=== PATIENT | male | born 1955 | race Caucasian/White ===

== ENCOUNTER → 2022-11-16 | Outpatient (CLI) | payer MEDICARE, OTHER, SELFPAY ==
[2022-11-16 17:20] LABS: PSA,Total - Annual Screen 0.37 ng/mL (0.00-4.00)
== END | disposition home or self-care (01) ==
PROVIDERS: PCP Family Medicine; Visit Provider Registered Nurse
DX: Z12.5 Encounter for screening for malignant neoplasm of prostate (principal)
CPT/HCPCS: 36415; 84153; G0103

== ENCOUNTER → 2022-11-23 | Outpatient (CLI) | payer MEDICARE, OTHER, SELFPAY ==
--- NOTE | 2022-11-23 13:28 | CT_ITS ---
EXAM: CT ABDOMEN AND PELVIS WITHOUT AND WITH INTRAVENOUS CONTRAST CLINICAL INDICATION: GROSS HEMATURIA TECHNIQUE: Helically acquired images were obtained of the abdomen and pelvis without and with intravenous contrast. This CT exam was performed using one or more of the following dose reduction techniques: automated exposure control, adjustment of the mA and/or kV according to patient size, and/or use of iterative reconstruction technique. This report was created using KDS report generation technology. CONTRAST: IV 100mL Isovue-300 COMPARISON: None. FINDINGS: LOWER THORAX: There are pleural calcifications at the left lung base which may represent asbestos related pleural disease. There is minimal scarring at the left base. No cardiomegaly. No significant pericardial effusion. ABDOMEN: LIVER: The liver is decreased in attenuation compatible with fatty infiltration. GALLBLADDER AND BILE DUCTS: Unremarkable. No calcified gallstones. No gallbladder distention or wall edema. No intra- or extrahepatic biliary ductal dilation. PANCREAS: Unremarkable. No focal cystic or solid mass. SPLEEN: Unremarkable. Normal size without focal cystic or solid mass. ADRENALS: Unremarkable. No nodules. KIDNEYS AND URETERS: Unremarkable. Normal renal size and position. No hydronephrosis. STOMACH AND BOWEL: There is moderate stool in the colon which may represent constipation. No stomach or bowel distention. No focal inflammatory change. PELVIS: APPENDIX: No evidence of acute appendicitis. BLADDER: There is a soft tissue mass in the left lateral aspect of the urinary bladder that measures 1.5 x 1.1 x 1.0 cm. REPRODUCTIVE: Unremarkable as visualized. No mass. ABDOMEN and PELVIS: INTRAPERITONEAL SPACE: Unremarkable. No ascites or other fluid collection. No free air. BONES/JOINTS: Unremarkable. No suspicious lytic or blastic abnormality. SOFT TISSUES: Unremarkable. No discrete abdominal or pelvic wall hernia. VASCULATURE: Unremarkable. Abdominal aorta is non-dilated. LYMPH NODES: Unremarkable. No enlarged lymph nodes. OTHER FINDINGS: Delayed images show normal excretion of contrast bilaterally. CT/CT Abd/Pelvis W/WO Contrast IMPRESSION: 1. Soft tissue mass in the left aspect of the bladder possibly representing malignancy. Further evaluation with cystoscopy is recommended. 2. Moderate stool in the colon which may represent constipation. Electronically Signed: Fred Chandler MD at 23:32 EST ,
[2022-11-23 14:11] LABS: CREATININE FINGERSTICK < 0.9 mg/dL (0.70-1.30); EGFR FINGERSTICK > 60.0000 mL/min (>60)
== END | disposition home or self-care (01) ==
LOC: CT 13:23
PROVIDERS: PCP Family Medicine; Referring Provider Urology; Visit Provider Urology
DX: R31.0 Gross hematuria (principal)
CPT/HCPCS: 74178; Q9967

== ENCOUNTER → 2024-06-30 | Outpatient (CLI) | payer MEDICARE, OTHER, SELFPAY ==
--- NOTE | 2024-06-27 15:00 | BLA_PTH ---
PATIENT: KAELYN ROSALES LOC: [facility] U#:[id number] AGE/SX: 69/M ROOM: RE06/30/[address]: Dr. Humberto Palm MD : 1955 BED: DIS: 06/30/2024 SPEC #: [id number] RECD: 06/30/24 14:52 STATUS: TIFFANY REChemo #: [id number] MAYCOL: 06/27/24 15:[address]: Humberto Palm DEPT: SURGICAL PATHOLOGY RECD BY: Alyssa Sanchez ENTERED: 07/01/24 09:26 SP TYPE: BLADDER BX OTHR DR: Dr. Rodney Ley MD [facility] Tissues: Urinary bladder, NOS Procedures: Surgery Specimen Level IV HEADER OPERATION: Bladder biopsy with fulguration PRE-OP DIAGNOSIS: Malignant neoplasm of lateral wall of bladder, neoplasm of uncertain behavior of bladder TISSUE SUBMITTED: Bladder tumor MICROSCOPIC DIAGNOSIS Bladder tumor, biopsy: A minute fragment of hyperplastic urothelium, insufficient for further evaluation. See comment. 07/02/2024 COMMENT Clinical correlation and appropriate follow up are necessary. Case has been reviewed in consultation with Dr. Navarrete who concurs with the above diagnosis. IDC:AM MICROSCOPIC DESCRIPTION Slides are reviewed. GROSS DESCRIPTION Received in fixative is one container labeled with the patient's name and designated Bladder tumor. No obvious specimen is noted in the container. A minute black fragment is noted. The specimen is submitted for cell block preparation. 07/01/2024 TC: Cannot code CPT:63155
== END | disposition home or self-care (01) ==
LOC: LABSPEC 15:12
PROVIDERS: PCP Family Medicine; Referring Provider Urology; Visit Provider Urology
DX: D41.4 Neoplasm of uncertain behavior of bladder (principal)
CPT/HCPCS: 88305

== ENCOUNTER → 2025-02-26 | Outpatient (CLI) | payer MEDICARE, OTHER, SELFPAY ==
--- NOTE | 2025-02-26 09:12 | FLU_PTH ---
PATIENT: KAELYN ROSALES LOC: [facility] [address] U#:[id number] AGE/SX: 69/M ROOM: RE02/26/[address]: Dr. Humberto Palm MD : 1955 BED: DIS: 02/26/2025 SPEC #: [id number] RECD: 02/26/25 13:00 STATUS: TIFFANY REQ #: [id number] MAYCOL: 02/26/25 09:[address]: Humberto Palm DEPT: CYTOLOGY RECD BY: Avelino Cooney ENTERED: 02/27/25 08:59 SP TYPE: Fluid OTHR DR: Dr. Rodney Ley MD Tissues: Urine Procedures: Special Stain Group II Surgery Specimen Level IV Cytospin Fluid HEADER OPERATION: Not noted PRE-OP DIAGNOSIS: Malignant neoplasm of lateral wall of bladder TISSUE SUBMITTED: A- Urine for cytology *voided* DIAGNOSIS CYTOLOGY A. Urine (cytospin): * Atypical cells present. CYTOLOGY STUDY Slides are reviewed. CYTOLOGY GROSS A. Received is 20 ml of yellow-cloudy fluid labeled with the patient's name and and designated per the requisition as urine. Submitted for cytology preparation. 02/26/2025 CPT: 83045
[2025-02-26 16:22] LABS: Cytology, Body Fluid / CSF SEE PATHOLOGY REPORT
== END | disposition home or self-care (01) ==
LOC: LABSPEC 16:00
PROVIDERS: PCP Family Medicine; Referring Provider Urology; Visit Provider Urology
DX: C67.2 Malignant neoplasm of lateral wall of bladder (principal)
CPT/HCPCS: 88108; 88305; 88313

== ENCOUNTER → 2025-08-27 | Outpatient (CLI) | payer MEDICARE, OTHER, SELFPAY | END | disposition home or self-care (01) | LOC: PSN 08:40 | PROVIDERS: PCP Family Medicine; Referring Provider Urology; Visit Provider Urology | DX: Z01.810 Encounter for preprocedural cardiovascular examination (principal) | CPT/HCPCS: 93005 ==

== ENCOUNTER 2025-09-04 09:14 | Day surgery (SDC) | payer MEDICARE, OTHER, SELFPAY ==
--- NOTE | 2025-09-01 07:20 | PAT.ANE_ITS ---
Pre-Assessment Diagnosis/Proposed Procedure Planned Operative Procedure(s): TRANSURETHRAL RESECTION OF BLADDER TUMOR Anesthesia History Anesthesia History - lactation specialist: Anesthesia History - lactation specialist Hx Hospitalization No 08/31/25 13:07 Any Problems With Anesthesia No 08/31/25 13:07 Cholinesterase deficiency No 08/31/25 13:07 You/Your Family Experience No 08/31/25 13:07 fever (hyperthermia) with Relationship Recent Exposure to Contagious Disease Does patient have nerve No 08/31/25 13:07 stimulator Patient instructed to have device shut off --Does patient have Pacemaker or ICD? When Was Last Pacemaker Check QUESTION #4 FULL TEXT: You/Your Family Experience fever (hyperthermia) with Anesthesia Last Oral Intake Last Oral intake: Last Oral Intake NPO since Meds taken in AM with sips of water? Meds patient instructed to take am of surgery PONV PONV - lactation specialist: PONV - lactation specialist Female No 08/31/25 13:07 HX of Motion Sickness No 08/31/25 13:07 HX of N/V After Surgery No 08/31/25 13:07 Non-Smoker Yes 08/31/25 13:07 Duration of Surgery greater Yes 08/31/25 13:07 than 60 minutes Number of Risk Factors 2 08/31/25 13:07 PONV Score Moderate Risk 08/31/25 13:07 Respiratory Assessment Respiratory Assessment - lactation specialist: Respiratory Tract Infection Hx - lactation specialist Hx Respiratory Tract Infection No 08/31/25 13:07 STOP Sleep Apnea STOP Sleep Apnea - lactation specialist: STOP Sleep Apnea - lactation specialist Hx Hypertension No 08/31/25 13:07 Hx Sleep Apnea No 08/31/25 13:07 CPAP BIPAP Do you snore loudly (louder No 08/31/25 13:07 than talking or can be heard Do you often feel tired/ No 08/31/25 13:07 fatigued/ sleepy during daytime? Has anyone observed you stop No 08/31/25 13:07 breathing during sleep? STOP Results Negative 08/31/25 13:07 QUESTION #5 FULL TEXT : Do you snore loudly (louder than talking or can be heard through closed doors)? 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 Specify any problems Hx of Preganancy in last 3 N/A 08/31/25 13:07 Months Nurse Filling Out Transfusion JZOLLINGE 08/31/25 13:07 & Questions: Date: 08/31/25 08/31/25 13:07 Time: 13:08 08/31/25 13:07 Patient unable to answer at this time (ie. confused, unrespo /Reproduction History /Reproductive History - lactation specialist: /Reproductive Hx- lactation specialist Hx Now Gestational Age (in weeks): EDC: Hx Hx Para Hx Section SAB Does the father of the baby or his family experience fever w Father of the baby Malignant Hypertension history comment PFSH Medical History Loss of hearing Wears glasses Anxiety Insulin dependent diabetes mellitus Arthritis Bladder disease High cholesterol Dietary restriction Heartburn Former smoker Home Medications ?Medication ?Instructions ?Recorded ?Last Taken ?Type ascorbic acid (vitamin C) 500 mg 500 mg PO DAILY 08/31 Unknown History tablet (C-500) aspirin 81 mg capsule 81 mg PO DAILY 08/31/25 Unkn own History atorvastatin 80 mg tablet 80 mg PO DAILY 08/31/25 Unkn own History betahistine 16 mg PO .qd 08/31/25 Unknow n History citalopram 20 mg tablet (Celexa) 20 mg PO DAILY Unknown History dapagliflozin propanediol 10 mg 10 mg PO DAILY 5 Unknown History tablet (Farxiga) fenofibrate micronized 200 mg 200 mg PO DAILY 08/31/25 Unknown History capsule ibuprofen 800 mg tablet 800 mg PO TID PRN PRN fever or pain 08/31/25 Unknown History insulin glargine 100 25 unit subcut DAILY 5 Unknown History unit-lixisenatide 33 mcg/mL subcutaneous pen (Soliqua /33) melatonin 5 mg capsule 5 mg PO .QD 08/31/25 Unknown History multivitamin 1 tab PO DAILY 08/31/25 Unkn own History pioglitazone 15 mg tablet 15 mg PO DAILY 08/31/25 Unkn own History zinc 50 mg tablet 50 mg PO DAILY 08/31/25 Unkn own History Allergy/AdvReac Type Severity Reaction Status Date / Time No Known Allergies Allergy Verified 08/31/25 12:29 Surgical History (Updated 08/31/25 @ 13:06 by Faby Boston) Hx of shoulder surgery Hx of colonoscopy with polypectomy Social History Smoking Status: Former smoker Audit: Pertinent Findings Pertinent Findings EKG Perinent findings: 08/27/25: NSR, LVH, nonspecific T wav abn Recommendation Anesthesia Recommendation Anesthesia recommendation: OPTIMIZED for anesthesia
[2025-09-04] VITALS (10 sets, daily range): BP systolic 112–149; BP diastolic 47–112; PULSE 64–75; RESP 14–20; TEMP 36.4–36.9; O2SAT 98–99; BMI 26.3
--- OUTSIDE RECORDS SUMMARY | 2025-09-04 09:30 | XMS RPT_ITS | CCD ---
Author Organization [facility] Team Providers Care Smog Technician Name Role Phone Shazia Jovani Unavailable Unavailable Shazia Jovani Unavailable Unavailable Rodney Chi Unavailable Yocasta CHI MD, DR RODNEY Balderas Primary Care Physician ERASMO ALTMAN, DR HUMBERTO HAMILTON Attending Karon CHI MD, DR RODNEY Balderas Primary Care Karon ZIMMERMAN MD, DR HUMBERTO HAMILTON Attending Karon CHI MD, DR RODNEY Balderas Primary Care Rodney Mireles MD Primary Care Provider FAISAL CASTORENA Referring Unavailable RODNEY CHI Primary Care Unavailable HUMBERTO ZIMMERMAN Referring Unavailable RODNEY CHI Primary Care Unavailable RODNEY CHI Primary Care Unavailable HUMBERTO ZIMMERMAN Referring Unavailable Av ALTMAN, Dr. Stevens Primary Care Provider Erasmo ALTMAN, Dr. Humberto Hamilton Attending Provider Erasmo ALTMAN, Dr. Humberto Hamilton Referring Provider Rodney Chi Primary Care Unavailable Humberto Zimmerman Referring Unavailable Humberto Zimmerman Attending Unavailable RODNEY CHI Primary Care Unavailable FAISAL CASTORENA Attending Unavailable RODNEY CHI Referring Unavailable FAISAL CASTORENA Attending Unavailable RODNEY CHI Primary Care Unavailable RODNEY CHI Referring Unavailable [facility] Attending Unavailable RODNEY CHI Primary Care Unavailable RODNEY CHI Primary Care Unavailable FAISAL CASTORENA Attending Unavailable RODNEY CHI Referring Unavailable RODNEY CHI Primary Care Unavailable FAISAL CASTORENA Referring Unavailable JENNI HAIRSTON Attending Unavailable Medications Current Medications Medication Drug Class(es) Dates Sig (Normalized) Sig (Original) Aspirin (9 sources) Platelet Aggregation Inhibitor, Nonsteroidal Anti-inflammatory Drug ASPIRIN LOW DOSE ORAL Take by mouth once daily. Active ASPIRIN LOW DOSE ORAL Take by mouth once daily. 0 Active atorvastatin 80 mg oral tablet (10 sources) HMG-CoA Reductase Inhibitor Start: 08-21-2016 atorvastatin (LIPITOR) 80 mg tablet 08/21/2016 Active betahistine 16 mg oral tablet (12 sources) Start: 02-12-2025 End: 02-07-2026 take 1 capsule by mouth three times daily in the morning betahistine capsule 16 mg (CPD) Take 1 capsule by mouth three times a day. 270 capsule 3 03/03/2025 9:06 AM EDT 02/12/2025 02/07/2026 Active Start: 10-14-2024 End: 02-12-2025 take 2 capsules by mouth three times daily betahistine capsule 8 mg (CPD) Indications: Meniere's disease of left ear Take 2 capsules by mouth three times a day. 360 capsule 5 01/05/2025 11:18 AM EDT 10/14/2024 02/12/2025 Discontinued (Course of therapy completed) Start: 01-31-2024 End: 02-12-2025 take 1 capsule by mouth three times daily in the evening betahistine capsule 8 mg (CPD) Indications: Meniere's disease of left ear Take 1 capsule by mouth three times a day. 180 capsule 5 10/07/2024 3:31 PM EST 01/31/2024 02/12/2025 Discontinued (Course of therapy completed) ciprofloxacin 250 mg oral tablet (1 source) Quinolone Antimicrobial Start: 12-15-2022 End: 12-22-2022 Cipro 250 mg oral tablet Dose : 250 mg = 1 tab(s), Oral, q12h, X 7 day(s), # 14 tab(s), 0 Refill(s), 12/22/22 13:47:00 EDT, Pharmacy: [id number], 167.6, cm, 12/15/22 12:06:00 EST, Height, 72.7 Start Date: 12/15/22 Stop Date: 12/22/22 Status: Ordered citalopram 20 mg oral tablet (7 sources) Serotonin Reuptake Inhibitor Start: 12-12-2022 take 1 tablet by mouth once daily citalopram (CELEXA) 20 mg tablet Take 20 mg by mouth once daily. 12/12/2022 Active dapagliflozin 10 mg oral tablet (10 sources) Sodium-Glucose Cotransporter 2 Inhibitor Start: 08-15-2018 take 1 tablet by mouth once daily FARXIGA 10 mg tab Take 10 mg by mouth once daily. 6 08/15/2018 Active 0.85 ml exenatide 2.35 mg/ml auto-injector (9 sources) GLP-1 Receptor Agonist Start: 08-15-2018 BYDUREON BCISE 2 mg/0.85 mL AutoInjector Inject 1 Pen subcutaneously once each week. 6 08/15/2018 Active fenofibrate 200 mg oral capsule (10 sources) Peroxisome Proliferator Receptor alpha Agonist Start: 08-21-2016 take 1 capsule by mouth once daily fenofibrate (LOFIBRA) 200 mg capsule Take 200 mg by mouth once daily. 08/21/2016 Active ibuprofen 600 mg oral tablet (1 source) Nonsteroidal Anti-inflammatory Drug Start: 12-15-2022 End: 12-20-2022 ibuprofen 600 mg oral tablet Dose : 600 mg = 1 tab(s), Oral, q6h, PRN for pain, Take with food or milk., # 20 tab(s), 0 Refill(s), 12/20/22 13:47:00 EDT, Pharmacy: [id number], 167.6, cm, 12/15/22 12:06:00 EST, Height Start Date: 12/15/22 Stop Date: 12/20/22 Status: Ordered iv contrast (will be provided with radiology test) (1 source) Start: 02-12-2025 End: 02-13-2025 inject 1 dose intravenously once iv contrast (will be provided with radiology test) Indications: Asymmetrical sensorineural hearing loss , Sensorineural hearing loss (SNHL) of both ears MRI Brain Inject, intravenously, once for 1 dose.No IV access, insert saline lock prior to beginning of sedation, infusion, injection of imaging exam.Discontinue saline lock post exam. If Pt. has a central line or IVAD, may access for administration according to line specific nursing protocol.Once exam is complete flush line and de-access according to line specific nursing protocol in the MR contrast administration guidelines link 1 each 02/12/2025 02/13/2025 Active methocarbamol 500 mg oral tablet (9 sources) Muscle Relaxant Start: 08-22-2016 methocarbamol (ROBAXIN) 500 mg tablet 08/22/2016 Active Multivitamin preparation (1 source) Start: 12-12-2022 take 1 tablet by mouth once daily Multivitamin Dose = 1 tab(s), Oral, Daily, 0 Refill(s) Start Date: 12/12/22 Status: Ordered omeprazole 20 mg delayed release oral capsule (9 sources) Proton Pump Inhibitor Start: 08-15-2018 take 1 capsule by mouth once daily omeprazole (PRILOSEC) 20 mg capsule Take 20 mg by mouth once daily. 3 08/15/2018 Active ondansetron 8 mg disintegrating oral tablet (15 sources) Serotonin-3 Receptor Antagonist Start: 10-14-2024 take 1 tablet by mouth every eight hours as needed for nausea ondansetron orally disintegrating (ZOFRAN ODT) 8 mg disintegrating tablet Indications: Meniere's disease of left ear Take 1 tablet by mouth every 8 hours as needed for nausea/vomiting. 20 tablet 2 10/14/2024 Active Start: 11-18-2018 take 1 tablet by jared th every week ondansetron (ZOFRAN) 4 mg tablet Take 1 tablet by mouth once each week. 11/18/2018 Active Vitamin C 500 mg oral tablet (1 source) Start: 12-12-2022 Vitamin C 500 mg oral tablet Dose : 500 mg = 1 tab(s), Oral, qDay, # 30 tab(s), 0 Refill(s) Start Date: 12/12/22 Status: Ordered Completed/Discontinued Medications Medication Drug Class(es) Dates Sig (Normalized) Sig (Original) 0.5 ml dulaglutide 3 mg/ml auto-injector (7 sources) GLP-1 Receptor Agonist Start: 12-12-2022 Trulicity Pen 1.5 mg/0.5 mL subcutaneous solution Dose : 1.5 mg = 0.5 mL, Subcutaneous, qWeek, 0 Refill(s), 0.5 mL/Pen Start Date: 12/12/22 Status: Ordered Problems Active Problems Problem Classification Problem Date Documented Date Episodic/Chronic Cancer of bladder (1 source) Malignant neoplasm of lateral wall of bladder; Translations: [Malignant neoplasm of lateral wall of bladder] Onset: 03-04-2025 Chronic Cataract (9 sources) Bilateral senile combined form cataracts of eyes; Translations: [Combined forms of age-related cataract, bilateral] Onset: 08-17-2017 08-17-2017 Chronic Conditions associated with dizziness or vertigo (6 sources) Meniere's disease of left inner ear; Translations: [Meniere's disease, left ear] Onset: 08-14-2025 01-31-2024 Chronic Diabetes mellitus without complication (9 sources) Diabetes mellitus type 2 without retinopathy; Translations: [Type 2 diabetes mellitus without complications] Onset: 08-30-2016 08-17-2017 Chronic Other ear and sense organ disorders (1 source) Hearing loss; Translations: [Other specified hearing loss, unspecified ear] 01-31-2024 Chronic Other ear and sense organ disorders (5 sources) Sensorineural hearing loss, bilateral; Translations: [Sensorineural hearing loss, bilateral] 01-31-2024 Chronic Other ear and sense organ disorders (5 sources) Asymmetrical sensorineural hearing loss; Translations: [Sensorineural hearing loss, bilateral] 02-12-2025 Chronic Other ear and sense organ disorders (4 sources) Sensorineural hearing loss, bilateral; Translations: [Asymmetrical sensorineural hearing loss] Onset: 02-12-2025 Chronic Other ear and sense organ disorders (4 sources) Impacted cerumen of bilateral ears; Translations: [Impacted cerumen, bilateral] 01-31-2024 Episodic Other ear and sense organ disorders (1 source) Bilateral tinnitus; Translations: [Tinnitus, bilateral] 01-31-2024 Episodic Other ear and sense organ disorders (1 source) Ear pressure sensation; Translations: [Other specified disorders of ear, bilateral] 01-31-2024 Episodic Other eye disorders (9 sources) Retinal scar ; Translations: [Unspecified chorioretinal scars, unspecified eye] Onset: 08-30-2016 08-30-2016 Chronic Other eye disorders (9 sources) Bilateral vitreous floaters; Translations: [Other vitreous opacities, bilateral] Onset: 08-17-2017 08-17-2017 Chronic Past or Other Problems Problem Classification Problem Date Documented Da te Episodic/Chronic Blindness and vision defects (9 sources) Presbyopia; Translations: [Presbyopia] Onset: 08-30-2016 08-17-2017 Episodic Conditions associated with dizziness or vertigo (6 sources) Dizziness and giddiness; Translations: [Dizziness and giddiness] Onset: 02-12-2025 01-31-2024 Episodic Other ear and sense organ disorders (1 source) Impacted cerumen, bilateral; Translations: [Bilateral impacted cerumen] Onset: 02-12-2025 Episodic Other eye disorders (9 sources) Scar of cornea of left eye; Translations: [Unspecified corneal scar and opacity] Onset: 08-17-2017 08-17-2017 Episodic Viral infection (18 sources) Disease caused by 2019-nCoV; Translations: [COVID-19] Onset: 09-24-2020 09-24-2020 Episodic Results Test Name Value Interpretation Reference Range Facility CNOVon 08-14-2025 CNOV Office Visit (OTOLCR ) KAELYN GR ([id number]) 1955 M Date Time Provider Department 08/14/25 8:25 AM FAISAL CASTORENA OTROSS During your visit today, we recorded the following information about you: Faisal Castorena PA-C 08/14/2025 9:01 AM Signed SECTION OF OTOLOGY Department of Otolaryngology - Head and Neck Surgery [facility] [place], [facility] History of Present Illness KAELYN Benito CONNIE is a 70 year old male Chief Complaint: Follow-up for meniere's disease, cerumen removal Betahistine increased to 16 mg TID 10/14/24, patient has not had an attack of vertigo since that time. Last seen 02/12/25 Since last seen, No attacks of vertigo Interested in OTC hearing aid Denies otalgia, otorrhea, dizziness. Denies noting any side effects from the betahistine. ALLERGIES No Known Allergies Current Outpatient Medications on File Prior to Visit Medication Sig betahistine capsule 16 mg (CPD) Take 1 capsule by mouth three times a day. citalopram (CELEXA) 20 mg tablet Take 20 mg by mouth once daily. TRULICITY 1.5 mg/0.5 mL pen injector Inject 1.5 mg subcutaneously one time a week. ondansetron orally disintegrating (ZOFRAN ODT) 8 mg disintegrating tablet Take 1 tablet by mouth every 8 hours as needed for nausea/vomiting. ASPIRIN LOW DOSE ORAL Take by mouth once daily. ondansetron (ZOFRAN) 4 mg tablet Take 1 tablet by mouth once each week. FARXIGA 10 mg tab Take 10 mg by mouth once daily. BYDUREON BCISE 2 mg/0.85 mL AutoInjector Inject 1 Pen subcutaneously once each week. omeprazole (PRILOSEC) 20 mg capsule Take 20 mg by mouth once daily. atorvastatin (LIPITOR) 80 mg tablet fenofibrate (LOFIBRA) 200 mg capsule Take 200 mg by mouth once daily. methocarbamol (ROBAXIN) 500 mg tablet No current facility-administered medications on file prior to visit. Objective: There were no vitals taken for this visit. Appearance: Non-syndromic, cooperative and calm Communication: Voice has adequate volume; there is no stridor Head/Face: head and facial contours are symmetric Facial nerve 1/6 bilateral Skin: no skin lesions or scarring on face Ears: AD Partially occluding cerumen impaction, once removed: EAC clear. TM intact without perforation or retraction. Middle ear aerated. Partially occluding cerumen impaction, once removed: EAC clear. TM intact without perforation or retraction. Middle ear aerated. Nose: external exam with straight profile Oral Cavity: Normal dentition Oropharynx: Uvula hangs midline; mucosa is pink and moist; tonsils present Neck: no LAD; thyroid without masses or enlargement Lymphatic: No lymphadenopathy or masses Neuro/Psych.: Alert and Oriented x 3 Cranial nerves intact Assessment: H81.02 Meniere's disease of left ear (primary encounter diagnosis) H90.3 Asymmetrical sensorineural hearing loss H61.23 Bilateral impacted cerumen Plan: 1. Continue betahistine 16 mg TID 2. Follow-up in 1 year with an audiogram, will consider stopping betahistine at that time if symptoms continue to be stable Faisal Castorena PA-C Otology Procedures: Preop diagnosis: Cerumen impaction. It cannot be removed without magnification and multiple instrumentations requiring physician skills. Postoperative diagnosis: same CERUMEN REMOVAL: Cerumen was removed under otomicroscopy from the Bilateral ear with loop curette instrumentation. Medical Decision Making: Problems: Low: Stable chronic illness Risk: Minimal: Minimal risk from testing/treatment Medical Decision Making Level: 2 - Straightforward Referring Provider: RODNEY CHI [[id number]] Allergies As of Date: 08/14/2025 (No Known Allergies) Date Reviewed: 08/14/2025 Reviewed by: Idalia Clemons MA - Fully Assessed Reason for Visit: Earwax [1178] Cmt: EST... wax impaction bilateral ears. Denies otalgia, otorrhea. Primary Visit Diagnosis:Meniere's disease of left ear [H81.02] Other Visit Diagnoses:Asymmetrical sensorineural hearing loss [H90.3] Bilateral impacted cerumen [H61.23] Order(s):HEARING TEST/AUDIOGRAM [[id number]] Order #: [id number]: 1 FUTURE Prescriptions as of 08/14/2025 - betahistine capsule 16 mg (CPD) Take 1 capsule by mouth three times a day. - citalopram (CELEXA) 20 mg tablet Take 20 mg by mouth once daily. - TRULICITY 1.5 mg/0.5 mL pen injector Inject 1.5 mg subcutaneously one time a week. - ondansetron orally disintegrating (ZOFRAN ODT) 8 mg disintegrating tablet Take 1 tablet by mouth every 8 hours as needed for nausea/vomiting. - ASPIRIN LOW DOSE ORAL Take by mouth once daily. - ondansetron (ZOFRAN) 4 mg tablet Take 1 tablet by mouth once each week. - FARXIGA 10 mg tab Take 10 mg by mouth once daily. - BYDUREON BCISE 2 mg/0.85 mL AutoInjector Inject 1 Pen subcutaneously once each week. - omeprazole (PRILOSEC) 20 mg capsule Take (more content not included)... Normal [facility] ALBUMIN, RANDOM URINE W/CREOmari Tabares 08-12-2025 ALBUMIN, URINE 0.4 mg/dL Normal See Note: [facility] Comment on above: Result Comment: Refe renmayco Range: Reference Range Not established Performed By: #### 6 399, 6517, 7600, 45410, 5363, 496, 1005 #### [facility] [address] [place] [address] Intramural Director: Chris Sánchez MD ALBUMIN/CREATININE RATIO, RANDOM URINE 6 mg/g creat Normal <30 [facility] Comment on above: Result Comment: The ADA defines abnormalities in albumin excretion as follows: Albuminuria Category Result (mg/g creatinine) Normal to Mildly increased <30 Moderately increased 30-299 Severely increased > OR = 300 The ADA recommends that at least two of three specimens collected within a 3-6 month period be abnormal before considering a patient to be within a diagnostic category. Performed By: #### 6 399, 6517, 7600, 04939, 5363, 496, 1005 #### [facility] [place] [address] Intramural Director: Chris Sánchez MD Creatinine (U) [Mass/Vol] 65 mg/dL Normal 20-320 [facility] Comment on above: Performed By: #### 6 399, 6517, 7600, 17420, 5363, 496, 1005 #### [facility] [place] [address] Intramural Director: Chris Sánchez MD CBC (INCLUDES DIFF/PLT)on Basophils (Bld) [#/Vol] 0.068 10*3/uL Normal 0-200 [facility] Comment on above: Performed By: #### 6 399, 6517, 7600, 82471, 5363, 496, 1005 #### [facility] [place] [address] Intramural Director: Chris Sánchez MD Basophils/100 WBC (Bld) 1.1 % Normal [facility] Comment on above: Performed By: #### 6 399, 6517, 7600, 21461, 5363, 496, 1005 #### [facility] [place] [address] Intramural Director: Chris Sánchez MD Eosinophils (Bld) [#/Vol] 0.242 10*3/uL Normal 15-500 [facility] Comment on above: Performed By: #### 6 399, 6517, 7600, 22336, 5363, 496, 1005 #### [facility] of [place] [address] Intramural Director: Chris Sánchez MD Eosinophils/100 WBC (Bld) 3.9 % Normal [facility] Comment on above: Performed By: #### 6 399, 6517, 7600, 21405, 5363, 496, 1005 #### [facility] [place] [address] Intramural Director: Chris Sánchez MD Erythrocyte distribution width (RBC) [Ratio] 13.0 % Normal 11.0-15.0 [facility] Comment on above: Performed By: #### 6 399, 6517, 7600, 43169, 5363, 496, 1005 #### [facility] of [place] [address] Intramural Director: Chris Sánchez MD Hematocrit (Bld) [Volume fraction] 48.8 % Normal 38.5-50.0 [facility] Comment on above: Performed By: #### 6 399, 6517, 7600, 38198, 5363, 496, 1005 #### [facility] [place] [address] Intramural Director: Chris Sánchez MD Hemoglobin (Bld) [Mass/Vol] 17.1 g/dL Normal 13.2-17.1 [facility] Comment on above: Performed By: #### 6 399, 6517, 7600, 95851, 5363, 496, 1005 #### [facility] of [place] [address] Intramural Director: Chris Sánchez MD Lymphocytes (Bld) [#/Vol] 1.562 10*3/uL Normal 850-3900 [facility] Comment on above: Performed By: #### 6 399, 6517, 7600, 77291, 5363, 496, 1005 #### [facility] of [place] [address] Intramural Director: Chris Sánchez MD Lymphocytes/100 WBC (Bld) 25.2 % Normal [facility] Comment on above: Performed By: #### 6 399, 6517, 7600, 47235, 5363, 496, 1005 #### [facility] [place] [address] Intramural Director: Chris Sánchez MD MCH (RBC) [Entitic mass] 32.4 pg Normal 27.0-33.0 [facility] Comment on above: Performed By: #### 6 399, 6517, 7600, 86858, 5363, 496, 1005 #### [facility] [place] [address] Intramural Director: Chris Sánchez MD MCHC (RBC) [Mass/Vol] 35.0 g/dL Normal 32.0-36.[address] [facility] Comment on above: Result Comment: For adults, a slight decrease in the calculated MCHC value (in the range of 30 to 32 g/dL) is most likely not clinically significant; however, it should be interpreted with caution in correlation with other red cell parameters and the patient's clinical condition. Performed By: #### 6 399, 6517, 7600, 90897, 5363, 496, 1005 #### [facility] [place] [address] Intramural Director: Chris Sánchez MD MCV (RBC) [Entitic vol] 92.6 fL Normal 80.0-100.0 [facility] Comment on above: Performed By: #### 6 399, 6517, 7600, 55952, 5363, 496, 1005 #### [facility] [place] [address] Intramural Director: Chris Sánchez MD Monocytes (Bld) [#/Vol] 0.57 10*3/uL Normal 200-950 [facility] Comment on above: Performed By: #### 6 399, 6517, 7600, 58458, 5363, 496, 1005 #### [facility] [place] [address] Intramural Director: Chris Sánchez MD Monocytes/100 WBC (Bld) 9.2 % Normal [facility] Comment on above: Performed By: #### 6 399, 6517, 7600, 30933, 5363, 496, 1005 #### [facility] [place] [address] Intramural Director: Chris Sánchez MD Neutrophils (Bld) [#/Vol] 3.757 10*3/uL Normal 9006-9290 [facility] Comment on above: Performed By: #### 6 399, 6517, 7600, 87143, 5363, 496, 1005 #### [facility] [place] [address] Intramural Director: Chris Sánchez MD Neutrophils/100 WBC (Bld) 60.6 % Normal [facility] Comment on above: Performed By: #### 6 399, 6517, 7600, 47819, 5363, 496, 1005 #### [facility] [place] [address] Intramural Director: Chris Sánchez MD Platelet mean volume (Bld) [Entitic vol] 11.2 fL Normal 7.5-12.5 [facility] Comment on above: Performed By: #### 6 399, 6517, 7600, 08549, 5363, 496, 1005 #### [facility] [place] [address] Intramural Director: Chris Sánchez MD Platelets (Bld) [#/Vol] 232 10*3/uL Normal 140-400 [facility] Comment on above: Performed By: #### 6 399, 6517, 7600, 26877, 5363, 496, 1005 #### [facility] of [place] [address] Intramural Director: Chris Sánchez MD RBC (Bld) [#/Vol] 5.27 10*6/uL Normal 4.20-5.80 [facility] Comment on above: Performed By: #### 6 399, 6517, 7600, 70512, 5363, 496, 1005 #### [facility] of [place] [address] Intramural Director: Chris Sánchez MD WBC (Bld) [#/Vol] 6.2 10*3/uL Normal 3.8-10.8 [facility] Comment on above: Performed By: #### 6 399, 6517, 7600, 80799, 5363, 496, 1005 #### [facility] [place] [address] Intramural Director: Chris Sánchez MD [facility] METABOLIC [facility] 08-12-2025 Albumin [Mass/Vol] 4.6 g/dL Normal 3.6-5.1 [facility] Comment on above: Performed By: #### 6 399, 6517, 7600, 09819, 5363, 496, 1005 #### [facility] of [place] [address] Intramural Director: Chris Sánchez MD Albumin/Globulin [Mass ratio] 2.0 {ratio} Normal 1.0-2.5 [facility] Comment on above: Performed By: #### 6 399, 6517, 7600, 63234, 5363, 496, 1005 #### [facility] [place] [address] Intramural Director: Chris Sánchez MD ALP [Catalytic activity/Vol] 78 U/L Normal 35-144 [facility] Comment on above: Performed By: #### 6 399, 6517, 7600, 98967, 5363, 496, 1005 #### [facility] [place] [address] Intramural Director: Chris Sánchez MD ALT [Catalytic activity/Vol] 22 U/L Normal 9-46 [facility] Comment on above: Performed By: #### 6 399, 6517, 7600, 96598, 5363, 496, 1005 #### [facility] [address], [address] [place] [address] Intramural Director: Chris Sánchez MD AST [Catalytic activity/Vol] 21 U/L Normal 10-35 [facility] Comment on above: Performed By: #### 6 399, 6517, 7600, 41235, 5363, 496, 1005 #### [facility] [address], [address] [place] [address] Intramural Director: Chris Sánchez MD Bilirubin [Mass/Vol] 0.7 mg/dL Normal 0.2-1.2 [facility] Comment on above: Performed By: #### 6 399, 6517, 7600, 91590, 5363, 496, 1005 #### [facility] [address], [address] [place] [address] Intramural Director: Chris Sánchez MD BUN/CREATININE RATIO SEE NOTE: Normal 6-22 [facility] Comment on above: Result Comment: Not Reported: BUN and Creatinine are within reference range. Performed By: #### 6 399, 6517, 7600, 81668, 5363, 496, 1005 #### [facility] [place] [address] Intramural Director: Chris Sánchez MD Calcium [Mass/Vol] 9.3 mg/dL Normal 8.6-10.3 [facility] Comment on above: Performed By: #### 6 399, 6517, 7600, 81791, 5363, 496, 1005 #### [facility] of [address], [address] [place] [address] Intramural Director: Chris Sánchez MD Chloride [Moles/Vol] 100 mmol/L Normal 98-110 [facility] Comment on above: Performed By: #### 6 399, 6517, 7600, 47023, 5363, 496, 1005 #### [facility] [address], [address] [place] [address] Intramural Director: Chris Sánchez MD CO2 [Moles/Vol] 31 mmol/L Normal 20-32 [facility] Comment on above: Performed By: #### 6 399, 6517, 7600, 56122, 5363, 496, 1005 #### [facility] [place] [address] Intramural Director: Chris Sánchez MD Creatinine [Mass/Vol] 1.02 mg/dL Normal 0.70-1.28 [facility] Comment on above: Performed By: #### 6 399, 6517, 7600, 57741, 5363, 496, 1005 #### [facility] [place] [address] Intramural Director: Chris Sánchez MD GFR/1.73 sq M.predicted among non-blacks MDRD (S/P/Bld) [Vol rate/Area] 78 mL/min/{1.73_m2} Normal > OR = 60 [facility] Comment on above: Performed By: #### 6 399, 6517, 7600, 28114, 5363, 496, 1005 #### [facility] [place] [address] Intramural Director: Chris Sánchez MD Globulin (S) [Mass/Vol] 2.3 g/dL Normal 1.9-3.7 [facility] Comment on above: Performed By: #### 6 399, 6517, 7600, 37358, 5363, 496, 1005 #### [facility] [place] [address] Intramural Director: Chris Sánchez MD Glucose [Mass/Vol] 117 mg/dL High 65-99 [facility] Comment on above: Result Comment: Fasting reference interval For someone without known diabetes, a glucose value between 100 and 125 mg/dL is consistent with prediabetes and should be confirmed with a follow-up test. Performed By: #### 6 399, 6517, 7600, 50045, 5363, 496, 1005 #### [facility] [place] [address] Intramural Director: Chris Sánchez MD Potassium [Moles/Vol] 4.2 mmol/L Normal 3.5-5.3 [facility] Comment on above: Performed By: #### 6 399, 6517, 7600, 26392, 5363, 496, 1005 #### [facility] [address], [address] [place] [address] Intramural Director: Chris Sánchez MD Protein [Mass/Vol] 6.9 g/dL Normal 6.1-8.1 [facility] Comment on above: Performed By: #### 6 399, 6517, 7600, 93802, 5363, 496, 1005 #### [facility] [place] [address] Intramural Director: Chris Sánchez MD Sodium [Moles/Vol] 139 mmol/L Normal 135-146 [facility] Comment on above: Performed By: #### 6 399, 6517, 7600, 44487, 5363, 496, 1005 #### [facility] [place] [address] Intramural Director: Chris Sánchez MD Urea nitrogen [Mass/Vol] 23 mg/dL Normal 7-25 [facility] Comment on above: Performed By: #### 6 399, 6517, 7600, 38715, 5363, 496, 1005 #### [facility] [place] [address] Intramural Director: Chris Sánchez MD HEMOGLOBIN A1con 08-12-2025 HbA1c (Bld) [Mass fraction] 9.3 % High <5.7 [facility] Comment on above: Result Comment: For someone without known diabetes, a hemoglobin A1c value of 6.5% or greater indicates that they may have diabetes and this should be confirmed with a follow-up test. For someone with known diabetes, a value <7% indicates that their diabetes is well controlled and a value greater than or equal to 7% indicates suboptimal control. A1c targets should be individualized based on duration of diabetes, age, comorbid conditions, and other considerations. Currently, no consensus exists regarding use of hemoglobin A1c for diagnosis of diabetes for children. Performed By: #### 6 399, 6517, 7600, 14267, 5363, 496, 1005 #### [facility] [address], [address] [place] [address] Intramural Director: Chris Sánchez MD LIPID PANEL, [facility] 11-0 Cholesterol [Mass/Vol] 179 mg/dL Normal <200 [facility] Comment on above: Order Comment: FASTI NG:YESFASTING: YES Performed By: #### 6 399, 6517, 7600, 62306, 5363, 496, 1005 #### [facility] [address], [address] [place] [address] Intramural Director: Chris Sánchez MD Cholesterol in HDL [Mass/Vol] 56 mg/dL Normal > OR = 40 [facility] Comment on above: Order Comment: FASTI NG:YESFASTING: YES Performed By: #### 6 399, 6517, 7600, 17689, 5363, 496, 1005 #### [facility] [address], [address] [place] [address] Intramural Director: Chris Sánchez MD Cholesterol in LDL [Mass/Vol] 95 mg/dL Normal [facility] Comment on above: Order Comment: FASTI NG:YESFASTING: YES Result Comment: Refe rence range: <100 Desirable range <100 mg/dL for primary prevention; <70 mg/dL for patients with CHD or diabetic patients with > or = 2 CHD risk factors. LDL-C is now calculated using the Damion calculation, which is a validated novel method providing better accuracy than the Friedewald equation in the estimation of LDL-C. Jose Martin FARFAN et al. JAYDEN. 2013;310(19): 2076-4820 (http://education.DriveFactor.Ezetap/faq/URL991) Performed By: #### 6 399, 6517, 7600, 00992, 5363, 496, 1005 #### [facility] [address], [address] [place] [address] Intramural Director: Chris Sánchez MD Cholesterol.total/Cho lesterol in HDL [Mass ratio] 3.2 {ratio} Normal <5.0 [facility] Comment on above: Order Comment: FASTI NG:YESFASTING: YES Performed By: #### 6 399, 6517, 7600, 63669, 5363, 496, 1005 #### [facility] [place] [address] Intramural Director: Chris Sánchez MD NON HDL CHOLESTEROL 123 mg/dL (calc) Normal <130 [facility] Comment on above: Order Comment: FASTI NG:YESFASTING: YES Result Comment: For patients with diabetes plus 1 major ASCVD risk factor, treating to a non-HDL-C goal of <100 mg/dL (LDL-C of <70 mg/dL) is considered a therapeutic option. Performed By: #### 6 399, 6517, 7600, 39189, 5363, 496, 1005 #### [facility] [place] [address] Intramural Director: Chris Sánchez MD Triglyceride [Mass/Vol] 183 mg/dL High <150 [facility] Comment on above: Order Comment: FASTI NG:YESFASTING: YES Performed By: #### 6 399, 6517, 7600, 80540, 5363, 496, 1005 #### [facility] [place] [address] Intramural Director: Chris Sánchez MD CBC (INCLUDES DIFF/PLT)on ABSOLUTE BAND NEUTROPHILS Normal [facility] Comment on above: Performed By: #### 6 399, 6517, 7600, 32633, 5363, 496, 1005 #### [facility] [place] [address] Intramural Director: Chris Sánchez MD ABSOLUTE BASOPHILS Normal [facility] Comment on above: Performed By: #### 6 399, 6517, 7600, 18220, 5363, 496, 1005 #### [facility] [place] [address] Intramural Director: Chris Sánchez MD ABSOLUTE BLASTS Normal [facility] Comment on above: Performed By: #### 6 399, 6517, 7600, 31114, 5363, 496, 1005 #### [facility] of [address], [address] [place] [address] Intramural Director: Chris Sánchez MD ABSOLUTE EOSINOPHILS Normal [facility] Comment on above: Performed By: #### 6 399, 6517, 7600, 92598, 5363, 496, 1005 #### [facility] [address], [address] [place] [address] Intramural Director: Chris Sánchez MD ABSOLUTE LYMPHOCYTES Normal [facility] Comment on above: Performed By: #### 6 399, 6517, 7600, 02440, 5363, 496, 1005 #### [facility] [address], [address] [place] [address] Intramural Director: Chris Sánchez MD ABSOLUTE METAMYELOCYTES Normal [facility] Comment on above: Performed By: #### 6 399, 6517, 7600, 57499, 5363, 496, 1005 #### [facility] [address], [address] [place] [address] Intramural Director: Chris Sánchez MD ABSOLUTE MONOCYTES Normal [facility] Comment on above: Performed By: #### 6 399, 6517, 7600, 65453, 5363, 496, 1005 #### [facility] [address], [address] [place] [address] Intramural Director: Chris Sánchez MD ABSOLUTE MYELOCYTES Normal [facility] Comment on above: Performed By: #### 6 399, 6517, 7600, 85817, 5363, 496, 1005 #### [facility] of [place] [address] Intramural Director: Chris Sánchez MD ABSOLUTE NEUTROPHILS Normal [facility] Comment on above: Performed By: #### 6 399, 6517, 7600, 99696, 5363, 496, 1005 #### [facility] [address], [address] [place] [address] Intramural Director: Chris Sánchez MD ABSOLUTE NUCLEATED RBC Normal [facility] Comment on above: Performed By: #### 6 399, 6517, 7600, 49920, 5363, 496, 1005 #### [facility] of [place] [address], [address] [place] [address] Intramural Director: Chris Sánchez MD ABSOLUTE PROMYELOCYTES Normal [facility] Comment on above: Performed By: #### 6 399, 6517, 7600, 10645, 5363, 496, 1005 #### [facility] [place] [address], [address] [place] [address] Intramural Director: Chris Sánchez MD BAND NEUTROPHILS Normal [facility] Comment on above: Performed By: #### 6 399, 6517, 7600, 23406, 5363, 496, 1005 #### [facility] [place] [address] [address] [place] [address] Intramural Director: Chris Sánchez MD BASOPHILS Normal [facility] Comment on above: Performed By: #### 6 399, 6517, 7600, 63404, 5363, 496, 1005 #### [facility] [place] [address] [address] [address] Intramural Director: Chris Sánchez MD BLASTS Normal [facility] Comment on above: Performed By: #### 6 399, 6517, 7600, 14734, 5363, 496, 1005 #### [facility] [place] [address], [address] [place] [address] Intramural Director: Chris Sánchez MD COMMENT(S) Normal [facility] Comment on above: Performed By: #### 6 399, 6517, 7600, 22557, 5363, 496, 1005 #### [facility] [place] [address], [address] [place] [address] Intramural Director: Chris Sánchez MD EOSINOPHILS Normal [facility] Comment on above: Performed By: #### 6 399, 6517, 7600, 66145, 5363, 496, 1005 #### [facility] [place] [address], [address] [place] [address] Intramural Director: Chris Sánchez MD HEMATOCRIT Normal [facility] Comment on above: Performed By: #### 6 399, 6517, 7600, 24182, 5363, 496, 1005 #### [facility] [place] [address], [address] [place] [address] Intramural Director: Chris Sánchez MD HEMOGLOBIN Normal [facility] Comment on above: Performed By: #### 6 399, 6517, 7600, 36389, 5363, 496, 1005 #### [facility] [place] [address], [address] [place] [address] Intramural Director: Chris Sánchez MD LYMPHOCYTES Normal [facility] Comment on above: Performed By: #### 6 399, 6517, 7600, 34561, 5363, 496, 1005 #### [facility] [place] [address], [address] [place] [address] Intramural Director: Chris Sánchez MD [facility] Normal [facility] Comment on above: Performed By: #### 6 399, 6517, 7600, 30274, 5363, 496, 1005 #### [facility] [place] [address], [address] [place] [address] Intramural Director: Chris Sánchez MD [facility] Normal [facility] Comment on above: Performed By: #### 6 399, 6517, 7600, 33418, 5363, 496, 1005 #### [facility] [place] [address], [address] [place] [address] Intramural Director: Chris Sánchez MD MCV Normal [facility] Comment on above: Performed By: #### 6 399, 6517, 7600, 20954, 5363, 496, 1005 #### [facility] [place] [address], [address] [place] [address] Intramural Director: Chris Sánchez MD METAMYELOCYTES Normal [facility] Comment on above: Performed By: #### 6 399, 6517, 7600, 93818, 5363, 496, 1005 #### [facility] [place] [address], [address] [place] [address] Intramural Director: Chris Sánchez MD MONOCYTES Normal [facility] Comment on above: Performed By: #### 6 399, 6517, 7600, 31149, 5363, 496, 1005 #### [facility] [place] [address] [address] , [address] [place] [address] Intramural Director: Chris Sánchez MD MPV Normal [facility] Comment on above: Performed By: #### 6 399, 6517, 7600, 17804, 5363, 496, 1005 #### [facility] [place] [address] [address] , [address] [place] [address] Intramural Director: Chris Sánchez MD MYELOCYTES Normal [facility] Comment on above: Performed By: #### 6 399, 6517, 7600, 71902, 5363, 496, 1005 #### [facility] [place] [address] [address] , [address] [place] [address] Intramural Director: Chris Sánchez MD NEUTROPHILS Normal [facility] Comment on above: Performed By: #### 6 399, 6517, 7600, 75911, 5363, 496, 1005 #### [facility] [place] [address] [address] , [address] [place] [address] Intramural Director: Chris Sánchez MD NUCLEATED RBC Normal [facility] Comment on above: Performed By: #### 6 399, 6517, 7600, 88958, 5363, 496, 1005 #### [facility] [place] [address], [address] [place] [address] Intramural Director: Chris Sánchez MD PLATELET COUNT Normal [facility] Comment on above: Performed By: #### 6 399, 6517, 7600, 68316, 5363, 496, 1005 #### [facility] [place] [address], [address] [place] [address] Intramural Director: Chris Sánchez MD PROMYELOCYTES Normal [facility] Comment on above: Performed By: #### 6 399, 6517, 7600, 48117, 5363, 496, 1005 #### [facility] of [place] [address] Intramural Director: Chris Sánchez MD RDW Normal [facility] Comment on above: Performed By: #### 6 399, 6517, 7600, 20293, 5363, 496, 1005 #### [facility] [address], [address] [place] [address] Intramural Director: Chris Sánchez MD REACTIVE LYMPHOCYTES Normal [facility] Comment on above: Performed By: #### 6 399, 6517, 7600, 67513, 5363, 496, 1005 #### [facility] [address], [address] [place] [address] Intramural Director: Chris Sánchez MD RED BLOOD CELL COUNT Normal [facility] Comment on above: Performed By: #### 6 399, 6517, 7600, 01956, 5363, 496, 1005 #### [facility] [address], [address] [place] [address] Intramural Director: Chris Sánchez MD WHITE BLOOD CELL COUNT Normal [facility] Comment on above: Performed By: #### 6 399, 6517, 7600, 65784, 5363, 496, 1005 #### [facility] of [place] [address] Intramural Director: Chris Sánchez MD COMPREHENSIVE METABOLIC PANE [facility] 06-04-2025 Albumin [Mass/Vol] 4.5 g/dL Normal 3.6-5.1 [facility] Comment on above: Performed By: #### 6 399, 6517, 7600, 44878, 5363, 496, 1005 #### [facility] [place] [address] [address] [place] [address] Intramural Director: Chris Sánchez MD Albumin/Globulin [Mass ratio] 2.1 {ratio} Normal 1.0-2.5 [facility] Comment on above: Performed By: #### 6 399, 6517, 7600, 14815, 5363, 496, 1005 #### [facility] [place] [address] Intramural Director: Chris Sánchez MD ALP [Catalytic activity/Vol] 82 U/L Normal 35-144 [facility] Comment on above: Performed By: #### 6 399, 6517, 7600, 99952, 5363, 496, 1005 #### [facility] [place] [address] Intramural Director: Chris Sánchez MD ALT [Catalytic activity/Vol] 26 U/L Normal 9-46 [facility] Comment on above: Performed By: #### 6 399, 6517, 7600, 95776, 5363, 496, 1005 #### [facility] [place] [address] Intramural Director: Chris Sánchez MD AST [Catalytic activity/Vol] 22 U/L Normal 10-35 [facility] Comment on above: Performed By: #### 6 399, 6517, 7600, 56129, 5363, 496, 1005 #### [facility] [place] [address] Intramural Director: Chris Sánchez MD Bilirubin [Mass/Vol] 0.7 mg/dL Normal 0.2-1.2 [facility] Comment on above: Performed By: #### 6 399, 6517, 7600, 61394, 5363, 496, 1005 #### [facility] [place] [address] Intramural Director: Chris Sánchez MD BUN/CREATININE RATIO SEE NOTE: Normal 6-22 [facility] Comment on above: Result Comment: Not Reported: BUN and Creatinine are within reference range. Performed By: #### 6 399, 6517, 7600, 77399, 5363, 496, 1005 #### [facility] [place] [address] Intramural Director: Chris Sánchez MD Calcium [Mass/Vol] 9.6 mg/dL Normal 8.6-10.3 [facility] Comment on above: Performed By: #### 6 399, 6517, 7600, 24510, 5363, 496, 1005 #### [facility] [place] [address] Intramural Director: Chris Sánchez MD Chloride [Moles/Vol] 99 mmol/L Normal 98-110 [facility] Comment on above: Performed By: #### 6 399, 6517, 7600, 90469, 5363, 496, 1005 #### [facility] [place] [address] Intramural Director: Chris Sánchez MD CO2 [Moles/Vol] 30 mmol/L Normal 20-32 [facility] Comment on above: Performed By: #### 6 399, 6517, 7600, 87013, 5363, 496, 1005 #### [facility] [place] [address] Intramural Director: Chris Sánchez MD Creatinine [Mass/Vol] 1.05 mg/dL Normal 0.70-1.[address] [facility] Comment on above: Performed By: #### 6 399, 6517, 7600, 67617, 5363, 496, 1005 #### [facility] [place] [address] Intramural Director: Chris Sánchez MD GFR/1.73 sq M.predicted among non-blacks MDRD (S/P/Bld) [Vol rate/Area] 75 mL/min/{1.73_m2} Normal > OR = 60 [facility] Comment on above: Performed By: #### 6 399, 6517, 7600, 32260, 5363, 496, 1005 #### [facility] [place] [address] Intramural Director: Chris Sánchez MD Globulin (S) [Mass/Vol] 2.1 g/dL Normal 1.9-3.7 [facility] Comment on above: Performed By: #### 6 399, 6517, 7600, 27289, 5363, 496, 1005 #### [facility] [place] [address] Intramural Director: Chris Sánchez MD Glucose [Mass/Vol] 165 mg/dL High 65-99 [facility] Comment on above: Result Comment: Fasting reference interval For someone without known diabetes, a glucose value >125 mg/dL indicates that they may have diabetes and this should be confirmed with a follow-up test. Performed By: #### 6 399, 6517, 7600, 69738, 5363, 496, 1005 #### [facility] [place] [address] Intramural Director: Chris Sánchez MD Potassium [Moles/Vol] 4.4 mmol/L Normal 3.5-5.3 [facility] Comment on above: Performed By: #### 6 399, 6517, 7600, 40759, 5363, 496, 1005 #### [facility] [place] [address] Intramural Director: Chris Sánchez MD Protein [Mass/Vol] 6.6 g/dL Normal 6.1-8.1 [facility] Comment on above: Performed By: #### 6 399, 6517, 7600, 27003, 5363, 496, 1005 #### [facility] [place] [address] Intramural Director: Chris Sánchez MD Sodium [Moles/Vol] 139 mmol/L Normal 135-146 [facility] Comment on above: Performed By: #### 6 399, 6517, 7600, 94516, 5363, 496, 1005 #### [facility] [place] [address] Intramural Director: Chris Sánchez MD Urea nitrogen [Mass/Vol] 25 mg/dL Normal 7-25 [facility] Comment on above: Performed By: #### 6 399, 6517, 7600, 24928, 5363, 496, 1005 #### [facility] [place] [address] Intramural Director: Chris Sánchez MD HEMOGLOBIN A1con 06-04-2025 HbA1c (Bld) [Mass fraction] 9.7 % High <5.7 [facility] Comment on above: Result Comment: For someone without known diabetes, a hemoglobin A1c value of 6.5% or greater indicates that they may have diabetes and this should be confirmed with a follow-up test. For someone with known diabetes, a value <7% indicates that their diabetes is well controlled and a value greater than or equal to 7% indicates suboptimal control. A1c targets should be individualized based on duration of diabetes, age, comorbid conditions, and other considerations. Currently, no consensus exists regarding use of hemoglobin A1c for diagnosis of diabetes for children. Performed By: #### 6 399, 6517, 7600, 37540, 5363, 496, 1005 #### [facility] [place] [address] Intramural Director: Chris Sánchez MD LIPID PANEL, STANDARD 05-09 Cholesterol [Mass/Vol] 177 mg/dL Normal <200 [facility] Comment on above: Order Comment: FASTI NG:YESFASTING: YES Performed By: #### 6 399, 6517, 7600, 39739, 5363, 496, 1005 #### [facility] [place] [address] Intramural Director: Chris Sánchez MD Cholesterol in HDL [Mass/Vol] 55 mg/dL Normal > OR = 40 [facility] Comment on above: Order Comment: FASTI NG:YESFASTING: YES Performed By: #### 6 399, 6517, 7600, 67135, 5363, 496, 1005 #### [facility] [address], [address] [place] [address] Intramural Director: Chris Sánchez MD Cholesterol in LDL [Mass/Vol] 94 mg/dL Normal [facility] Comment on above: Order Comment: FASTI NG:YESFASTING: YES Result Comment: Refe rence range: <100 Desirable range <100 mg/dL for primary prevention; <70 mg/dL for patients with CHD or diabetic patients with > or = 2 CHD risk factors. LDL-C is now calculated using the Damion calculation, which is a validated novel method providing better accuracy than the Friedewald equation in the estimation of LDL-C. Jose Martin FARFAN et al. JAYDEN. 2013;310(19): 8304-9164 (http://education.DriveFactor.Ezetap/faq/CPJ924) Performed By: #### 6 399, 6517, 7600, 36604, 5363, 496, 1005 #### [facility] [address], [address] [place] [address] Intramural Director: Chris Sánchez MD Cholesterol.total/Cho lesterol in HDL [Mass ratio] 3.2 {ratio} Normal <5.0 [facility] Comment on above: Order Comment: FASTI NG:YESFASTING: YES Performed By: #### 6 399, 6517, 7600, 41959, 5363, 496, 1005 #### [facility] [address], [address] [place] [address] Intramural Director: Chris Sánchez MD NON HDL CHOLESTEROL 122 mg/dL (calc) Normal <130 [facility] Comment on above: Order Comment: FASTI NG:YESFASTING: YES Result Comment: For patients with diabetes plus 1 major ASCVD risk factor, treating to a non-HDL-C goal of <100 mg/dL (LDL-C of <70 mg/dL) is considered a therapeutic option. Performed By: #### 6 399, 6517, 7600, 06841, 5363, 496, 1005 #### [facility] [address], [address] [place] [address] Intramural Director: Chris Sánchez MD Triglyceride [Mass/Vol] 180 mg/dL High <150 [facility] Comment on above: Order Comment: FASTI NG:YESFASTING: YES Performed By: #### 6 399, 6517, 7600, 07237, 5363, 496, 1005 #### [facility] [place] [address] [facility], [address] [place] [address] Intramural Director: Chris Huggins 05-25-2025 CNOV Office Visit (OTOLCR ) KAELYN GR ([id number]) 1955 M Date Time Provider Department 05/25/25 10:55 AM FAISAL CASTORENA OTOLCR During your visit today, we recorded the following information about you: Faisal Castorena PA-C 05/26/2025 9:57 AM Signed Encounter opened in error. Faisal Castorena PA-C Otology Referring Provider: RODNEY CHI [[id number]] Allergies As of Date: 05/25/2025 (No Known Allergies) Date Reviewed: 05/25/2025 Reviewed by: José Miguel Eubanks MA - Fully Assessed Reason for Visit: Follow Up [171] Cmt: Est-Meniere's disease of left ear TISH 02/12/25, C/O still having vertigo, ringing in left ear, Audio completed 04/16/25, Denies Pain/Drainage Primary Visit Diagnosis:Meniere's disease of left ear [H81.02] Prescriptions as of 05/26/2025 - betahistine capsule 16 mg (CPD) Take 1 capsule by mouth three times a day. - citalopram (CELEXA) 20 mg tablet Take 20 mg by mouth once daily. - TRULICITY 1.5 mg/0.5 mL pen injector Inject 1.5 mg subcutaneously one time a week. - ondansetron orally disintegrating (ZOFRAN ODT) 8 mg disintegrating tablet Take 1 tablet by mouth every 8 hours as needed for nausea/vomiting. - ASPIRIN LOW DOSE ORAL Take by mouth once daily. - ondansetron (ZOFRAN) 4 mg tablet Take 1 tablet by mouth once each week. - FARXIGA 10 mg tab Take 10 mg by mouth once daily. - BYDUREON BCISE 2 mg/0.85 mL AutoInjector Inject 1 Pen subcutaneously once each week. - omeprazole (PRILOSEC) 20 mg capsule Take 20 mg by mouth once daily. - atorvastatin (LIPITOR) 80 mg tablet - fenofibrate (LOFIBRA) 200 mg capsule Take 200 mg by mouth once daily. 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] 08/17/2017 COVID-19 [U07.1] 09/24/2020 Pneumonia due to COVID-19 virus [U07.1, J12.82] 09/30/2020 Encounter Status:Closed by FAISAL CASTORENA on 05/26/25 [facility] CNOVon 04-16-2025 CNOV Office Visit (FERMIN ) KAELYN GR ([id number]) 1955 M Date Time Provider Department 04/16/25 11:00 AM JENNI HAIRSTON During your visit today, we recorded the following information about you: Jenni Hairston AUD 04/16/2025 1:51 PM Signed [facility] Section of Audiology AUDIOLOGIC EVALUATION REPORT Name: Kaelyn Gr [facility]#: [id number] Date of Service: 04/16/2025 Date of : 1955 Age: [age] year old Referred by: Faisal Castorena [address] [facility] [address] [facility] [address] Referred for: Evaluation of suspected change in hearing, tinnitus, or balance. Referral documented: In an order in [facility] Patient's major complaints: Reduced hearing left ear greater than right ear, Tinnitus left ear greater than right ear Kaelyn Gr was seen for a recheck audiologic evaluation. Hearing loss: Known left worse than right sensorineural hearing loss related to left ear Meniere's. Feels left ear hearing is worsening Tinnitus: Constant tinnitus, louder in the left ear than the right Ear pain: denied Aural fullness: Denied Otorrhea: denied. 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 Currently managed with betahistine. Feels upping medication has helped and has not had a vertigo episode in some time. 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 History of chemotherapy or radiation: denied History of head trauma: denied Family history of hearing loss: denied Hearing aids: Scheduled for hearing aid evaluation today Risk of Falls Documentation for over 65 years old: No history of falls reported so minimal to no risk IMPRESSIONS RIGHT EAR: Sensorineural hearing loss LEFT EAR: Sensorineural hearing loss Comparison of today's results with previous test results (01/31/2024): Today's results suggest improvement in the left ear of 25 dB at 8000 Hz and 10-15 dB decline 750-1000 Hz. Right ear stable with the exception of 10 dB HL decline at 6000 Hz. NOTE: A decrease of 20 dB HL at any one test frequency, a decrease of 10 dB HL at any two adjacent test frequencies, or a loss of response at three consecutive frequencies where responses were previously obtained is considered a significant change per JESUS 1994 guidelines. AUDIOLOGIC EVALUATION Following is a brief interpretation of the obtained findings from the audiologic evaluation. Refer to the Auditory Test Record for complete audiometric results. The patient was counseled about the test findings and appropriate audiologic recommendations were made. SUMMARY: Audiogram can be viewed under the Proc tab. OTOSCOPY RIGHT EAR: Otoscopic inspection revealed ear canal was clear with an identifiable cone of light. LEFT EAR: Otoscopic inspection revealed ear canal was clear with an identifiable cone of light. TYMPANOMETRY Description of procedure: This test is an objective evaluation of middle ear function. CPT code: 94912 RIGHT EAR: Did not test. LEFT EAR: Did not test. ACOUSTIC REFLEXES Description of procedure: This test is an objective measure of auditory and facial nerve pathways. CPT code: 41268, 04615 RIGHT EAR PROBE EAR: (ipsi right stimulus ear; contralateral left stimulus ear): Acoustic Reflex Pattern Did not test Acoustic Reflex Decay (left stimulus ear): Did not test. LEFT EAR PROBE EAR: (ipsi left stimulus ear; contralateral right stimulus ear): Acoustic Reflex Pattern Did not test Acoustic Reflex Decay (right stimulus ear):Did not test. PURE TONE AUDIOMETRY AND SPEECH TESTING Description of procedure: This test is an objective evaluation hearing sensitivity via air and bone conduction and speech recognition testing. CPT code: 08442 RIGHT EAR: Hearing Sensitivity: Within normal limits through 1000 Hz sloping to moderately severe sensorineural hearing loss Word Recognition Score: Excellent (100%). WRS is consistent with hearing sensitivity. Words were presented at 55 dB HL which approximates (45-55 dB HL) intensity level for average conversational speech. The NU-6 Word List (25 words) was used. LEFT EAR: Hearing Sensitivity: Moderate 250-500 Hz rising to mild 750-3000 Hz sloping to moderately severe sensorineural hearing loss Word Recognition Score: Excellent (96%). WRS is consistent with hearing sensitivity. Words were presented at 70 dB HL which is above (greater than or equal to 60 dB HL) intensity level for average conversational speech. The NU-6 Word List (25 words) was used. and Contralateral masking was used. RECOMMENDATIONS * Continue medical follow up with Faisal Castorena PA-C * Regular audiologic assessments to monitor hearing sensitivity * Patient was counseled on the benefits/limitations of hearing aids. Patient and his are hesit (more content not included)... Normal [facility] HEARING TEST/AUDIOGRAMon [facility] Cytology, Body Fluid / CSFon 02-26-2025 CYTOLOGY,BF/CSF SEE PATHOLOGY REPORT Normal [facility] Comment on above: Order Comment: URINE Result Comment: Spec imen submitted to Anatomical Pathology Department for testing. Performed By: #### L 350.1000 #### [facility] [address] [place], [address] Special Stain Group IIon Special Stain Group II ---- Patient Age/Sex Location Account Attending Physician ---- KAELYN GR 69/M LABSPEC [id number] Dr. Humberto Zimmerman MD ---- Specimen: [id number] Received: 02/26/25 Status: TIFFANY [place] Num: [id number] Spec Type: Fluid Subm Dr: Dr. Humberto Zimmerman MD HEADER OPERATION: Not noted PRE-OP DIAGNOSIS: Malignant neoplasm of lateral wall of bladder TISSUE SUBMITTED: A- Urine for cytology *voided* ---- DIAGNOSIS CYTOLOGY A. Urine (cytospin): * Atypical cells present. CYTOLOGY STUDY Slides are reviewed. CYTOLOGY GROSS A. Received is 20 ml of yellow-cloudy fluid labeled with the patient's name and and designated per the requisition as urine. Submitted for cytology preparation. Mr 02/26/2025 CPT: 49888 Signed (signature on file) Dr. Amelie Crawford MD 03/11/25 1632 ---- Normal [facility] Comment on above: Performed By: #### P SSII #### [facility] [address] [place], [address] ALBUMIN, RANDOM URINE W/CREA BRIANon 02-17-2025 ALBUMIN, URINE <0.2 Normal See Note: [email or web address] Comment on above: Result Comment: Refe rence Range: Reference Range Not established Performed By: #### 6 399, 6517, 7600, 22493, 5363, 496, 1005 #### [facility] [address], [address] [place], [place] [id number] Intramural Director: Chris Sánchez MD ALBUMIN/CREATININE RATIO, RANDOM URINE NOTE Normal <30 [facility] Comment on above: Result Comment: NOTE : The urine albumin value is less than 0.2 mg/dL therefore we are unable to calculate excretion and/or creatinine ratio. The ADA defines abnormalities in albumin excretion as follows: Albuminuria Category Result (mg/g creatinine) Normal to Mildly increased <30 Moderately increased 30-299 Severely increased > OR = 300 The ADA recommends that at least two of three specimens collected within a 3-6 month period be abnormal before considering a patient to be within a diagnostic category. Performed By: #### 6 399, 6517, 7600, 06232, 5363, 496, 1005 #### [email or web address] [address], [address] [place] [id number] Intramural Director: Chris Sánchez MD Creatinine (U) [Mass/Vol] 65 mg/dL Normal 20-320 [facility] Comment on above: Performed By: #### 6 399, 6517, 7600, 96838, 5363, 496, 1005 #### [facility] of [place] [address] Intramural Director: Chris Sánchez MD CBC (INCLUDES DIFF/PLT)on Basophils (Bld) [#/Vol] 0.087 10*3/uL Normal 0-200 [facility] Comment on above: Performed By: #### 6 399, 6517, 7600, 64300, 5363, 496, 1005 #### [facility] [place] [address] Intramural Director: Chris Sánchez MD Basophils/100 WBC (Bld) 1.3 % Normal [facility] Comment on above: Performed By: #### 6 399, 6517, 7600, 31077, 5363, 496, 1005 #### [facility] [place] [address] Intramural Director: Chris Sánchez MD Eosinophils (Bld) [#/Vol] 0.201 10*3/uL Normal 15-500 [facility] Comment on above: Performed By: #### 6 399, 6517, 7600, 38962, 5363, 496, 1005 #### [facility] [place] [address] Intramural Director: Chris Sánchez MD Eosinophils/100 WBC (Bld) 3.0 % Normal [facility] Comment on above: Performed By: #### 6 399, 6517, 7600, 47587, 5363, 496, 1005 #### [facility] [place] [address] Intramural Director: Chris Sánchez MD Erythrocyte distribution width (RBC) [Ratio] 12.7 % Normal 11.0-15.0 [facility] Comment on above: Performed By: #### 6 399, 6517, 7600, 31877, 5363, 496, 1005 #### [facility] [place] [address] Intramural Director: Chris Sánchez MD Hematocrit (Bld) [Volume fraction] 51.6 % High 38.5-50.0 [facility] Comment on above: Performed By: #### 6 399, 6517, 7600, 89667, 5363, 496, 1005 #### [facility] [place] [address] Intramural Director: Chris Sánchez MD Hemoglobin (Bld) [Mass/Vol] 16.3 g/dL Normal 13.2-17.1 [facility] Comment on above: Performed By: #### 6 399, 6517, 7600, 28429, 5363, 496, 1005 #### [facility] [place] [address] Intramural Director: Chris Sánchez MD Lymphocytes (Bld) [#/Vol] 1.956 10*3/uL Normal 850-3900 [facility] Comment on above: Performed By: #### 6 399, 6517, 7600, 64267, 5363, 496, 1005 #### [facility] [place] [address] Intramural Director: Chris Sánchez MD Lymphocytes/100 WBC (Bld) 29.2 % Normal [facility] Comment on above: Performed By: #### 6 399, 6517, 7600, 77485, 5363, 496, 1005 #### [facility] [place] [address] Intramural Director: Chris Sánchez MD MCH (RBC) [Entitic mass] 30.4 pg Normal 27.0-33.0 [facility] Comment on above: Performed By: #### 6 399, 6517, 7600, 73101, 5363, 496, 1005 #### [facility] [place] [address] Intramural Director: Chris Sánchez MD MCHC (RBC) [Mass/Vol] 31.6 g/dL Low 32.0-36.[address] [facility] Comment on above: Result Comment: For adults, a slight decrease in the calculated MCHC value (in the range of 30 to 32 g/dL) is most likely not clinically significant; however, it should be interpreted with caution in correlation with other red cell parameters and the patient's clinical condition. Performed By: #### 6 399, 6517, 7600, 21016, 5363, 496, 1005 #### [facility] [place] [address] Intramural Director: Chris Sánchez MD MCV (RBC) [Entitic vol] 96.3 fL Normal 80.0-100.0 [facility] Comment on above: Performed By: #### 6 399, 6517, 7600, 41023, 5363, 496, 1005 #### [facility] [place] [address] Intramural Director: Chris Sánchez MD Monocytes (Bld) [#/Vol] 0.69 10*3/uL Normal 200-950 [facility] Comment on above: Performed By: #### 6 399, 6517, 7600, 47212, 5363, 496, 1005 #### [facility] [place] [address] Intramural Director: Chris Sánchez MD Monocytes/100 WBC (Bld) 10.3 % Normal [facility] Comment on above: Performed By: #### 6 399, 6517, 7600, 33808, 5363, 496, 1005 #### [facility] [place] [address] Intramural Director: Chris Sánchez MD Neutrophils (Bld) [#/Vol] 3.765 10*3/uL Normal 2473-0267 [facility] Comment on above: Performed By: #### 6 399, 6517, 7600, 80228, 5363, 496, 1005 #### [facility] [place] [address] Intramural Director: Chris Sánchez MD Neutrophils/100 WBC (Bld) 56.2 % Normal [facility] Comment on above: Performed By: #### 6 399, 6517, 7600, 55234, 5363, 496, 1005 #### [facility] of [address], [address] [place] [address] Intramural Director: Chris Sánchez MD Platelet mean volume (Bld) [Entitic vol] 10.7 fL Normal 7.5-12.5 [facility] Comment on above: Performed By: #### 6 399, 6517, 7600, 51073, 5363, 496, 1005 #### [facility] [place] [address] Intramural Director: Chris Sánchez MD Platelets (Bld) [#/Vol] 321 10*3/uL Normal 140-400 [facility] Comment on above: Performed By: #### 6 399, 6517, 7600, 39717, 5363, 496, 1005 #### [facility] [place] [address] Intramural Director: Chris Sánchez MD RBC (Bld) [#/Vol] 5.36 10*6/uL Normal 4.20-5.80 [facility] Comment on above: Performed By: #### 6 399, 6517, 7600, 90309, 5363, 496, 1005 #### [facility] [place] [address] Intramural Director: Chris Sánchez MD WBC (Bld) [#/Vol] 6.7 10*3/uL Normal 3.8-10.8 [facility] Comment on above: Performed By: #### 6 399, 6517, 7600, 24987, 5363, 496, 1005 #### [facility] [place] [address] Intramural Director: Chris Sánchez MD COMPREHENSIVE METABOLIC PANE [facility] 02-17-2025 Albumin [Mass/Vol] 4.5 g/dL Normal 3.6-5.1 [facility] Comment on above: Performed By: #### 6 399, 6517, 7600, 65670, 5363, 496, 1005 #### [facility] [place] [address] Intramural Director: Chris Sánchez MD Albumin/Globulin [Mass ratio] 1.9 {ratio} Normal 1.0-2.5 [facility] Comment on above: Performed By: #### 6 399, 6517, 7600, 82192, 5363, 496, 1005 #### [facility] [place] [address] Intramural Director: Chris Sánchez MD ALP [Catalytic activity/Vol] 95 U/L Normal 35-144 [facility] Comment on above: Performed By: #### 6 399, 6517, 7600, 91811, 5363, 496, 1005 #### [facility] [place] [address] Intramural Director: Chris Sánchez MD ALT [Catalytic activity/Vol] 24 U/L Normal 9-46 [facility] Comment on above: Performed By: #### 6 399, 6517, 7600, 09453, 5363, 496, 1005 #### [facility] [place] [address] Intramural Director: Chris Sánchez MD AST [Catalytic activity/Vol] 21 U/L Normal 10-35 [facility] Comment on above: Performed By: #### 6 399, 6517, 7600, 04344, 5363, 496, 1005 #### [facility] [place] [address] Intramural Director: Chris Sánchez MD Bilirubin [Mass/Vol] 0.6 mg/dL Normal 0.2-1.2 [facility] Comment on above: Performed By: #### 6 399, 6517, 7600, 00405, 5363, 496, 1005 #### [facility] [place] [address] Intramural Director: Chris Sánchez MD BUN/CREATININE RATIO SEE NOTE: Normal 6-22 [facility] Comment on above: Result Comment: Not Reported: BUN and Creatinine are within reference range. Performed By: #### 6 399, 6517, 7600, 85702, 5363, 496, 1005 #### [facility] [place] [address] Intramural Director: Chris Sánchez MD Calcium [Mass/Vol] 9.7 mg/dL Normal 8.6-10.3 [facility] Comment on above: Performed By: #### 6 399, 6517, 7600, 07591, 5363, 496, 1005 #### [facility] [place] [address] Intramural Director: Chris Sánchez MD Chloride [Moles/Vol] 99 mmol/L Normal 98-110 [facility] Comment on above: Performed By: #### 6 399, 6517, 7600, 76955, 5363, 496, 1005 #### [facility] [place] [address] Intramural Director: Chris Sánchez MD CO2 [Moles/Vol] 32 mmol/L Normal 20-32 [facility] Comment on above: Performed By: #### 6 399, 6517, 7600, 12111, 5363, 496, 1005 #### [facility] [place] [address] Intramural Director: Chris Sánchez MD Creatinine [Mass/Vol] 1.04 mg/dL Normal 0.70-1.28 [facility] Comment on above: Performed By: #### 6 399, 6517, 7600, 11838, 5363, 496, 1005 #### [facility] [place] [address] Intramural Director: Chris Sánchez MD GFR/1.73 sq M.predicted among non-blacks MDRD (S/P/Bld) [Vol rate/Area] 77 mL/min/{1.73_m2} Normal > OR = 60 [facility] Comment on above: Performed By: #### 6 399, 6517, 7600, 93825, 5363, 496, 1005 #### [facility] [address], [address] [place] [address] Intramural Director: Chris Sánchez MD Globulin (S) [Mass/Vol] 2.4 g/dL Normal 1.9-3.7 [facility] Comment on above: Performed By: #### 6 399, 6517, 7600, 98431, 5363, 496, 1005 #### [facility] [place] [address] Intramural Director: Chris Sánchez MD Glucose [Mass/Vol] 129 mg/dL High 65-99 [facility] Comment on above: Result Comment: Fasting reference interval For someone without known diabetes, a glucose value >125 mg/dL indicates that they may have diabetes and this should be confirmed with a follow-up test. Performed By: #### 6 399, 6517, 7600, 93101, 5363, 496, 1005 #### [facility] [place] [address] Intramural Director: Chris Sánchez MD Potassium [Moles/Vol] 4.2 mmol/L Normal 3.5-5.3 [facility] Comment on above: Performed By: #### 6 399, 6517, 7600, 01292, 5363, 496, 1005 #### [facility] [place] [address] Intramural Director: Chris Sánchez MD Protein [Mass/Vol] 6.9 g/dL Normal 6.1-8.1 [facility] Comment on above: Performed By: #### 6 399, 6517, 7600, 02414, 5363, 496, 1005 #### [facility] [place] [address] Intramural Director: Chris Sánchez MD Sodium [Moles/Vol] 139 mmol/L Normal 135-146 [facility] Comment on above: Performed By: #### 6 399, 6517, 7600, 93296, 5363, 496, 1005 #### [facility] [address], [address] [place] [address] Intramural Director: Chris Sánchez MD Urea nitrogen [Mass/Vol] 20 mg/dL Normal 7-25 [facility] Comment on above: Performed By: #### 6 399, 6517, 7600, 39291, 5363, 496, 1005 #### [facility] [place] [address] Intramural Director: Chris Sánchez MD HEMOGLOBIN A1con 02-17-2025 HbA1c (Bld) [Mass fraction] 9.3 % High <5.7 [facility] Comment on above: Result Comment: For someone without known diabetes, a hemoglobin A1c value of 6.5% or greater indicates that they may have diabetes and this should be confirmed with a follow-up test. For someone with known diabetes, a value <7% indicates that their diabetes is well controlled and a value greater than or equal to 7% indicates suboptimal control. A1c targets should be individualized based on duration of diabetes, age, comorbid conditions, and other considerations. Currently, no consensus exists regarding use of hemoglobin A1c for diagnosis of diabetes for children. Performed By: #### 6 399, 6517, 7600, 54350, 5363, 496, 1005 #### [facility] [place] [address] Intramural Director: Chris Sánchez MD LIPID PANEL, STANDARDon 02-05 Cholesterol [Mass/Vol] 171 mg/dL Normal <200 [facility] Comment on above: Order Comment: FASTI NG:YESFASTING: YES Performed By: #### 6 399, 6517, 7600, 37634, 5363, 496, 1005 #### [facility] [address], [address] [place] [address] Intramural Director: Chris Sánchez MD Cholesterol in HDL [Mass/Vol] 53 mg/dL Normal > OR = 40 [facility] Comment on above: Order Comment: FASTI NG:YESFASTING: YES Performed By: #### 6 399, 6517, 7600, 01778, 5363, 496, 1005 #### [facility] [address], [address] [place] [address] Intramural Director: Chris Sánchez MD Cholesterol in LDL [Mass/Vol] 89 mg/dL Normal [facility] Comment on above: Order Comment: FASTI NG:YESFASTING: YES Result Comment: Refe rence range: <100 Desirable range <100 mg/dL for primary prevention; <70 mg/dL for patients with CHD or diabetic patients with > or = 2 CHD risk factors. LDL-C is now calculated using the Damion calculation, which is a validated novel method providing better accuracy than the Friedewald equation in the estimation of LDL-C. Jose Martin FARFAN et al. JAYDEN. 2013;310(19): 0164-2841 (http://education.DriveFactor.Ezetap/faq/PAL588) Performed By: #### 6 399, 6517, 7600, 10613, 5363, 496, 1005 #### [facility] [place] [address] Intramural Director: Chris Sánchez MD Cholesterol.total/Cho lesterol in HDL [Mass ratio] 3.2 {ratio} Normal <5.0 [facility] Comment on above: Order Comment: FASTI NG:YESFASTING: YES Performed By: #### 6 399, 6517, 7600, 02004, 5363, 496, 1005 #### [facility] [address], [address] [place] [address] Intramural Director: Chris Sánchez MD NON HDL CHOLESTEROL 118 mg/dL (calc) Normal <130 [facility] Comment on above: Order Comment: FASTI NG:YESFASTING: YES Result Comment: For patients with diabetes plus 1 major ASCVD risk factor, treating to a non-HDL-C goal of <100 mg/dL (LDL-C of <70 mg/dL) is considered a therapeutic option. Performed By: #### 6 399, 6517, 7600, 64721, 5363, 496, 1005 #### [facility] [address], [address] [place] [address] Intramural Director: Chris Sánchez MD Triglyceride [Mass/Vol] 202 mg/dL High <150 [facility] Comment on above: Order Comment: FASTI NG:YESFASTING: YES Result Comment: If a non-fasting specimen was collected, consider repeat triglyceride testing on a fasting specimen if clinically indicated. Kate et al. J. of Clin. Lipidol. 2015;9:129-169. Performed By: #### 6 399, 6517, 7600, 12408, 5363, 496, 1005 #### [facility] [address], [address] [place] [address] Intramural Director: Chris Sánchez MD MRI BRAIN WO/W IVCONon 02-15 MRI BRAIN WO/W IVCON * * *Final Report* * * DATE OF EXAM: Feb 15 2025 11:29AM LD 0295 - MRI BRAIN WO/W IVCON / PROCEDURE REASON: multiple diagnoses * * * * Physician Interpretation * * * * EXAMINATION: MRI BRAIN WO/W IVCON HISTORY: Asymmetrical sensorineural hearing loss Sensorineural hearing loss (SNHL) of both ears Dizziness TECHNIQUE: Axial Fast FLAIR and diffusion study of the entire head. High resolution axial T1, axial CISS, and gadolinium enhanced high resolution coronal and axial, fat-suppressed T1-weighted images of the IAC region. Contrast: 20 mL Dotarem IV COMPARISON: CT brain on 05/05/2020. RESULT: Acute Change: There is no evidence of restricted diffusion to suggest an acute infarct. Mass Lesion/ Mass Effect: No evidence of a soft tissue mass in either IAC region. No abnormal enhancement is noted along the CN VII/VIII cranial nerve complexes or in the inner ear structures. No abnormal parenchymal or leptomeningeal enhancement is noted otherwise in the visualized parenchyma following contrast administration. No significant mass effect on the brainstem or cerebellum. Chronic Change: A few scattered punctate foci of increased T2 and FLAIR signal are noted in the supratentorial white matter which is a nonspecific finding, but likely represents minimal chronic microvascular ischemia. Skull Base: No evidence of a marrow replacement process in the skull base. The inner ear structures appear to be within normal limits on the high resolution axial CISS acquisition. Vasculature: No posterior fossa vascular malformation is seen. Major intracranial dural venous sinuses show typical flow void, suggesting patency by spin echo criteria. Right-sided AICA minimally extends into the right internal auditory canal. Other: Nonspecific mild bilateral mastoid fluid. No significant paranasal sinus disease. The optic globes are symmetric and unremarkable. IMPRESSION: No specific etiology for patient's reported symptoms identified. No evidence of enhancing lesion within internal artery canals or cerebellopontine angles. No evidence of acute infarct or significant mass effect. No evidence of abnormal intracranial enhancement. Nonspecific mild bilateral mastoid fluid. Clinical correlation is recommended. 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: PSCB Transcribe Date/Time: Feb 16 2025 3:50P Dictated by : ANIKET HUTCHINSON MD This examination was interpreted and the report reviewed and electronically signed by: ANIKET HUTCHINSON MD on Feb 16 2025 4:14PM EST [id number] Normal [facility] CNOVon 02-12-2025 CNOV Office Visit (OTOLCR ) KAELYN GR ([id number]) 1955 M Date Time Provider Department 02/12/25 8:25 AM FAISAL CASTORENA OTOLCR During your visit today, we recorded the following information about you: Faisal Castorena PA-C 02/12/2025 8:51 AM Signed History of Present Illness Mr. KAELYN Oliver CONNIE is a 69 year old male Chief Complaint: Follow-up for left sided meniere's disease Last seen 10/14/[address] Beavers who increased betahistine to 16 mg BID. Diagnosed with meniere's disease in January [address] Beavers after an audiogram demonstrated asymmetric left sided SNHL. Describes the vertigo attacks as a room spinning sensation that lasts several hours. Since last seen, He has not had an attack of vertigo since upping the betahistine dosage in 10/14/24. He is interested in pursuing hearing aids. ALLERGIES No Known Allergies Current Outpatient Medications on File Prior to Visit Medication Sig citalopram (CELEXA) 20 mg tablet Take 20 mg by mouth once daily. TRULICITY 1.5 mg/0.5 mL pen injector Inject 1.5 mg subcutaneously one time a week. betahistine capsule 8 mg (CPD) Take 2 capsules by mouth three times a day. ondansetron orally disintegrating (ZOFRAN ODT) 8 mg disintegrating tablet Take 1 tablet by mouth every 8 hours as needed for nausea/vomiting. betahistine capsule 8 mg (CPD) Take 1 capsule by mouth three times a day. ASPIRIN LOW DOSE ORAL Take by mouth once daily. ondansetron (ZOFRAN) 4 mg tablet Take 1 tablet by mouth once each week. FARXIGA 10 mg tab Take 10 mg by mouth once daily. BYDUREON BCISE 2 mg/0.85 mL AutoInjector Inject 1 Pen subcutaneously once each week. omeprazole (PRILOSEC) 20 mg capsule Take 20 mg by mouth once daily. atorvastatin (LIPITOR) 80 mg tablet fenofibrate (LOFIBRA) 200 mg capsule Take 200 mg by mouth once daily. methocarbamol (ROBAXIN) 500 mg tablet No current facility-administered medications on file prior to visit. Objective: There were no vitals taken for this visit. Appearance: Non-syndromic, cooperative and calm Communication: Voice has adequate volume; there is no stridor Head/Face: head and facial contours are symmetric Facial nerve 1/6 bilateral Skin: no skin lesions or scarring on face Ears: AD Partially occluding cerumen impaction, once removed: EAC clear. TM intact without perforation or retraction. Middle ear aerated. Partially occluding cerumen impaction, once removed: EAC clear. TM intact without perforation or retraction. Middle ear aerated. Nose: external exam with straight profile Oral Cavity: Normal dentition Oropharynx: Uvula hangs midline; mucosa is pink and moist; tonsils present Neck: no LAD; thyroid without masses or enlargement Lymphatic: No lymphadenopathy or masses Neuro/Psych.: Alert and Oriented x 3 Cranial nerves intact Data Review: Audiogram 01/31/24 demonstrates left sided asymmetric low-frequency sensorineural hearing loss. Assessment: H81.02 Meniere's disease of left ear (primary encounter diagnosis) H90.3 Asymmetrical sensorineural hearing loss H90.3 Sensorineural hearing loss (SNHL) of both ears R42 Dizziness H61.23 Bilateral impacted cerumen Plan: 1. Schedule MRI brain w/wo contrast IAC to rule out retrocochlear pathology such as a vestibular schwannoma 2. Schedule an audiogram and a hearing aid evaluation with audiology 3. Refilled betahistine 16 mg TID for 1 year 4. Follow-up with me in 6 months Faisal Castorena PA-C Otology Procedures: Preop diagnosis: Cerumen impaction. It cannot be removed without magnification and multiple instrumentations requiring physician skills. Postoperative diagnosis: same CERUMEN REMOVAL: Cerumen was removed under otomicroscopy from the Bilateral ear with loop curette instrumentation. Medical Decision Making: Problems: Low: Stable chronic illness Data: Unique test result(s) reviewed: 1 Unique test(s) ordered: 1 Risk: Low: Low risk from testing/treatment Medical Decision Making Level: 3 - Low Faisal Castorena PA-C 02/12/2025 8:45 AM Addendum Schedule a hearing test and hearing aid evaluation with audiology Schedule the MRI at your convenience Schedule a follow-up with me in 6 months, reach out to me on mychart in the meantime if the vertigo attacks get out of control I refilled the betahistine at your current dose for 1 year Referring Provider: RODNEY CHI [[id number]] Allergies As of Date: 02/12/2025 (No Known Allergies) Date Reviewed: 02/12/2025 Reviewed by: Raven Fischer MA - Fully Assessed Reason for Visit: New Patient [172] Cmt: New. Previous patient of Dr. Beavers. C/o routine ear cleaning. Denies pain/drainage. Primary Visit Diagnosis:Meniere's disease of left ear [H81.02] Other Visit Diagnoses:Asymmetrical sensorineural hearing loss [H90.3] Sensorineural hearing loss (SNHL) of both ears [H90.3] Dizziness [R42] (more content not included)... Normal [facility] ALBUMIN, RANDOM URINE W/CREA R[place]hawn 12-31-2024 ALBUMIN, URINE 0.5 mg/dL Normal See Note: [facility] Comment on above: Result Comment: Refe rence Range: Reference Range Not established Performed By: #### 6 399, 6517, 09777, 7600 #### [facility] [place] [address] Intramural Director: Chris Sánchez MD ALBUMIN/CREATININE RATIO, RANDOM URINE 10 mg/g creat Normal <30 [facility] Comment on above: Result Comment: The ADA defines abnormalities in albumin excretion as follows: Albuminuria Category Result (mg/g creatinine) Normal to Mildly increased <30 Moderately increased 30-299 Severely increased > OR = 300 The ADA recommends that at least two of three specimens collected within a 3-6 month period be abnormal before considering a patient to be within a diagnostic category. Performed By: #### 6 399, 6517, 84623, 7600 #### [facility] [place] [address] Intramural Director: Chris Sánchez MD Creatinine (U) [Mass/Vol] 52 mg/dL Normal 20-320 [facility] Comment on above: Performed By: #### 6 399, 6517, 17681, 7600 #### [facility] [place] [address] Intramural Director: Chris Sánchez MD CBC (INCLUDES DIFF/PLT)on Basophils (Bld) [#/Vol] 0.087 10*3/uL Normal 0-200 [facility] Comment on above: Performed By: #### 6 399, 6517, 7600, 45975, 5363, 496, 1005 #### [facility] [place] [address] Intramural Director: Chris Sánchez MD Basophils/100 WBC (Bld) 1.5 % Normal [facility] Comment on above: Performed By: #### 6 399, 6517, 7600, 54923, 5363, 496, 1005 #### [facility] [place] [address] Intramural Director: Chris Sánchez MD Eosinophils (Bld) [#/Vol] 0.191 10*3/uL Normal 15-500 [facility] Comment on above: Performed By: #### 6 399, 6517, 7600, 14312, 5363, 496, 1005 #### [facility] of [place] [address] Intramural Director: Chris Sánchez MD Eosinophils/100 WBC (Bld) 3.3 % Normal [facility] Comment on above: Performed By: #### 6 399, 6517, 7600, 95211, 5363, 496, 1005 #### [facility] [place] [address] Intramural Director: Chris Sánchez MD Erythrocyte distribution width (RBC) [Ratio] 12.3 % Normal 11.0-15.0 [facility] Comment on above: Performed By: #### 6 399, 6517, 7600, 10614, 5363, 496, 1005 #### [facility] of [place] [address] Intramural Director: Chris Sánchez MD Hematocrit (Bld) [Volume fraction] 48.6 % Normal 38.5-50.0 [facility] Comment on above: Performed By: #### 6 399, 6517, 7600, 34654, 5363, 496, 1005 #### [facility] [place] [address] Intramural Director: Chris Sánchez MD Hemoglobin (Bld) [Mass/Vol] 16.5 g/dL Normal 13.2-17.1 [facility] Comment on above: Performed By: #### 6 399, 6517, 7600, 12393, 5363, 496, 1005 #### [facility] of [place] [address] Intramural Director: Chris Sánchez MD Lymphocytes (Bld) [#/Vol] 1.566 10*3/uL Normal 850-3900 [facility] Comment on above: Performed By: #### 6 399, 6517, 7600, 45105, 5363, 496, 1005 #### [facility] [place] [address] Intramural Director: Chris Sánchez MD Lymphocytes/100 WBC (Bld) 27.0 % Normal [facility] Comment on above: Performed By: #### 6 399, 6517, 7600, 49569, 5363, 496, 1005 #### [facility] [place] [address] Intramural Director: Chris Sánchez MD MCH (RBC) [Entitic mass] 31.5 pg Normal 27.0-33.0 [facility] Comment on above: Performed By: #### 6 399, 6517, 7600, 12521, 5363, 496, 1005 #### [facility] [place] [address] Intramural Director: Chris Sánchez MD MCHC (RBC) [Mass/Vol] 34.0 g/dL Normal 32.0-36.[address] [facility] Comment on above: Result Comment: For adults, a slight decrease in the calculated MCHC value (in the range of 30 to 32 g/dL) is most likely not clinically significant; however, it should be interpreted with caution in correlation with other red cell parameters and the patient's clinical condition. Performed By: #### 6 399, 6517, 7600, 21400, 5363, 496, 1005 #### [facility] [place] [address] Intramural Director: Chris Sánchez MD MCV (RBC) [Entitic vol] 92.7 fL Normal 80.0-100.0 [facility] Comment on above: Performed By: #### 6 399, 6517, 7600, 74160, 5363, 496, 1005 #### [facility] [place] [address] Intramural Director: Chris Sánchez MD Monocytes (Bld) [#/Vol] 0.609 10*3/uL Normal 200-950 [facility] Comment on above: Performed By: #### 6 399, 6517, 7600, 13026, 5363, 496, 1005 #### [facility] of [place] [address] Intramural Director: Chris Sánchez MD Monocytes/100 WBC (Bld) 10.5 % Normal [facility] Comment on above: Performed By: #### 6 399, 6517, 7600, 64646, 5363, 496, 1005 #### [facility] of [place] [address] Intramural Director: Chris Sánchez MD Neutrophils (Bld) [#/Vol] 3.347 10*3/uL Normal 7495-6397 [facility] Comment on above: Performed By: #### 6 399, 6517, 7600, 21498, 5363, 496, 1005 #### [facility] of [place] [address] Intramural Director: Chris Sánchez MD Neutrophils/100 WBC (Bld) 57.7 % Normal [facility] Comment on above: Performed By: #### 6 399, 6517, 7600, 65879, 5363, 496, 1005 #### [facility] [place] [address] Intramural Director: Chris Sánchez MD Platelet mean volume (Bld) [Entitic vol] 11.5 fL Normal 7.5-12.5 [facility] Comment on above: Performed By: #### 6 399, 6517, 7600, 97463, 5363, 496, 1005 #### [facility] of [place] [address] Intramural Director: Chris Sánchez MD Platelets (Bld) [#/Vol] 246 10*3/uL Normal 140-400 [facility] Comment on above: Performed By: #### 6 399, 6517, 7600, 59074, 5363, 496, 1005 #### [facility] of [place] [id number] Intramural Director: Chris Sánchez MD RBC (Bld) [#/Vol] 5.24 10*6/uL Normal 4.20-5.80 [facility] Comment on above: Performed By: #### 6 399, 6517, 7600, 92245, 5363, 496, 1005 #### [facility] of [place] [address] Intramural Director: Chris Sánchez MD WBC (Bld) [#/Vol] 5.8 10*3/uL Normal 3.8-10.8 [facility] Comment on above: Performed By: #### 6 399, 6517, 7600, 93291, 5363, 496, 1005 #### [facility] of [place] [address] Intramural Director: Chris Sánchez MD COMPREHENSIVE METABOLIC PANE [facility] 12-31-2024 Albumin [Mass/Vol] 4.5 g/dL Normal 3.6-5.1 [facility] Comment on above: Performed By: #### 6 399, 6517, 73313, 7600 #### [facility] of [place] [address] Intramural Director: Chris Sánchez MD Albumin/Globulin [Mass ratio] 2.0 {ratio} Normal 1.0-2.5 [facility] Comment on above: Performed By: #### 6 399, 6517, 27002, 7600 #### [facility] of [place] [address] Intramural Director: Chris Sánchez MD ALP [Catalytic activity/Vol] 93 U/L Normal 35-144 [facility] Comment on above: Performed By: #### 6 399, 6517, 35843, 7600 #### [facility] of [place] [address] Intramural Director: Chris Sánchez MD ALT [Catalytic activity/Vol] 27 U/L Normal 9-46 [facility] Comment on above: Performed By: #### 6 399, 6517, 61778, 7600 #### [facility] of [address], [address] [place] [address] Intramural Director: Chris Sánchez MD AST [Catalytic activity/Vol] 20 U/L Normal 10-35 [facility] Comment on above: Performed By: #### 6 399, 6517, 95359, 7600 #### [facility] of [address], [address] [place] [address] Intramural Director: Chris Sánchez MD Bilirubin [Mass/Vol] 0.7 mg/dL Normal 0.2-1.2 [facility] Comment on above: Performed By: #### 6 399, 6517, 19831, 7600 #### [facility] of [place] [address] Intramural Director: Chris Sánchez MD BUN/CREATININE RATIO SEE NOTE: Normal 6-22 [facility] Comment on above: Result Comment: Not Reported: BUN and Creatinine are within reference range. Performed By: #### 6 399, 6517, 36712, 7600 #### [facility] of [address], [address] [place] [address] Intramural Director: Chris Sánchez MD Calcium [Mass/Vol] 9.2 mg/dL Normal 8.6-10.3 [facility] Comment on above: Performed By: #### 6 399, 6517, 13075, 7600 #### [facility] of [place] [address] Intramural Director: Chris Sánchez MD Chloride [Moles/Vol] 98 mmol/L Normal 98-110 [facility] Comment on above: Performed By: #### 6 399, 6517, 07654, 7600 #### [facility] of [place] [address] Intramural Director: Chris Sánchez MD CO2 [Moles/Vol] 31 mmol/L Normal 20-32 [facility] Comment on above: Performed By: #### 6 399, 6517, 96721, 7600 #### [facility] of [address] [place] [address] Intramural Director: Chris Sánchez MD Creatinine [Mass/Vol] 0.86 mg/dL Normal 0.70-1.[address] [facility] Comment on above: Performed By: #### 6 399, 6517, 19274, 7600 #### [facility] [address], [address] [place] [address] Intramural Director: Chris Sánchez MD GFR/1.73 sq M.predicted among non-blacks MDRD (S/P/Bld) [Vol rate/Area] 93 mL/min/{1.73_m2} Normal > OR = 60 [facility] Comment on above: Performed By: #### 6 399, 6517, 73509, 7600 #### [facility] [address], [address] [place] [address] Intramural Director: Chris Sánchez MD Globulin (S) [Mass/Vol] 2.2 g/dL Normal 1.9-3.7 [facility] Comment on above: Performed By: #### 6 399, 6517, 87085, 7600 #### [facility] [place] [address] Intramural Director: Chris Sánchez MD Glucose [Mass/Vol] 166 mg/dL High 65-99 [facility] Comment on above: Result Comment: Fasting reference interval For someone without known diabetes, a glucose value >125 mg/dL indicates that they may have diabetes and this should be confirmed with a follow-up test. Performed By: #### 6 399, 6517, 67476, 7600 #### [facility] [address], [address] [place] [address] Intramural Director: Chris Sánchez MD Potassium [Moles/Vol] 4.3 mmol/L Normal 3.5-5.[address] [facility] Comment on above: Performed By: #### 6 399, 6517, 66155, 7600 #### [facility] [place] [address] Intramural Director: Chris Sánchez MD Protein [Mass/Vol] 6.7 g/dL Normal 6.1-8.1 [facility] Comment on above: Performed By: #### 6 399, 6517, 53346, 7600 #### [facility] [address], [address] [place] [address] Intramural Director: Chris Sánchez MD Sodium [Moles/Vol] 137 mmol/L Normal 135-146 [facility] Comment on above: Performed By: #### 6 399, 6517, 73569, 7600 #### [facility] [address], [address] [place] [address] Intramural Director: Chris Sánchez MD Urea nitrogen [Mass/Vol] 19 mg/dL Normal 7-25 [facility] Comment on above: Performed By: #### 6 399, 6517, 15810, 7600 #### [facility] [address], [address] [place] [address] Intramural Director: Chris Sánchez MD HEMOGLOBIN A1con 12-31-2024 HEMOGLOBIN A1c 9.8 % of total Hgb High <5.7 [facility] Comment on above: Result Comment: For someone without known diabetes, a hemoglobin A1c value of 6.5% or greater indicates that they may have diabetes and this should be confirmed with a follow-up test. For someone with known diabetes, a value <7% indicates that their diabetes is well controlled and a value greater than or equal to 7% indicates suboptimal control. A1c targets should be individualized based on duration of diabetes, age, comorbid conditions, and other considerations. Currently, no consensus exists regarding use of hemoglobin A1c for diagnosis of diabetes for children. Performed By: #### 6 399, 6517, 7600, 51701, 5363, 496, 1005 #### [facility] [address], [address] [place] [address] Intramural Director: Chris Sánchez MD LIPID PANEL, STANDARDon 12-07 Cholesterol [Mass/Vol] 212 mg/dL High <200 [facility] Comment on above: Order Comment: FASTI NG:YES FASTING: YES Performed By: #### 6 399, 6517, 24697, 7600 #### [facility] [address], [address] [place] [address] Intramural Director: Chris Sánchez MD Cholesterol in HDL [Mass/Vol] 50 mg/dL Normal > OR = 40 [facility] Comment on above: Order Comment: FASTI NG:YES FASTING: YES Performed By: #### 6 399, 6517, 93420, 7600 #### [facility] [address], [address] [place] [address] Intramural Director: Chris Sánchez MD Cholesterol in LDL [Mass/Vol] 128 mg/dL High [facility] Comment on above: Order Comment: FASTI NG:YES FASTING: YES Result Comment: Refe rence range: <100 Desirable range <100 mg/dL for primary prevention; <70 mg/dL for patients with CHD or diabetic patients with > or = 2 CHD risk factors. LDL-C is now calculated using the Damion calculation, which is a validated novel method providing better accuracy than the Friedewald equation in the estimation of LDL-C. Jose Martin FARFAN et al. JAYDEN. 2013;310(19): 7017-7033 (http://education.Ernie's/faq/QZW566) Performed By: #### 6 399, 6517, 97684, 7600 #### [facility] [address], [address] [place] [address] Intramural Director: Chris Sánchez MD Cholesterol.total/Cho lesterol in HDL [Mass ratio] 4.2 {ratio} Normal <5.0 [facility] Comment on above: Order Comment: FASTI NG:YES FASTING: YES Performed By: #### 6 399, 6517, 66116, 7600 #### [facility] [address], [address] [place] [address] Intramural Director: Crhis Sánchez MD NON HDL CHOLESTEROL 162 mg/dL (calc) High <130 [facility] Comment on above: Order Comment: FASTI NG:YES FASTING: YES Result Comment: For patients with diabetes plus 1 major ASCVD risk factor, treating to a non-HDL-C goal of <100 mg/dL (LDL-C of <70 mg/dL) is considered a therapeutic option. Performed By: #### 6 399, 6517, 10561, 7600 #### [facility] [address] [place] [address], [address] [place], [place] [id number] Intramural Director: Chris Sánchez MD Triglyceride [Mass/Vol] 205 mg/dL High <150 [facility] Comment on above: Order Comment: FASTI NG:YES FASTING: YES Result Comment: If a non-fasting specimen was collected, consider repeat triglyceride testing on a fasting specimen if clinically indicated. Kate et al. J. of Clin. Lipidol. 2015;9:129-169. Performed By: #### 6 399, 6517, 62199, 7600 #### [facility] [address], [address] [place], [place] [address] Intramural Director: Chris Gonzalez 10-28-2024 CNPN Telephone (MARIAHUCR) KAELYN GR ([id number]) 1955 M Date Time Provider Department 10/28/24 CHAI BEAVERS During your visit today, we recorded the following information about you: Tessa Liao 10/28/2024 12:05 PM Signed Pt calling in stating that Dr. Beavers wrote the pt a prescription for Betahistine and informed him to take 2 tablets (16 mg) x2 daily but the prescription states to take the medication x3 daily and the pt is looking for clarification. Please advise Andrey Birch RN 10/28/2024 1:06 PM Signed Called patient . Clarified betahistine should be taken 3x daily. She verbalized an understanding. Andrey Birch RN Allergies As of Date: 10/28/2024 (No Known Allergies) Date Reviewed: 10/14/2024 Reviewed by: Raven Fischer MA - Fully Assessed Reason for Visit: Patient Question [6727] Cmt: Medication question Prescriptions as of 10/28/2024 - citalopram (CELEXA) 20 mg tablet Take 20 mg by mouth once daily. - TRULICITY 1.5 mg/0.5 mL pen injector Inject 1.5 mg subcutaneously one time a week. - betahistine capsule 8 mg (CPD) Take 2 capsules by mouth three times a day. - ondansetron orally disintegrating (ZOFRAN ODT) 8 mg disintegrating tablet Take 1 tablet by mouth every 8 hours as needed for nausea/vomiting. - betahistine capsule 8 mg (CPD) Take 1 capsule by mouth three times a day. - ASPIRIN LOW DOSE ORAL Take by mouth once daily. - ondansetron (ZOFRAN) 4 mg tablet Take 1 tablet by mouth once each week. - FARXIGA 10 mg tab Take 10 mg by mouth once daily. - BYDUREON BCISE 2 mg/0.85 mL AutoInjector Inject 1 Pen subcutaneously once each week. - omeprazole (PRILOSEC) 20 mg capsule Take 20 mg by mouth once daily. - atorvastatin (LIPITOR) 80 mg tablet - fenofibrate (LOFIBRA) 200 mg capsule Take 200 mg by mouth once daily. 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 Meniere's disease of left ear TISH 06/03/24. C/o routine ear cleaning, some ringing in both ears, wants to increase dosage of betahistine capsule 8 mg (CPD) Denies pain/drainage. He has sibley several episodes of dizziness and nausea. PAST MEDICAL HISTORY PAST MEDICAL HISTORY Diagnosis Date Anxiety Diabetes (HCC) Hyperlipidemia PAST SURGICAL HISTORY No past surgical history on file. SYMPTOM REVIEW: Symptom review is unremarkable except as indicated in the above history of present illness. OBJECTIVE: PHYSICAL EXAM: GENERAL: The patient is seated in the examination chair appearing well with normal skin turgor and color, and body habitus. There are no obvious deformities and grooming is adequate. Kaelyn Gr has an adequate ability to communicate. EARS: Right ear cleaned of cerumen impaction. TM is intact,mobile and free of infection or effusion Left ear cleaned of cerumen impaction. TM is intact,mobile and free of infection or effusion NOSE: Unremarkable MOUTH:Examination of the oral mucosa, hard and soft palates, and tongue demonstrates no mucosal abnormality, masses or other lesions. ORAL PHARYNX: Without mucosal abnormality, swelling, erythema or masses. Tonsils: WNL TEETH: Dentition intact, bite is adequate LIPS, GUMS: Without abnormality NECK: Overall appearance is symmetrical. Supple, without lymphadenopathy THYROID:Without enlargement, tenderness or masses. EYES: PERRLA, EOM, Without nystagmus Encounter Diagnosis ICD-10-CM 1. Meniere's disease of left ear H81.02 betahistine (SERC) 8 mg tablet ondansetron orally disintegrating (ZOFRAN ODT) 8 mg disintegrating tablet 2. Bilateral impacted cerumen H61.23 Will increase to 16 mg B.I.D for now. Follow up: 4- 6 months Chai Beavers MD, PhD Allergies As of Date: 10/14/2024 (No Known Allergies) Date Reviewed: 10/14/2024 Reviewed by: Raven Fischer MA - Fully Assessed Reason for Visit: Follow Up [171] Cmt: Est. Meniere's disease of left ear TISH 06/03/24. C/o routine ear cleaning, some ringing in both ears, wants to increase dosage of betahistine capsule 8 mg (CPD) Denies pain/drainage. Primary Visit Diagnosis:Meniere's disease of left ear [H81.02] Other Visit Diagnosis:Bilateral impacted cerumen [H61.23] Order(s):betahistine (SERC) 8 mg tabletTake 2 tablets by mouth three times a day.Disp: 360 tabletRfl: 5 ondansetron orally disintegrating (ZOFRAN ODT) 8 mg disintegrating tabletTake 1 tablet by mouth every 8 hours as needed for nausea/vomiting.Disp: 20 tabletRfl: 2 Prescriptions as of 10/14/2024 - citalopram (CELEXA) 20 mg tablet Take 20 mg by mouth once daily. - TRULICITY 1.5 mg/0.5 mL pen injector Inject 1.5 mg subcutaneously one time a week. - betahistine (SERC) 8 mg tablet Take 2 tablets by mouth three times a day. - ondansetron orally disintegrating (ZOFRAN ODT) 8 mg disintegrating tablet Take 1 tablet by mouth every 8 hours as needed for nausea/vomiting. - betahistine capsule 8 mg (CPD) Take 1 capsule by mouth three times a day. - ASPIRIN LOW DOSE ORAL Take by mouth once daily. - ondansetron (ZOFRAN) 4 mg tablet Take 1 tablet by mouth once each week. - FARXIGA 10 mg tab Take 10 mg by mouth once daily. - BYDUREON BCISE 2 mg/0.85 mL AutoInjector Inject 1 Pen subcutaneously once each week. - omeprazole (PRILOSEC) 20 mg capsule Take 20 mg by mouth once daily. - atorvastatin (LIPITOR) 80 mg tablet - fenofibrate (LOFIBRA) 200 mg capsule Take 200 mg by mouth once daily. 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 ONDANSETRON 8 MG DISINTEGRATING TABL* 20 t* 2 10/14/2024 Route: ORAL Sig: Take 1 tablet by mouth every 8 hours as needed for nausea/vomiting. Encounter Status:Closed by CHAI BEAVERS on 10/14/24 Normal [facility] ALBUMIN, RANDOM URINE W/CREA Rayshawn 09-02-2024 ALBUMIN, URINE 0.5 mg/dL Normal See Note: [facility] Comment on above: Result Comment: Refe renmayco Range: Reference Range Not established Performed By: #### 6 399, 6517, 7600, 76028, 5363, 496, 1005 #### [facility] [address], [address] [place], [place] [id number] Intramural Director: Chris Sánchez MD ALBUMIN/CREATININE RATIO, RANDOM URINE 12 mg/g creat Normal <30 [facility] Comment on above: Result Comment: The ADA defines abnormalities in albumin excretion as follows: Albuminuria Category Result (mg/g creatinine) Normal to Mildly increased <30 Moderately increased 30-299 Severely increased > OR = 300 The ADA recommends that at least two of three specimens collected within a 3-6 month period be abnormal before considering a patient to be within a diagnostic category. Performed By: #### 6 399, 6517, 7600, 46862, 5363, 496, 1005 #### [facility] [address], [address] [place] [address] Intramural Director: Chris Sánchez MD Creatinine (U) [Mass/Vol] 43 mg/dL Normal 20-320 [facility] Comment on above: Performed By: #### 6 399, 6517, 7600, 12253, 5363, 496, 1005 #### [facility] [place] [address] Intramural Director: Chris Sánchez MD CBC (INCLUDES DIFF/PLT)on Basophils (Bld) [#/Vol] 0.082 10*3/uL Normal 0-200 [facility] Comment on above: Performed By: #### 6 399, 6517, 7600, 16912, 5363, 496, 1005 #### [facility] [place] [address] Intramural Director: Chris Sánchez MD Basophils/100 WBC (Bld) 1.3 % Normal [facility] Comment on above: Performed By: #### 6 399, 6517, 7600, 56201, 5363, 496, 1005 #### [facility] [place] [address] Intramural Director: Chris Sánchez MD Eosinophils (Bld) [#/Vol] 0.139 10*3/uL Normal 15-500 [facility] Comment on above: Performed By: #### 6 399, 6517, 7600, 47999, 5363, 496, 1005 #### [facility] [place] [address] Intramural Director: Chris Sánchez MD Eosinophils/100 WBC (Bld) 2.2 % Normal [facility] Comment on above: Performed By: #### 6 399, 6517, 7600, 86855, 5363, 496, 1005 #### [facility] [place] [address] Intramural Director: Chris Sánchez MD Erythrocyte distribution width (RBC) [Ratio] 12.7 % Normal 11.0-15.0 [facility] Comment on above: Performed By: #### 6 399, 6517, 7600, 47204, 5363, 496, 1005 #### [facility] of [place] [address] Intramural Director: Chris Sánchez MD Hematocrit (Bld) [Volume fraction] 51.1 % High 38.5-50.0 [facility] Comment on above: Performed By: #### 6 399, 6517, 7600, 69275, 5363, 496, 1005 #### [facility] [place] [address] Intramural Director: Chris Sánchez MD Hemoglobin (Bld) [Mass/Vol] 17.0 g/dL Normal 13.2-17.1 [facility] Comment on above: Performed By: #### 6 399, 6517, 7600, 18558, 5363, 496, 1005 #### [facility] [place] [address] Intramural Director: Chris Sánchez MD Lymphocytes (Bld) [#/Vol] 1.462 10*3/uL Normal 850-3900 [facility] Comment on above: Performed By: #### 6 399, 6517, 7600, 58695, 5363, 496, 1005 #### [facility] [place] [address] Intramural Director: Chris Sánchez MD Lymphocytes/100 WBC (Bld) 23.2 % Normal [facility] Comment on above: Performed By: #### 6 399, 6517, 7600, 25456, 5363, 496, 1005 #### [facility] [place] [address] Intramural Director: Chris Sánchez MD MCH (RBC) [Entitic mass] 31.1 pg Normal 27.0-33.0 [facility] Comment on above: Performed By: #### 6 399, 6517, 7600, 54170, 5363, 496, 1005 #### [facility] [place] [address] Intramural Director: Chris Sánchez MD MCHC (RBC) [Mass/Vol] 33.3 g/dL Normal 32.0-36.[address] [facility] Comment on above: Result Comment: For adults, a slight decrease in the calculated MCHC value (in the range of 30 to 32 g/dL) is most likely not clinically significant; however, it should be interpreted with caution in correlation with other red cell parameters and the patient's clinical condition. Performed By: #### 6 399, 6517, 7600, 74596, 5363, 496, 1005 #### [facility] [place] [address] Intramural Director: Chris Sánchez MD MCV (RBC) [Entitic vol] 93.4 fL Normal 80.0-100.0 [facility] Comment on above: Performed By: #### 6 399, 6517, 7600, 27201, 5363, 496, 1005 #### [facility] [place] [address] Intramural Director: Chris Sánchez MD Monocytes (Bld) [#/Vol] 0.523 10*3/uL Normal 200-950 [facility] Comment on above: Performed By: #### 6 399, 6517, 7600, 46940, 5363, 496, 1005 #### [facility] [place] [address] Intramural Director: Chris Sánchez MD Monocytes/100 WBC (Bld) 8.3 % Normal [facility] Comment on above: Performed By: #### 6 399, 6517, 7600, 11245, 5363, 496, 1005 #### [facility] [place] [address] Intramural Director: Chris Sánchez MD Neutrophils (Bld) [#/Vol] 4.095 10*3/uL Normal 6597-6416 [facility] Comment on above: Performed By: #### 6 399, 6517, 7600, 69585, 5363, 496, 1005 #### [facility] [place] [address] Intramural Director: Chris Sánchez MD Neutrophils/100 WBC (Bld) 65 % Normal [facility] Comment on above: Performed By: #### 6 399, 6517, 7600, 25146, 5363, 496, 1005 #### [facility] of [address], [address] [place] [address] Intramural Director: Chris Sánchez MD Platelet mean volume (Bld) [Entitic vol] 11.4 fL Normal 7.5-12.5 [facility] Comment on above: Performed By: #### 6 399, 6517, 7600, 95031, 5363, 496, 1005 #### [facility] [place] [address] Intramural Director: Chris Sánchez MD Platelets (Bld) [#/Vol] 229 10*3/uL Normal 140-400 [facility] Comment on above: Performed By: #### 6 399, 6517, 7600, 32041, 5363, 496, 1005 #### [facility] [place] [address] Intramural Director: Chris Sánchez MD RBC (Bld) [#/Vol] 5.47 10*6/uL Normal 4.20-5.80 [facility] Comment on above: Performed By: #### 6 399, 6517, 7600, 25178, 5363, 496, 1005 #### [facility] [place] [address] Intramural Director: Chris Sánchez MD WBC (Bld) [#/Vol] 6.3 10*3/uL Normal 3.8-10.8 [facility] Comment on above: Performed By: #### 6 399, 6517, 7600, 07596, 5363, 496, 1005 #### [facility] of [address], [address] [place] [address] Intramural Director: Chris Sánchez MD COMPREHENSIVE METABOLIC PANE [facility] 09-02-2024 Albumin [Mass/Vol] 4.6 g/dL Normal 3.6-5.1 [facility] Comment on above: Performed By: #### 6 399, 6517, 7600, 50098, 5363, 496, 1005 #### [facility] [place] [address] Intramural Director: Chris Sánchez MD Albumin/Globulin [Mass ratio] 2.0 {ratio} Normal 1.0-2.5 [facility] Comment on above: Performed By: #### 6 399, 6517, 7600, 52016, 5363, 496, 1005 #### [facility] [place] [address] Intramural Director: Chris Sánchez MD ALP [Catalytic activity/Vol] 90 U/L Normal 35-144 [facility] Comment on above: Performed By: #### 6 399, 6517, 7600, 34949, 5363, 496, 1005 #### [facility] [place] [address] Intramural Director: Chris Sánchez MD ALT [Catalytic activity/Vol] 27 U/L Normal 9-46 [facility] Comment on above: Performed By: #### 6 399, 6517, 7600, 05664, 5363, 496, 1005 #### [facility] [place] [address] Intramural Director: Chris Sánchez MD AST [Catalytic activity/Vol] 20 U/L Normal 10-35 [facility] Comment on above: Performed By: #### 6 399, 6517, 7600, 27690, 5363, 496, 1005 #### [facility] [place] [address] Intramural Director: Chris Sánchez MD Bilirubin [Mass/Vol] 0.7 mg/dL Normal 0.2-1.2 [facility] Comment on above: Performed By: #### 6 399, 6517, 7600, 52107, 5363, 496, 1005 #### [facility] [place] [address] Intramural Director: Chris Sánchez MD BUN/CREATININE RATIO SEE NOTE: Normal 6-22 [facility] Comment on above: Result Comment: Not Reported: BUN and Creatinine are within reference range. Performed By: #### 6 399, 6517, 7600, 30057, 5363, 496, 1005 #### [facility] [place] [address] Intramural Director: Chris Sánchez MD Calcium [Mass/Vol] 9.5 mg/dL Normal 8.6-10.3 [facility] Comment on above: Performed By: #### 6 399, 6517, 7600, 53810, 5363, 496, 1005 #### [facility] [place] [address] Intramural Director: Chris Sánchez MD Chloride [Moles/Vol] 99 mmol/L Normal 98-110 [facility] Comment on above: Performed By: #### 6 399, 6517, 7600, 17745, 5363, 496, 1005 #### [facility] [place] [address] Intramural Director: Chris Sánchez MD CO2 [Moles/Vol] 27 mmol/L Normal 20-32 [facility] Comment on above: Performed By: #### 6 399, 6517, 7600, 86307, 5363, 496, 1005 #### [facility] [place] [address] Intramural Director: Chris Sánchez MD Creatinine [Mass/Vol] 1.02 mg/dL Normal 0.70-1.28 [facility] Comment on above: Performed By: #### 6 399, 6517, 7600, 30869, 5363, 496, 1005 #### [facility] [place] [address] Intramural Director: Chris Sánchez MD GFR/1.73 sq M.predicted among non-blacks MDRD (S/P/Bld) [Vol rate/Area] 79 mL/min/{1.73_m2} Normal > OR = 60 [facility] Comment on above: Performed By: #### 6 399, 6517, 7600, 63292, 5363, 496, 1005 #### [facility] [address], [address] [place] [address] Intramural Director: Chris Sánchez MD Globulin (S) [Mass/Vol] 2.3 g/dL Normal 1.9-3.7 [facility] Comment on above: Performed By: #### 6 399, 6517, 7600, 99466, 5363, 496, 1005 #### [facility] [place] [address] Intramural Director: Chris Sánchez MD Glucose [Mass/Vol] 194 mg/dL High 65-99 [facility] Comment on above: Result Comment: Fasting reference interval For someone without known diabetes, a glucose value >125 mg/dL indicates that they may have diabetes and this should be confirmed with a follow-up test. Performed By: #### 6 399, 6517, 7600, 65397, 5363, 496, 1005 #### [facility] [place] [address] Intramural Director: Chris Sánchez MD Potassium [Moles/Vol] 4.3 mmol/L Normal 3.5-5.3 [facility] Comment on above: Performed By: #### 6 399, 6517, 7600, 56682, 5363, 496, 1005 #### [facility] [place] [address] Intramural Director: Chris Sánchez MD Protein [Mass/Vol] 6.9 g/dL Normal 6.1-8.1 [facility] Comment on above: Performed By: #### 6 399, 6517, 7600, 68792, 5363, 496, 1005 #### [facility] [place] [address] Intramural Director: Chris Sánchez MD Sodium [Moles/Vol] 137 mmol/L Normal 135-146 [facility] Comment on above: Performed By: #### 6 399, 6517, 7600, 52754, 5363, 496, 1005 #### [facility] [address], [address] [place] [address] Intramural Director: Chris Sánchez MD Urea nitrogen [Mass/Vol] 19 mg/dL Normal 7-25 [facility] Comment on above: Performed By: #### 6 399, 6517, 7600, 66089, 5363, 496, 1005 #### [facility] [address], [address] [place] [address] Intramural Director: Chris Sánchez MD HEMOGLOBIN A1con 09-02-2024 HEMOGLOBIN A1c 9.7 % of total Hgb High <5.7 [facility] Comment on above: Result Comment: For someone without known diabetes, a hemoglobin A1c value of 6.5% or greater indicates that they may have diabetes and this should be confirmed with a follow-up test. For someone with known diabetes, a value <7% indicates that their diabetes is well controlled and a value greater than or equal to 7% indicates suboptimal control. A1c targets should be individualized based on duration of diabetes, age, comorbid conditions, and other considerations. Currently, no consensus exists regarding use of hemoglobin A1c for diagnosis of diabetes for children. Performed By: #### 6 399, 6517, 7600, 28119, 5363, 496, 1005 #### [facility] [address], [address] [place] [address] Intramural Director: Chris Sánchez MD LIPID PANEL, STANDARDon - Cholesterol [Mass/Vol] 202 mg/dL High <200 [facility] Comment on above: Order Comment: FASTI NG:YES FASTING: YES Performed By: #### 6 399, 6517, 7600, 39647, 5363, 496, 1005 #### [facility] [address], [address] [place] [address] Intramural Director: Chris Sánchez MD Cholesterol in HDL [Mass/Vol] 53 mg/dL Normal > OR = 40 [facility] Comment on above: Order Comment: FASTI NG:YES FASTING: YES Performed By: #### 6 399, 6517, 7600, 56040, 5363, 496, 1005 #### [facility] [address], [address] [place] [address] Intramural Director: Chris Sánchez MD Cholesterol in LDL [Mass/Vol] 117 mg/dL High [facility] Comment on above: Order Comment: FASTI NG:YES FASTING: YES Result Comment: Refe rence range: <100 Desirable range <100 mg/dL for primary prevention; <70 mg/dL for patients with CHD or diabetic patients with > or = 2 CHD risk factors. LDL-C is now calculated using the Damion calculation, which is a validated novel method providing better accuracy than the Friedewald equation in the estimation of LDL-C. Jose Martin FARFAN et al. JAYDEN. 2013;310(19): 1172-9117 (http://education.Ernie's/faq/BFZ367) Performed By: #### 6 399, 6517, 7600, 36724, 5363, 496, 1005 #### [facility] [address], [address] [place] [address] Intramural Director: Chris Sánchez MD Cholesterol.total/Cho lesterol in HDL [Mass ratio] 3.8 {ratio} Normal <5.0 [facility] Comment on above: Order Comment: FASTI NG:YES FASTING: YES Performed By: #### 6 399, 6517, 7600, 04858, 5363, 496, 1005 #### [facility] [address], [address] [place] [address] Intramural Director: Chris Sánchez MD NON HDL CHOLESTEROL 149 mg/dL (calc) High <130 [facility] Comment on above: Order Comment: FASTI NG:YES FASTING: YES Result Comment: For patients with diabetes plus 1 major ASCVD risk factor, treating to a non-HDL-C goal of <100 mg/dL (LDL-C of <70 mg/dL) is considered a therapeutic option. Performed By: #### 6 399, 6517, 7600, 65735, 5363, 496, 1005 #### [facility] [address], [address] [place] [address] Intramural Director: Chris Sánchez MD Triglyceride [Mass/Vol] 206 mg/dL High <150 [facility] Comment on above: Order Comment: FASTI NG:YES FASTING: YES Result Comment: If a non-fasting specimen was collected, consider repeat triglyceride testing on a fasting specimen if clinically indicated. Kate et al. J. of Clin. Lipidol. 2015;9:129-169. Performed By: #### 6 399, 6517, 7600, 41175, 5363, 496, 1005 #### [facility] [address], [address] [place] [address] Intramural Director: Chris Sánchez MD PSA, TOTALon 09-02-2024 PSA, TOTAL 0.55 ng/mL Normal < OR = 4.00 [facility] Comment on above: Result Comment: The total PSA value from this assay system is standardized against the WHO standard. The test result will be approximately 20% lower when compared to the equimolar-standardized total PSA (Kingsley Raphael). Comparison of serial PSA results should be interpreted with this fact in mind. This test was performed using the Siemens chemiluminescent method. Values obtained from different assay methods cannot be used interchangeably. PSA levels, regardless of value, should not be interpreted as absolute evidence of the presence or absence of disease. Performed By: #### 6 399, 6517, 7600, 92907, 5363, 496, 1005 #### [facility] [address], [address] [place] [address] Intramural Director: Chris Sánchez MD TEST AUTHORIZATIONon 024 CLIENT CONTACT: Normal [facility] Comment on above: Performed By: #### 6 399, 6517, 7600, 03920, 5363, 496, 1005 #### [facility] [address], [address] [place] [address] Intramural Director: Chris Sánchez MD COMMENT Normal [facility] Comment on above: Result Comment: Plea se have the ordering physician or his or her authorized wireless sales representative sign a copy of this report and promptly return it by faxing it to: [phone] or by returning the form to your label printing machinist. Performed By: #### 6 399, 6517, 7600, 56975, 5363, 496, 1005 #### [facility] [place] [address] Intramural Director: Chris Sánchez MD REPORT ALWAYS MESSAGE SIGNATURE Normal [facility] Comment on above: Result Comment: The laboratory testing on this patient was verbally requested or confirmed by the ordering physician or his or her authorized wireless sales representative after contact with an employee of [email or web address]. Federal regulations require that we maintain on file written authorization for all laboratory testing. Accordingly we are asking that the ordering physician or his or her authorized wireless sales representative sign a copy of this report and promptly return it to the client strategist. Signature: Performed By: #### 6 399, 6517, 7600, 45766, 5363, 496, 1005 #### [facility] [place] [address] Intramural Director: Chris Sánchez MD TEST CODE: 5363 Normal [facility] Comment on above: Performed By: #### 6 399, 6517, 7600, 80703, 5363, 496, 1005 #### [facility] [place] [address] Intramural Director: Chris Sánchez MD TEST NAME: PSA Normal [facility] Comment on above: Performed By: #### 6 399, 6517, 7600, 65592, 5363, 496, 1005 #### [facility] [place] [address] Intramural Director: Chris Sánchez MD Basic metabolic 2000 panelon 06-18-2024 Anion gap [Moles/Vol] 11 mmol/L Normal 8-15 [facility] Comment on above: Order Comment: Speci men Type: BLOOD SPECIMEN Ordering Facility: [facility] Address: [address] [place] [address] Performed By: #### 2 4321-2 #### [facility] CLIA [id number] [address] [place] [address] [place] Calcium [Mass/Vol] 8.8 mg/dL Normal 8.5-10.2 [facility] Comment on above: Order Comment: Speci men Type: BLOOD SPECIMEN Ordering Facility: [facility] Address: [address] [place] [address] Performed By: #### 2 4321-2 #### [facility] CLIA [id number] [address] [place] [address] [place] Chloride [Moles/Vol] 98 mmol/L Normal 98-107 [facility] Comment on above: Order Comment: Speci men Type: BLOOD SPECIMEN Ordering Facility: [facility] Address: [address] [place] [address] Performed By: #### 2 4321-2 #### [facility] CLIA [id number] [address] [place] [address] [place] CO2 [Moles/Vol] 30 mmol/L Normal 22-30 [facility] Comment on above: Order Comment: Speci men Type: BLOOD SPECIMEN Ordering Facility: [facility] Address: [address] [place] [address] Performed By: #### 2 4321-2 #### [facility] CLIA [id number] [address] [place] [address] [place] Creatinine [Mass/Vol] 0.94 mg/dL Normal 0.73-1.22 [facility] Comment on above: Order Comment: Speci men Type: BLOOD SPECIMEN Ordering Facility: [facility] Address: [address] [place] [address] Performed By: #### 2 4321-2 #### [facility] CLIA [id number] [address] [place] [address] [place] Creatinine and Glomerular filtration rate.predicted panel (S/P/Bld) 87 mL/min/1.73m??? Normal >=60 [facility] Comment on above: Order Comment: Lenora tse Type: BLOOD SPECIMEN Ordering Facility: [facility] Address: [address] [place] [address] Result Comment: Yanni mated Glomerular Filtration Rate (eGFR) is calculated using the 2020 CKD-EPI creatinine equation. This equation utilizes serum creatinine, sex, and age as parameters. The creatinine assay has traceable calibration to isotope dilution-mass spectrometry. Refer to KDIGO guidelines for clinical interpretation. In patients with unstable renal function, e.g. those with acute kidney injury, the eGFR may not accurately reflect actual GFR. Performed By: #### 2 4321-2 #### [facility] CLIA [id number] [address] [place] [address] [place] Glucose [Mass/Vol] 344 mg/dL High 74-99 [facility] Comment on above: Order Comment: Lenora tse Type: BLOOD SPECIMEN Ordering Facility: [facility] Address: [address] [place] [address] Result Comment: The [place] Diabetes [employer] (ADA) provides guidance for cutoff values for fasting glucose and random glucose. The ADA defines fasting as no caloric intake for at least 8 hours. Fasting plasma glucose results between 100 to 125 mg/dL indicate increased risk for diabetes (prediabetes). Fasting plasma glucose results greater than or equal to 126 mg/dL meet the criteria for diagnosis of diabetes. In the absence of unequivocal hyperglycemia, results should be confirmed by repeat testing. In a patient with classic symptoms of hyperglycemia or hyperglycemic crisis, random plasma glucose results greater than or equal to 200 mg/dL meet the criteria for diagnosis of diabetes. Reference: Standards of Medical Care in Diabetes 2016, [place] [employer]. Diabetes Care. 2016.39(Suppl 1). Performed By: #### 2 4321-2 #### [facility] CLIA [id number] [address] [place], [place] [id number] [place] Potassium [Moles/Vol] 4.4 mmol/L Normal 3.7-5.1 [facility] Comment on above: Order Comment: Lenora tse Type: BLOOD SPECIMEN Ordering Facility: [facility] Address: [address] [place] [address] Performed By: #### 2 4321-2 #### [facility] CLIA [id number] [address] [place] [address] [place] Sodium [Moles/Vol] 139 mmol/L Normal 136-144 [facility] Comment on above: Order Comment: Speci men Type: BLOOD SPECIMEN Ordering Facility: [facility] Address: [address] [place] [address] Performed By: #### 2 4321-2 #### [facility] CLIA [id number] [address] [place] Urea nitrogen [Mass/Vol] 21 mg/dL Normal 9-24 [facility] Comment on above: Order Comment: Speci men Type: BLOOD SPECIMEN Ordering Facility: [facility] Address: [address] [place] [address] Performed By: #### 2 4321-2 #### [facility] CLIA [id number] [address] [place] CBC panel Auto (Bld)on 06-18 Erythrocyte distribution width (RBC) [Ratio] 12.7 % Normal 11.5-15.0 [facility] Comment on above: Order Comment: Speci men Type: BLOOD SPECIMEN Ordering Facility: [facility] Address: [address] [place] [address] Performed By: #### 5 8410-2 #### [facility] CLIA [id number] [address] [place] Hematocrit (Bld) [Volume fraction] 45.5 % Normal 39.0-51.0 [facility] Comment on above: Order Comment: Speci men Type: BLOOD SPECIMEN Ordering Facility: [facility] Address: [address] [place] [address] Performed By: #### 5 8410-2 #### [facility] CLIA [id number] [address] [place] Hemoglobin (Bld) [Mass/Vol] 15.3 g/dL Normal 13.0-17.0 [facility] Comment on above: Order Comment: Speci men Type: BLOOD SPECIMEN Ordering Facility: [facility] Address: [address] [place] [address] Performed By: #### 5 8410-2 #### [facility] CLIA [id number] [address] [place] [address] MCH (RBC) [Entitic mass] 30.8 pg Normal 26.0-34.0 [facility] Comment on above: Order Comment: Speci men Type: BLOOD SPECIMEN Ordering Facility: [facility] Address: [address] [place] [address] Performed By: #### 5 8410-2 #### [facility] CLIA [id number] [address] OF [place] MCHC (RBC) [Mass/Vol] 33.6 g/dL Normal 30.5-36.0 [facility] Comment on above: Order Comment: Speci men Type: BLOOD SPECIMEN Ordering Facility: [facility] Address: [address] [place] [address] Performed By: #### 5 8410-2 #### [facility] CLIA [id number] [address] [place] [address] [place] MCV (RBC) [Entitic vol] 91.7 fL Normal 80.0-100.0 [facility] Comment on above: Order Comment: Speci men Type: BLOOD SPECIMEN Ordering Facility: [facility] Address: [address] [place] [address] Performed By: #### 5 8410-2 #### [facility] [place] [facility] CLIA [id number] [address] [place] [id number] [place] [address] STATES [address] [facility] Platelet mean volume (Bld) [Entitic vol] 11.2 fL Normal 9.0-12.7 [facility] Comment on above: Order Comment: Speci men Type: BLOOD SPECIMEN Ordering Facility: [facility] Address: [address] [place] [address] Performed By: #### 5 8410-2 #### [facility] [place] [facility] CLIA [id number] [address] [place] [address] [place] Platelets (Bld) [#/Vol] 224 10*3/uL Normal 150-400 [facility] Comment on above: Order Comment: Speci men Type: BLOOD SPECIMEN Ordering Facility: [facility] Address: [address] [place] [address] Performed By: #### 5 8410-2 #### [facility] [place] [facility] CLIA [id number] [address] [place] [address] [facility] OF [place] RBC (Bld) [#/Vol] 4.96 10*6/uL Normal 4.20-6.00 [facility] Comment on above: Order Comment: Speci men Type: BLOOD SPECIMEN Ordering Facility: [facility] Address: [address] [place] [address] Performed By: #### 5 8410-2 #### [facility] [place] [facility] CLIA [id number] [address] [place] [address] [facility] WBC (Bld) [#/Vol] 4.92 10*3/uL Normal 3.70-11.00 [facility] Comment on above: Order Comment: Speci men Type: BLOOD SPECIMEN Ordering Facility: [facility] Address: [address] [place] [address] Performed By: #### 5 8410-2 #### [facility] [place] [facility] CLIA [id number] [address] [place] [id number] [facility] EKGon 06-18-2024 Electrocardiogram Ventricular Rate : 7 3 BPM Atrial Rate : 73 BPM P-R Interval : 152 ms QRS Duration : 110 ms Q-T Interval : 400 ms QTC Calculation(Bazett) : 440 ms Calculated P [place] : 67 degrees Calculated R [place] : 53 degrees Calculated T [place] : 51 degrees NORMAL SINUS RHYTHM INCOMPLETE LEFT BUNDLE BRANCH BLOCK NONSPECIFIC T WAVE ABNORMALITY ABNORMAL ECG NO PREVIOUS ECGS AVAILABLE Confirmed by MD TYREE, CHANO ([id number]) on 06/23/2024 11:00:38 PM NAME : KAELYN GR PID : [id number] : 1955 Gender : Male Race : ORD : Procedure Date : Jun 18 2024 09:18:28 Edit Date : Jun 23 2024 23:00:42 Diagnosis: NORMAL SINUS RHYTHM INCOMPLETE LEFT BUNDLE BRANCH BLOCK NONSPECIFIC T WAVE ABNORMALITY ABNORMAL ECG NO PREVIOUS ECGS AVAILABLE Confirmed by MD CLEMENTS VINAYAK ([id number]) on 06/23/2024 11:00:38 PM Test Reason : Location : 191 : LDCARD Overread By : MD CLEMENTS VINAYAK Edited By : MD CLEMENTS VINAYAK Referred By : , Acquired by : MATT ROSA Normal [facility] HEARING TEST/AUDIOGRAMon [facility] Final Surgical Pathology Rep [facility] 12-19-2022 Final Surgical Pathology Report . 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 MUSCULARIS PROPRIA IS PRESENT IN THE RESECTION SPECIMEN. Comment: Stage Ta COMMENT: [facility] - [id number] CLINICAL INFORMATION: Procedure: TRANSURETHERAL RESECTION BLADDER TUMOR, LARGE WITH BIPOLAR OLYMPUS Preoperative diagnosis: NEOPLASM OF UNCERTAIN BEHAVIOR, BLADDER Postoperative diagnosis: NEOPLASM OF UNCERTAIN BEHAVIOR, BLADDER SPECIMEN: A BLADDER TUMOR GROSS DESCRIPTION: All parts labelled with patient name and [id number] Received in formalin, labeled bladder tumor are multiple friable fragments of noriega-white tissue, in aggregate 4.0 x 4.0 x 0.8 cm.. TS-3 Rivera Landaverde MD Dictated by RIVERA LANDAVERDE MICROSCOPIC DESCRIPTION: The microscopic examination is performed, except in the case of Gross Only. Electronically Signed by Pathology Report verified by [facility] ISRAEL SHIELDS Sign out Date: 12/19/2022 11:19 Performing Lab: [facility], [address] [place] [id number] [place] [address] Pathology Dept Normal [facility]) Gel ABOon 12-15-2022 ABO/Rh Interp Negative Invalid Interpretation Code [facility]) Comment on above: Performed By: #### A SAÚL MALIN #### [address] [address] Gel ABSon 12-15-2022 Antibody Screen Gel Negative Normal [facility] (ID) Comment on above: Performed By: #### A BOG, ANSG #### [address] [address] LABORATORYOrdered By: Debra Mccrary on 12-15-2022 ABO/Rh Interp Negative Invalid Interpretation Code AO BB SS Antibody Screen Gel Negative ABSC (12/15/22 12:19 PM) Invalid Interpretation Code AO BB SS .Auto Diffon 12-12-2022 Basophil, Absolute 0.1 10 3/mcL Normal 0.0-0.2 [facility] ([place]) Comment on above: Performed By: #### A PA, ABOG, ANSG, GFR, BMP, CBC, ADIFF #### [address] [address] Basophils/100 WBC (Bld) 1.5 % Normal 0.0-2.5 [facility] ([place]) Comment on above: Performed By: #### A PA, ABOG, ANSG, GFR, BMP, CBC, ADIFF #### [address] [address] Eosinophil, Absolute 0.1 10 3/mcL Normal 0.0-0.4 [facility] ([place]) Comment on above: Performed By: #### A PA, ABOG, ANSG, GFR, BMP, CBC, ADIFF #### [address] [address] Eosinophils/100 WBC (Bld) 2.3 % Normal 0.0-7.0 [facility] ([place]) Comment on above: Performed By: #### A PA, ABOG, ANSG, GFR, BMP, CBC, ADIFF #### [address] [address] Lymphocyte, Absolute 1.4 10 3/mcL Normal 0.8-3.9 [facility] ([place]) Comment on above: Performed By: #### A PA, ABOG, ANSG, GFR, BMP, CBC, ADIFF #### [address] [address] Lymphocytes/100 WBC (Bld) 29.3 % Normal 10.0-50.0 [facility] ([place]) Comment on above: Performed By: #### A PA, ABOG, ANSG, GFR, BMP, CBC, ADIFF #### [address] [address] Monocyte, Absolute 0.5 10 3/mcL Normal 0.2-1.0 [facility] ([place]) Comment on above: Performed By: #### A PA, ABOG, ANSG, GFR, BMP, CBC, ADIFF #### [address] [address] Monocytes/100 WBC (Bld) 10.9 % Normal 1.7-13.0 [facility] ([place]) Comment on above: Performed By: #### A PA, ABOG, ANSG, GFR, BMP, CBC, ADIFF #### [address] [address] Neutrophils/100 WBC (Bld) 56.0 % Normal 37.0-80.0 [facility] ([place]) Comment on above: Performed By: #### A PA, ABOG, ANSG, GFR, BMP, CBC, ADIFF #### [address] [address] .GFRon 12-12-2022 GFR 92 ml/min/1.73sqm Normal [facility] ([place]) Comment on above: Result Comment: GFR Population mean for , Non- Americans Ages 20-29 = 116 mL/min/1.73 sq.m. Ages 30-39 = 107 mL/min/1.73 sq.m. Ages 40-49 = 99 mL/min/1.73 sq.m. Ages 50-59 = 93 mL/min/1.73 sq.m. Ages 60-69 = 85 mL/min/1.73 sq.m. Ages 70+ = 75 mL/min/1.73 sq.m. Chronic Kidney Disease: Less than 60 mL/min/1.73 square meters End Stage Renal Disease: Less than 15 mL/min/1.73 square meters Performed By: #### A PA, ABOG, ANSG, GFR, BMP, CBC, ADIFF #### [address] [address] GFR Non- 76 ml/min/1.73sqm Normal [facility] ([place]) Comment on above: Result Comment: GFR Population mean for , Non- Americans Ages 20-29 = 116 mL/min/1.73 sq.m. Ages 30-39 = 107 mL/min/1.73 sq.m. Ages 40-49 = 99 mL/min/1.73 sq.m. Ages 50-59 = 93 mL/min/1.73 sq.m. Ages 60-69 = 85 mL/min/1.73 sq.m. Ages 70+ = 75 mL/min/1.73 sq.m. Chronic Kidney Disease: Less than 60 mL/min/1.73 square meters End Stage Renal Disease: Less than 15 mL/min/1.73 square meters Performed By: #### A PA, ABOG, ANSG, GFR, BMP, CBC, ADIFF #### [address] [address] .NEUABSon 12-12-2022 Neutrophil, Absolute 2.6 10 3/mcL Low 2.9-6.2 [facility] ([place]) Comment on above: Performed By: #### A PA, ABOG, ANSG, GFR, BMP, CBC, ADIFF #### [address] [address] BMPon 12-12-2022 BUN/Creatinine Ratio 22 ratio Normal 7-27 [facility] ([place]) Comment on above: Performed By: #### A PA, ABOG, ANSG, GFR, BMP, CBC, ADIFF #### [address] [address] Calcium [Mass/Vol] 9.0 mg/dL Normal 8.4-10.2 On license of [facility] ([place]) Comment on above: Performed By: #### A PA, ABOG, ANSG, GFR, BMP, CBC, ADIFF #### [address] [address] Chloride [Moles/Vol] 104 mmol/L Normal 98-107 [facility] ([place]) Comment on above: Performed By: #### A PA, ABOG, ANSG, GFR, BMP, CBC, ADIFF #### [address] [address] CO2 [Moles/Vol] 30 mmol/L Normal 23-31 [facility] ([place]) Comment on above: Performed By: #### A PA, ABOG, ANSG, GFR, BMP, CBC, ADIFF #### [address] [address] Creatinine [Mass/Vol] 0.98 mg/dL Normal 0.55-1.02 [facility] ([place]) Comment on above: Performed By: #### A PA, ABOG, ANSG, GFR, BMP, CBC, ADIFF #### [address] [address] Electrolyte Balance 7.0 mEq/L Normal 4.0-15.0 [facility] ([place]) Comment on above: Performed By: #### A PA, ABOG, ANSG, GFR, BMP, CBC, ADIFF #### [address] [address] Glucose [Mass/Vol] 274 mg/dL High 80-115 On license of [facility] ([place]) Comment on above: Performed By: #### A PA, ABOG, ANSG, GFR, BMP, CBC, ADIFF #### [address] [address] Potassium [Moles/Vol] 4.2 mmol/L Normal 3.5-5.1 [facility] ([place]) Comment on above: Performed By: #### A PA, ABOG, ANSG, GFR, BMP, CBC, ADIFF #### [address] [address] Sodium [Moles/Vol] 141 mmol/L Normal 136-145 On license of [facility] ([place]) Comment on above: Performed By: #### A PA, ABOG, ANSG, GFR, BMP, CBC, ADIFF #### [address] [address] Urea nitrogen [Mass/Vol] 22 mg/dL High 7-18 [facility] ([place]) Comment on above: Performed By: #### A PA, ABOG, ANSG, GFR, BMP, CBC, ADIFF #### [address] [address] CBCon 12-12-2022 Erythrocyte distribution width (RBC) [Ratio] 13.6 % Normal 11.5-14.5 [facility] ([place]) Comment on above: Order Comment: Pre-A dmission Testing Performed By: #### A PA, ABOG, ANSG, GFR, BMP, CBC, ADIFF #### [address] [address] Hematocrit (Bld) [Volume fraction] 44.9 % Normal 37.0-47.0 [facility] ([place]) Comment on above: Order Comment: Pre-A dmission Testing Performed By: #### A PA, ABOG, ANSG, GFR, BMP, CBC, ADIFF #### [address] [address] Hgb 15.6 G/dL Normal 12.0-16.0 [facility] ([place]) Comment on above: Order Comment: Pre-A dmission Testing Performed By: #### A PA, ABOG, ANSG, GFR, BMP, CBC, ADIFF #### [address] [address] MCH (RBC) [Entitic mass] 30.8 pg Normal 27.0-31.2 [facility] ([place]) Comment on above: Order Comment: Pre-A dmission Testing Performed By: #### A PA, ABOG, ANSG, GFR, BMP, CBC, ADIFF #### [address] [address] MCHC 34.7 G/dL Normal 33.0-37.0 [facility] ([place]) Comment on above: Order Comment: Pre-A dmission Testing Performed By: #### A PA, ABOG, ANSG, GFR, BMP, CBC, ADIFF #### [address] [address] MCV (RBC) [Entitic vol] 89.0 fL Normal 80.0-94.0 [facility] ([place]) Comment on above: Order Comment: Pre-A dmission Testing Performed By: #### A PA, ABOG, ANSG, GFR, BMP, CBC, ADIFF #### [address] [address] Platelet 198 10 3/mcL Normal 130-400 [facility] ([place]) Comment on above: Order Comment: Pre-A dmission Testing Performed By: #### A PA, ABOG, ANSG, GFR, BMP, CBC, ADIFF #### [place] [address] Platelet mean volume (Bld) [Entitic vol] 9.2 fL Normal 7.4-10.4 [facility] ([place]) Comment on above: Order Comment: Pre-A dmission Testing Performed By: #### A PA, ABOG, ANSG, GFR, BMP, CBC, ADIFF #### [place] [address] RBC 5.05 10 6/mcL Normal 4.20-5.40 [facility] ([place]) Comment on above: Order Comment: Pre-A dmission Testing Performed By: #### A PA, ABOG, ANSG, GFR, BMP, CBC, ADIFF #### [place] [address] WBC 4.7 10 3/mcL Normal 4.6-10.8 [facility] ([place]) Comment on above: Order Comment: Pre-A dmission Testing Performed By: #### A PA, ABOG, ANSG, GFR, BMP, CBC, ADIFF #### [place] [address] Gel ABOon 12-12-2022 ABO/Rh Interp Negative Invalid Interpretation Code [facility] ([place]) Comment on above: Performed By: #### A PA, ABOG, ANSG, GFR, BMP, CBC, ADIFF #### [place] [address] Gel ABSon 12-12-2022 Antibody Screen Gel Negative Normal [facility] ([place]) Comment on above: Performed By: #### A PA, ABOG, ANSG, GFR, BMP, CBC, ADIFF #### [facility] [place] [address] [place], [place] [address] Basophil percentageOrdered B y: Dr. Zimmerman on 11-23-2022 Basophil percentage < 0.9 mg/dL 0.70-1.30 [facility] [place] No Panel InformationOrdered By: Dr. Zimmerman on 11-23-2022 Bedside Estimated GFR (eGFR) > 60.0000 mL/min >60 [facility] No Panel InformationOrdered By: VAHE Zamorano on 11-16-2022 Prostate Specific Antigen Screen 0.37 ng/mL 0.00-4.00 [facility] Comment on above: This test was perfor med using the TPSA assay method for the[employer]OTORS chemistry system. Values obtained with differentassay methods cannot be used interchangably.When changing PSA assays in the course of monitoring apatient, additional sequential testing should be carriedout to confirm baseline values. [facility] 09[facility]2020 CASE MANAGE HNO ID: [id number] Author: Corine (Rn) NICO Jacob Service: Case Management Author Type: Registered Nurse Type: Care Mgt Progress Note Filed: 09/30/2020 9:10 AM Note Text: CARE MANAGEMENT DISCHARGE NOTE SERVICE DATE: 09/30/2020 SERVICE TIME: 9:08 AM LOS: 6 days Admission Date: 09/24/2020 DISCHARGE ARRANGEMENT (list agency and phone number) Discharge Arrangement: Home Provider Name: n/a Phone: n/a CAREGIVER ASSESSMENT: Caregiver is ready, willing and able to meet the patient's needs as recommended by the inter-professional team:: No Caregiver needed Does the patient have an acute stroke diagnosis, or has the patient had a stroke during this admission?: No Patient's transition needs and plan for meeting these needs: Home with self care HANDOFF COMMUNICATION: Handoff to: Primary Care Physician Primary Care Physician Name/Phone: Rodney Chi MD Summary of care sent TRANSPORTATION ARRANGEMENTS: Transportation Arrangements: Car ADDITIONAL CONTACT RESOURCES: Montserrat Gr ([facility] [address] [facility] [address] (H) [phone] (M) IMM Follow Up Copy Given: Yes Copy given to:: Patient Method: By Phone Patient aware and eager for dc today. Patient will return home with basic needs. Did not qualify for home oxygen. Spouse will transport. Patient in agreement with DC plan. SIGNATURE: Corine Jacob RN PATIENT NAME: Kaelyn Gr DATE: September 30, 2020 TIME: 9:08 AM PAGER/CONTACT #: [phone] [facility] CONSULT PROGon 09-30-2020 CONSULT PROG HNO ID: [id number] Author: Paul Lucas MD Service: Infectious Disease Author Type: Physician Type: Consult Progress Note Filed: 10/01/2020 12:16 AM Note Text: INFECTIOUS DISEASE PROGRESS NOTE Patient Name: Kaelyn Gr INTERVAL HISTORY: No new complaints. Feels weaker today. No fevers. Weaning O2 to RA. Some cough +. ROS checked in details. All qs answered. ASSESSMENT: COVID-19 Viral pneumonia Acute hypoxic respiratory failure Diabetes mellitus Hyperlipidemia Anxiety disorder ? PLAN: Continue dexamethasone x 10 days total Completed Remdesivir S/p convalescent plasma. Empiric Antibiotics to cover for community-acquired pneumonia Trend acute phase reactants including CRP Follow D-dimer, will repeat in am Wean oxygen as able Monitor temperatures and counts Monitor liver and kidney function tests daily Diuresis per IM. Discussed w Dr Chi Plan for discharge noted MEDICATIONS: reviewed. No current facility-administered medications for this encounter. PHYSICAL EXAM: Vital signs: BP 101/66 Pulse 76 Temp 36.9 ?C (98.4 ?F) (Oral) Resp 18 Ht 167.6 cm (5' 6) Wt 69.1 kg (152 lb 5.4 oz) SpO2 93% BMI 24.59 kg/m? Temp (72hrs), Av.8 ?C (98.2 ?F), Min:36.3 ?C (97.4 ?F), Max:37.3 ?C (99.1 ?F) General: alert, oriented, NAD Lungs: bilaterally scattered rhonchi to auscultation Heart: regular rate and rhythm Abdomen: soft, non tender, non distended, BS+ Extremities: no edema No rashes No joint inflammation Neck supple Lines ok No CVAT Labs: Recent Labs 09/29/20 0735 09/28/20 0432 WBC 7.67 7.03 HB 14.6 13.9 HCT 41.8 40.1 PLT 472* 396 NA 132* 130* K 4.5 4.2 CHLOR 97 97 CO2 23 27 BUN 23 23 CREAT 0.80 0.76 Microbiology data: reviewed Imaging data: reviewed Paul Lucas MD Pager: This note is not final until Authenticated by responsible provider. Normal [facility] CBCon 09-29-2020 Absolute nRBC <0.01 Normal <0.01 [facility] Comment on above: Performed By: #### D DMER, CRP, CMP, CBIL, CBC, PT #### [facility] [address] [place] [phone] Erythrocyte distribution width (RBC) [Ratio] 12.2 % Normal 11.5-15.0 [facility] Comment on above: Performed By: #### D DMER, CRP, CMP, CBIL, CBC, PT #### [facility] [address] [place], [place] [phone] Hematocrit (Bld) [Volume fraction] 41.8 % Normal 39.0-51.0 [facility] Comment on above: Performed By: #### D DMER, CRP, CMP, CBIL, CBC, PT #### [facility] [address] [place] [phone] Hemoglobin (Bld) [Mass/Vol] 14.6 g/dL Normal 13.0-17.0 [facility] Comment on above: Performed By: #### D DMER, CRP, CMP, CBIL, CBC, PT #### [facility] [address] [place], [place] [phone] MCH (RBC) [Entitic mass] 30.4 pG Normal 26.0-34.0 [facility] Comment on above: Performed By: #### D DMER, CRP, CMP, CBIL, CBC, PT #### [facility] [address] [place] [address] MCHC (RBC) [Mass/Vol] 34.9 g/dL Normal 30.5-36.0 [facility] Comment on above: Performed By: #### D DMER, CRP, CMP, CBIL, CBC, PT #### [facility] [address] MCV (RBC) [Entitic vol] 86.9 fL Normal 80.0-100.0 [facility] Comment on above: Performed By: #### D DMER, CRP, CMP, CBIL, CBC, PT #### [facility] [address] [place] [address] Platelet mean volume (Bld) [Entitic vol] 10.0 fL Normal 9.0-12.7 [facility] Comment on above: Performed By: #### D DMER, CRP, CMP, CBIL, CBC, PT #### [facility] [address] [place] [address] Platelets (Bld) [#/Vol] 472 10*3/uL High 150-400 [facility] Comment on above: Performed By: #### D DMER, CRP, CMP, CBIL, CBC, PT #### [facility] [address] [place] [address] RBC (Bld) [#/Vol] 4.81 10*6/uL Normal 4.20-6.00 [facility] Comment on above: Performed By: #### D DMER, CRP, CMP, CBIL, CBC, PT #### [facility] [address] [place] [address] WBC (Bld) [#/Vol] 7.67 10*3/uL Normal 3.70-11.00 [facility] Comment on above: Performed By: #### D DMER, CRP, CMP, CBIL, CBC, PT #### [facility] [address] [place], [place] [phone] CONSULT PROGon 09-29-2020 CONSULT PROG HNO ID: [id number] Author: Paul Lucas MD Service: Infectious Disease Author Type: Physician Type: Consult Progress Note Filed: 09/29/2020 11:37 PM Note Text: INFECTIOUS DISEASE PROGRESS NOTE Patient Name: Kaelyn Gr INTERVAL HISTORY: Hasnt had a BM since the black stools 2 days ago. No new complaints. Feels weaker today. No fevers. Weaning O2 to 3L. Some cough +. ROS checked in details. All qs answered. ASSESSMENT: COVID-19 Viral pneumonia Acute hypoxic respiratory failure Diabetes mellitus Hyperlipidemia Anxiety disorder ? PLAN: Continue dexamethasone x 10 days total Completed Remdesivir S/p convalescent plasma. Empiric Antibiotics to cover for community-acquired pneumonia Trend acute phase reactants including CRP Follow D-dimer, will repeat in am Wean oxygen as able Monitor temperatures and counts Monitor liver and kidney function tests daily Diuresis per IM. Discussed w Dr Chi MEDICATIONS: reviewed. Current Facility-Administered Medications Medication Dose Route Frequency - iv contrast (radiology procedure) INTRAVENOUS DIRECTED PRN - dapagliflozin 10 mg tab(s) (FARXIGA) 10 mg ORAL DAILY - fenofibrate 200 mg cap(s) (LOFIBRA) 200 mg ORAL DAILY - pantoprazole DR 20 mg tab(s) (PROTONIX) 20 mg ORAL DAILY - dextrose 40 % 15 g 15 g ORAL PRN Or - glucagon 1 mg injection 1 mg INTRAMUSCULAR PRN Or - dextrose 50% in water 25 mL syringe 12.5 g INTRAVENOUS PRN - heparin 5,000 Units injection 5,000 Units SUBCUTANEOUS q 12 H - ondansetron orally disintegrating 4 mg tab(s) (ZOFRAN ODT) 4 mg ORAL q 6 H PRN Or - ondansetron (PF) 4 mg injection (ZOFRAN) 4 mg INTRAVENOUS q 6 H PRN - acetaminophen 650 mg tab(s) (TYLENOL) 650 mg ORAL q 6 H PRN - cefTRIAXone 1 g in D5W 100 mL MB+ (ROCEPHIN) 1 g INTRAVENOUS q 24 H - insulin lispro injection (rapid acting) (HumaLOG) SUBCUTANEOUS w MEALS - dexAMETHasone 6 mg tab(s) (DECADRON) 6 mg ORAL DAILY WITH BREAKFAST - albuterol HFA 90 mcg/actuation 2 Puff (PROVENTIL HFA, VENTOLIN HFA) 2 Puff INHALATION q 4 H PRN - ibuprofen 400 mg tab(s) (MOTRIN) 400 mg ORAL QID PRN - benzonatate 100 mg cap(s) (TESSALON PERLE) 100 mg ORAL TID PRN - melatonin 6 mg tab(s) 6 mg ORAL HS PRN - traZODone 50 mg tab(s) (DESYREL) 50 mg ORAL AT BEDTIME PHYSICAL EXAM: Vital signs: BP 101/66 Pulse 76 Temp 36.9 ?C (98.4 ?F) (Oral) Resp 18 Ht 167.6 cm (5' 6) Wt 69.1 kg (152 lb 5.4 oz) SpO2 93% BMI 24.59 kg/m? Temp (72hrs), Av.8 ?C (98.2 ?F), Min:36.3 ?C (97.4 ?F), Max:37.3 ?C (99.1 ?F) General: alert, oriented, NAD Lungs: bilaterally scattered rhonchi to auscultation Heart: regular rate and rhythm Abdomen: soft, non tender, non distended, BS+ Extremities: no edema No rashes No joint inflammation Neck supple Lines ok No CVAT Labs: Recent Labs 09/29/20 0735 09/28/20 0432 09/27/20 0512 WBC 7.67 7.03 5.94 HB 14.6 13.9 14.3 HCT 41.8 40.1 41.1 PLT 472* 396 361 NA 132* 130* 134* K 4.5 4.2 4.2 CHLOR 97 97 98 CO2 23 27 28 BUN 23 23 25* CREAT 0.80 0.76 0.79 Microbiology data: reviewed Imaging data: reviewed Paul Lucas MD Pager: This note is not final until Authenticated by responsible provider. Normal [facility] Comp Metabolic Panelon 09-29 Albumin [Mass/Vol] 3.2 g/dL Low 3.9-4.9 [facility] Comment on above: Performed By: #### D DMER, CRP, CMP, CBIL, CBC, PT #### [facility] [address] [place] [address] ALP [Catalytic activity/Vol] 67 U/L Normal 38-113 [facility] Comment on above: Performed By: #### D DMER, CRP, CMP, CBIL, CBC, PT #### [facility] [address] [place] [address] ALT [Catalytic activity/Vol] 21 U/L Normal 10-54 [facility] Comment on above: Performed By: #### D DMER, CRP, CMP, CBIL, CBC, PT #### [facility] [address] [place] [address] Anion gap [Moles/Vol] 12 mmol/L Normal 9-18 [facility] Comment on above: Performed By: #### D DMER, CRP, CMP, CBIL, CBC, PT #### [facility] [address] [place], [place] [phone] AST [Catalytic activity/Vol] 27 U/L Normal 14-40 [facility] Comment on above: Performed By: #### D DMER, CRP, CMP, CBIL, CBC, PT #### [facility] [address] [place], [place] [phone] Bilirubin [Mass/Vol] 0.7 mg/dL Normal 0.2-1.3 [facility] Comment on above: Performed By: #### D DMER, CRP, CMP, CBIL, CBC, PT #### [facility] [address] [place] [address] Calcium [Mass/Vol] 8.7 mg/dL Normal 8.5-10.2 [facility] Comment on above: Performed By: #### D DMER, CRP, CMP, CBIL, CBC, PT #### [facility] [address] [place], [place] [phone] Chloride [Moles/Vol] 97 mmol/L Normal 97-105 [facility] Comment on above: Performed By: #### D DMER, CRP, CMP, CBIL, CBC, PT #### [facility] [address] [place], [place] [id number] CO2 [Moles/Vol] 23 mmol/L Normal 22-30 [facility] Comment on above: Performed By: #### D DMER, CRP, CMP, CBIL, CBC, PT #### [facility] [address] [place], [place] [address] Creatinine [Mass/Vol] 0.80 mg/dL Normal 0.73-1.22 [facility] Comment on above: Performed By: #### D DMER, CRP, CMP, CBIL, CBC, PT #### [facility] [address] [place], [place] [phone] eGFR- Amer. >60 Normal [facility] Comment on above: Performed By: #### D DMER, CRP, CMP, CBIL, CBC, PT #### [facility] [address] [place], [place] [phone] GFR/1.73 sq M predicted among non-blacks MDRD (S/P/Bld) [Vol rate/Area] mL/min/{1.73_m2} Normal [facility] Comment on above: Result Comment: eGFR (Estimated GFR) Units of measure: mL/min/1.73 meters squared eGFR is derived from the reexpressed MDRD Study equation using the following parameters: serum creatinine, age, gender and race. The creatinine assay has been calibrated to be traceable to IDMS. An eGFR <60 mL/min/1.73m2 for >3 months is consistent with chronic kidney disease. Refer to KDOQI guidelines for clinical interpretation. In patients with unstable renal function, e.g. those with acute kidney injury, the eGFR may not accurately reflect actual GFR. Performed By: #### D DMER, CRP, CMP, CBIL, CBC, PT #### [facility] [address] [facility] [phone] Glucose [Mass/Vol] 117 mg/dL High 74-99 [facility] Comment on above: Result Comment: The [place] [employer] (ADA) provides guidance for cutoff values for fasting glucose and random glucose. The ADA defines fasting as no caloric intake for at least 8 hours. Fasting plasma glucose results between 100 to 125 mg/dL indicate increased risk for diabetes (prediabetes). Fasting plasma glucose results greater than or equal to 126 mg/dL meet the criteria for diagnosis of diabetes. In the absence of unequivocal hyperglycemia, results should be confirmed by repeat testing. In a patient with classic symptoms of hyperglycemia or hyperglycemic crisis, random plasma glucose results greater than or equal to 200 mg/dL meet the criteria for diagnosis of diabetes. Reference: Standards of Medical Care in Diabetes 2016, [place] [employer]. Diabetes Care. 2016.39(Suppl 1). Performed By: #### D DMER, CRP, CMP, CBIL, CBC, PT #### [facility] [address] [facility] [phone] Potassium [Moles/Vol] 4.5 mmol/L Normal 3.7-5.1 [facility] Comment on above: Performed By: #### D DMER, CRP, CMP, CBIL, CBC, PT #### [facility] [address] [facility] [phone] Protein [Mass/Vol] 6.3 g/dL Normal 6.3-8.0 [facility] Comment on above: Performed By: #### D DMER, CRP, CMP, CBIL, CBC, PT #### [facility] [address] [facility] [phone] Sodium [Moles/Vol] 132 mmol/L Low 136-144 [facility] Comment on above: Performed By: #### D DMER, CRP, CMP, CBIL, CBC, PT #### [facility] [address] [facility] [phone] Urea nitrogen [Mass/Vol] 23 mg/dL Normal 9-24 [facility] Comment on above: Performed By: #### D DMER, CRP, CMP, CBIL, CBC, PT #### [facility] [address] [facility] [phone] NUTRITIONon 09-29-2020 NUTRITION HNO ID: [id number] Author: Temitope Fraser Service: Nutrition Therapy Author Type: Registered Dietitian Type: Nutrition Filed: 09/29/2020 3:52 PM Note Text: NUTRITION THERAPY NOTE SERVICE DATE: 09/29/2020 SERVICE TIME: 3:15 pm Visit Type: Length of Stay Plan of Care: Continue current diet Monitor oral intake Nursing Admission Assessment Malnutrition Score: 1 No recent significant weight loss. Fair oral intake. Nutrition Intake: Diet Orders (From admission, onward) Start Ordered 09/24/20 1030 Diet Regular START NOW 09/24/20 1020 Anthropometrics: Body mass index is 24.59 kg/m?. Weight Change: Stable Billing Type: Routine Care/15 min Number of Increments: 2 SIGNATURE: Temitope Fraser RD, LD PATIENT NAME: Kaelyn Gr DATE: September 29, 2020 TIME: 3:51 PM PAGER: Normal [facility] PROGRESSon 09-29-2020 PROGRESS HNO ID: [id number] Author: Rodney Chi Service: Family Practice Author Type: Physician Type: Progress Notes Filed: 09/29/2020 7:02 AM Note Text: INPATIENT PROGRESS NOTES Patient Name: Kaelyn Gr DATE of SERVICE: 09/29/2020 TIME of SERVICE: 6:59 AM PRIMARY SERVICE: Family Practice INTERVAL HPI: down to 3L nc Is doing better today No new issues ASSESSMENT AND PLAN: Almost done with rendesivir Dexamethasone x 10 d May consider home with o2 09/30 Wean again o2 Will give lasix if bun/cr are ok MEDICATIONS: Current Facility-Administered Medications Medication Dose Route Frequency - iv contrast (radiology procedure) INTRAVENOUS DIRECTED PRN - dapagliflozin 10 mg tab(s) (FARXIGA) 10 mg ORAL DAILY - fenofibrate 200 mg cap(s) (LOFIBRA) 200 mg ORAL DAILY - pantoprazole DR 20 mg tab(s) (PROTONIX) 20 mg ORAL DAILY - dextrose 40 % 15 g 15 g ORAL PRN Or - glucagon 1 mg injection 1 mg INTRAMUSCULAR PRN Or - dextrose 50% in water 25 mL syringe 12.5 g INTRAVENOUS PRN - heparin 5,000 Units injection 5,000 Units SUBCUTANEOUS q 12 H - ondansetron orally disintegrating 4 mg tab(s) (ZOFRAN ODT) 4 mg ORAL q 6 H PRN Or - ondansetron (PF) 4 mg injection (ZOFRAN) 4 mg INTRAVENOUS q 6 H PRN - acetaminophen 650 mg tab(s) (TYLENOL) 650 mg ORAL q 6 H PRN - cefTRIAXone 1 g in D5W 100 mL MB+ (ROCEPHIN) 1 g INTRAVENOUS q 24 H - azithromycin 500 mg tab(s) (ZITHROMAX) 500 mg ORAL q 24 H - insulin lispro injection (rapid acting) (HumaLOG) SUBCUTANEOUS w MEALS - dexAMETHasone 6 mg tab(s) (DECADRON) 6 mg ORAL DAILY WITH BREAKFAST - albuterol HFA 90 mcg/actuation 2 Puff (PROVENTIL HFA, VENTOLIN HFA) 2 Puff INHALATION q 4 H PRN - ibuprofen 400 mg tab(s) (MOTRIN) 400 mg ORAL QID PRN - benzonatate 100 mg cap(s) (TESSALON PERLE) 100 mg ORAL TID PRN - melatonin 6 mg tab(s) 6 mg ORAL HS PRN - traZODone 50 mg tab(s) (DESYREL) 50 mg ORAL AT BEDTIME Patient Vitals for the past 48 hrs: BP Temp Temp src Pulse Resp SpO2 09/28/20 2100 114/64 36.5 ?C (97.7 ?F) Oral 70 18 93 % 09/28/20 1725 110/67 37.1 ?C (98.8 ?F) Oral 76 18 94 % 09/28/20 1000 ? 94 % 09/28/20 0843 133/67 36.9 ?C (98.4 ?F) Oral 69 16 93 % 09/28/20 0050 135/66 36.7 ?C (98.1 ?F) Oral 62 16 90 % 09/27/20 2109 139/67 36.9 ?C (98.4 ?F) Oral 66 20 94 % 09/27/20 1314 ? 95 % 09/27/20 1304 ? 95 % 09/27/20 1100 ? 96 % 09/27/20 0954 ? 97 % 09/27/20 0903 115/61 36.8 ?C (98.2 ?F) Oral 72 20 91 % 09/27/20 0810 115/60 36.6 ?C (97.9 ?F) Oral 62 20 (!) 83 % PHYSICAL EXAM: GENERAL: alert, no distress, cooperative SKIN: No rashes or lesions. OROPHARYNX: Oropharynx normal. NECK: no jugulovenous distention, supple LUNGS: Lungs clear to auscultation. CARDIAC: normal S1 and S2; no rubs, murmurs, or gallops ABDOMEN: Abdomen soft, non-tender. BS normal. No masses or organomegaly. EXTREMETIES: No deformities, cyanosis, edema, clubbing or skin discoloration. NEURO: Alert, oriented X 3, Gait normal. Motor and Sensation grossly intact., DATA: CBC: No results for input(s): WBC, RBC, HB, HCT, PLT, MCV, MCH, MPV, RDW in the last 24 hours. Coags: No results for input(s): PT, INR, APTT in the last 24 hours. CMP: No results for input(s): NA, K, CHLOR, CO2, BUN, CREAT, GLUC, TPROT, CA, MG, ALBUMIN, TBILI, ALKPHOS, ALT, AST, ANION in the last 24 hours. Cardiac Enzymes: No results for input(s): CK, MB, CKMB, TROPT in the last 24 hours. Liver Function, Amylase, Lipase: No results for input(s): TPROT, ALB, ALT, AST, ALKPHOS, TBILI, AMYLASE, LIPASE, LACTATE in the last 24 hours. ABG's: No results for input(s): PH, PCO2, PO2, BE, HCO3, CO2CT, O2HB, COHB, MHGB, TEMP, PHTC, PCO2T, PO2T, O2AD in the last 24 hours. MG/PHOS: No results for input(s): MG, P in the last 24 hours. Plan of care discussed with: Provider, RN, Patient. SIGNATURE: Rodney Chi MD DATE: September 29, 2020 TIME: 6:59 AM Normal [facility] C-Reactive Proteinon 020 CRP [Mass/Vol] 6.9 mg/dL High <0.9 [facility] Comment on above: Performed By: #### D DMER, CRP, CMP, CBIL, CBC, PT #### [facility] [address] [place] [address] CBCon 09-28-2020 Absolute nRBC <0.01 Normal <0.01 [facility] Comment on above: Performed By: #### D DMER, CRP, CMP, CBIL, CBC, PT #### [facility] [address] [place] [address] Erythrocyte distribution width (RBC) [Ratio] 12.1 % Normal 11.5-15.0 [facility] Comment on above: Performed By: #### D DMER, CRP, CMP, CBIL, CBC, PT #### [facility] [address] [place] [address] Hematocrit (Bld) [Volume fraction] 40.1 % Normal 39.0-51.0 [facility] Comment on above: Performed By: #### D DMER, CRP, CMP, CBIL, CBC, PT #### [facility] [address] [place] [address] Hemoglobin (Bld) [Mass/Vol] 13.9 g/dL Normal 13.0-17.0 [facility] Comment on above: Performed By: #### D DMER, CRP, CMP, CBIL, CBC, PT #### [facility] [address] [place] [address] MCH (RBC) [Entitic mass] 30.0 pG Normal 26.0-34.0 [facility] Comment on above: Performed By: #### D DMER, CRP, CMP, CBIL, CBC, PT #### [facility] [address] [address] MCHC (RBC) [Mass/Vol] 34.7 g/dL Normal 30.5-36.0 [facility] Comment on above: Performed By: #### D DMER, CRP, CMP, CBIL, CBC, PT #### [facility] [address] [place] [address] MCV (RBC) [Entitic vol] 86.6 fL Normal 80.0-100.0 [facility] Comment on above: Performed By: #### D DMER, CRP, CMP, CBIL, CBC, PT #### [facility] [address] [place] [address] Platelet mean volume (Bld) [Entitic vol] 10.2 fL Normal 9.0-12.7 [facility] Comment on above: Performed By: #### D DMER, CRP, CMP, CBIL, CBC, PT #### [facility] [address] [place] [address] Platelets (Bld) [#/Vol] 396 10*3/uL Normal 150-400 [facility] Comment on above: Performed By: #### D DMER, CRP, CMP, CBIL, CBC, PT #### [facility] [address] [place] [address] RBC (Bld) [#/Vol] 4.63 10*6/uL Normal 4.20-6.00 [facility] Comment on above: Performed By: #### D DMER, CRP, CMP, CBIL, CBC, PT #### [facility] [address] [place] [address] WBC (Bld) [#/Vol] 7.03 10*3/uL Normal 3.70-11.00 [facility] Comment on above: Performed By: #### D DMER, CRP, CMP, CBIL, CBC, PT #### [facility] [address] [place] [address] CONSULT PROGon 09-28-2020 CONSULT PROG HNO ID: [id number] Author: Paul Lucas MD Service: Infectious Disease Author Type: Physician Type: Consult Progress Note Filed: 09/28/2020 10:53 PM Note Text: INFECTIOUS DISEASE PROGRESS NOTE Patient Name: Kaelyn Gr INTERVAL HISTORY: No new complaints. Feels better today. No fevers. Weaning O2. Still on 8L. Some cough +. ROS checked in details. All qs answered. ASSESSMENT: COVID-19 Viral pneumonia Acute hypoxic respiratory failure Diabetes mellitus Hyperlipidemia Anxiety disorder ? PLAN: Continue dexamethasone Completed Remdesivir S/p convalescent plasma. Empiric Antibiotics to cover for community-acquired pneumonia Trend acute phase reactants including CRP Follow D-dimer Wean oxygen as able Monitor temperatures and counts Monitor liver and kidney function tests daily Discussed w Dr Chi MEDICATIONS: reviewed. Current Facility-Administered Medications Medication Dose Route Frequency - iv contrast (radiology procedure) INTRAVENOUS DIRECTED PRN - dapagliflozin 10 mg tab(s) (FARXIGA) 10 mg ORAL DAILY - fenofibrate 200 mg cap(s) (LOFIBRA) 200 mg ORAL DAILY - pantoprazole DR 20 mg tab(s) (PROTONIX) 20 mg ORAL DAILY - dextrose 40 % 15 g 15 g ORAL PRN Or - glucagon 1 mg injection 1 mg INTRAMUSCULAR PRN Or - dextrose 50% in water 25 mL syringe 12.5 g INTRAVENOUS PRN - heparin 5,000 Units injection 5,000 Units SUBCUTANEOUS q 12 H - ondansetron orally disintegrating 4 mg tab(s) (ZOFRAN ODT) 4 mg ORAL q 6 H PRN Or - ondansetron (PF) 4 mg injection (ZOFRAN) 4 mg INTRAVENOUS q 6 H PRN - acetaminophen 650 mg tab(s) (TYLENOL) 650 mg ORAL q 6 H PRN - cefTRIAXone 1 g in D5W 100 mL MB+ (ROCEPHIN) 1 g INTRAVENOUS q 24 H - azithromycin 500 mg tab(s) (ZITHROMAX) 500 mg ORAL q 24 H - insulin lispro injection (rapid acting) (HumaLOG) SUBCUTANEOUS w MEALS - dexAMETHasone 6 mg tab(s) (DECADRON) 6 mg ORAL DAILY WITH BREAKFAST - albuterol HFA 90 mcg/actuation 2 Puff (PROVENTIL HFA, VENTOLIN HFA) 2 Puff INHALATION q 4 H PRN - ibuprofen 400 mg tab(s) (MOTRIN) 400 mg ORAL QID PRN - benzonatate 100 mg cap(s) (TESSALON PERLE) 100 mg ORAL TID PRN - melatonin 6 mg tab(s) 6 mg ORAL HS PRN - traZODone 50 mg tab(s) (DESYREL) 50 mg ORAL AT BEDTIME PHYSICAL EXAM: Vital signs: BP 114/64 Pulse 70 Temp 36.5 ?C (97.7 ?F) (Oral) Resp 18 Ht 167.6 cm (5' 6) Wt 69.1 kg (152 lb 5.4 oz) SpO2 93% BMI 24.59 kg/m? Temp (72hrs), Av.8 ?C (98.2 ?F), Min:36.3 ?C (97.4 ?F), Max:37.3 ?C (99.1 ?F) General: alert, oriented, NAD Lungs: bilaterally scattered rhonchi to auscultation Heart: regular rate and rhythm Abdomen: soft, non tender, non distended, BS+ Extremities: no edema No rashes No joint inflammation Neck supple Lines ok No CVAT Labs: Recent Labs 09/28/20 0432 09/27/20 0512 09/26/20 0617 WBC 7.03 5.94 5.52 HB 13.9 14.3 13.9 HCT 40.1 41.1 39.9 PLT 396 361 342 INR -- -- 1.2 NA 130* 134* 135* K 4.2 4.2 4.0 CHLOR 97 98 95* CO2 27 28 24 BUN 23 25* 28* CREAT 0.76 0.79 0.72* Microbiology data: reviewed Imaging data: reviewed Paul Lucas MD Pager: This note is not final until Authenticated by responsible provider. Normal [facility] Comp Metabolic Panelon 09-28 Albumin [Mass/Vol] 3.0 g/dL Low 3.9-4.9 [facility] Comment on above: Performed By: #### D DMER, CRP, CMP, CBIL, CBC, PT #### [facility] [address] [place] [address] ALP [Catalytic activity/Vol] 66 U/L Normal 38-113 [facility] Comment on above: Performed By: #### D DMER, CRP, CMP, CBIL, CBC, PT #### [facility] [address] [phone] ALT [Catalytic activity/Vol] 23 U/L Normal 10-54 [facility] Comment on above: Performed By: #### D DMER, CRP, CMP, CBIL, CBC, PT #### [facility] [address] [phone] Anion gap [Moles/Vol] 6 mmol/L Low 9-18 [facility] Comment on above: Performed By: #### D DMER, CRP, CMP, CBIL, CBC, PT #### [facility] [address] [facility] [phone] AST [Catalytic activity/Vol] 33 U/L Normal 14-40 [facility] Comment on above: Performed By: #### D DMER, CRP, CMP, CBIL, CBC, PT #### [facility] [address] [place] [address] Bilirubin [Mass/Vol] 0.6 mg/dL Normal 0.2-1.3 [facility] Comment on above: Performed By: #### D DMER, CRP, CMP, CBIL, CBC, PT #### [facility] [address] [facility] [phone] Calcium [Mass/Vol] 8.6 mg/dL Normal 8.5-10.2 [facility] Comment on above: Performed By: #### D DMER, CRP, CMP, CBIL, CBC, PT #### [facility] [address] [facility] [phone] Chloride [Moles/Vol] 97 mmol/L Normal 97-105 [facility] Comment on above: Performed By: #### D DMER, CRP, CMP, CBIL, CBC, PT #### [facility] [address] [facility] [phone] CO2 [Moles/Vol] 27 mmol/L Normal 22-30 [facility] Comment on above: Performed By: #### D DMER, CRP, CMP, CBIL, CBC, PT #### [facility] [address] [facility] [phone] Creatinine [Mass/Vol] 0.76 mg/dL Normal 0.73-1.22 [facility] Comment on above: Performed By: #### D DMER, CRP, CMP, CBIL, CBC, PT #### [facility] [address] [facility] [phone] eGFR- Amer. >60 Normal [facility] Comment on above: Performed By: #### D DMER, CRP, CMP, CBIL, CBC, PT #### [facility] [address] [facility] [phone] GFR/1.73 sq M predicted among non-blacks MDRD (S/P/Bld) [Vol rate/Area] mL/min/{1.73_m2} Normal [facility] Comment on above: Result Comment: eGFR (Estimated GFR) Units of measure: mL/min/1.73 meters squared eGFR is derived from the reexpressed MDRD Study equation using the following parameters: serum creatinine, age, gender and race. The creatinine assay has been calibrated to be traceable to IDMS. An eGFR <60 mL/min/1.73m2 for >3 months is consistent with chronic kidney disease. Refer to KDOQI guidelines for clinical interpretation. In patients with unstable renal function, e.g. those with acute kidney injury, the eGFR may not accurately reflect actual GFR. Performed By: #### D DMER, CRP, CMP, CBIL, CBC, PT #### [facility] [address] [facility] [phone] Glucose [Mass/Vol] 121 mg/dL High 74-99 [facility] Comment on above: Result Comment: The [place] [employer] (ADA) provides guidance for cutoff values for fasting glucose and random glucose. The ADA defines fasting as no caloric intake for at least 8 hours. Fasting plasma glucose results between 100 to 125 mg/dL indicate increased risk for diabetes (prediabetes). Fasting plasma glucose results greater than or equal to 126 mg/dL meet the criteria for diagnosis of diabetes. In the absence of unequivocal hyperglycemia, results should be confirmed by repeat testing. In a patient with classic symptoms of hyperglycemia or hyperglycemic crisis, random plasma glucose results greater than or equal to 200 mg/dL meet the criteria for diagnosis of diabetes. Reference: Standards of Medical Care in Diabetes 2016, [place] [employer]. Diabetes Care. 2016.39(Suppl 1). Performed By: #### D DMER, CRP, CMP, CBIL, CBC, PT #### [facility] [address] [facility] [phone] Potassium [Moles/Vol] 4.2 mmol/L Normal 3.7-5.1 [facility] Comment on above: Performed By: #### D DMER, CRP, CMP, CBIL, CBC, PT #### [facility] [address] [facility] [phone] Protein [Mass/Vol] 6.1 g/dL Low 6.3-8.0 [facility] Comment on above: Performed By: #### D DMER, CRP, CMP, CBIL, CBC, PT #### [facility] [address] [facility] [phone] Sodium [Moles/Vol] 130 mmol/L Low 136-144 [facility] Comment on above: Performed By: #### D DMER, CRP, CMP, CBIL, CBC, PT #### [facility] [address] [place] [address] Urea nitrogen [Mass/Vol] 23 mg/dL Normal 9-24 [facility] Comment on above: Performed By: #### D DMER, CRP, CMP, CBIL, CBC, PT #### [facility] [address] [place] [address] D dimeron 09-28-2020 D dimer 630 ng/mL FEU High <500 [facility] Comment on above: Result Comment: 500 ng/mL FEU is the D Dimer cutoff to exclude DVT (deep vein thrombosis) and PE (pulmonary embolism) in patients with a low pre test probability. Supplemental Comment: In patients over 50 years with a low pre test probability for DVT and/or PE, an age adjusted D dimer cutoff can be calculated as [age x 10] ng/mL FEU. For example, a patient of 88 years would have an age adjusted D dimer cutoff of 880 ng/mL FEU. For patients with a suspected DVT, a D dimer level below 500 ng/mL FEU has a negative predictive value of >98.9%, a sensitivity of >96.9% and a specificity of >35.7%. For patients with a suspected PE, a D dimer level below 500 ng/mL FEU has a negative predictive value of >98.5%, and a sensitivity of >96.5% and a specificity of >38.8%. Reference: Gina M, et al. JAYDEN 2014 311:1117 and Van Es N, et al. Desiree Int Med 2016 165:253. Performed By: #### D DMER, CRP, CMP, CBIL, CBC, PT #### [facility] [address] [facility] [phone] PROGRESSon 09-28-2020 PROGRESS HNO ID: [id number] Author: Rodney Chi Service: Family Practice Author Type: Physician Type: Progress Notes Filed: 09/28/2020 6:19 AM Note Text: INPATIENT PROGRESS NOTES Patient Name: Kaelyn Gr DATE of SERVICE: 09/28/2020 TIME of SERVICE: 6:08 AM PRIMARY SERVICE: Family Practice INTERVAL HPI: down to 5L nc Not feeling well today, tired little sleep D-dimer, CRP, trending down ASSESSMENT AND PLAN: Wean o2 as tolerated iv dose lasix today Hyponatremia - trend MEDICATIONS: Current Facility-Administered Medications Medication Dose Route Frequency - iv contrast (radiology procedure) INTRAVENOUS DIRECTED PRN - dapagliflozin 10 mg tab(s) (FARXIGA) 10 mg ORAL DAILY - fenofibrate 200 mg cap(s) (LOFIBRA) 200 mg ORAL DAILY - pantoprazole DR 20 mg tab(s) (PROTONIX) 20 mg ORAL DAILY - dextrose 40 % 15 g 15 g ORAL PRN Or - glucagon 1 mg injection 1 mg INTRAMUSCULAR PRN Or - dextrose 50% in water 25 mL syringe 12.5 g INTRAVENOUS PRN - heparin 5,000 Units injection 5,000 Units SUBCUTANEOUS q 12 H - ondansetron orally disintegrating 4 mg tab(s) (ZOFRAN ODT) 4 mg ORAL q 6 H PRN Or - ondansetron (PF) 4 mg injection (ZOFRAN) 4 mg INTRAVENOUS q 6 H PRN - acetaminophen 650 mg tab(s) (TYLENOL) 650 mg ORAL q 6 H PRN - cefTRIAXone 1 g in D5W 100 mL MB+ (ROCEPHIN) 1 g INTRAVENOUS q 24 H - azithromycin 500 mg tab(s) (ZITHROMAX) 500 mg ORAL q 24 H - insulin lispro injection (rapid acting) (HumaLOG) SUBCUTANEOUS w MEALS - dexAMETHasone 6 mg tab(s) (DECADRON) 6 mg ORAL DAILY WITH BREAKFAST - remdesivir 100 mg in NaCl 0.9% 250 mL Vial-Mate/ADD-[place] 100 mg INTRAVENOUS q 24 HR And - sodium chloride 0.9 % (flush) 30 mL (BD POSIFLUSH) 30 mL INTRAVENOUS q 24 HR - albuterol HFA 90 mcg/actuation 2 Puff (PROVENTIL HFA, VENTOLIN HFA) 2 Puff INHALATION q 4 H PRN - ibuprofen 400 mg tab(s) (MOTRIN) 400 mg ORAL QID PRN - benzonatate 100 mg cap(s) (TESSALON PERLE) 100 mg ORAL TID PRN - melatonin 6 mg tab(s) 6 mg ORAL HS PRN - traZODone 50 mg tab(s) (DESYREL) 50 mg ORAL AT BEDTIME Patient Vitals for the past 48 hrs: BP Temp Temp src Pulse Resp SpO2 Weight 09/28/20 0050 135/66 36.7 ?C (98.1 ?F) Oral 62 16 90 % ? 09/27/20 2109 139/67 36.9 ?C (98.4 ?F) Oral 66 20 94 % ? 09/27/20 1314 ? 95 % ? 09/27/20 1304 ? 95 % ? 09/27/20 1100 ? 96 % ? 09/27/20 0954 ? 97 % ? 09/27/20 0903 115/61 36.8 ?C (98.2 ?F) Oral 72 20 91 % ? 09/27/20 0810 115/60 36.6 ?C (97.9 ?F) Oral 62 20 (!) 83 % ? 09/27/20 0530 123/59 36.3 ?C (97.4 ?F) Axillary 62 20 94 % ? 09/27/20 0400 ? 69.1 kg (152 lb 5.4 oz) 09/26/20 2135 133/64 37 ?C (98.6 ?F) Oral 65 20 95 % ? 09/26/20 0913 114/52 36.5 ?C (97.7 ?F) Oral 67 18 93 % ? PHYSICAL EXAM: GENERAL: alert, no distress, cooperative SKIN: No rashes or lesions. OROPHARYNX: Oropharynx normal. NECK: no jugulovenous distention, supple LUNGS: Lungs clear to auscultation. CARDIAC: normal S1 and S2; no rubs, murmurs, or gallops ABDOMEN: Abdomen soft, non-tender. BS normal. No masses or organomegaly. EXTREMETIES: No deformities, cyanosis, edema, clubbing or skin discoloration. NEURO: Alert, oriented X 3, Gait normal. Motor and Sensation grossly intact., DATA: CBC: Recent Labs 09/28/20431 WBC 7.03 RBC 4.63 HB 13.9 HCT 40.1 PLT 396 MCV 86.6 MCH 30.0 MPV 10.2 Coags: No results for input(s): PT, INR, APTT in the last 24 hours. CMP: Recent Labs 09/28/20431 NA 130* K 4.2 CHLOR 97 CO2 27 BUN 23 CREAT 0.76 GLUC 121* TPROT 6.1* CA 8.6 TBILI 0.6 ALKPHOS 66 ALT 23 AST 33 ANION 6* Cardiac Enzymes: No results for input(s): CK, MB, CKMB, TROPT in the last 24 hours. Liver Function, Amylase, Lipase: Recent Labs 09/28/20431 TPROT 6.1* ALB 3.0* ALT 23 AST 33 ALKPHOS 66 TBILI 0.6 ABG's: No results for input(s): PH, PCO2, PO2, BE, HCO3, CO2CT, O2HB, COHB, MHGB, TEMP, PHTC, PCO2T, PO2T, O2AD in the last 24 hours. MG/PHOS: No results for input(s): MG, P in the last 24 hours. Plan of care discussed with: Provider, RN, Patient. SIGNATURE: Rodney Chi MD DATE: September 28, 2020 TIME: 6:08 AM Normal [facility] Procalcitoninon 09-28-2020 Procalcitonin 0.40 ng/mL High <0.09 [facility] Comment on above: Result Comment: For a guided interpretation of test results, please visit the Change in Procalcitonin Calculator, [email or web address]. Performed By: #### D DMER, CRP, CMP, CBIL, CBC, PT #### [facility] [address] [facility] [phone] C-Reactive Proteinon 020 CRP [Mass/Vol] 8.6 mg/dL High <0.9 [facility] Comment on above: Performed By: #### D DMER, CRP, CMP, CBIL, CBC, PT #### [facility] [address] [facility] [phone] CASE MANAGEMon 09-27-2020 CASE MANAGEM HNO ID: [id number] Author: Heidy (Rn) NICO Ornelas Service: Case Management Author Type: Registered Nurse Type: Care Mgt Progress Note Filed: 09/27/2020 1:43 PM Note Text: CARE MANAGEMENT PROGRESS NOTE SERVICE DATE: 09/27/2020 SERVICE TIME: 1:41 PM LOS: 3 days Needs Prior to Discharge: Other: See Comment;Desat Study;To Be Determined(medical clearance) EMR reviewed. Patient remains on RMDV, IV abx and Decadron. On 6L hi-flow oxygen (none BACKSIDE GRINDER). Plan if for patient to return home with spouse when medically ready for DC. CM assigned will continue to follow for DC planning needs. SIGNATURE: Heidy Ornelas RN PATIENT NAME: Kaelyn Gr DATE: September 27, 2020 TIME: 1:41 PM PAGER/CONTACT #: [phone] Normal [facility] CBCon 09-27-2020 Absolute nRBC <0.01 Normal <0.01 [facility] Comment on above: Performed By: #### D DMER, CRP, CMP, CBIL, CBC, PT #### [facility] [address] [facility] [phone] Erythrocyte distribution width (RBC) [Ratio] 12.3 % Normal 11.5-15.0 [facility] Comment on above: Performed By: #### D DMER, CRP, CMP, CBIL, CBC, PT #### [facility] [address] [facility] [phone] Hematocrit (Bld) [Volume fraction] 41.1 % Normal 39.0-51.0 [facility] Comment on above: Performed By: #### D DMER, CRP, CMP, CBIL, CBC, PT #### [facility] [address] [facility] [phone] Hemoglobin (Bld) [Mass/Vol] 14.3 g/dL Normal 13.0-17.0 [facility] Comment on above: Performed By: #### D DMER, CRP, CMP, CBIL, CBC, PT #### [facility] [address] [address] MCH (RBC) [Entitic mass] 30.4 pG Normal 26.0-34.0 [facility] Comment on above: Performed By: #### D DMER, CRP, CMP, CBIL, CBC, PT #### [facility] [address] [address] MCHC (RBC) [Mass/Vol] 34.8 g/dL Normal 30.5-36.0 [facility] Comment on above: Performed By: #### D DMER, CRP, CMP, CBIL, CBC, PT #### [facility] [address] [place] [address] MCV (RBC) [Entitic vol] 87.4 fL Normal 80.0-100.0 [facility] Comment on above: Performed By: #### D DMER, CRP, CMP, CBIL, CBC, PT #### [facility] [address] [place] [address] Platelet mean volume (Bld) [Entitic vol] 10.0 fL Normal 9.0-12.7 [facility] Comment on above: Performed By: #### D DMER, CRP, CMP, CBIL, CBC, PT #### [facility] [address] [place] [address] Platelets (Bld) [#/Vol] 361 10*3/uL Normal 150-400 [facility] Comment on above: Performed By: #### D DMER, CRP, CMP, CBIL, CBC, PT #### [facility] [address] [place] [address] RBC (Bld) [#/Vol] 4.70 10*6/uL Normal 4.20-6.00 [facility] Comment on above: Performed By: #### D DMER, CRP, CMP, CBIL, CBC, PT #### [facility] [address] [place] [address] WBC (Bld) [#/Vol] 5.94 10*3/uL Normal 3.70-11.00 [facility] Comment on above: Performed By: #### D DMER, CRP, CMP, CBIL, CBC, PT #### [facility] [address] [facility] [phone] CONSULT PROGon 09-27-2020 CONSULT PROG HNO ID: [id number] Author: Paul Lucas MD Service: Infectious Disease Author Type: Physician Type: Consult Progress Note Filed: 09/27/2020 7:40 PM Note Text: INFECTIOUS DISEASE PROGRESS NOTE Patient Name: Kaelyn Gr INTERVAL HISTORY: No new complaints. Feels better today. No fevers. Weaning O2. Still on 8L. Some cough +. ROS checked in details. All qs answered. Patient Active Hospital Problem List: COVID-19 (09/24/2020) ASSESSMENT: COVID-19 Viral pneumonia Acute hypoxic respiratory failure Diabetes mellitus Hyperlipidemia Anxiety disorder ? PLAN: Continue dexamethasone Continue Remdesivir Obtained consent for convalescent plasma. Ordered x 1 Empiric Antibiotics to cover for community-acquired pneumonia Trend acute phase reactants including CRP Follow D-dimer Wean oxygen as able Monitor temperatures and counts Monitor liver and kidney function tests daily Discussed w Dr Chi MEDICATIONS: reviewed. Current Facility-Administered Medications Medication Dose Route Frequency - iv contrast (radiology procedure) INTRAVENOUS DIRECTED PRN - dapagliflozin 10 mg tab(s) (FARXIGA) 10 mg ORAL DAILY - fenofibrate 200 mg cap(s) (LOFIBRA) 200 mg ORAL DAILY - pantoprazole DR 20 mg tab(s) (PROTONIX) 20 mg ORAL DAILY - dextrose 40 % 15 g 15 g ORAL PRN Or - glucagon 1 mg injection 1 mg INTRAMUSCULAR PRN Or - dextrose 50% in water 25 mL syringe 12.5 g INTRAVENOUS PRN - heparin 5,000 Units injection 5,000 Units SUBCUTANEOUS q 12 H - ondansetron orally disintegrating 4 mg tab(s) (ZOFRAN ODT) 4 mg ORAL q 6 H PRN Or - ondansetron (PF) 4 mg injection (ZOFRAN) 4 mg INTRAVENOUS q 6 H PRN - acetaminophen 650 mg tab(s) (TYLENOL) 650 mg ORAL q 6 H PRN - cefTRIAXone 1 g in D5W 100 mL MB+ (ROCEPHIN) 1 g INTRAVENOUS q 24 H - azithromycin 500 mg tab(s) (ZITHROMAX) 500 mg ORAL q 24 H - insulin lispro injection (rapid acting) (HumaLOG) SUBCUTANEOUS w MEALS - dexAMETHasone 6 mg tab(s) (DECADRON) 6 mg ORAL DAILY WITH BREAKFAST - remdesivir 100 mg in NaCl 0.9% 250 mL Vial-Mate/ADD-[place] 100 mg INTRAVENOUS q 24 HR And - sodium chloride 0.9 % (flush) 30 mL (BD POSIFLUSH) 30 mL INTRAVENOUS q 24 HR - albuterol HFA 90 mcg/actuation 2 Puff (PROVENTIL HFA, VENTOLIN HFA) 2 Puff INHALATION q 4 H PRN - ibuprofen 400 mg tab(s) (MOTRIN) 400 mg ORAL QID PRN - benzonatate 100 mg cap(s) (TESSALON PERLE) 100 mg ORAL TID PRN - melatonin 6 mg tab(s) 6 mg ORAL HS PRN - traZODone 50 mg tab(s) (DESYREL) 50 mg ORAL AT BEDTIME PHYSICAL EXAM: Vital signs: BP 115/61 Pulse 72 Temp 36.8 ?C (98.2 ?F) (Oral) Resp 20 Ht 167.6 cm (5' 6) Wt 69.1 kg (152 lb 5.4 oz) SpO2 95% BMI 24.59 kg/m? Temp (72hrs), Av.8 ?C (98.2 ?F), Min:36.3 ?C (97.4 ?F), Max:37.3 ?C (99.1 ?F) General: alert, oriented, NAD Lungs: bilaterally scattered rhonchi to auscultation Heart: regular rate and rhythm Abdomen: soft, non tender, non distended, BS+ Extremities: no edema No rashes No joint inflammation Neck supple Lines ok No CVAT Labs: Recent Labs 09/27/20 0512 09/26/20 0617 09/25/20 0621 WBC 5.94 5.52 5.59 HB 14.3 13.9 13.5 HCT 41.1 39.9 38.9* PLT 361 342 280 INR -- 1.2 1.2 NA 134* 135* 132* K 4.2 4.0 4.1 CHLOR 98 95* 94* CO2 28 24 22 BUN 25* 28* 25* CREAT 0.79 0.72* 0.70* Microbiology data: reviewed Imaging data: reviewed Paul Lucas MD Pager: This note is not final until Authenticated by responsible provider. Normal [facility] Comp Metabolic Panelon 09-27 Albumin [Mass/Vol] 3.1 g/dL Low 3.9-4.9 [facility] Comment on above: Performed By: #### D DMER, CRP, CMP, CBIL, CBC, PT #### [facility] [address] [facility] [phone] ALP [Catalytic activity/Vol] 63 U/L Normal 38-113 [facility] Comment on above: Performed By: #### D DMER, CRP, CMP, CBIL, CBC, PT #### [facility] [address] [facility] [phone] ALT [Catalytic activity/Vol] 20 U/L Normal 10-54 [facility] Comment on above: Performed By: #### D DMER, CRP, CMP, CBIL, CBC, PT #### [facility] [address] [facility] [phone] Anion gap [Moles/Vol] 8 mmol/L Low 9-18 [facility] Comment on above: Performed By: #### D DMER, CRP, CMP, CBIL, CBC, PT #### [facility] [address] [facility] [phone] AST [Catalytic activity/Vol] 33 U/L Normal 14-40 [facility] Comment on above: Performed By: #### D DMER, CRP, CMP, CBIL, CBC, PT #### [facility] [address] [facility] [phone] Bilirubin [Mass/Vol] 0.5 mg/dL Normal 0.2-1.3 [facility] Comment on above: Performed By: #### D DMER, CRP, CMP, CBIL, CBC, PT #### [facility] [address] [facility] [phone] Calcium [Mass/Vol] 8.6 mg/dL Normal 8.5-10.2 [facility] Comment on above: Performed By: #### D DMER, CRP, CMP, CBIL, CBC, PT #### [facility] [address] [facility] [phone] Chloride [Moles/Vol] 98 mmol/L Normal 97-105 [facility] Comment on above: Performed By: #### D DMER, CRP, CMP, CBIL, CBC, PT #### [facility] [address] [facility] [phone] CO2 [Moles/Vol] 28 mmol/L Normal 22-30 [facility] Comment on above: Performed By: #### D DMER, CRP, CMP, CBIL, CBC, PT #### [facility] [address] [facility] [phone] Creatinine [Mass/Vol] 0.79 mg/dL Normal 0.73-1.22 [facility] Comment on above: Performed By: #### D DMER, CRP, CMP, CBIL, CBC, PT #### [facility] [address] [facility] [phone] eGFR- Amer. >60 Normal [facility] Comment on above: Performed By: #### D DMER, CRP, CMP, CBIL, CBC, PT #### [facility] [address] [facility] [phone] GFR/1.73 sq M predicted among non-blacks MDRD (S/P/Bld) [Vol rate/Area] mL/min/{1.73_m2} Normal [facility] Comment on above: Result Comment: eGFR (Estimated GFR) Units of measure: mL/min/1.73 meters squared eGFR is derived from the reexpressed MDRD Study equation using the following parameters: serum creatinine, age, gender and race. The creatinine assay has been calibrated to be traceable to IDMS. An eGFR <60 mL/min/1.73m2 for >3 months is consistent with chronic kidney disease. Refer to KDOQI guidelines for clinical interpretation. In patients with unstable renal function, e.g. those with acute kidney injury, the eGFR may not accurately reflect actual GFR. Performed By: #### D DMER, CRP, CMP, CBIL, CBC, PT #### [facility] [address] [facility] [phone] Glucose [Mass/Vol] 91 mg/dL Normal 74-99 [facility] Comment on above: Result Comment: The [place] [employer] (ADA) provides guidance for cutoff values for fasting glucose and random glucose. The ADA defines fasting as no caloric intake for at least 8 hours. Fasting plasma glucose results between 100 to 125 mg/dL indicate increased risk for diabetes (prediabetes). Fasting plasma glucose results greater than or equal to 126 mg/dL meet the criteria for diagnosis of diabetes. In the absence of unequivocal hyperglycemia, results should be confirmed by repeat testing. In a patient with classic symptoms of hyperglycemia or hyperglycemic crisis, random plasma glucose results greater than or equal to 200 mg/dL meet the criteria for diagnosis of diabetes. Reference: Standards of Medical Care in Diabetes 2016, [place] [employer]. Diabetes Care. 2016.39(Suppl 1). Performed By: #### D DMER, CRP, CMP, CBIL, CBC, PT #### [facility] [address] [facility] [phone] Potassium [Moles/Vol] 4.2 mmol/L Normal 3.7-5.1 [facility] Comment on above: Performed By: #### D DMER, CRP, CMP, CBIL, CBC, PT #### [facility] [address] [facility] [phone] Protein [Mass/Vol] 6.0 g/dL Low 6.3-8.0 [facility] Comment on above: Performed By: #### D DMER, CRP, CMP, CBIL, CBC, PT #### [facility] [address] [facility] [phone] Sodium [Moles/Vol] 134 mmol/L Low 136-144 [facility] Comment on above: Performed By: #### D DMER, CRP, CMP, CBIL, CBC, PT #### [facility] [address] [facility] [phone] Urea nitrogen [Mass/Vol] 25 mg/dL High 9-24 [facility] Comment on above: Performed By: #### D DMER, CRP, CMP, CBIL, CBC, PT #### [facility] [address] [facility] [phone] D dimeron 09-27-2020 D dimer 560 ng/mL FEU High <500 [facility] Comment on above: Result Comment: 500 ng/mL FEU is the D Dimer cutoff to exclude DVT (deep vein thrombosis) and PE (pulmonary embolism) in patients with a low pre test probability. Supplemental Comment: In patients over 50 years with a low pre test probability for DVT and/or PE, an age adjusted D dimer cutoff can be calculated as [age x 10] ng/mL FEU. For example, a patient of 88 years would have an age adjusted D dimer cutoff of 880 ng/mL FEU. For patients with a suspected DVT, a D dimer level below 500 ng/mL FEU has a negative predictive value of >98.9%, a sensitivity of >96.9% and a specificity of >35.7%. For patients with a suspected PE, a D dimer level below 500 ng/mL FEU has a negative predictive value of >98.5%, and a sensitivity of >96.5% and a specificity of >38.8%. Reference: Gina M, et al. JAYDEN 2014 311:1117 and Chris Cuadra N, et al. Desiree Int Med 2016 165:253. Performed By: #### D DMER, CRP, CMP, CBIL, CBC, PT #### [facility] [address] [facility] [phone] PROGRESSon 09-27-2020 PROGRESS HNO ID: [id number] Author: Rodney Chi Service: Family Practice Author Type: Physician Type: Progress Notes Filed: 09/27/2020 7:32 AM Note Text: INPATIENT PROGRESS NOTES Patient Name: Kaelyn Gr DATE of SERVICE: 09/27/2020 TIME of SERVICE: 7:18 AM PRIMARY SERVICE: [facility] INTERVAL HPI: still on high flow 8L last night 7L this am D dimer trending down crp 12.9 to 8.6 No fevers ASSESSMENT AND PLAN: +covid Pneumonia High flow o2 RANDZ Hyponatremia - monitor, will give lasix today 20mg iv MEDICATIONS: Current Facility-Administered Medications Medication Dose Route Frequency - iv contrast (radiology procedure) INTRAVENOUS DIRECTED PRN - dapagliflozin 10 mg tab(s) (FARXIGA) 10 mg ORAL DAILY - fenofibrate 200 mg cap(s) (LOFIBRA) 200 mg ORAL DAILY - pantoprazole DR 20 mg tab(s) (PROTONIX) 20 mg ORAL DAILY - dextrose 40 % 15 g 15 g ORAL PRN Or - glucagon 1 mg injection 1 mg INTRAMUSCULAR PRN Or - dextrose 50% in water 25 mL syringe 12.5 g INTRAVENOUS PRN - heparin 5,000 Units injection 5,000 Units SUBCUTANEOUS q 12 H - ondansetron orally disintegrating 4 mg tab(s) (ZOFRAN ODT) 4 mg ORAL q 6 H PRN Or - ondansetron (PF) 4 mg injection (ZOFRAN) 4 mg INTRAVENOUS q 6 H PRN - acetaminophen 650 mg tab(s) (TYLENOL) 650 mg ORAL q 6 H PRN - cefTRIAXone 1 g in D5W 100 mL MB+ (ROCEPHIN) 1 g INTRAVENOUS q 24 H - azithromycin 500 mg tab(s) (ZITHROMAX) 500 mg ORAL q 24 H - insulin lispro injection (rapid acting) (HumaLOG) SUBCUTANEOUS w MEALS - dexAMETHasone 6 mg tab(s) (DECADRON) 6 mg ORAL DAILY WITH BREAKFAST - remdesivir 100 mg in NaCl 0.9% 250 mL Vial-Mate/ADD-[place] 100 mg INTRAVENOUS q 24 HR And - sodium chloride 0.9 % (flush) 30 mL (BD POSIFLUSH) 30 mL INTRAVENOUS q 24 HR - albuterol HFA 90 mcg/actuation 2 Puff (PROVENTIL HFA, VENTOLIN HFA) 2 Puff INHALATION q 4 H PRN - ibuprofen 400 mg tab(s) (MOTRIN) 400 mg ORAL QID PRN - benzonatate 100 mg cap(s) (TESSALON PERLE) 100 mg ORAL TID PRN - melatonin 6 mg tab(s) 6 mg ORAL HS PRN - traZODone 50 mg tab(s) (DESYREL) 50 mg ORAL AT BEDTIME Patient Vitals for the past 48 hrs: BP Temp Temp src Pulse Resp SpO2 Weight 09/27/20 0530 123/59 36.3 ?C (97.4 ?F) Axillary 62 20 94 % ? 09/27/20 0400 ? 69.1 kg (152 lb 5.4 oz) 09/26/20 2135 133/64 37 ?C (98.6 ?F) Oral 65 20 95 % ? 09/26/20 0913 114/52 36.5 ?C (97.7 ?F) Oral 67 18 93 % ? 09/26/20 0053 146/63 36.7 ?C (98.1 ?F) Oral 61 20 94 % ? 09/25/20 2335 140/58 36.7 ?C (98.1 ?F) Oral 61 20 ? ? 09/25/20 2307 134/53 36.6 ?C (97.8 ?F) Oral 61 20 95 % ? 09/25/20 2300 130/57 36.4 ?C (97.6 ?F) Oral 63 20 91 % ? 09/25/20 2108 133/63 36.9 ?C (98.4 ?F) Oral 62 20 94 % ? 09/25/20 1031 ? ? ? 73 ? 91 % ? 09/25/20 0907 131/56 36.9 ?C (98.4 ?F) Oral 73 18 91 % ? PHYSICAL EXAM: GENERAL: alert, no distress, cooperative SKIN: No rashes or lesions. OROPHARYNX: Oropharynx normal. NECK: no jugulovenous distention, supple LUNGS: Lungs clear to auscultation. CARDIAC: normal S1 and S2; no rubs, murmurs, or gallops ABDOMEN: Abdomen soft, non-tender. BS normal. No masses or organomegaly. EXTREMETIES: No deformities, cyanosis, edema, clubbing or skin discoloration. NEURO: Alert, oriented X 3, Gait normal. Motor and Sensation grossly intact., DATA: CBC: Recent Labs 09/27/20 0512 WBC 5.94 RBC 4.70 HB 14.3 HCT 41.1 PLT 361 MCV 87.4 MCH 30.4 MPV 10.0 Coags: No results for input(s): PT, INR, APTT in the last 24 hours. CMP: Recent Labs 09/27/20 0512 NA 134* K 4.2 CHLOR 98 CO2 28 BUN 25* CREAT 0.79 GLUC 91 TPROT 6.0* CA 8.6 TBILI 0.5 ALKPHOS 63 ALT 20 AST 33 ANION 8* Cardiac Enzymes: No results for input(s): CK, MB, CKMB, TROPT in the last 24 hours. Liver Function, Amylase, Lipase: Recent Labs 09/27/20 0512 TPROT 6.0* ALB 3.1* ALT 20 AST 33 ALKPHOS 63 TBILI 0.5 ABG's: No results for input(s): PH, PCO2, PO2, BE, HCO3, CO2CT, O2HB, COHB, MHGB, TEMP, PHTC, PCO2T, PO2T, O2AD in the last 24 hours. MG/PHOS: No results for input(s): MG, P in the last 24 hours. Plan of care discussed with: Provider, RN, Patient. SIGNATURE: Rodney Chi MD DATE: September 27, 2020 TIME: 7:18 AM Normal [facility] Bilirubin,Conjugatedon 09-26 Bilirubin,Conjugated <0.2 Normal <0.2 [facility] Comment on above: Performed By: #### D DMER, CRP, CMP, CBIL, CBC, PT #### [facility] [address] [address] C-Reactive Proteinon 020 CRP [Mass/Vol] 12.9 mg/dL High <0.9 [facility] Comment on above: Performed By: #### D DMER, CRP, CMP, CBIL, CBC, PT #### [facility] [address] [address] CBCon 09-26-2020 Absolute nRBC <0.01 Normal <0.01 [facility] Comment on above: Performed By: #### D DMER, CRP, CMP, CBIL, CBC, PT #### [facility] [address] [place] [address] Erythrocyte distribution width (RBC) [Ratio] 12.3 % Normal 11.5-15.0 [facility] Comment on above: Performed By: #### D DMER, CRP, CMP, CBIL, CBC, PT #### [facility] [address] [place] [address] Hematocrit (Bld) [Volume fraction] 39.9 % Normal 39.0-51.0 [facility] Comment on above: Performed By: #### D DMER, CRP, CMP, CBIL, CBC, PT #### [facility] [address] [place] [address] Hemoglobin (Bld) [Mass/Vol] 13.9 g/dL Normal 13.0-17.0 [facility] Comment on above: Performed By: #### D DMER, CRP, CMP, CBIL, CBC, PT #### [facility] [address] [place] [address] MCH (RBC) [Entitic mass] 30.6 pG Normal 26.0-34.0 [facility] Comment on above: Performed By: #### D DMER, CRP, CMP, CBIL, CBC, PT #### [facility] [address] [place] [address] MCHC (RBC) [Mass/Vol] 34.8 g/dL Normal 30.5-36.0 [facility] Comment on above: Performed By: #### D DMER, CRP, CMP, CBIL, CBC, PT #### [facility] [address] [address] MCV (RBC) [Entitic vol] 87.9 fL Normal 80.0-100.0 [facility] Comment on above: Performed By: #### D DMER, CRP, CMP, CBIL, CBC, PT #### [facility] [address] [address] Platelet mean volume (Bld) [Entitic vol] 10.2 fL Normal 9.0-12.7 [facility] Comment on above: Performed By: #### D DMER, CRP, CMP, CBIL, CBC, PT #### [facility] [address] [place] [address] Platelets (Bld) [#/Vol] 342 10*3/uL Normal 150-400 [facility] Comment on above: Performed By: #### D DMER, CRP, CMP, CBIL, CBC, PT #### [facility] [address] [place] [address] RBC (Bld) [#/Vol] 4.54 10*6/uL Normal 4.20-6.00 [facility] Comment on above: Performed By: #### D DMER, CRP, CMP, CBIL, CBC, PT #### [facility] [address] [place] [address] WBC (Bld) [#/Vol] 5.52 10*3/uL Normal 3.70-11.00 [facility] Comment on above: Performed By: #### D DMER, CRP, CMP, CBIL, CBC, PT #### [facility] [address] [place] [address] CONSULT PROGon 09-26-2020 CONSULT PROG HNO ID: [id number] Author: Paul Lucas MD Service: Infectious Disease Author Type: Physician Type: Consult Progress Note Filed: 09/27/2020 7:40 PM Note Text: INFECTIOUS DISEASE PROGRESS NOTE Patient Name: Kaelyn Gr INTERVAL HISTORY: Complains of black stools. Feels better today. No fevers. Weaning O2. Still on 8L. Some cough +. ROS checked in details. All qs answered. Patient Active Hospital Problem List: COVID-19 (09/24/2020) ASSESSMENT: COVID-19 Viral pneumonia Acute hypoxic respiratory failure Diabetes mellitus Hyperlipidemia Anxiety disorder ? PLAN: Check stool for occult blood Continue dexamethasone Continue Remdesivir Obtained consent for convalescent plasma. Ordered x 1 Empiric Antibiotics to cover for community-acquired pneumonia Trend acute phase reactants including CRP Follow D-dimer Wean oxygen as able Monitor temperatures and counts Monitor liver and kidney function tests daily Discussed w Dr Chi MEDICATIONS: reviewed. Current Facility-Administered Medications Medication Dose Route Frequency - iv contrast (radiology procedure) INTRAVENOUS DIRECTED PRN - dapagliflozin 10 mg tab(s) (FARXIGA) 10 mg ORAL DAILY - fenofibrate 200 mg cap(s) (LOFIBRA) 200 mg ORAL DAILY - pantoprazole DR 20 mg tab(s) (PROTONIX) 20 mg ORAL DAILY - dextrose 40 % 15 g 15 g ORAL PRN Or - glucagon 1 mg injection 1 mg INTRAMUSCULAR PRN Or - dextrose 50% in water 25 mL syringe 12.5 g INTRAVENOUS PRN - heparin 5,000 Units injection 5,000 Units SUBCUTANEOUS q 12 H - ondansetron orally disintegrating 4 mg tab(s) (ZOFRAN ODT) 4 mg ORAL q 6 H PRN Or - ondansetron (PF) 4 mg injection (ZOFRAN) 4 mg INTRAVENOUS q 6 H PRN - acetaminophen 650 mg tab(s) (TYLENOL) 650 mg ORAL q 6 H PRN - cefTRIAXone 1 g in D5W 100 mL MB+ (ROCEPHIN) 1 g INTRAVENOUS q 24 H - azithromycin 500 mg tab(s) (ZITHROMAX) 500 mg ORAL q 24 H - insulin lispro injection (rapid acting) (HumaLOG) SUBCUTANEOUS w MEALS - dexAMETHasone 6 mg tab(s) (DECADRON) 6 mg ORAL DAILY WITH BREAKFAST - remdesivir 100 mg in NaCl 0.9% 250 mL Vial-Mate/ADD-[place] 100 mg INTRAVENOUS q 24 HR And - sodium chloride 0.9 % (flush) 30 mL (BD POSIFLUSH) 30 mL INTRAVENOUS q 24 HR - albuterol HFA 90 mcg/actuation 2 Puff (PROVENTIL HFA, VENTOLIN HFA) 2 Puff INHALATION q 4 H PRN - ibuprofen 400 mg tab(s) (MOTRIN) 400 mg ORAL QID PRN - benzonatate 100 mg cap(s) (TESSALON PERLE) 100 mg ORAL TID PRN - melatonin 6 mg tab(s) 6 mg ORAL HS PRN - traZODone 50 mg tab(s) (DESYREL) 50 mg ORAL AT BEDTIME PHYSICAL EXAM: Vital signs: BP 115/61 Pulse 72 Temp 36.8 ?C (98.2 ?F) (Oral) Resp 20 Ht 167.6 cm (5' 6) Wt 69.1 kg (152 lb 5.4 oz) SpO2 95% BMI 24.59 kg/m? Temp (72hrs), Av.8 ?C (98.2 ?F), Min:36.3 ?C (97.4 ?F), Max:37.3 ?C (99.1 ?F) General: alert, oriented, NAD Lungs: bilaterally scattered rhonchi to auscultation Heart: regular rate and rhythm Abdomen: soft, non tender, non distended, BS+ Extremities: no edema No rashes No joint inflammation Neck supple Lines ok No CVAT Labs: Recent Labs 09/27/20 0512 09/26/20 0617 09/25/20 0621 WBC 5.94 5.52 5.59 HB 14.3 13.9 13.5 HCT 41.1 39.9 38.9* PLT 361 342 280 INR -- 1.2 1.2 NA 134* 135* 132* K 4.2 4.0 4.1 CHLOR 98 95* 94* CO2 28 24 22 BUN 25* 28* 25* CREAT 0.79 0.72* 0.70* Microbiology data: reviewed Imaging data: reviewed Paul Lucas MD Pager: This note is not final until Authenticated by responsible provider. Normal [facility] Comp Metabolic Panelon 09-26 Albumin [Mass/Vol] 3.3 g/dL Low 3.9-4.9 [facility] Comment on above: Performed By: #### D DMER, CRP, CMP, CBIL, CBC, PT #### [facility] [address] [place] [address] ALP [Catalytic activity/Vol] 67 U/L Normal 38-113 [facility] Comment on above: Performed By: #### D DMER, CRP, CMP, CBIL, CBC, PT #### [facility] [address] [facility] [phone] ALT [Catalytic activity/Vol] 20 U/L Normal 10-54 [facility] Comment on above: Performed By: #### D DMER, CRP, CMP, CBIL, CBC, PT #### [facility] [address] [facility] [phone] Anion gap [Moles/Vol] 16 mmol/L Normal 9-18 [facility] Comment on above: Performed By: #### D DMER, CRP, CMP, CBIL, CBC, PT #### [facility] [address] [facility] [phone] AST [Catalytic activity/Vol] 37 U/L Normal 14-40 [facility] Comment on above: Performed By: #### D DMER, CRP, CMP, CBIL, CBC, PT #### [facility] [address] [place] [address] Bilirubin [Mass/Vol] 0.4 mg/dL Normal 0.2-1.3 [facility] Comment on above: Performed By: #### D DMER, CRP, CMP, CBIL, CBC, PT #### [facility] [address] [place] [address] Calcium [Mass/Vol] 8.5 mg/dL Normal 8.5-10.2 [facility] Comment on above: Performed By: #### D DMER, CRP, CMP, CBIL, CBC, PT #### [facility] [address] [facility] [phone] Chloride [Moles/Vol] 95 mmol/L Low 97-105 [facility] Comment on above: Performed By: #### D DMER, CRP, CMP, CBIL, CBC, PT #### [facility] [address] [facility] [phone] CO2 [Moles/Vol] 24 mmol/L Normal 22-30 [facility] Comment on above: Performed By: #### D DMER, CRP, CMP, CBIL, CBC, PT #### [facility] [address] [facility] [phone] Creatinine [Mass/Vol] 0.72 mg/dL Low 0.73-1.22 [facility] Comment on above: Performed By: #### D DMER, CRP, CMP, CBIL, CBC, PT #### [facility] [address] [facility] [phone] eGFR- Amer. >60 Normal [facility] Comment on above: Performed By: #### D DMER, CRP, CMP, CBIL, CBC, PT #### [facility] [address] [facility] [phone] GFR/1.73 sq M predicted among non-blacks MDRD (S/P/Bld) [Vol rate/Area] mL/min/{1.73_m2} Normal [facility] Comment on above: Result Comment: eGFR (Estimated GFR) Units of measure: mL/min/1.73 meters squared eGFR is derived from the reexpressed MDRD Study equation using the following parameters: serum creatinine, age, gender and race. The creatinine assay has been calibrated to be traceable to IDMS. An eGFR <60 mL/min/1.73m2 for >3 months is consistent with chronic kidney disease. Refer to KDOQI guidelines for clinical interpretation. In patients with unstable renal function, e.g. those with acute kidney injury, the eGFR may not accurately reflect actual GFR. Performed By: #### D DMER, CRP, CMP, CBIL, CBC, PT #### [facility] [address] [facility] [phone] Glucose [Mass/Vol] 154 mg/dL High 74-99 [facility] Comment on above: Result Comment: The [place] [employer] (ADA) provides guidance for cutoff values for fasting glucose and random glucose. The ADA defines fasting as no caloric intake for at least 8 hours. Fasting plasma glucose results between 100 to 125 mg/dL indicate increased risk for diabetes (prediabetes). Fasting plasma glucose results greater than or equal to 126 mg/dL meet the criteria for diagnosis of diabetes. In the absence of unequivocal hyperglycemia, results should be confirmed by repeat testing. In a patient with classic symptoms of hyperglycemia or hyperglycemic crisis, random plasma glucose results greater than or equal to 200 mg/dL meet the criteria for diagnosis of diabetes. Reference: Standards of Medical Care in Diabetes 2016, [place] [employer]. Diabetes Care. 2016.39(Suppl 1). Performed By: #### D DMER, CRP, CMP, CBIL, CBC, PT #### [facility] [address] [phone] Potassium [Moles/Vol] 4.0 mmol/L Normal 3.7-5.1 [facility] Comment on above: Performed By: #### D DMER, CRP, CMP, CBIL, CBC, PT #### [facility] [address] [place], [place] [id number] Protein [Mass/Vol] 6.3 g/dL Normal 6.3-8.0 [facility] Comment on above: Performed By: #### D DMER, CRP, CMP, CBIL, CBC, PT #### [facility] [address] [place], [place] [id number] Sodium [Moles/Vol] 135 mmol/L Low 136-144 [facility] Comment on above: Performed By: #### D DMER, CRP, CMP, CBIL, CBC, PT #### [facility] [address] [place], [place] [id number] Urea nitrogen [Mass/Vol] 28 mg/dL High 9-24 [facility] Comment on above: Performed By: #### D DMER, CRP, CMP, CBIL, CBC, PT #### [facility] [address] [place], [place] [id number] D dimeron 09-26-2020 D dimer 700 ng/mL FEU High <500 [facility] Comment on above: Result Comment: 500 ng/mL FEU is the D Dimer cutoff to exclude DVT (deep vein thrombosis) and PE (pulmonary embolism) in patients with a low pre test probability. Supplemental Comment: In patients over 50 years with a low pre test probability for DVT and/or PE, an age adjusted D dimer cutoff can be calculated as [age x 10] ng/mL FEU. For example, a patient of 88 years would have an age adjusted D dimer cutoff of 880 ng/mL FEU. For patients with a suspected DVT, a D dimer level below 500 ng/mL FEU has a negative predictive value of >98.9%, a sensitivity of >96.9% and a specificity of >35.7%. For patients with a suspected PE, a D dimer level below 500 ng/mL FEU has a negative predictive value of >98.5%, and a sensitivity of >96.5% and a specificity of >38.8%. Reference: Gina M, et al. JAYDEN 2014 311:1117 and Chris Cuadra N et al. Desiree Int Med 2016 165:253. Performed By: #### D DMER, CRP, CMP, CBIL, CBC, PT #### [facility] [address] [facility] [phone] PROGRESSon 09-26-2020 PROGRESS HNO ID: [id number] Author: Rodney Chi Service: Family Practice Author Type: Physician Type: Progress Notes Filed: 09/26/2020 7:13 AM Note Text: INPATIENT PROGRESS NOTES Patient Name: Kaelyn Gr DATE of SERVICE: 09/26/2020 TIME of SERVICE: 6:58 AM PRIMARY SERVICE: Family Practice INTERVAL HPI: needed increase in O2 Currently on 8L Did not sleep much ASSESSMENT AND PLAN: +covid Increasing O2 needs Labs pending consider lasix Sunday if still on high o2 MEDICATIONS: Current Facility-Administered Medications Medication Dose Route Frequency - iv contrast (radiology procedure) INTRAVENOUS DIRECTED PRN - dapagliflozin 10 mg tab(s) (FARXIGA) 10 mg ORAL DAILY - fenofibrate 200 mg cap(s) (LOFIBRA) 200 mg ORAL DAILY - pantoprazole DR 20 mg tab(s) (PROTONIX) 20 mg ORAL DAILY - dextrose 40 % 15 g 15 g ORAL PRN Or - glucagon 1 mg injection 1 mg INTRAMUSCULAR PRN Or - dextrose 50% in water 25 mL syringe 12.5 g INTRAVENOUS PRN - heparin 5,000 Units injection 5,000 Units SUBCUTANEOUS q 12 H - ondansetron orally disintegrating 4 mg tab(s) (ZOFRAN ODT) 4 mg ORAL q 6 H PRN Or - ondansetron (PF) 4 mg injection (ZOFRAN) 4 mg INTRAVENOUS q 6 H PRN - acetaminophen 650 mg tab(s) (TYLENOL) 650 mg ORAL q 6 H PRN - cefTRIAXone 1 g in D5W 100 mL MB+ (ROCEPHIN) 1 g INTRAVENOUS q 24 H - azithromycin 500 mg tab(s) (ZITHROMAX) 500 mg ORAL q 24 H - insulin lispro injection (rapid acting) (HumaLOG) SUBCUTANEOUS w MEALS - dexAMETHasone 6 mg tab(s) (DECADRON) 6 mg ORAL DAILY WITH BREAKFAST - remdesivir 100 mg in NaCl 0.9% 250 mL Vial-Mate/ADD-[place] 100 mg INTRAVENOUS q 24 HR And - sodium chloride 0.9 % (flush) 30 mL (BD POSIFLUSH) 30 mL INTRAVENOUS q 24 HR - albuterol HFA 90 mcg/actuation 2 Puff (PROVENTIL HFA, VENTOLIN HFA) 2 Puff INHALATION q 4 H PRN - ibuprofen 400 mg tab(s) (MOTRIN) 400 mg ORAL QID PRN - benzonatate 100 mg cap(s) (TESSALON PERLE) 100 mg ORAL TID PRN - melatonin 3 mg tab(s) 3 mg ORAL HS PRN Patient Vitals for the past 48 hrs: BP Temp Temp src Pulse Resp SpO2 Height Weight 09/26/20 0053 146/63 36.7 ?C (98.1 ?F) Oral 61 20 94 % ? ? 09/25/20 2335 140/58 36.7 ?C (98.1 ?F) Oral 61 20 ? ? ? 09/25/20 2307 134/53 36.6 ?C (97.8 ?F) Oral 61 20 95 % ? ? 09/25/20 2300 130/57 36.4 ?C (97.6 ?F) Oral 63 20 91 % ? ? 09/25/20 2108 133/63 36.9 ?C (98.4 ?F) Oral 62 20 94 % ? ? 09/25/20 1031 ? ? ? 73 ? 91 % ? ? 09/25/20 0907 131/56 36.9 ?C (98.4 ?F) Oral 73 18 91 % ? ? 09/25/20 0449 126/60 37.3 ?C (99.1 ?F) Oral 76 19 93 % ? 70.7 kg (155 lb 13.8 oz) 09/24/20 2035 131/61 37.2 ?C (99 ?F) Oral 75 18 93 % ? ? 09/24/20 1605 112/65 37.3 ?C (99.1 ?F) Oral 76 28 93 % ? ? 09/24/20 1400 ? 37.6 ?C (99.6 ?F) Oral 79 28 93 % ? ? 09/24/20 1315 ? 92 % ? ? 09/24/20 1310 ? 91 % ? ? 09/24/20 1305 103/69 (!) 38.7 ?C (101.7 ?F) Oral 92 (!) 32 91 % ? ? 09/24/20 0936 ? 167.6 cm (5' 6) 72 kg (158 lb 11.7 oz) 09/24/20 0929 (!) 122/47 37.8 ?C (100 ?F) Oral 79 16 92 % ? ? 09/24/20 0800 129/58 ? ? 80 20 (!) 93 % ? ? PHYSICAL EXAM: GENERAL: alert, no distress, cooperative SKIN: No rashes or lesions. OROPHARYNX: Oropharynx normal. NECK: no jugulovenous distention, supple LUNGS: Lungs clear to auscultation. CARDIAC: normal S1 and S2; no rubs, murmurs, or gallops ABDOMEN: Abdomen soft, non-tender. BS normal. No masses or organomegaly. EXTREMETIES: No deformities, cyanosis, edema, clubbing or skin discoloration. NEURO: Alert, oriented X 3, Gait normal. Motor and Sensation grossly intact., DATA: CBC: Recent Labs 09/26/20 0617 WBC 5.52 RBC 4.54 HB 13.9 HCT 39.9 PLT 342 MCV 87.9 MCH 30.6 MPV 10.2 Coags: No results for input(s): PT, INR, APTT in the last 24 hours. CMP: No results for input(s): NA, K, CHLOR, CO2, BUN, CREAT, GLUC, TPROT, CA, MG, ALBUMIN, TBILI, ALKPHOS, ALT, AST, ANION in the last 24 hours. Cardiac Enzymes: No results for input(s): CK, MB, CKMB, TROPT in the last 24 hours. Liver Function, Amylase, Lipase: No results for input(s): TPROT, ALB, ALT, AST, ALKPHOS, TBILI, AMYLASE, LIPASE, LACTATE in the last 24 hours. ABG's: Recent Labs 09/25/20 1105 PH 7.470* PCO2 32.4* PO2 59.9* BE 0.7 HCO3 23.3 O2HB 89.4* COHB 1.1 MHGB 0.8 MG/PHOS: No results for input(s): MG, P in the last 24 hours. Plan of care discussed with: Provider, RN, Patient. SIGNATURE: Rodney hCi MD DATE: September 26, 2020 TIME: 6:58 AM Normal [facility] Protimeon 09-26-2020 PT Coag (PPP) [Time] 12.3 s Normal 9.7-13.0 [facility] Comment on above: Performed By: #### D DMER, CRP, CMP, CBIL, CBC, PT #### [facility] [address] [facility] [phone] PT Coag (PPP) [Time] 1.2 s Normal 0.9-1.3 [facility] Comment on above: Result Comment: Sabine min K Antagonist (VKA) Therapeutic Range: INR 2 to 3 (Target INR of 2.5) Note: For patients treated with VKA drugs, such as warfarin, the [place] [employer] 2012 Guideline recommends a therapeutic INR range of 2 to 3 (target INR of 2.5). This recommendation includes high-risk patients with antiphospholipid syndrome with previous arterial or venous thromboembolism, current-generation mechanical or bioprosthetic aortic heart valve replacement. Note: Patients with mechanical aortic valve replacement and additional risk factors for thromboembolic events (atrial fibrillation, previous thromboembolism, LV dysfunction, hypercoagulable conditions) or an older generation mechanical AVR (i.e., ball in-Cage) or any mechanical MVR should have a INR therapeutic range of 2.5 to 3.5 (target INR of 3). Tremaine GH, et al. Chest 2012, 141:7S-47S Alis RA, et al. [facility] 2017, 70: 252-289 Performed By: #### D DMER, CRP, CMP, CBIL, CBC, PT #### [facility] [address] [facility] [phone] Bilirubin,Conjugatedon 09-25 Bilirubin,Conjugated <0.2 Normal <0.2 [facility] Comment on above: Performed By: #### D DMER, CRP, CMP, CBIL, CBC, PT #### [facility] [address] [facility] [phone] CBCon 09-25-2020 Absolute nRBC <0.01 Normal <0.01 [facility] Comment on above: Performed By: #### D DMER, CRP, CMP, CBIL, CBC, PT #### [facility] [address] [place] [address] Erythrocyte distribution width (RBC) [Ratio] 12.4 % Normal 11.5-15.0 [facility] Comment on above: Performed By: #### D DMER, CRP, CMP, CBIL, CBC, PT #### [facility] [address] [place] [address] Hematocrit (Bld) [Volume fraction] 38.9 % Low 39.0-51.0 [facility] Comment on above: Performed By: #### D DMER, CRP, CMP, CBIL, CBC, PT #### [facility] [address] [place] [address] Hemoglobin (Bld) [Mass/Vol] 13.5 g/dL Normal 13.0-17.0 [facility] Comment on above: Performed By: #### D DMER, CRP, CMP, CBIL, CBC, PT #### [facility] [address] [place] [address] MCH (RBC) [Entitic mass] 30.4 pG Normal 26.0-34.0 [facility] Comment on above: Performed By: #### D DMER, CRP, CMP, CBIL, CBC, PT #### [facility] [address] [place] [address] MCHC (RBC) [Mass/Vol] 34.7 g/dL Normal 30.5-36.0 [facility] Comment on above: Performed By: #### D DMER, CRP, CMP, CBIL, CBC, PT #### [facility] [address] [place] [address] MCV (RBC) [Entitic vol] 87.6 fL Normal 80.0-100.0 [facility] Comment on above: Performed By: #### D DMER, CRP, CMP, CBIL, CBC, PT #### [facility] [address] [place] [address] Platelet mean volume (Bld) [Entitic vol] 10.6 fL Normal 9.0-12.7 [facility] Comment on above: Performed By: #### D DMER, CRP, CMP, CBIL, CBC, PT #### [facility] [address] [facility] [phone] Platelets (Bld) [#/Vol] 280 10*3/uL Normal 150-400 [facility] Comment on above: Performed By: #### D DMER, CRP, CMP, CBIL, CBC, PT #### [facility] [phone] RBC (Bld) [#/Vol] 4.44 10*6/uL Normal 4.20-6.00 [facility] Comment on above: Performed By: #### D DMER, CRP, CMP, CBIL, CBC, PT #### [facility] [address] [phone] WBC (Bld) [#/Vol] 5.59 10*3/uL Normal 3.70-11.00 [facility] Comment on above: Performed By: #### D DMER, CRP, CMP, CBIL, CBC, PT #### [facility] [address] [phone] CONSULT PROGon 09-25-2020 CONSULT PROG HNO ID: [id number] Author: Paul Lucas MD Service: Infectious Disease Author Type: Physician Type: Consult Progress Note Filed: 09/27/2020 7:33 PM Note Text: INFECTIOUS DISEASE PROGRESS NOTE Patient Name: Kaelyn Gr INTERVAL HISTORY: Quite SOB. No fevers. Feels worse. ++ Exertional dyspnea. ROS checked in details. All qs answered. Patient Active Hospital Problem List: COVID-19 (09/24/2020) ASSESSMENT: COVID-19 Viral pneumonia Acute hypoxic respiratory failure Diabetes mellitus Hyperlipidemia Anxiety disorder ? PLAN: Continue dexamethasone Continue Remdesivir Obtained consent for convalescent plasma. Ordered x 1 Empiric Antibiotics to cover for community-acquired pneumonia Trend acute phase reactants including CRP Follow D-dimer Wean oxygen as able Monitor temperatures and counts Blood cultures x2 Check urine Legionella/pneumococca l antigen and mycoplasma IgM Check procalcitonin levels Monitor liver and kidney function tests daily MEDICATIONS: reviewed. Current Facility-Administered Medications Medication Dose Route Frequency - iv contrast (radiology procedure) INTRAVENOUS DIRECTED PRN - dapagliflozin 10 mg tab(s) (FARXIGA) 10 mg ORAL DAILY - fenofibrate 200 mg cap(s) (LOFIBRA) 200 mg ORAL DAILY - pantoprazole DR 20 mg tab(s) (PROTONIX) 20 mg ORAL DAILY - dextrose 40 % 15 g 15 g ORAL PRN Or - glucagon 1 mg injection 1 mg INTRAMUSCULAR PRN Or - dextrose 50% in water 25 mL syringe 12.5 g INTRAVENOUS PRN - heparin 5,000 Units injection 5,000 Units SUBCUTANEOUS q 12 H - ondansetron orally disintegrating 4 mg tab(s) (ZOFRAN ODT) 4 mg ORAL q 6 H PRN Or - ondansetron (PF) 4 mg injection (ZOFRAN) 4 mg INTRAVENOUS q 6 H PRN - acetaminophen 650 mg tab(s) (TYLENOL) 650 mg ORAL q 6 H PRN - cefTRIAXone 1 g in D5W 100 mL MB+ (ROCEPHIN) 1 g INTRAVENOUS q 24 H - azithromycin 500 mg tab(s) (ZITHROMAX) 500 mg ORAL q 24 H - insulin lispro injection (rapid acting) (HumaLOG) SUBCUTANEOUS w MEALS - dexAMETHasone 6 mg tab(s) (DECADRON) 6 mg ORAL DAILY WITH BREAKFAST - remdesivir 100 mg in NaCl 0.9% 250 mL Vial-Mate/ADD-[place] 100 mg INTRAVENOUS q 24 HR And - sodium chloride 0.9 % (flush) 30 mL (BD POSIFLUSH) 30 mL INTRAVENOUS q 24 HR - albuterol HFA 90 mcg/actuation 2 Puff (PROVENTIL HFA, VENTOLIN HFA) 2 Puff INHALATION q 4 H PRN - ibuprofen 400 mg tab(s) (MOTRIN) 400 mg ORAL QID PRN - benzonatate 100 mg cap(s) (TESSALON PERLE) 100 mg ORAL TID PRN - melatonin 6 mg tab(s) 6 mg ORAL HS PRN - traZODone 50 mg tab(s) (DESYREL) 50 mg ORAL AT BEDTIME PHYSICAL EXAM: Vital signs: BP 115/61 Pulse 72 Temp 36.8 ?C (98.2 ?F) (Oral) Resp 20 Ht 167.6 cm (5' 6) Wt 69.1 kg (152 lb 5.4 oz) SpO2 95% BMI 24.59 kg/m? Temp (72hrs), Av.8 ?C (98.2 ?F), Min:36.3 ?C (97.4 ?F), Max:37.3 ?C (99.1 ?F) General: alert, oriented, NAD Lungs: bilaterally scattered rhonchi to auscultation Heart: regular rate and rhythm Abdomen: soft, non tender, non distended, BS+ Extremities: no edema No rashes No joint inflammation Neck supple Lines ok No CVAT Labs: Recent Labs 09/27/20 0512 09/26/20 0617 09/25/20 0621 WBC 5.94 5.52 5.59 HB 14.3 13.9 13.5 HCT 41.1 39.9 38.9* PLT 361 342 280 INR -- 1.2 1.2 NA 134* 135* 132* K 4.2 4.0 4.1 CHLOR 98 95* 94* CO2 28 24 22 BUN 25* 28* 25* CREAT 0.79 0.72* 0.70* Microbiology data: reviewed Imaging data: reviewed Paul Lucas MD Pager: This note is not final until Authenticated by responsible provider. Normal [facility] Comp Metabolic Panelon 09-25 Albumin [Mass/Vol] 3.1 g/dL Low 3.9-4.9 [facility] Comment on above: Performed By: #### D DMER, CRP, CMP, CBIL, CBC, PT #### [facility] [address] [place] [address] ALP [Catalytic activity/Vol] 62 U/L Normal 38-113 [facility] Comment on above: Performed By: #### D DMER, CRP, CMP, CBIL, CBC, PT #### [facility] [address] [facility] [phone] ALT [Catalytic activity/Vol] 21 U/L Normal 10-54 [facility] Comment on above: Performed By: #### D DMER, CRP, CMP, CBIL, CBC, PT #### [facility] [address] [place] [address] Anion gap [Moles/Vol] 16 mmol/L Normal 9-18 [facility] Comment on above: Performed By: #### D DMER, CRP, CMP, CBIL, CBC, PT #### [facility] [address] [facility] [phone] AST [Catalytic activity/Vol] 42 U/L High 14-40 [facility] Comment on above: Performed By: #### D DMER, CRP, CMP, CBIL, CBC, PT #### [facility] [address] [facility] [phone] Bilirubin [Mass/Vol] 0.4 mg/dL Normal 0.2-1.3 [facility] Comment on above: Performed By: #### D DMER, CRP, CMP, CBIL, CBC, PT #### [facility] [address] [facility] [phone] Calcium [Mass/Vol] 8.4 mg/dL Low 8.5-10.2 [facility] Comment on above: Performed By: #### D DMER, CRP, CMP, CBIL, CBC, PT #### [facility] [address] [facility] [phone] Chloride [Moles/Vol] 94 mmol/L Low 97-105 [facility] Comment on above: Performed By: #### D DMER, CRP, CMP, CBIL, CBC, PT #### [facility] [address] [facility] [phone] CO2 [Moles/Vol] 22 mmol/L Normal 22-30 [facility] Comment on above: Performed By: #### D DMER, CRP, CMP, CBIL, CBC, PT #### [facility] [address] [facility] [phone] Creatinine [Mass/Vol] 0.70 mg/dL Low 0.73-1.22 [facility] Comment on above: Performed By: #### D DMER, CRP, CMP, CBIL, CBC, PT #### [facility] [address] [facility] [phone] eGFR- Amer. >60 Normal [facility] Comment on above: Performed By: #### D DMER, CRP, CMP, CBIL, CBC, PT #### [facility] [address] [facility] [phone] GFR/1.73 sq M predicted among non-blacks MDRD (S/P/Bld) [Vol rate/Area] mL/min/{1.73_m2} Normal [facility] Comment on above: Result Comment: eGFR (Estimated GFR) Units of measure: mL/min/1.73 meters squared eGFR is derived from the reexpressed MDRD Study equation using the following parameters: serum creatinine, age, gender and race. The creatinine assay has been calibrated to be traceable to IDMS. An eGFR <60 mL/min/1.73m2 for >3 months is consistent with chronic kidney disease. Refer to KDOQI guidelines for clinical interpretation. In patients with unstable renal function, e.g. those with acute kidney injury, the eGFR may not accurately reflect actual GFR. Performed By: #### D DMER, CRP, CMP, CBIL, CBC, PT #### [facility] [address] [facility] [phone] Glucose [Mass/Vol] 139 mg/dL High 74-99 [facility] Comment on above: Result Comment: The [place] [employer] (ADA) provides guidance for cutoff values for fasting glucose and random glucose. The ADA defines fasting as no caloric intake for at least 8 hours. Fasting plasma glucose results between 100 to 125 mg/dL indicate increased risk for diabetes (prediabetes). Fasting plasma glucose results greater than or equal to 126 mg/dL meet the criteria for diagnosis of diabetes. In the absence of unequivocal hyperglycemia, results should be confirmed by repeat testing. In a patient with classic symptoms of hyperglycemia or hyperglycemic crisis, random plasma glucose results greater than or equal to 200 mg/dL meet the criteria for diagnosis of diabetes. Reference: Standards of Medical Care in Diabetes 2016, [place] [employer]. Diabetes Care. 2016.39(Suppl 1). Performed By: #### D DMER, CRP, CMP, CBIL, CBC, PT #### [facility] [address] [place] [address] Potassium [Moles/Vol] 4.1 mmol/L Normal 3.7-5.1 [facility] Comment on above: Performed By: #### D DMER, CRP, CMP, CBIL, CBC, PT #### [facility] [address] [place] [address] Protein [Mass/Vol] 6.0 g/dL Low 6.3-8.0 [facility] Comment on above: Performed By: #### D DMER, CRP, CMP, CBIL, CBC, PT #### [facility] [address] [place] [address] Sodium [Moles/Vol] 132 mmol/L Low 136-144 [facility] Comment on above: Performed By: #### D DMER, CRP, CMP, CBIL, CBC, PT #### [facility] [address] [facility] [phone] Urea nitrogen [Mass/Vol] 25 mg/dL High 9-24 [facility] Comment on above: Performed By: #### D DMER, CRP, CMP, CBIL, CBC, PT #### [facility] [address] [facility] [phone] Confirm Blood Typeon 020 ABO/RH(D) Negative Normal [facility] Comment on above: Performed By: #### D DMER, CRP, CMP, CBIL, CBC, PT #### [facility] [address] [facility] [phone] NURSING PROGon 09-25-2020 NURSING PROG HNO ID: [id number] Author: Silvana (Rn) NICO Fournier Service: ? Author Type: Registered Nurse Type: Nursing Progress Note Filed: 09/25/2020 11:28 AM Note Text: Nursing Progress Note Patient Name: Kaelyn Gr Patient Location: [place] [address] [address]- 2 __ Daily Note: 1127 notified of patients ABGs. Patient resting in bed. Respiratory notified. Oxygen increased to bubbler. This note was completed by: Silvana Fournier RN [facility] PROGRESSon 09-25-2020 PROGRESS HNO ID: [id number] Author: Rodney Chi Service: Family Practice Author Type: Physician Type: Progress Notes Filed: 09/25/2020 7:27 AM Note Text: INPATIENT PROGRESS NOTES Patient Name: Kaelyn Gr DATE of SERVICE: 09/25/2020 TIME of SERVICE: 6:59 AM PRIMARY SERVICE: Family Practice INTERVAL HPI: fever yesterday On 5L nc Slight cough Back hurts No appetite ASSESSMENT AND PLAN: +covid pneumonia On dex and remdsivir On RANDZ Ordered convalescent plasma Motrin as needed Watch for high sugar MEDICATIONS: Current Facility-Administered Medications Medication Dose Route Frequency - iv contrast (radiology procedure) INTRAVENOUS DIRECTED PRN - dapagliflozin 10 mg tab(s) (FARXIGA) 10 mg ORAL DAILY - fenofibrate 200 mg cap(s) (LOFIBRA) 200 mg ORAL DAILY - pantoprazole DR 20 mg tab(s) (PROTONIX) 20 mg ORAL DAILY - dextrose 40 % 15 g 15 g ORAL PRN Or - glucagon 1 mg injection 1 mg INTRAMUSCULAR PRN Or - dextrose 50% in water 25 mL syringe 12.5 g INTRAVENOUS PRN - heparin 5,000 Units injection 5,000 Units SUBCUTANEOUS q 12 H - ondansetron orally disintegrating 4 mg tab(s) (ZOFRAN ODT) 4 mg ORAL q 6 H PRN Or - ondansetron (PF) 4 mg injection (ZOFRAN) 4 mg INTRAVENOUS q 6 H PRN - acetaminophen 650 mg tab(s) (TYLENOL) 650 mg ORAL q 6 H PRN - cefTRIAXone 1 g in D5W 100 mL MB+ (ROCEPHIN) 1 g INTRAVENOUS q 24 H - azithromycin 500 mg tab(s) (ZITHROMAX) 500 mg ORAL q 24 H - insulin lispro injection (rapid acting) (HumaLOG) SUBCUTANEOUS w MEALS - dexAMETHasone 6 mg tab(s) (DECADRON) 6 mg ORAL DAILY WITH BREAKFAST - remdesivir 100 mg in NaCl 0.9% 250 mL Vial-Mate/ADD-[place] 100 mg INTRAVENOUS q 24 HR And - sodium chloride 0.9 % (flush) 30 mL (BD POSIFLUSH) 30 mL INTRAVENOUS q 24 HR - albuterol HFA 90 mcg/actuation 2 Puff (PROVENTIL HFA, VENTOLIN HFA) 2 Puff INHALATION q 4 H PRN Patient Vitals for the past 48 hrs: BP Temp Temp src Pulse Resp SpO2 Height Weight 09/25/20 0449 126/60 37.3 ?C (99.1 ?F) Oral 76 19 93 % ? 70.7 kg (155 lb 13.8 oz) 09/24/202034 131/61 37.2 ?C (99 ?F) Oral 75 18 93 % ? ? 09/24/20 1605 112/65 37.3 ?C (99.1 ?F) Oral 76 28 93 % ? ? 09/24/20 1400 ? 37.6 ?C (99.6 ?F) Oral 79 28 93 % ? ? 09/24/20 1315 ? 92 % ? ? 09/24/20 1310 ? 91 % ? ? 09/24/20 1305 103/69 (!) 38.7 ?C (101.7 ?F) Oral 92 (!) 32 91 % ? ? 09/24/20 0936 ? 167.6 cm (5' 6) 72 kg (158 lb 11.7 oz) 09/24/20 0929 (!) 122/47 37.8 ?C (100 ?F) Oral 79 16 92 % ? ? 09/24/20 0800 129/58 ? ? 80 20 (!) 93 % ? ? 09/24/20 0630 124/58 ? ? 76 ? 95 % ? ? 09/24/20 0600 125/78 ? ? 75 ? (!) 94 % ? ? 09/24/20 0547 ? 36.9 ?C (98.4 ?F) Oral ? 09/24/20 0530 123/59 ? ? 75 22 (!) 94 % ? ? 09/24/20 0500 131/62 ? ? 77 20 (!) 94 % ? ? 09/24/20 0430 132/62 ? ? 79 20 (!) 94 % ? ? 09/24/20 0403 143/67 ? ? 89 22 (!) 94 % ? 72.6 kg (160 lb) PHYSICAL EXAM: GENERAL: alert, no distress, cooperative SKIN: No rashes or lesions. OROPHARYNX: Oropharynx normal. NECK: no jugulovenous distention, supple LUNGS: Lungs clear to auscultation. CARDIAC: normal S1 and S2; no rubs, murmurs, or gallops ABDOMEN: Abdomen soft, non-tender. BS normal. No masses or organomegaly. EXTREMETIES: No deformities, cyanosis, edema, clubbing or skin discoloration. NEURO: Alert, oriented X 3, Gait normal. Motor and Sensation grossly intact., DATA: CBC: No results for input(s): WBC, RBC, HB, HCT, PLT, MCV, MCH, MPV, RDW in the last 24 hours. Coags: Recent Labs 09/24/20 1040 INR 1.1 CMP: Recent Labs 09/24/20 1040 TPROT 6.4 TBILI 0.5 ALKPHOS 67 ALT 21 AST 43* Cardiac Enzymes: No results for input(s): CK, MB, CKMB, TROPT in the last 24 hours. Liver Function, Amylase, Lipase: Recent Labs 09/24/20 1040 TPROT 6.4 ALB 3.4* ALT 21 AST 43* ALKPHOS 67 TBILI 0.5 ABG's: No results for input(s): PH, PCO2, PO2, BE, HCO3, CO2CT, O2HB, COHB, MHGB, TEMP, PHTC, PCO2T, PO2T, O2AD in the last 24 hours. MG/PHOS: No results for input(s): MG, P in the last 24 hours. Plan of care discussed with: Provider, RN, Patient. SIGNATURE: Rodney Chi MD DATE: September 25, 2020 TIME: 6:59 AM Normal [facility] Protimeon 09-25-2020 PT Coag (PPP) [Time] 1.2 s Normal 0.9-1.3 [facility] Comment on above: Result Comment: Sabine min K Antagonist (VKA) Therapeutic Range: INR 2 to 3 (Target INR of 2.5) Note: For patients treated with VKA drugs, such as warfarin, the [place] [employer] 2012 Guideline recommends a therapeutic INR range of 2 to 3 (target INR of 2.5). This recommendation includes high-risk patients with antiphospholipid syndrome with previous arterial or venous thromboembolism, current-generation mechanical or bioprosthetic aortic heart valve replacement. Note: Patients with mechanical aortic valve replacement and additional risk factors for thromboembolic events (atrial fibrillation, previous thromboembolism, LV dysfunction, hypercoagulable conditions) or an older generation mechanical AVR (i.e., ball in-Cage) or any mechanical MVR should have a INR therapeutic range of 2.5 to 3.5 (target INR of 3). Tremaine GH, et al. Chest 2012, 141:7S-47S Alis RA, et al. [facility] 2017, 70: 252-289 Performed By: #### D DMER, CRP, CMP, CBIL, CBC, PT #### [facility] [address] [facility] [phone] PT Coag (PPP) [Time] 12.0 s Normal 9.7-13.0 [facility] Comment on above: Performed By: #### D DMER, CRP, CMP, CBIL, CBC, PT #### [facility] [address] [facility] [phone] Type and Screenon 09-25-2020 ABO/RH(D) Negative Normal [facility] Comment on above: Performed By: #### D DMER, CRP, CMP, CBIL, CBC, PT #### [facility] [address] [facility] [phone] ALLIED HEALTHon 09-24-2020 ALLIED HEALTH HNO ID: [id number] Author: Orlando Ceja (Ct) Service: Radiology Author Type: Principal Cyber Engineer Type: Allied Health Filed: 09/24/2020 5:27 AM Note Text: Radiology Service Progress Note DATE OF SERVICE: September 24, 2020 TIME: 5:26 AM PATIENT IDENTITY VERIFICATION COMPLETED USING TWO (2) STANDARD IDENTIFIERS: Name and Date of confirmed by patient verbally. FALL SCREENING: Has the patient had 2 falls in the last year or 1 fall with injury or currently using an Ambulatory Assistive Device (Walker, Cane, Wheelchair, Crutches, etc.)? Emergency Room Patient: Screened in ED PATIENT GENDER DATA: Male PATIENT RELEVANT IMPLANT DATA REVIEWED: Not Applicable ALLERGIES: Reviewed and unchanged CONTRAST ALLERGY: NO. EXAM: CT -CONTRAST INDUCED NEPHROPATHY RISK FACTORS: Patient age > 60 years and Diabetic: No and Yes. Current medication(s): Metformin. Patient currently has insulin pump?: No. CREATININE: Creatinine Date Value Ref Range Status 09/24/2020 0.67 (L) 0.73 - 1.22 mg/dL Final 05/05/2020 0.92 0.73 - 1.22 mg/dL Final eGFR-All Other Races Date Value Ref Range Status 09/24/2020 >60 . Final Comment: eGFR (Estimated GFR) Units of measure: mL/min/1.73 meters squared eGFR is derived from the reexpressed MDRD Study equation using the following parameters: serum creatinine, age, gender and race. The creatinine assay has been calibrated to be traceable to IDMS. An eGFR <60 mL/min/1.73m2 for >3 months is consistent with chronic kidney disease. Refer to KDOQI guidelines for clinical interpretation. In patients with unstable renal function, e.g. those with acute kidney injury, the eGFR may not accurately reflect actual GFR. eGFR- Date Value Ref Range Status 09/24/2020 >60 Final P.O.C.T. RESULTS: POC done: Yes, See Lab Tab September 24, 2020 TREATMENT: N/A PERIPHERAL IV DATA: Inpatient - refer to LDA documentation RADIOLOGY DEPARTMENT: CT; Exam(s) Completed: PE Study SIGNATURE: MAYDA Ceja PATIENT NAME: Kaelyn Gr DATE: September 24, 2020 TIME: 5:26 AM [facility] HNO ID: [id number] Author: MAYDA Stoll (Ct) Service: ? Author Type: Clinical Principal Cyber Engineer Type: Allied Health Filed: 09/24/2020 4:54 AM Note Text: Radiology Service Progress Note PATIENT NAME: Kaelyn Gr DATE OF SERVICE: September 24, 2020 TIME: 4:53 AM PATIENT IDENTITY VERIFICATION COMPLETED USING TWO (2) IDENTIFIERS: Name and Date of confirmed by patient verbally. FALL SCREENING: Has the patient had 2 falls in the last year or 1 fall with injury or currently using an Ambulatory Assistive Device (Walker, Cane, Wheelchair, Crutches, etc.)? Emergency Room Patient: Screened in ED PATIENT GENDER DATA: Male PATIENT RELEVANT IMPLANT DATA REVIEWED: Not Applicable RADIOLOGY DEPARTMENT: General X-ray: Exam(s) Completed: Chest X-Ray PERIPHERAL IV DATA: Not applicable SIGNED BY: MAYDA Stoll September 24, 2020 4:53 AM [facility] HNO ID: [id number] Author: Ally Adkins (Sw) Service: Care Management Author Type: Nutritional Services Host Type: Care Mgt Initial Assessment Filed: 09/24/2020 4:06 PM Note Text: CARE MANAGEMENT: ASSESSMENT AND DISCHARGE PLAN SERVICE DATE: September 24, 2020 SERVICE TIME: 3:50 PM PRIMARY CARE PHYSICIAN: Rodney Chi MD - confirmed with pt ADMISSION STATUS: Inpatient Needs Prior to Discharge: To Be Determined MEDICAL: 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 Last discharge within 30 days: No Advance Directive: Current Advance Directive: Health Care Power of Corporate Compliance Manager;Living Will In Chart: No Welfare Specialist Attempted to Assist with AD Completion: Yes Health LiteracyHow often do you need to have someone help you when you read instructions, pamphlets, or other written material from your doctor or pharmacy? : 1 - Never How confident are you filling out medical forms by yourself?: 1 - Extremely If Patient scores > 3 on either question, the following interventions were put into place:: Patient did not score > 3 on either question. Baseline Mental Status Prior to this Illness what was the patient's Baseline Mental Status?: Alert AND Oriented Prior to this illness, has anyone described the patient having any of the following behaviors?: Not Applicable Relationship of the informant to the patient:: Self Functional Status: Independent Does Patient Currently Receive Any Community Services or Home Care?: None Equipment Prior to Admission: None Has the Patient Been in a Assisted Facility in the Past 30 days?: No SOCIAL: Living Arrangements: Home Lives With: Spouse Financial Resources: Retired Primary Contact: Extended Emergency Contact Information Primary Emergency Contact: Montserrat Gr Address: [address] [place] [address] Mobile Relation: Spouse Supportive Patient Contact:: Yes Contact Resources: Family Caregiver AssessmentCaregiver is ready, willing and able to meet the patient's needs as recommended by the inter-professional team:: No Caregiver needed Does the patient have an acute stroke diagnosis, or has the patient had a stroke during this admission?: No Patient's transition needs and plan for meeting these needs: Anticipate pt will return home, follow for needs - possible destat and homegoing O2 if unable to be weaned Patient's perception of need for this admission: SOB Medication Adherance I am convinced of the importance of my prescription medication: 0 - Agree Completely I worry that my prescription medication will do more harm than good to me : 0 - Disagree Completely I feel financially burdened by my [id number] expenses for my prescription medication:: 0 - Disagree Completely Risk Score: 0 Patient is categorized as: Low risk < 2 Are you interested in bedside delivery of your medications? No Pt states preferred community pharmacy is [facility] in [place] Is Patient Psychosocially Complex?: No ASSESSMENT AND PLAN: Medical Needs: Medical Needs: Two or more chronic diseases;Diabetes Psychosocial Needs: Psychosocial Needs: None FREEDOM OF CHOICE EXPLAINED: [place] of Choice Given: Yes Level of Care Discussed: Other: See Comment(DMR - discussed that pt would need to choose respiratory company if home O2 needed at discharge) POTENTIAL TRANSITION PLANS Home Assessment completed with pt via phone, introduced self and role of case management. Pt states he plans to return home with his at discharge, states he has no skilled services or DME in place at this time and is independent with ADL's and IADL's at baseline. Pt states his will transport him at discharge. Pt currently on 5L O2, none at baseline. Pt will need destat study and new home O2 set up if unable to be weaned prior to discharge. Case management to remain available for discharge planning and assist as needed. SIGNATURE: DARA Ocampo PATIENT NAME: Kaelyn Gr DATE: September 24, 2020 TIME: 4:04 PM PAGER/CONTACT #: [phone] Normal [facility] CBC and Differentialon 09-24 Abs Baso <0.03 Normal <0.11 [facility] Comment on above: Performed By: #### D DMER, CRP, CMP, CBIL, CBC, PT #### [facility] [address] [place] [address] Abs [place] 0.25 k/uL Normal <0.87 [facility] Comment on above: Performed By: #### D DMER, CRP, CMP, CBIL, CBC, PT #### [facility] [address] [place] [address] Abs Neut 3.84 k/uL Normal 1.45-7.50 [facility] Comment on above: Performed By: #### D DMER, CRP, CMP, CBIL, CBC, PT #### [facility] [address] [place] [address] Absolute nRBC <0.01 Normal <0.01 [facility] Comment on above: Performed By: #### D DMER, CRP, CMP, CBIL, CBC, PT #### [facility] [address] [place], [place] [id number] Basophils/100 WBC (Bld) 0.2 % Normal [facility] Comment on above: Performed By: #### D DMER, CRP, CMP, CBIL, CBC, PT #### [facility] [address] [place] [address] DTYPE Auto Diff Normal [facility] Comment on above: Performed By: #### D DMER, CRP, CMP, CBIL, CBC, PT #### [facility] [address] [place] [address] Eosinophils (Bld) [#/Vol] 10*3/uL Normal <0.46 [facility] Comment on above: Performed By: #### D DMER, CRP, CMP, CBIL, CBC, PT #### [facility] [address] [place], [place] [id number] Eosinophils/100 WBC (Bld) 0.0 % Normal [facility] Comment on above: Performed By: #### D DMER, CRP, CMP, CBIL, CBC, PT #### [facility] [address] [place] [address] Erythrocyte distribution width (RBC) [Ratio] 12.5 % Normal 11.5-15.0 [facility] Comment on above: Performed By: #### D DMER, CRP, CMP, CBIL, CBC, PT #### [facility] [address] [place], [place] [id number] Hematocrit (Bld) [Volume fraction] 39.0 % Normal 39.0-51.0 [facility] Comment on above: Performed By: #### D DMER, CRP, CMP, CBIL, CBC, PT #### [facility] [address] [place], [place] [id number] Hemoglobin (Bld) [Mass/Vol] 13.3 g/dL Normal 13.0-17.0 [facility] Comment on above: Performed By: #### D DMER, CRP, CMP, CBIL, CBC, PT #### [facility] [address] [place], [place] [id number] Lymphocytes (Bld) [#/Vol] 0.34 10*3/uL Low 1.00-4.00 [facility] Comment on above: Performed By: #### D DMER, CRP, CMP, CBIL, CBC, PT #### [facility] [address] [facility] [phone] Lymphocytes/100 WBC (Bld) 7.7 % Normal [facility] Comment on above: Performed By: #### D DMER, CRP, CMP, CBIL, CBC, PT #### [facility] [address] [place] [phone] MCH (RBC) [Entitic mass] 31.1 pG Normal 26.0-34.0 [facility] Comment on above: Performed By: #### D DMER, CRP, CMP, CBIL, CBC, PT #### [facility] [address] [place] [phone] MCHC (RBC) [Mass/Vol] 34.1 g/dL Normal 30.5-36.0 [facility] Comment on above: Performed By: #### D DMER, CRP, CMP, CBIL, CBC, PT #### [facility] [address] MCV (RBC) [Entitic vol] 91.3 fL Normal 80.0-100.0 [facility] Comment on above: Performed By: #### D DMER, CRP, CMP, CBIL, CBC, PT #### [facility] [address] [place] [phone] Monocytes/100 WBC (Bld) 5.6 % Normal [facility] Comment on above: Performed By: #### D DMER, CRP, CMP, CBIL, CBC, PT #### [facility] [address] [place] [phone] Neutrophils/100 WBC (Bld) 86.5 % Normal [facility] Comment on above: Performed By: #### D DMER, CRP, CMP, CBIL, CBC, PT #### [facility] [address] [place] [phone] NRBCs 0.0 /100 WBC Normal 0 [facility] Comment on above: Performed By: #### D DMER, CRP, CMP, CBIL, CBC, PT #### [facility] [address] [place] [phone] Platelet mean volume (Bld) [Entitic vol] 10.5 fL Normal 9.0-12.7 [facility] Comment on above: Performed By: #### D DMER, CRP, CMP, CBIL, CBC, PT #### [facility] [address] [facility] [phone] Platelets (Bld) [#/Vol] 200 10*3/uL Normal 150-400 [facility] Comment on above: Performed By: #### D DMER, CRP, CMP, CBIL, CBC, PT #### [facility] [address] RBC (Bld) [#/Vol] 4.27 10*6/uL Normal 4.20-6.00 [facility] Comment on above: Performed By: #### D DMER, CRP, CMP, CBIL, CBC, PT #### [facility] [address] [place] [id number] WBC (Bld) [#/Vol] 4.44 10*3/uL Normal 3.70-11.00 [facility] Comment on above: Performed By: #### D DMER, CRP, CMP, CBIL, CBC, PT #### [facility] [address] CONSULTon 09-24-2020 CONSULT HNO ID: [id number] Author: Paul Lucas MD Service: Infectious Disease Author Type: Physician Type: Consults Filed: 09/25/2020 12:12 AM Note Text: INFECTIOUS DISEASE INITIAL CONSULT SERVICE DATE: 09/24/2020 SERVICE TIME: 11:09 AM REASON FOR CONSULT: COVID19 Subjective Patient is seen at the request of Dr Chi. My final recommendations will be communicated back to the requesting physician by way of copy of this note or shared electronic medical record. HPI: Kaelyn Gr who is a 65 year old male admitted w some shortness of breath, cough loss of taste generalized myalgias, his is tested positive for Covid. He has been having the symptoms for about a week now. He has been monitoring his pulse ox at home because his has Covid and he has been running O2 sat over the 90s up until tonight when his pulse ox dropped to around 87 and he felt short of breath also. He has a history of type 2 diabetes, and hyperlipidemia. PAST MEDICAL HISTORY Diagnosis Date - Anxiety - Diabetes (HCC) - Hyperlipidemia History reviewed. No pertinent surgical history. Social History Tobacco Use - Smoking status: Never Smoker - Smokeless tobacco: Never Used Substance Use Topics - Alcohol use: No - Drug use: No FAMILY HISTORY Problem Relation Age of Onset - Cataract Mother There is no immunization history on file for this patient. Current Facility-Administered Medications Medication Dose Route Frequency - iv contrast (radiology procedure) INTRAVENOUS DIRECTED PRN - dapagliflozin 10 mg tab(s) (FARXIGA) 10 mg ORAL DAILY - fenofibrate 200 mg cap(s) (LOFIBRA) 200 mg ORAL DAILY - pantoprazole DR 20 mg tab(s) (PROTONIX) 20 mg ORAL DAILY - dextrose 40 % 15 g 15 g ORAL PRN Or - glucagon 1 mg injection 1 mg INTRAMUSCULAR PRN Or - dextrose 50% in water 25 mL syringe 12.5 g INTRAVENOUS PRN - heparin 5,000 Units injection 5,000 Units SUBCUTANEOUS q 12 H - ondansetron orally disintegrating 4 mg tab(s) (ZOFRAN ODT) 4 mg ORAL q 6 H PRN Or - ondansetron (PF) 4 mg injection (ZOFRAN) 4 mg INTRAVENOUS q 6 H PRN - acetaminophen 650 mg tab(s) (TYLENOL) 650 mg ORAL q 6 H PRN - cefTRIAXone 1 g in D5W 100 mL MB+ (ROCEPHIN) 1 g INTRAVENOUS q 24 H - azithromycin 500 mg tab(s) (ZITHROMAX) 500 mg ORAL q 24 H - insulin lispro injection (rapid acting) (HumaLOG) SUBCUTANEOUS w MEALS - dexAMETHasone 6 mg tab(s) (DECADRON) 6 mg ORAL DAILY WITH BREAKFAST - albuterol HFA 90 mcg/actuation 2 Puff (PROVENTIL HFA, VENTOLIN HFA) 2 Puff INHALATION q 4 H PRN ALLERGIES No Known Allergies REVIEW OF SYSTEMS: ROS checked in details x 10 systems and is negative except as noted in the HPI. All qs answered. Objective PHYSICAL EXAM: Temp (24hrs), Av.6 ?C (99.6 ?F), Min:36.9 ?C (98.4 ?F), Max:38.7 ?C (101.7 ?F) BP 131/61 Pulse 75 Temp 37.2 ?C (99 ?F) (Oral) Resp 18 Ht 167.6 cm (5' 6) Wt 72 kg (158 lb 11.7 oz) SpO2 93% BMI 25.62 kg/m? GENERAL APPEARANCE: Alert, NAD SKIN: No rashes NECK: Supple BACK: no CVAT. LUNGS: Scattered rhonchi HEART: Regular rate/rhythm, normal heart sounds, and no murmurs. ABDOMEN: Soft, non tender, no palpable masses, normal bowel sounds. EXTREMITIES: No edema or tenderness: NEURO: Awake, alert DATA: Diagnostic tests reviewed for today's visit: Labs: Recent Labs 09/24/20 1040 09/24/20 0422 WBC -- 4.44 HB -- 13.3 HCT -- 39.0 PLT -- 200 INR 1.1 -- NA -- 136 K -- 3.8 CHLOR -- 95* CO2 -- 15* BUN -- 16 CREAT -- 0.67* UA: No results found for: PH, SPGR, UGLUC, UBILI, UKET, UHB, UPROT, UROBIL, UWBC, SSA WSR: No results found for: WSR Impression/Recommendat ions COVID-19 Viral pneumonia Acute hypoxic respiratory failure Diabetes mellitus Hyperlipidemia Anxiety disorder PLAN: Start dexamethasone Start Remdesivir Obtained consent for convalescent plasma. He would like to be used this as a last resort. Side effects including TRALI were discussed. Empiric Antibiotics to cover for community-acquired pneumonia Trend acute phase reactants including CRP Follow D-dimer Wean oxygen as able Monitor temperatures and counts Blood cultures x2 Check urine Legionella/pneumococca l antigen and mycoplasma IgM Check procalcitonin levels Monitor liver and kidney function tests daily Thank you very much for having us involved in the care of this patient. We will follow with you. SIGNATURE: Paul Lucas MD PATIENT NAME: Kaelyn Gr DATE: September 25, 2020 TIME: 12:09 AM PAGER/CONTACT #: [phone] [facility] CT CHEST W IVCON PEon 2019 CT CHEST W IVCON PE * * *Final Report* * * DATE OF EXAM: Sep 24 2020 5:26AM [facility] [place] CHEST W IVCON PE / PROCEDURE REASON: PE suspected, intermediate prob, positive D-dimer * * * * Physician Interpretation * * * * EXAMINATION: CHEST CT WITH CONTRAST (PULMONARY EMBOLISM PROTOCOL) CLINICAL HISTORY: PE suspected, intermediate prob, positive D-dimer, PE suspected, high pretest prob Technique: Spiral CT acquisition of the chest from the thoracic inlet to the upper abdomen following IV contrast. Axial 1 and 3 mm thick slices plus coronal and sagittal reformatted images. MQ: CTCP_5 Contrast: 100 mL Omnipaque [address] Radiation dose: Integrated Dose-Length Product (DLP) for this visit = 335 mGy*cm CT Dose Reduction Employed: Automated exposure control (AEC) Comparison: Same day chest radiograph RESULT: Limitations: None. Evaluation for thromboembolic disease: - Right heart chambers: No thromboembolic disease. - Main pulmonary arteries: No thromboembolic disease. - Lobar pulmonary arteries: No thromboembolic disease. - Segmental pulmonary arteries: No thromboembolic disease. - Subsegmental pulmonary arteries: No thromboembolic disease. - Additional pulmonary artery findings: The main pulmonary artery is normal in caliber. Lines, tubes, and devices: None. Lungs, pleura and airways: No pneumothorax or pleural effusion. Calcified pleural plaques and thickening along the posterior left lung base. Multifocal peripheral and peribronchovascular predominant groundglass and consolidative airspace disease with geographic areas of sparing, asymmetrically increased on the right compared with the left where there is a more mid and lower lung predominance. Central airways are clear of secretions. Lower neck, lymph nodes, and mediastinum: Shotty mediastinal and hilar lymph nodes. No enlarged axillary or supraclavicular lymph nodes. Diminutive thyroid gland. Heart, pericardium, and thoracic vessels: The thoracic aorta is normal in caliber. The cardiac chambers are normal in size. Multivessel coronary artery atherosclerotic calcifications are noted, moderate along the LAD territory although the study is not optimized for coronary assessment. No pericardial effusion or thickening. Bones and soft tissues: No destructive bone lesion. Chest wall is unremarkable. Upper abdomen: Hepatic steatosis. Splenomegaly. Academic Manager (topogram) images: No additional findings. IMPRESSION: 1. Negative for acute pulmonary embolism. 2. Asymmetric bilateral airspace disease with imaging features commonly reported with COVID-19 pneumonia. 3. Shotty mediastinal and hilar lymphadenopathy is presumably reactive. 4. Multivessel coronary artery disease. 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: DAXA Transcribe Date/Time: Sep 24 2020 5:28A Dictated by : WARD ANTHONY MD This examination was interpreted and the report reviewed and electronically signed by: WARD ANTHONY MD on Sep 24 2020 5:36AM EST [id number] Normal [facility] Comp Metabolic Panelon 09-24 Albumin [Mass/Vol] 3.5 g/dL Low 3.9-4.9 [facility] Comment on above: Result Comment: Grupo ected on 09/28 AT 0800: Previously reported as 2.6 Performed By: #### D DMER, CRP, CMP, CBIL, CBC, PT #### [facility] [address] [facility] [phone] ALP [Catalytic activity/Vol] 57 U/L Normal 38-113 [facility] Comment on above: Performed By: #### D DMER, CRP, CMP, CBIL, CBC, PT #### [facility] [address] [place] [address] ALT [Catalytic activity/Vol] 21 U/L Normal 10-54 [facility] Comment on above: Performed By: #### D DMER, CRP, CMP, CBIL, CBC, PT #### [facility] [address] [facility] [phone] Anion gap [Moles/Vol] 21 mmol/L High 9-18 [facility] Comment on above: Result Comment: Grupo ected on 09/28 AT 0800: Previously reported as 26 Performed By: #### D DMER, CRP, CMP, CBIL, CBC, PT #### [facility] [address] [facility] [phone] AST [Catalytic activity/Vol] 40 U/L Normal 14-40 [facility] Comment on above: Performed By: #### D DMER, CRP, CMP, CBIL, CBC, PT #### [facility] [address] [place] [phone] Bilirubin [Mass/Vol] 0.4 mg/dL Normal 0.2-1.3 [facility] Comment on above: Performed By: #### D DMER, CRP, CMP, CBIL, CBC, PT #### [facility] [address] [place] [phone] Calcium [Mass/Vol] 8.5 mg/dL Normal 8.5-10.2 [facility] Comment on above: Result Comment: Grupo ected on 09/28 AT 0800: Previously reported as 7.0 Performed By: #### D DMER, CRP, CMP, CBIL, CBC, PT #### [facility] [address] [place] [phone] Chloride [Moles/Vol] 95 mmol/L Low 97-105 [facility] Comment on above: Performed By: #### D DMER, CRP, CMP, CBIL, CBC, PT #### [facility] [address] CO2 [Moles/Vol] 20 mmol/L Low 22-30 [facility] Comment on above: Result Comment: Grupo ected on 09/28 AT 0800: Previously reported as 15 Performed By: #### D DMER, CRP, CMP, CBIL, CBC, PT #### [facility] [address] [place] [address] Creatinine [Mass/Vol] 0.89 mg/dL Normal 0.73-1.22 [facility] Comment on above: Result Comment: Grupo ected on 09/28 AT 0800: Previously reported as 0.67 Performed By: #### D DMER, CRP, CMP, CBIL, CBC, PT #### [facility] [address] [place], [place] [phone] eGFR- Amer. >60 Normal [facility] Comment on above: Performed By: #### D DMER, CRP, CMP, CBIL, CBC, PT #### [facility] [address] [place], [place] [phone] GFR/1.73 sq M predicted among non-blacks MDRD (S/P/Bld) [Vol rate/Area] mL/min/{1.73_m2} Normal [facility] Comment on above: Result Comment: eGFR (Estimated GFR) Units of measure: mL/min/1.73 meters squared eGFR is derived from the reexpressed MDRD Study equation using the following parameters: serum creatinine, age, gender and race. The creatinine assay has been calibrated to be traceable to IDMS. An eGFR <60 mL/min/1.73m2 for >3 months is consistent with chronic kidney disease. Refer to KDOQI guidelines for clinical interpretation. In patients with unstable renal function, e.g. those with acute kidney injury, the eGFR may not accurately reflect actual GFR. Performed By: #### D DMER, CRP, CMP, CBIL, CBC, PT #### [facility] [address] [facility] [phone] Glucose [Mass/Vol] 104 mg/dL High 74-99 [facility] Comment on above: Result Comment: The [place] [employer] (ADA) provides guidance for cutoff values for fasting glucose and random glucose. The ADA defines fasting as no caloric intake for at least 8 hours. Fasting plasma glucose results between 100 to 125 mg/dL indicate increased risk for diabetes (prediabetes). Fasting plasma glucose results greater than or equal to 126 mg/dL meet the criteria for diagnosis of diabetes. In the absence of unequivocal hyperglycemia, results should be confirmed by repeat testing. In a patient with classic symptoms of hyperglycemia or hyperglycemic crisis, random plasma glucose results greater than or equal to 200 mg/dL meet the criteria for diagnosis of diabetes. Reference: Standards of Medical Care in Diabetes 2016, [place] [employer]. Diabetes Care. 2016.39(Suppl 1). Corrected on 09/28 AT 0800: Previously reported as 80 The [place] Diabetes [employer] (ADA) provides guidance for cutoff values for fasting glucose and random glucose. The ADA defines fasting as no caloric intake for at least 8 hours. Fasting plasma glucose results between 100 to 125 mg/dL indicate increased risk for diabetes (prediabetes). Fasting plasma glucose results greater than or equal to 126 mg/dL meet the criteria for diagnosis of diabetes. In the absence of unequivocal hyperglycemia, results should be confirmed by repeat testing. In a patient with classic symptoms of hyperglycemia or hyperglycemic crisis, random plasma glucose results greater than or equal to 200 mg/dL meet the criteria for diagnosis of diabetes. Reference: Standards of Medical Care in Diabetes 2016, [place] [employer]. Diabetes Care. 2016.39(Suppl 1). Performed By: #### D DMER, CRP, CMP, CBIL, CBC, PT #### [facility] [address] [facility] [phone] Potassium [Moles/Vol] 3.8 mmol/L Normal 3.7-5.1 [facility] Comment on above: Performed By: #### D DMER, CRP, CMP, CBIL, CBC, PT #### [facility] [address] [facility] [phone] Protein [Mass/Vol] 6.4 g/dL Normal 6.3-8.0 [facility] Comment on above: Result Comment: Grupo ected on 09/28 AT 0800: Previously reported as 4.6 Performed By: #### D DMER, CRP, CMP, CBIL, CBC, PT #### [facility] [address] [place] [phone] Sodium [Moles/Vol] 136 mmol/L Normal 136-144 [facility] Comment on above: Performed By: #### D DMER, CRP, CMP, CBIL, CBC, PT #### [facility] [address] [place] [phone] Urea nitrogen [Mass/Vol] 21 mg/dL Normal 9-24 [facility] Comment on above: Result Comment: Grupo ected on 09/28 AT 0800: Previously reported as 16 Performed By: #### D DMER, CRP, CMP, CBIL, CBC, PT #### [facility] [address] [place] [phone] D dimeron 09-24-2020 D dimer 730 ng/mL FEU High <500 [facility] Comment on above: Result Comment: 500 ng/mL FEU is the D Dimer cutoff to exclude DVT (deep vein thrombosis) and PE (pulmonary embolism) in patients with a low pre test probability. Supplemental Comment: In patients over 50 years with a low pre test probability for DVT and/or PE, an age adjusted D dimer cutoff can be calculated as [age x 10] ng/mL FEU. For example, a patient of 88 years would have an age adjusted D dimer cutoff of 880 ng/mL FEU. For patients with a suspected DVT, a D dimer level below 500 ng/mL FEU has a negative predictive value of >98.9%, a sensitivity of >96.9% and a specificity of >35.7%. For patients with a suspected PE, a D dimer level below 500 ng/mL FEU has a negative predictive value of >98.5%, and a sensitivity of >96.5% and a specificity of >38.8%. Reference: Gina M, et al. JAYDEN 2014 311:1117 and Chris Cuadra N, et al. Desiree Int Med 2016 165:253. Performed By: #### D DMER, CRP, CMP, CBIL, CBC, PT #### [facility] [address] [facility] [phone] ED NOTEon 09-24-2020 ED NOTE HNO ID: [id number] Author: Jose Luis (Rn) NICO Bullard Service: ? Author Type: Registered Nurse Type: ED Notes Filed: 09/24/2020 6:56 AM Note Text: Report called to [address] [place] [address] charge nurse. [facility] GFR/1.73 sq M predicted among non-blacks MDRD (S/P/Bld) [Vol rate/Area] HNO ID: [id number] Author: Jose Luis (Rn) NICO Bullard Service: ? Author Type: Registered Nurse Type: ED Notes Filed: 09/24/2020 4:06 AM Note Text: Pt presents to the ed with cc of sob worsening tonight. Pt states his is covid positive and he has been having symptoms for 9 days. Pt states loss of tastes, fevers, fatigue, and sob. Pt was 87 on RA, placed pt on 3lpm now at 94%. [facility] ED PROV NOTEon 09-24-2020 ED PROV NOTE HNO ID: [id number] Author: Brendan Eubanks MD Service: Emergency Medicine Author Type: Physician Type: ED Provider Notes Filed: 09/24/2020 6:28 AM Note Text: ED Provider Note Patient Name: Kaelyn Gr SERVICE DATE: 09/24/20 History Patient presents with: Shortness of Breath Covid19 Concern Patient complains of some shortness of breath, cough loss of taste generalized myalgias, his is tested positive for Covid. He has been having the symptoms for about a week now. He has been monitoring his pulse ox at home because his has Covid and he has been running O2 sat over the 90s up until tonight when his pulse ox dropped to around 87 and he felt short of breath also. He has a history of type 2 diabetes, and hyperlipidemia. PAST MEDICAL HISTORY Diagnosis Date - Anxiety - Diabetes (HCC) - Hyperlipidemia History reviewed. No pertinent surgical history. FAMILY HISTORY Problem Relation Age of Onset - Cataract Mother Social History Tobacco Use - Smoking status: Never Smoker - Smokeless tobacco: Never Used Substance and Sexual Activity - Alcohol use: No - Drug use: No - Sexual activity: Not on file Comment: Did not ask ALLERGIES No Known Allergies Review of Systems Constitutional: Positive for appetite change and fever. HENT: Negative. Eyes: Negative. Respiratory: Positive for cough and shortness of breath. Cardiovascular: Negative. Gastrointestinal: Negative. Endocrine: Negative. Genitourinary: Negative. Musculoskeletal: Negative. Skin: Negative. Allergic/Immunologic: Negative. Neurological: Positive for weakness. Hematological: Negative. Psychiatric/Behavioral : Negative. Physical Exam BP 143/67 Pulse 89 Resp 22 Wt 160 lb (72.6kg) SpO2 94% O2 Therapy: Nasal Cannula, Liters: 3 Physical Exam Vitals and nursing note reviewed. Constitutional: Appearance: Normal appearance. HENT: Head: Normocephalic. Right Ear: External ear normal. Left Ear: External ear normal. Nose: Nose normal. Mouth/Throat: Mouth: Mucous membranes are moist. Eyes: Extraocular Movements: Extraocular movements intact. Conjunctiva/sclera: Conjunctivae normal. Cardiovascular: Rate and Rhythm: Normal rate and regular rhythm. Pulses: Normal pulses. Heart sounds: Normal heart sounds. Pulmonary: Effort: Pulmonary effort is normal. Breath sounds: Rales present. Comments: Bibasilar rales Abdominal: General: Abdomen is flat. There is no distension. Tenderness: There is no abdominal tenderness. There is no guarding or rebound. Musculoskeletal: General: Normal range of motion. Cervical back: Normal range of motion and neck supple. Skin: General: Skin is warm and dry. Capillary Refill: Capillary refill takes less than 2 seconds. Neurological: General: No focal deficit present. Mental Status: He is alert and oriented to person, place, and time. Psychiatric: Mood and Affect: Mood normal. Behavior: Behavior normal. Thought Content: Thought content normal. Judgment: Judgment normal. EKG shows normal sinus rhythm, incomplete left bundle branch block, nonspecific T wave abnormality. Diagnostic Testing ED Labs Ordered and Reviewed - No data to display Procedures ED Course / Clinical Impression Patient presents with concern of breath worsening hypoxia found to have Covid pneumonia. His O2 sat on arrival here was around 87 on room air. He was placed on 2 L and now his O2 sat is around 95%. CT and chest x-ray are consistent with asymmetric bilateral airspace disease with imaging features commonly reported with COVID-19 pneumonia per radiology. He also has shotty mediastinal and hilar lymphadenopathy presumably reactive. And he also has multivessel coronary artery disease. His CT is negative for pulmonary embolism. His EKG shows an incomplete left bundle branch block; his high-sensitivity troponin 12. Discussed with Dr. Chi; will admit to telemetry for O2 requirement and Covid pneumonia Clinical Impressions as of Sep 24 628 Pneumonia due to COVID-19 virus Hypoxia Coronary artery disease involving cheesh-na coronary artery of cheesh-na heart without angina pectoris COVID-19 test performed per [facility] policy for suspected COVID community exposure. MDM / Disposition / Plan MDM SIGNATURE: MD Brendan Luo MD 09/24/20625 Brendan Eubanks MD 09/24/20627 Normal [facility] Expedited [id number] 09-24-20 20 COVID 19 Result NETBACKUP ADMINISTRATOR Positive Critically abnormal Negative for COVID19 (SARS CoV2) by PCR. [facility] Comment on above: Result Comment: If y our test results are positive, you have tested positive for the presence of the virus associated with COVID-19. This is a stressful time and if you are a [facility] patient, we will support you by closely monitoring your symptoms and providing supportive resources that can ease your recovery. Our team will call you regularly and have you enter your symptoms in MyChart, so that we can provide the best care possible. This test has been authorized by FDA under an Emergency Use Authorization (EUA). Performed By: #### E XCOVD #### [facility] [address] [place] [phone] COVID 19 Source NETBACKUP ADMINISTRATOR UPPER RESPIRATORY TRACT SWAB Normal [facility] Comment on above: Result Comment: No c all per procedure. 09/24/2020 0532. Performed By: #### E XCOVD #### [facility] [address] [place] [phone] HISTORY PHYSICALon 0 HISTORY PHYSICAL HNO ID: [id number] Author: Rodney Chi Service: Family Practice Author Type: Physician Type: HANDP Filed: 09/24/2020 11:47 AM Note Text: HISTORY AND PHYSICAL EXAMINATION - INTERNAL MEDICINE PATIENT NAME: Kaelyn Gr SERVICE DATE: 09/24/2020 SERVICE TIME: 11:44 AM PRIMARY CARE PHYSICIAN: Rodney Chi MD ASSESSMENT AND PLAN Active Problems: COVID-19 POA: Yes Assessment AND Plan: dexamethasone and remdesivir started Also treated for bacterial pneumonia with KYLEE ID consult o2 as needed Resolved Problems: * No resolved hospital problems. * SUBJECTIVE CHIEF COMPLAINT: Short of breathg HISTORY OF PRESENT ILLNESS: Mr. Gr is a 65 year old male who presents with some shortness of breath, cough loss of taste generalized myalgias, his is tested positive for Covid. He has been having the symptoms for about a week now. He has been monitoring his pulse ox at home because his has Covid and he has been running O2 sat over the 90s up until tonight when his pulse ox dropped to around 87 and he felt short of breath also. He has a history of type 2 diabetes, and hyperlipidemia. +covid ? PAST MEDICAL HISTORY: PAST MEDICAL HISTORY Diagnosis Date - Anxiety - Diabetes (HCC) - Hyperlipidemia PAST SURGICAL HISTORY: History reviewed. No pertinent surgical history. FAMILY HISTORY: FAMILY HISTORY Problem Relation Age of Onset - Cataract Mother SOCIAL HISTORY: Social History Tobacco Use - Smoking status: Never Smoker - Smokeless tobacco: Never Used Substance Use Topics - Alcohol use: No - Drug use: No MEDICATIONS: - ASPIRIN LOW DOSE ORAL, Take by mouth once daily., Disp: , Rfl: , 09/23/2020 at Unknown time - ondansetron (ZOFRAN) 4 mg tablet, Take 1 tablet by mouth once each week., Disp: , Rfl: - FARXIGA 10 mg tab, Take 10 mg by mouth once daily., Disp: , Rfl: 6, 09/23/2020 at Unknown time - BYDUREON BCISE 2 mg/0.85 mL AutoInjector, Inject 1 Pen subcutaneously once each week., Disp: , Rfl: 6 - omeprazole (PRILOSEC) 20 mg capsule, Take 20 mg by mouth once daily., Disp: , Rfl: 3, 09/23/2020 at Unknown time - atorvastatin (LIPITOR) 80 mg tablet, , Disp: , Rfl: , 09/23/2020 at Unknown time - fenofibrate (LOFIBRA) 200 mg capsule, Take 200 mg by mouth once daily. , Disp: , Rfl: , 09/23/2020 at Unknown time - TRADJENTA 5 mg tab, once daily. , Disp: , Rfl: , 09/23/2020 at Unknown time - methocarbamol (ROBAXIN) 500 mg tablet, , Disp: , Rfl: ALLERGIES: ALLERGIES No Known Allergies COMPLETE REVIEW OF SYSTEMS: GENERAL: No weight loss, malaise or fevers HEENT: Negative for frequent or significant headaches, No changes in hearing or vision, no nose bleeds or other nasal problems NECK: Negative for lumps, goiter, pain and significant neck swelling RESPIRATORY: + for cough, wheezing and shortness of breath. CARDIOVASCULAR: Negative for chest pain, leg swelling or palpitations. GI: Negative for abdominal discomfort, blood in stools or black stools or change in bowel habits : No history of dysuria, frequency or incontinence MUSCULOSKELETAL: Negative for joint pain or swelling, back pain or muscle pain. SKIN: Negative for lesions, rash, and itching. PSYCH: Negative for sleep disturbance, mood disorder and recent psychosocial stressors. HEMATOLOGY/LYMPHOLOGY Negative for prolonged bleeding, bruising easily or swollen nodes. ENDOCRINE: Negative for cold or heat intolerance, polyuria, polydipsia and goiter. NEURO: No history of headaches, syncope, paralysis, seizures or tremors OBJECTIVE PHYSICAL EXAM: Patient Vitals for the past 24 hrs: BP Temp Temp src Pulse Resp SpO2 Height Weight 09/24/20 0936 ? 167.6 cm (5' 6) 72 kg (158 lb 11.7 oz) 09/24/20 0929 (!) 122/47 37.8 ?C (100 ?F) Oral 79 16 92 % ? ? 09/24/20 0800 129/58 ? ? 80 20 (!) 93 % ? ? 09/24/20 0630 124/58 ? ? 76 ? 95 % ? ? 09/24/20 0600 125/78 ? ? 75 ? (!) 94 % ? ? 09/24/20 0547 ? 36.9 ?C (98.4 ?F) Oral ? 09/24/20 0530 123/59 ? ? 75 22 (!) 94 % ? ? 09/24/20 0500 131/62 ? ? 77 20 (!) 94 % ? ? 09/24/20 0430 132/62 ? ? 79 20 (!) 94 % ? ? 09/24/20 0403 143/67 ? ? 89 22 (!) 94 % ? 72.6 kg (160 lb) Body mass index is 25.62 kg/m?. PHYSICAL EXAMINATION: General appearance: well appearing, alert, in no acute distress, well-hydrated, well nourished Skin: skin color, texture, turgor normal, no suspicious rashes or lesions Head: normal Eyes: Anicteric sclera. Pupils are equally round and reactive to light. Extraocular movements are intact. Ears: external ears normal, canals clear, TM's normal Nose/Sinuses: negative Oropharynx: lips, mucosa, and tongue normal, teeth and gums normal, oropharynx normal Neck: Supple, no adenopathy; thyroid symmetric, normal size, no bruits Back: no pain to palpation over spine or costovertebral angles, reflexes are 2+ and symmetric, motor and sensory appear to be normal Lungs: clear to auscultation, no wheezing or rhonchi Heart: RRR without murmur, gallop, or rubs. No ectopy Abdomen: Normal abdominal exam, Abdomen soft, non-tender. Bowel sounds normal. No masses, organomegaly Extremities: Extremities normal. No deformities, edema, or skin discoloration. Good capillary refill. Musculoskeletal: Spine range of motion normal. Muscular strength intact Peripheral pulses: Normal Neuro: Gait normal. Reflexes normal and symmetric. Sensation grossly intact. DATA: CBC, Coags, BMP, Mg, Phos Recent Labs 09/24/20 1040 09/24/20 0422 WBC -- 4.44 HB -- 13.3 HCT -- 39.0 PLT -- 200 INR 1.1 -- NA -- 136 K -- 3.8 CHLOR -- 95* CO2 -- 15* BUN -- 16 CREAT -- 0.67* GLUC -- 80 CA -- 7.0* Liver Function, Amylase, AND Lipase Recent Labs 09/24/20 1040 09/24/20 0422 TPROT 6.4 4.6* ALB -- 2.6* ALT 21 21 AST 43* 40 ALKPHOS 67 57 TBILI 0.5 0.4 Cardiac Enzymes ABGs SIGNATURE: Rodney Chi MD DATE: September 24, 2020 TIME: 11:44 AM Normal [facility] Hepatic Functn Panelon 09-24 Albumin [Mass/Vol] 3.4 g/dL Low 3.9-4.9 [facility] Comment on above: Result Comment: Rech ecked Performed By: #### D DMER, CRP, CMP, CBIL, CBC, PT #### [facility] [address] [address] ALP [Catalytic activity/Vol] 67 U/L Normal 38-113 [facility] Comment on above: Performed By: #### D DMER, CRP, CMP, CBIL, CBC, PT #### [facility] [address] [address] ALT [Catalytic activity/Vol] 21 U/L Normal 10-54 [facility] Comment on above: Performed By: #### D DMER, CRP, CMP, CBIL, CBC, PT #### [facility] [address] [address] AST [Catalytic activity/Vol] 43 U/L High 14-40 [facility] Comment on above: Performed By: #### D DMER, CRP, CMP, CBIL, CBC, PT #### [facility] [address] [address] Bilirubin [Mass/Vol] 0.5 mg/dL Normal 0.2-1.3 [facility] Comment on above: Performed By: #### D DMER, CRP, CMP, CBIL, CBC, PT #### [facility] [address] [place] [address] Bilirubin,Conjugated <0.2 Normal <0.2 [facility] Comment on above: Performed By: #### D DMER, CRP, CMP, CBIL, CBC, PT #### [facility] [address] [address] Protein [Mass/Vol] 6.4 g/dL Normal 6.3-8.0 [facility] Comment on above: Performed By: #### D DMER, CRP, CMP, CBIL, CBC, PT #### [facility] [address] [address] High Sens Troponin Ton 09-24 High Sensitivity RORY 12 ng/L High <12 [facility] Comment on above: Performed By: #### D DMER, CRP, CMP, CBIL, CBC, PT #### [facility] [address] [address] LDon 09-24-2020 LD 379 U/L High 135-225 [facility] Comment on above: Performed By: #### D DMER, CRP, CMP, CBIL, CBC, PT #### [facility] [address] [facility] [phone] NURSING PROGon 09-24-2020 NURSING PROG HNO ID: [id number] Author: Rosemary (Rn) NICO Mitchell Service: Nursing Author Type: Registered Nurse Type: Nursing Progress Note Filed: 09/24/2020 1:20 PM Note Text: Nursing Progress Note Patient Name: Kaelyn Gr Patient Location: [place] [id number]/[facility]6- 2 __ Daily Note: 1319 - on the floor notified of sepsis alert triggered, temp - 101.7 and pulse ox 92% on O2 5 LPM per NC. This note was completed by: Rosemary Mitchell RN Normal [facility] Protimeon 09-24-2020 PT Coag (PPP) [Time] 1.1 s Normal 0.9-1.3 [facility] Comment on above: Result Comment: Sabine min K Antagonist (VKA) Therapeutic Range: INR 2 to 3 (Target INR of 2.5) Note: For patients treated with VKA drugs, such as warfarin, the [place] [employer] 2012 Guideline recommends a therapeutic INR range of 2 to 3 (target INR of 2.5). This recommendation includes high-risk patients with antiphospholipid syndrome with previous arterial or venous thromboembolism, current-generation mechanical or bioprosthetic aortic heart valve replacement. Note: Patients with mechanical aortic valve replacement and additional risk factors for thromboembolic events (atrial fibrillation, previous thromboembolism, LV dysfunction, hypercoagulable conditions) or an older generation mechanical AVR (i.e., ball in-Cage) or any mechanical MVR should have a INR therapeutic range of 2.5 to 3.5 (target INR of 3). Tremaine GH, et al. Chest 2012, 141:7S-47S Alis WERNER et al. [facility] 2017, 70: 252-289 Performed By: #### D DMER, CRP, CMP, CBIL, CBC, PT #### [facility] [address] [facility] [phone] PT Coag (PPP) [Time] 11.9 s Normal 9.7-13.0 [facility] Comment on above: Performed By: #### D DMER, CRP, CMP, CBIL, CBC, PT #### [facility] [address] [facility] [phone] XR CHEST 1V FRONTAL PORTon 1 11-25-2019 XR CHEST 1V FRONTAL PORT * * *Final Report* * * DATE OF EXAM: Sep 24 2020 4:54AM MDX 5376 - XR CHEST 1V FRONTAL PORT / PROCEDURE REASON: Shortness of breath * * * * Physician Interpretation * * * * EXAMINATION: CHEST RADIOGRAPH (PORTABLE SINGLE VIEW AP) Exam Date/Time: 09/24/2020 4:54 AM CLINICAL HISTORY: Shortness of breath MQ: XCPR_5 Comparison: Chest radiograph 05/05/2020 RESULT: Lines, tubes, and devices: None. Lungs and pleura: Peripheral predominant airspace disease throughout the right lung with patchy hazy opacities in the left lower lung zone. Bronchial thickening. No pneumothorax or sizable effusion. Cardiomediastinal silhouette: Stable cardiomediastinal silhouette. Other: No acute soft tissue or osseous abnormality. IMPRESSION: Asymmetric bilateral airspace disease. Although this is nonspecific, this is most suspicious for infection, including atypical and viral pathogens and in particular COVID-19 pneumonia. 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: [employer] Transcribe Date/Time: Sep 24 2020 4:59A Dictated by : WARD ANTHONY MD This examination was interpreted and the report reviewed and electronically signed by: WARD ANTHONY MD on Sep 24 2020 5:02AM EST [id number] Normal [facility] CT BRAIN WO IVCONon 05-05-[address] BRAIN WO IVCON Final Report DATE OF EXAM: May 05 2020 9:35PM LD 0504 - CT BRAIN WO IVCON / PROCEDURE REASON: Dizziness Physician Interpretation EXAMINATION: CT BRAIN WO IVCON CLINICAL HISTORY: Dizziness, vomiting is afternoon TECHNIQUE: Serial axial images without IV contrast were obtained from the vertex to the foramen magnum. MQ: CTBWO_3 CT Dose-Length Product (DLP): 882.[address] Dose Reduction Employed: No dose reduction techniques were required COMPARISON: None. RESULT: No acute intracranial hemorrhage or extra-axial fluid collection. No hydrocephalus, mass effect, or herniation. Incidental right globus pallidus mineralization. No acute ischemic infarct detected. Unremarkable dural venous sinus attenuation. No acute osseous abnormality. Clear visualized paranasal sinuses. Trace right mastoid air cell fluid. IMPRESSION: No acute intracranial abnormality. 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: [facility] Transcribe Date/Time: May 05 2020 9:54P Dictated by : RODNEY SMALL MD This examination was interpreted and the report reviewed and electronically signed by: RODNEY SMALL MD on May 05 2020 9:56PM EST Normal [facility] Comprehensive Panelon 2019 Albumin [Mass/Vol] 4.6 g/dL Normal 3.9-4.9 [facility] Comment on above: Performed By: #### L LP14 #### [place] [address] ALP [Catalytic activity/Vol] 53 U/L Normal 38-113 [facility] Comment on above: Performed By: #### L LP14 #### [address] [address] ALT-SGPT Blood 19 U/L Normal 10-54 [facility] Comment on above: Performed By: #### L LP14 #### [place] [address] Anion gap [Moles/Vol] 10 mmol/L Normal 9-18 [facility] Comment on above: Performed By: #### L LP14 #### [facility] [address] [address] AST-SGOT Blood 19 U/L Normal 14-40 [facility] Comment on above: Performed By: #### L LP14 #### [facility] [address] [place], [place] [address] Bilirubin Ql (U) 0.3 mg/dL Normal 0.2-1.3 [facility] Comment on above: Performed By: #### L LP14 #### [facility] [address] [place], [place] [address] Calcium [Mass/Vol] 9.3 mg/dL Normal 8.5-10.2 [facility] Comment on above: Performed By: #### L LP14 #### [facility] [address] [place], [place] [address] Chloride [Moles/Vol] 101 mmol/L Normal 97-105 [facility] Comment on above: Performed By: #### L LP14 #### [facility] [address] [place], [place] [address] CO2 Blood 29 mmol/L Normal 22-30 [facility] Comment on above: Performed By: #### L LP14 #### [facility] [address] [place], [place] [address] Creatinine [Mass/Vol] 0.92 mg/dL Normal 0.73-1.22 [facility] Comment on above: Performed By: #### L LP14 #### [facility] [address] [place], [place] [address] Glucose [Mass/Vol] 166 mg/dL High 74-99 [facility] Comment on above: Result Comment: The [place] [employer] (ADA) provides guidance for cutoff values for fasting glucose and random glucose. The ADA defines fasting as no caloric intake for at least 8 hours.Fasting plasma glucose results between 100 to 125 mg/dL indicate increased risk for diabetes (prediabetes). Fasting plasma glucose results greater than or equal to 126 mg/dL meet the criteria for diagnosis of diabetes. In the absence of unequivocal hyperglycemia, results should be confirmed by repeat testing. In a patient with classic symptoms of hyperglycemia or hyperglycemic crisis, random plasma glucose results greater than or equal to 200 mg/dL meet the criteria for diagnosis of diabetes. Reference: Standards of Medical Care in Diabetes 2016; [place] [employer]. Diabetes Care. 2016;39(Suppl 1). Performed By: #### L LP14 #### [facility] [address] [place], [place] [address] Potassium [Moles/Vol] 4.0 mmol/L Normal 3.7-5.1 [facility] Comment on above: Performed By: #### L LP14 #### [facility] [address] [address] Protein [Mass/Vol] 6.7 g/dL Normal 6.3-8.0 [facility] Comment on above: Performed By: #### L LP14 #### [facility] [address] [address] Sodium [Moles/Vol] 140 mmol/L Normal 136-144 [facility] Comment on above: Performed By: #### L LP14 #### [facility] [address] [address] Urea nitrogen [Mass/Vol] 15 mg/dL Normal 9-24 [facility] Comment on above: Performed By: #### L LP14 #### [facility] [address] [address] Hemogramon 05-05-2020 Erythrocyte distribution width (RBC) [Ratio] 12.6 % Normal 11.5-15.9 [facility] Comment on above: Performed By: #### L CBC #### [place] [address] Hematocrit (Bld) [Volume fraction] 43.6 % Normal 42.0-52.0 [facility] Comment on above: Performed By: #### L CBC #### [place] [address] Hemoglobin (Bld) [Mass/Vol] 14.8 g/dL Normal 14.0-18.0 [facility] Comment on above: Performed By: #### L CBC #### [facility] [address] [address] MCH (RBC) [Entitic mass] 30.5 pg Normal 27.0-31.0 [facility] Comment on above: Performed By: #### L CBC #### [facility] [address] [address] MCHC (RBC) [Mass/Vol] 33.9 % Normal 32.0-36.0 [facility] Comment on above: Performed By: #### L CBC #### [place] [address] MCV (RBC) [Entitic vol] 89.9 fL Normal 80.0-94.0 [facility] Comment on above: Performed By: #### L CBC #### [facility] [address] [address] Platelet mean volume (Bld) [Entitic vol] 11.0 fL High 7.1-10.5 [facility] Comment on above: Performed By: #### L CBC #### [facility] [address] [address] Platelets (Bld) [#/Vol] 176 thou/cmm Normal 150-400 [facility] Comment on above: Performed By: #### L CBC #### [place] [address] RBC (Bld) [#/Vol] 4.85 mil/cmm Normal 4.60-6.20 [facility] Comment on above: Performed By: #### L CBC #### [place] [address] WBC (Bld) [#/Vol] 7.2 thou/cmm Normal 4.8-10.5 [facility] Comment on above: Performed By: #### L CBC #### [place] [address] MDRD eGFRon 05-05-2020 GFR/1.73 sq M predicted among non-blacks MDRD (S/P/Bld) [Vol rate/Area] mL/min/{1.73_m2} Normal >60mL/min/1. 73m2 [facility] Comment on above: Result Comment: If t he patient is , multiply the result by 1.210. Performed By: #### L GFR #### [place] [address] Magnesium Bloodon 05-05-2020 Magnesium [Mass/Vol] 2.0 mg/dL Normal 1.7-2.3 [facility] Comment on above: Performed By: #### L MAG #### [place] [address] Troponin T, High Sens.on Troponin T, High Sens. 9 ng/L Normal 0-11 [facility] Comment on above: Result Comment: [place] ents taking a biotin dose of up to 5 mg/day should refrain from taking biotin for 4 hours prior to sample collection. Patients taking a biotin dose of 5 to 10 mg/day should refrain from taking biotin for 8 hours prior to sample collection. Patients taking a biotin dose > 10 mg/day should consult with their physician or the laboratory prior to having a sample taken. Clinicians should consider biotin interference as a source of error, when clinically suspicious of the laboratory result. Performed By: #### L TRPT #### [place] [address] Troponin T, High Sens. 8 ng/L Normal 0-11 [facility] Comment on above: Result Comment: [place] ents taking a biotin dose of up to 5 mg/day should refrain from taking biotin for 4 hours prior to sample collection. Patients taking a biotin dose of 5 to 10 mg/day should refrain from taking biotin for 8 hours prior to sample collection. Patients taking a biotin dose > 10 mg/day should consult with their physician or the laboratory prior to having a sample taken. Clinicians should consider biotin interference as a source of error, when clinically suspicious of the laboratory result. Performed By: #### L TRPT #### [place] [address] XR CHEST 1V FRONTALon 2019 XR CHEST 1V FRONTAL Final Report DATE OF EXAM: May 05 2020 8:40PM LDX 5290 - XR CHEST 1V FRONTAL / PROCEDURE REASON: Shortness of breath Physician Interpretation EXAMINATION: CHEST RADIOGRAPH (PORTABLE SINGLE VIEW AP) Exam Date/Time: 05/05/2020 8:40 PM Clinical History: Shortness of breath M: XCP_3 Comparison: None. RESULT: See impression. IMPRESSION: Lines, tubes, and devices: Overlying EKG leads. Lungs and pleura: No pneumothorax, pleural effusion or consolidative focal pneumonia. Horizontal linear subsegmental atelectasis or scarring within the left midlung zone. The lungs appear otherwise grossly clear bilaterally. Cardiomediastinal silhouette: Normal cardiomediastinal silhouette and pulmonary vasculature. Other: No acute osseous abnormality. 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 12-15-2022 15:30-0500 Heart rate 59 /min DR HUMBERTO ZIMMERMAN MD [facility] 12-15-2022 15:30-0500 Respiratory rate 18 /min DR HUMBERTO ZIMMREMAN MD [facility] 12-15-2022 15:30-0500 Systolic Blood Pressure Non-Invasive [address] HUMBERTO ZIMMERMAN MD [facility] 12-15-2022 15:00-0500 Diastolic Blood Pressure Non-Invasive [address] HUMBERTO ZIMMERMAN MD [facility] 12-15-2022 15:00-0500 Heart rate 58 /min DR HUMBERTO ZIMMERMAN MD [facility] 12-15-2022 15:00-0500 Respiratory rate 16 /min DR HUMBERTO ZIMMERMAN MD [facility] 12-15-2022 15:00-0500 Systolic Blood Pressure Non-Invasive [address] HUMBERTO ZIMMERMAN MD [facility] 12-15-2022 14:30-0500 Diastolic Blood Pressure Non-Invasive [address] HUMBERTO ZIMMERMAN MD [facility] 12-15-2022 14:30-0500 Heart rate 62 /min DR HUMBERTO ZIMMERMAN MD [facility] 12-15-2022 14:30-0500 Respiratory rate 14 /min DR HUMBERTO ZIMMERMAN MD [facility] 12-15-2022 14:30-0500 Systolic Blood Pressure Non-Invasive [address] HUMBERTO ZIMMERMAN MD [facility] 12-15-2022 13:40-0500 Body temperature 97.16 [degF] DR HUMBERTO ZIMMERMAN MD [facility] 12-15-2022 13:35-0500 Respiratory Rate - Anes 12 br/min DR HUMBERTO ZIMMERMAN MD [facility] 12-15-2022 13:30-0500 Respiratory Rate - Anes 23 br/min DR HUMBERTO ZIMMERMAN MD [facility] 12-15-2022 13:25-0500 Respiratory Rate - Anes 31 br/min DR HUMBERTO ZIMMERMAN MD [facility] 12-15-2022 13:15-0500 Body temperature 96.8 [degF] DR HUMBERTO ZIMMERMAN MD [facility] 12-15-2022 12:45-0500 Body temperature 96.8 [degF] DR HUMEBRTO ZIMMERMAN MD [facility] 12-15-2022 12:02-0500 Body height 167.[address] HUMBERTO ZIMMERMAN MD [facility] 12-15-2022 12:02-0500 Body temperature 97.7 [degF] DR HUMBERTO ZIMMERMAN MD [facility] 12-15-2022 12:02-0500 Body weight 72.[address] HUMBERTO ZIMMERMAN MD [facility] 12-15-2022 12:02-0500 Heart rate 71 /min DR HUMBERTO ZIMMERMAN MD [facility] Encounters Encounter Date Encounter Type Care Provider Facility Start: 08-14-2025 End: 08-14-2025 ambulatory FAISAL CASTORENA Facility:[facility] Start: 05-25-2025 ambulatory RODNEY CHI Faci lity:[facility] Start: 04-16-2025 End: 04-16-2025 Patient encounter procedure Jenni Casey NEAL Work Phone: Audiology Comment on above: Asymmetrical sensori neural hearing loss (Primary Dx); Meniere's disease of left ear Start: 04-16-2025 End: 04-16-2025 ambulatory RODNEY CHI Facility:[facility] Start: 02-26-2025 End: 02-26-[address] Rodney Chi MD Work Phone: [facility] Work Phone: Start: 02-26-2025 End: 02-26-[address] Humberto Zimmerman MD -Laboratory Specimen Work Phone: Start: 02-26-2025 End: 02-26-2025 ambulatory Rodney Chi Facility:[facility] Start: 02-17-2025 End: 04-19-2025 Follow-up encounter Faisal Castorena PA-C Work Phone: Otolaryngology Start: 02-15-2025 ambulatory FAISAL CASTORENA Facility:[facility] Start: 02-15-2025 End: 02-15-2025 Subsequent hospital visit by physician [facility] (1.5t) [facility] Comment on above: Asymmetrical sensori neural hearing loss [H90.3] Start: 02-12-2025 End: 02-12-2025 ambulatory RODNEY CHI Facility:[facility] Start: 02-12-2025 End: 02-12-2025 Patient encounter procedure Faisal Castorena PA-C Work Phone: Otolaryngology Comment on above: Meniere's disease of left ear (Primary Dx); Asymmetrical sensorineural hearing loss; Sensorineural hearing loss (SNHL) of both ears; Dizziness; Bilateral impacted cerumen Start: 10-28-2024 End: 10-28-2024 Telephone encounter Chai Beavers MD, PhD Work Phone: Audiology Comment on above: Patient Question (Me dication question) Start: 10-14-2024 End: 10-14-2024 ambulatory CHAI BEAVERS Facility:[facility] Start: 10-14-2024 End: 10-14-2024 Patient encounter procedure Chai Beavers MD, PhD Work Phone: Otolaryngology Comment on above: Meniere's disease of left ear (Primary Dx); Bilateral impacted cerumen Start: 06-18-2024 Encounter for preprocedural laboratory examination FAISAL [facility] Start: 06-18-2024 End: 06-18-2024 ambulatory HUMBERTO ZIMMERMAN Facility:[facility] Start: 06-03-2024 End: 06-03-2024 Patient encounter procedure Chai Beavers MD, PhD Work Phone: Otolaryngology Comment on above: Meniere's disease of left ear (Primary Dx); Bilateral impacted cerumen Start: 01-31-2024 End: 01-31-2024 Patient encounter procedure Chai Beavers MD, PhD Work Phone: Otolaryngology Comment on above: Meniere's disease of left ear (Primary Dx); Bilateral impacted cerumen Sensorineural hearin g loss, bilateral (Primary Dx); Other specified hearing loss, unspecified ear; Tinnitus, bilateral; Dizziness and giddiness; Ear pressure, bilateral Start: 12-15-2022 End: 12-15-[address] HUMBERTO ZIMMERMAN MD Facility:[facility] Start: 12-15-2022 End: 12-15-[address] HUMBERTO ZIMMERMAN MD [facility] Start: 12-12-2022 End: 12-13-[address] HUMBERTO ZIMMERMAN MD Facility:[facility] Start: 11-23-2022 Patient encounter procedure [facility] Start: 11-16-2022 End: 11-16-2022 ambulatory [facility] Work Phone: Start: 11-16-2022 End: 11-16-2022 Patient encounter procedure [facility] Start: 03-12-2017 End: 03-13-2017 Ambulatory Jovani Mccray Facility:[facility] Procedures Date Procedure Procedure Detail Performing Clinician Start: 04-16-2025 HEARING TEST/AUDIOGRAM Faisal Castorena PA-C Work Phone: Start: 01-31-2024 HEARING TEST/AUDIOGRAM Chai Beavers MD, PhD Work Phone: Start: 11-23-2022 Computed tomography of abdomen and pelvis with contrast Start: 09-25-2020 Antibody screen Comment on above: Performed By: #### DDMER, CRP, CMP, CBIL , CBC, PT #### [facility] [address] [facility] [phone] Phillip ZIMMERMAN MD Comment on above: Right Colonoscopy DR HUMBERTO ZIMMERMAN MD Elbow region structu re (body structure) DR HUMBERTO ZIMMERMAN MD Comment on above: Right Esophagogastroduodenoscopy Chele ZIMMERMAN MD Plan of Treatment Date Care Activity Detail Author Start: 08-20-2025 End: 08-20-2025 Patient encounter procedure 08/20/2025 8:25 AM EST Office Visit Otolaryngology [address] [place] [address] Faisal Castorena PA-C [address] [facility] [address] [place] [address] 4-6 month ear cleaning- Dr. Beavers pt Otolaryngology Comment on above: 4-6 month ear cleani ng- Dr. Beavers pt Start: 06-08-2025 Influenza vaccination [facility] Start: 04-16-2025 End: 04-16-2025 Patient encounter procedure Audiology Comment on above: Asymmetrical sensori neural hearing loss [H90.3]; Sensorineural hearing loss (SNHL) of both ears [H90.3] [facility] Start: 02-15-2025 End: 02-15-2025 Patient encounter procedure 02/15/2025 3:30 PM EDT Appointment [facility] [address] [place] [address] Asymmetrical sensorineural hearing loss [H90.3]; Sensorineural hearing loss (SNHL) of both ears [H90.3] [facility] Comment on above: Asymmetrical sensori neural hearing loss [H90.3]; Sensorineural hearing loss (SNHL) of both ears [H90.3] Start: 02-12-2025 End: 02-12-2025 Patient encounter procedure 02/12/2025 8:25 AM EDT Office Visit Otolaryngology [address] [address] Faisal Castorena PA-C [address] [facility] [address] [place] [id number] 4-6 month ear cleaning- Dr. Beavers pt Otolaryngology Comment on above: 4-6 month ear cleani ng- Dr. Beavers pt Start: 10-14-2024 End: 10-14-2024 Patient encounter procedure 10/14/2024 8:30 AM EST Office Visit Otolaryngology [address] [address] Chai Beavers MD, PhD [address] [place] [address] 4 month follow up Otolaryngology Comment on above: 4 month follow up Start: 10-08-2024 Advance Directive Discussion Advance Directive Discussion [facility] Start: 06-08-2024 Covid-19 Vaccine ( season) Covid-19 Vaccine ( season) [facility] Start: 06-08-2024 Influenza vaccination Influenza Vacc ine (#1) [facility] Start: 06-03-2024 End: 06-03-2024 Patient encounter procedure 06/03/2024 8:45 AM EDT Office Visit Otolaryngology [address] [place] [address] Chai Beavers MD, PhD [address] [place] [address] 4 mo follow Otolaryngology Comment on above: 4 mo follow Start: 10-08-2023 Advance Directive Discussion Advance Directive Discussion [facility] Start: 10-08-2023 Behavioral Health Screening Behavioral Health Screening [facility] Start: 06-08-2023 Covid-19 Vaccine ( season) Covid-19 Vaccine () [facility] Start: 04-29-2023 Pneumococcal Vaccine : 50+ (3 of 3 - PCV20 or PCV21) Pneumococcal Vaccine: 50+ (3 of 3 - PCV20 or PCV21) [facility] Start: 11-22-2021 Glaucoma screening Dilated Retinal E xam [facility] Start: 07-20-2019 Pneumococcal Vaccine : 65+ (3 of 3 - PPSV23 or PCV20) Pneumococcal Vaccine: 65+ (3 of 3 - PPSV23 or PCV20) [facility] Start: 02-05-2018 Medicare Annual Wellness Visit Medicare Annual Wellness Visit [facility] Start: 09-14-2014 Shingrix Vaccine (2 of 3) Shingrix Vaccine (2 of 3) [facility] Start: 07-22-2013 Urine microalbumin profile DTaP,Tdap,Td Vaccine (1 - Tdap) [facility] Start: 2013 RSV Vaccine (1 - 1-dose 60+ series) RSV Vaccine (1 - 1-dose 60+ series) [facility] Start: 2013 RSV Vaccine (1 - Ris k 60-74 years 1-dose series) RSV Vaccine (1 - Risk 60-74 years 1-dose series) [facility] Start: 11-02-2005 Hepatitis B surface antibody level LDL Cholesterol [facility] Start: 1998 Screening for malignant neoplasm of colon [facility] Start: 1971 Annual PCP Team Chronic Disease Visit Annual PCP Team Chronic Disease Visit [facility] Start: 1971 Anxiety Screening Anxiety Screening [facility] Start: 1971 Depression Screening Depression Scre ening [facility] Start: 1971 Hepatitis C screening Hepatitis C Pedro russ [facility] Start: 1963 Diabetic foot examination Diabetic Foot Exam [facility] Start: 1963 Hepatitis B screening Urine Albumin:Creatinine Ratio [facility] Start: 1958 Hemoglobin A1c measurement HbA1C [facility] Cytology report of Body fluid Cyto stain [facility] End: 02-13-2026 HEARING TEST/AUDIOGRAM HEARING TEST/AUDIOGRAM Audiology Routine Asymmetrical sensorineural hearing loss Sensorineural hearing loss (SNHL) of both ears 1 Occurrences starting 02/12/2025 until 02/13/2026 [facility] Comment on above: 1 Occurrences starti ng 02/12/2025 until 02/13/2026 End: 03-14-2026 MR Brain WO and W contrast IV MRI BRAIN WO/W IVCON Radiology Routine Asymmetrical sensorineural hearing loss Sensorineural hearing loss (SNHL) of both ears Dizziness 1 Occurrences starting 02/12/2025 until 03/14/[address] [facility] Work Phone: Comment on above: 1 Occurrences starti ng 02/12/2025 until 03/14/2026 MR Brain WO and W contrast IV MRI BRAIN WO/W IVCON Radiology Routine Asymmetrical sensorineural hearing loss Sensorineural hearing loss (SNHL) of both ears Dizziness 02/15/2025 11:29 AM EDT [facility] Work Phone: Immunizations Immunization Date Immunization Notes Care Provider Fa [facility] 08-21-2023 influenza virus vacc ine, unspecified formulation Chai Beavers MD, PhD Work Phone: [facility] Payers Date Payer Category Payer Self-pay 2020 Unknown [id number] 2018 Medicare [id number] 2018 Medicare [id number] 2016 Unknown 2015 Private Health Insurance [id number] 1955 Unknown [id number] 1955 Unknown [id number] Unknown [id number] Social History Date Type Detail [facility] Work Phone: Start: 1955 Sex Assigned At Male [facility] Start: 12-12-2022 Tobacco smoking status Ex-smoker (fi nding) [facility] Sex Assigned At Female [facility] Start: 01-31-2024 [facility] tobacco [facility] Start: 01-31-2024 Tobacco use and exposure Smokeless tobacco non-user [facility] Start: 01-31-2024 End: 02-12-2025 Alcohol intake Current non-drinker of alcohol (finding) [facility] Start: 01-31-2024 End: 02-12-2025 History of Social function [facility] Start: 01-31-2024 End: 02-12-2025 Tobacco use panel [facility] National Score (1-100), lower number is lower risk 66 [facility] Start: 1955 Sex Assigned At Not on file [facility] Work Phone: Functional Status Date Assessment Result Facility 12-15-2022 Functional Status Ambulating in room, Awake, Up to bathroom [facility] 12-15-2022 Functional Status Precautions maintained [facility] 12-15-2022 Functional Status Maintained [facility] 09-30-2020 Are you deaf, or do you have serious difficulty hearing No 09/30/2020 10:14 AM Montserrat Baez RN No [facility] 09-30-2020 Are you blind, or do you have serious difficulty seeing, even when wearing glasses No 09/30/2020 10:14 AM Montserrat Baez RN No [facility] 09-30-2020 Do you have serious difficulty walking or climbing stairs No 09/30/2020 10:14 AM Montserrat Baez RN No [facility] 09-30-2020 Do you have difficul ty dressing or bathing No 09/30/2020 10:14 AM Montserrat Baez RN No [facility] 09-30-2020 Because of a physica l, mental, or emotional condition, do you have difficulty doing errands alone such as visiting a physician's office or shopping No 09/30/2020 10:14 AM Montserrat Baez RN No [facility] Mental Status Date Assessment Result Facility 12-15-2022 Mental Status Orientation Oriented x 4 [facility] 12-15-2022 Mental Status [facility] 09-30-2020 Because of a physica l, mental, or emotional condition, do you have serious difficulty concentrating, remembering, or making decisions No 09/30/2020 10:14 AM Montserrat Baez RN No [facility] Clinical Notes 12-15-2022 to 08-14-2025 Patient ElvinSandrarenetta Jenni, ÁNGEL - 04/16/2025 11:00 AM Heath James RT(Benito) - 02/15/2025 3:30 PM EDTPatient Faisal Yang PA-C - 02/12/2025 8:28 AM EDT Note Date & Type Note Facility 08-14-2025 Note HNO ID: [id number] Author: FAISAL CASTORENA PA-C Service: ? Author Type: Physician Physician General Internal Medicine Type: Progress Notes Filed: 08/14/2025 09:01 Note Text: SECTION OF OTOLOGY Department of Otolaryngology - Head and Neck Surgery [facility] History of Present Illness Mr. KAELYN GR is a 70 year old male Chief Complaint: Follow-up for meniere's disease, cerumen removal Betahistine increased to 16 mg TID 10/14/24, patient has not had an attack of vertigo since that time. Last seen 02/12/25 Since last seen, No attacks of vertigo Interested in OTC hearing aid Denies otalgia, otorrhea, dizziness. Denies noting any side effects from the betahistine. ALLERGIES No Known Allergies Current Outpatient Medications on File Prior to Visit Medication Sig betahistine capsule 16 mg (CPD) Take 1 capsule by mouth three times a day. citalopram (CELEXA) 20 mg tablet Take 20 mg by mouth once daily. TRULICITY 1.5 mg/0.5 mL pen injector Inject 1.5 mg subcutaneously one time a week. ondansetron orally disintegrating (ZOFRAN ODT) 8 mg disintegrating tablet Take 1 tablet by mouth every 8 hours as needed for nausea/vomiting. ASPIRIN LOW DOSE ORAL Take by mouth once daily. ondansetron (ZOFRAN) 4 mg tablet Take 1 tablet by mouth once each week. FARXIGA 10 mg tab Take 10 mg by mouth once daily. BYDUREON BCISE 2 mg/0.85 mL AutoInjector Inject 1 Pen subcutaneously once each week. omeprazole (PRILOSEC) 20 mg capsule Take 20 mg by mouth once daily. atorvastatin (LIPITOR) 80 mg tablet fenofibrate (LOFIBRA) 200 mg capsule Take 200 mg by mouth once daily. methocarbamol (ROBAXIN) 500 mg tablet No current facility-administered medications on file prior to visit. Objective: There were no vitals taken for this visit. Appearance: Non-syndromic, cooperative and calm Communication: Voice has adequate volume; there is no stridor Head/Face: head and facial contours are symmetric Facial nerve 1/6 bilateral Skin: no skin lesions or scarring on face Ears: AD Partially occluding cerumen impaction, once removed: EAC clear. TM intact without perforation or retraction. Middle ear aerated. Partially occluding cerumen impaction, once removed: EAC clear. TM intact without perforation or retraction. Middle ear aerated. Nose: external exam with straight profile Oral Cavity: Normal dentition Oropharynx: Uvula hangs midline; mucosa is pink and moist; tonsils present Neck: no LAD; thyroid without masses or enlargement Lymphatic: No lymphadenopathy or masses Neuro/Psych.: Alert and Oriented x 3 Cranial nerves intact Assessment: H81.02 Meniere's disease of left ear (primary encounter diagnosis) H90.3 Asymmetrical sensorineural hearing loss H61.23 Bilateral impacted cerumen Plan: 1. Continue betahistine 16 mg TID 2. Follow-up in 1 year with an audiogram, will consider stopping betahistine at that time if symptoms continue to be stable Faisal Castorena PA-C Otology Procedures: Preop diagnosis: Cerumen impaction. It cannot be removed without magnification and multiple instrumentations requiring physician skills. Postoperative diagnosis: same CERUMEN REMOVAL: Cerumen was removed under otomicroscopy from the Bilateral ear with loop curette instrumentation. Medical Decision Making: Problems: Low: Stable chronic illness Risk: Minimal: Minimal risk from testing/treatment Medical Decision Making Level: 2 - Straightforward [facility] 05-26-2025 Note HNO ID: [id number] Author: FAISAL CASTORENA PA-C Service: ? Author Type: Physician Physician General Internal Medicine Type: Progress Notes Filed: 05/26/2025 09:57 Note Text: Encounter opened in error. Faisal Castorena PA-C Otology [facility] 04-16-2025 Instructions Jenni Hairston AUD - 04/16/2025 1:49 PM EDT Images from the original note were not included. [facility] Head and Neck [place] Section of Audiology Thank you for trusting the [facility] Audiology department with your hearing healthcare today. We appreciated the opportunity to meet with you today to assess your hearing status and needs. For you to be able to hear, the brain requires sound to travel through the entire auditory system which involves the outer ear, middle ear, inner ear, and auditory nerve. Symptoms of hearing loss, tinnitus, dizziness, or sensations in the ear may have many different causes. These symptoms may be due to problems associated with your ear, vision, brain, heart, medications, other health conditions, or history of exposure to loud noises. Today you completed a comprehensive evaluation of your auditory system. TEST SUMMARY: Based on today's evaluation, your results revealed sensorineural hearing loss left ear greater than right ear. Today's results suggest a slight decrease in the left ear. Sensorineural Hearing Loss: Hearing loss means we had to turn the sound up, outside the range of normal, in order for you to be able to hear it. This type of hearing loss affects the inner ear (cochlea) or auditory nerve. Loud noises, diseases or the aging process often cause it. Children are prone to this type due to congenital conditions (present at ), trauma during childbirth, head injuries or infections. Sensorineural hearing loss is often permanent. Hearing aids and hearing assistive devices can help. Based on today's test results and if you feel like your hearing loss is impacting your communication with others, you are a candidate for hearing technology. To schedule an appointment to discuss options for hearing technology, please call our scheduling line at [phone] and ask for a Hearing Aid Evaluation appointment at your preferred [facility] location. You can request this appointment with your heat and frost insulator through [employer], as well. In order to investigate a potential insurance benefit for hearing aids, please plan to schedule your appointment for at least 1 week from the time of your phone call so that your insurance benefit can be verified. If there is no insurance benefit, please be aware there is a $100 [id number] fee due at time of service. Listed below are some communication strategies that help you hear others: 1) Facing communication partner. 2) Removing physical or visual barriers. 3) Maintaining a maximum distance for 6-10 feet from communication partner. 4) Encouraging communication partners to use clear speech and get their attention before speaking. 5) Reducing or removing background noise sources. 6) Taking turns speaking in conversation. 7) Ensuring the listener and speaker's voice are level with each other (both seated or both standing). Recommendations: * Continue medical follow up with Faisal Castorena PA-C * Regular audiologic assessments to monitor hearing sensitivity Thank you for trusting and choosing [facility] Audiology with your hearing care needs. Please do not hesitate to reach out with any questions or concerns. Sincerely, Ángel Cesar, [facility] Clinical and Hearing Implant Last Scourer documented in this encounter [facility] 04-16-2025 History of Present illness Narrative Images from the original note were not included. [facility] [place] Head and Neck Department Section of Audiology AUDIOLOGIC EVALUATION REPORT Name: Kaelyn Gr CCF#: [id number] Date of Service: 04/16/2025 Date of : 1955 Age: [age] year old Referred by: Fasial Castorena [address] [facility] [address] [facility] [address] Referred for: Evaluation of suspected change in hearing, tinnitus, or balance. Referral documented: In an order in [facility] Patient's major complaints: Reduced hearing left ear greater than right ear, Tinnitus left ear greater than right ear Kaelyn Gr was seen for a recheck audiologic evaluation. Hearing loss: Known left worse than right sensorineural hearing loss related to left ear Meniere's. Feels left ear hearing is worsening Tinnitus: Constant tinnitus, louder in the left ear than the right Ear pain: denied Aural fullness: Denied Otorrhea: denied. 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 Currently managed with betahistine. Feels upping medication has helped and has not had a vertigo episode in some time. 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 History of chemotherapy or radiation: denied History of head trauma: denied Family history of hearing loss: denied Hearing aids: Scheduled for hearing aid evaluation today Risk of Falls Documentation for over 65 years old: No history of falls reported so minimal to no risk IMPRESSIONS RIGHT EAR: Sensorineural hearing loss LEFT EAR: Sensorineural hearing loss Comparison of today's results with previous test results (01/31/2024): Today's results suggest improvement in the left ear of 25 dB at 8000 Hz and 10-15 dB decline 750-1000 Hz. Right ear stable with the exception of 10 dB HL decline at 6000 Hz. NOTE: A decrease of 20 dB HL at any one test frequency, a decrease of 10 dB HL at any two adjacent test frequencies, or a loss of response at three consecutive frequencies where responses were previously obtained is considered a significant change per JESUS 1994 guidelines. AUDIOLOGIC EVALUATION Following is a brief interpretation of the obtained findings from the audiologic evaluation. Refer to the Auditory Test Record for complete audiometric results. The patient was counseled about the test findings and appropriate audiologic recommendations were made. SUMMARY: Audiogram can be viewed under the Proc tab. OTOSCOPY RIGHT EAR: Otoscopic inspection revealed ear canal was clear with an identifiable cone of light. LEFT EAR: Otoscopic inspection revealed ear canal was clear with an identifiable cone of light. TYMPANOMETRY Description of procedure: This test is an objective evaluation of middle ear function. CPT code: 29461 RIGHT EAR: Did not test. LEFT EAR: Did not test. ACOUSTIC REFLEXES Description of procedure: This test is an objective measure of auditory and facial nerve pathways. CPT code: 28953, 35227 RIGHT EAR PROBE EAR: (ipsi right stimulus ear; contralateral left stimulus ear): Acoustic Reflex Pattern Did not test Acoustic Reflex Decay (left stimulus ear): Did not test. LEFT EAR PROBE EAR: (ipsi left stimulus ear; contralateral right stimulus ear): Acoustic Reflex Pattern Did not test Acoustic Reflex Decay (right stimulus ear):Did not test. PURE TONE AUDIOMETRY AND SPEECH TESTING Description of procedure: This test is an objective evaluation hearing sensitivity via air and bone conduction and speech recognition testing. CPT code: 09494 RIGHT EAR: Hearing Sensitivity: Within normal limits through 1000 Hz sloping to moderately severe sensorineural hearing loss Word Recognition Score: Excellent (100%). WRS is consistent with hearing sensitivity. Words were presented at 55 dB HL which approximates (45-55 dB HL) intensity level for average conversational speech. The NU-6 Word List (25 words) was used. LEFT EAR: Hearing Sensitivity: Moderate 250-500 Hz rising to mild 750-3000 Hz sloping to moderately severe sensorineural hearing loss Word Recognition Score: Excellent (96%). WRS is consistent with hearing sensitivity. Words were presented at 70 dB HL which is above (greater than or equal to 60 dB HL) intensity level for average conversational speech. The NU-6 Word List (25 words) was used. and Contralateral masking was used. RECOMMENDATIONS * Continue medical follow up with Faisal Castorena PA-C * Regular audiologic assessments to monitor hearing sensitivity * Patient was counseled on the benefits/limitations of hearing aids. Patient and his are hesitant to proceed with a left hearing aid at this time as they are concerned patient will not wear it. They inquired about OTC devices. Reviewed this option with patient and his , provided information on [facility] pricing for hearing aids and copy of today's audiogram. Patient opted not to complete hearing aid evaluation appointment today. Ángel Cesar, CCC-A Clinical and Hearing Implant Last Scourer copied to: Faisal Drenan, PA-C MARTINEZ Abbrev- iation Definition Degree of hearing sensitivity dB range WNL within normal limits WNL 0 - 20 SNHL sensorineural hearing loss Mild 20-40 CHL conductive hearing loss Moderate 40-55 MHL mixed hearing loss Moderately-Severe 55-70 WRS word recognition score Severe 70-90 ME middle ear Profound 90 + TM tympanic membrane documented in this encounter [facility] 04-16-2025 Note HNO ID: [id number] Author: JENNI HAIRSTON AUD Service: ? Author Type: Last Scourer Type: Progress Notes Filed: 04/16/2025 13:51 Note Text: [facility] [place] Head and Neck Department Section of Audiology AUDIOLOGIC EVALUATION REPORT Name: Kaelyn rG CCF#: [id number] Date of Service: 04/16/2025 Date of : 1955 Age: [age] year old Referred by: Faisal Castorena [address] [facility] [address] [facility] [address] Referred for: Evaluation of suspected change in hearing, tinnitus, or balance. Referral documented: In an order in [facility] Patient's major complaints: Reduced hearing left ear greater than right ear, Tinnitus left ear greater than right ear Kaelyn Gr was seen for a recheck audiologic evaluation. Hearing loss: Known left worse than right sensorineural hearing loss related to left ear Meniere's. Feels left ear hearing is worsening Tinnitus: Constant tinnitus, louder in the left ear than the right Ear pain: denied Aural fullness: Denied Otorrhea: denied. 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 Currently managed with betahistine. Feels upping medication has helped and has not had a vertigo episode in some time. 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 History of chemotherapy or radiation: denied History of head trauma: denied Family history of hearing loss: denied Hearing aids: Scheduled for hearing aid evaluation today Risk of Falls Documentation for over 65 years old: No history of falls reported so minimal to no risk IMPRESSIONS RIGHT EAR: Sensorineural hearing loss LEFT EAR: Sensorineural hearing loss Comparison of today's results with previous test results (01/31/2024): Today's results suggest improvement in the left ear of 25 dB at 8000 Hz and 10-15 dB decline 750-1000 Hz. Right ear stable with the exception of 10 dB HL decline at 6000 Hz. NOTE: A decrease of 20 dB HL at any one test frequency, a decrease of 10 dB HL at any two adjacent test frequencies, or a loss of response at three consecutive frequencies where responses were previously obtained is considered a significant change per JESUS 1994 guidelines. AUDIOLOGIC EVALUATION Following is a brief interpretation of the obtained findings from the audiologic evaluation. Refer to the Auditory Test Record for complete audiometric results. The patient was counseled about the test findings and appropriate audiologic recommendations were made. SUMMARY: Audiogram can be viewed under the Proc tab. OTOSCOPY RIGHT EAR: Otoscopic inspection revealed ear canal was clear with an identifiable cone of light. LEFT EAR: Otoscopic inspection revealed ear canal was clear with an identifiable cone of light. TYMPANOMETRY Description of procedure: This test is an objective evaluation of middle ear function. CPT code: 24323 RIGHT EAR: Did not test. LEFT EAR: Did not test. ACOUSTIC REFLEXES Description of procedure: This test is an objective measure of auditory and facial nerve pathways. CPT code: 19554, 46333 RIGHT EAR PROBE EAR: (ipsi right stimulus ear; contralateral left stimulus ear): Acoustic Reflex Pattern Did not test Acoustic Reflex Decay (left stimulus ear): Did not test. LEFT EAR PROBE EAR: (ipsi left stimulus ear; contralateral right stimulus ear): Acoustic Reflex Pattern Did not test Acoustic Reflex Decay (right stimulus ear):Did not test. PURE TONE AUDIOMETRY AND SPEECH TESTING Description of procedure: This test is an objective evaluation hearing sensitivity via air and bone conduction and speech recognition testing. CPT code: 56598 RIGHT EAR: Hearing Sensitivity: Within normal limits through 1000 Hz sloping to moderately severe sensorineural hearing loss Word Recognition Score: Excellent (100%). WRS is consistent with hearing sensitivity. Words were presented at 55 dB HL which approximates (45-55 dB HL) intensity level for average conversational speech. The NU-6 Word List (25 words) was used. LEFT EAR: Hearing Sensitivity: Moderate 250-500 Hz rising to mild 750-3000 Hz sloping to moderately severe sensorineural hearing loss Word Recognition Score: Excellent (96%). WRS is consistent with hearing sensitivity. Words were presented at 70 dB HL which is above (greater than or equal to 60 dB HL) intensity level for average conversational speech. The NU-6 Word List (25 words) was used. and Contralateral masking was used. RECOMMENDATIONS * Continue medical follow up with Faisal Castorena PA-C * Regular audiologic assessments to monitor hearing sensitivity * Patient was counseled on the benefits/limitations of hearing aids. Patient and his are hesitant to proceed with a left hearing aid at this time as they are concerned patient will not wear it. They inquired about OTC devices. Reviewed this option with patient and his , provided (more content not included)... [facility] 02-15-2025 History of Present illness Narrative Radiology Service Progress Note DATE OF SERVICE: February 15, 2025 TIME: 11:14 AM PATIENT IDENTITY VERIFICATION COMPLETED USING TWO (2) STANDARD IDENTIFIERS: Name and Date of confirmed by patient verbally. FALL SCREENING: Has the patient had 2 falls in the last year or 1 fall with injury or currently using an Ambulatory Assistive Device (Walker, Cane, Wheelchair, Crutches, etc.)? No PATIENT GENDER DATA: Assigned male at PATIENT RELEVANT IMPLANT DATA REVIEWED: Yes PATIENT PRESENTS WITH AN IMPLANTABLE OR ATTACHED MINERAL WOOL INSULATION SUPERVISOR: No ALLERGIES: Reviewed and unchanged CONTRAST ALLERGY: NO. EXAM: MRI - CONTRAST TYPE: GROUP II PERIPHERAL IV DATA: Ambulatory: A peripheral IV was started in the Left antecubital site with a Butterfly: 23 gauge. RADIOLOGY DEPARTMENT: MR; Exam(s) Completed: Head: IAC/CPA. Lavender Administered: No SIGNATURE: MOUNIKA Shetty) PATIENT NAME: Kaelyn Gr DATE: February 15, 2025 TIME: 11:14 AM documented in this encounter [facility] 02-15-2025 Note HNO ID: [id number] Author: HEATH LEOS RT(R) Service: ? Author Type: Technologist Type: Progress Notes Filed: 02/15/2025 11:15 Note Text: Radiology Service Progress Note DATE OF SERVICE: February 15, 2025 TIME: 11:14 AM PATIENT IDENTITY VERIFICATION COMPLETED USING TWO (2) STANDARD IDENTIFIERS: Name and Date of confirmed by patient verbally. FALL SCREENING: Has the patient had 2 falls in the last year or 1 fall with injury or currently using an Ambulatory Assistive Device (Walker, Cane, Wheelchair, Crutches, etc.)? No PATIENT GENDER DATA: Assigned male at PATIENT RELEVANT IMPLANT DATA REVIEWED: Yes PATIENT PRESENTS WITH AN IMPLANTABLE OR ATTACHED MINERAL WOOL INSULATION SUPERVISOR: No ALLERGIES: Reviewed and unchanged CONTRAST ALLERGY: NO. EXAM: MRI - CONTRAST TYPE: GROUP II PERIPHERAL IV DATA: Ambulatory: A peripheral IV was started in the Left antecubital site with a Butterfly: 23 gauge. RADIOLOGY DEPARTMENT: MR; Exam(s) Completed: Head: IAC/CPA. Lavender Administered: No SIGNATURE: RT Diogenes(R) PATIENT NAME: Kaelyn Gr DATE: February 15, 2025 TIME: 11:[address] [facility] 02-12-2025 Instructions Faisal Castorena PA-C - 02/12/2025 8:40 AM EDT Schedule a hearing test and hearing aid evaluation with audiology Schedule the MRI at your convenience Schedule a follow-up with me in 6 months, reach out to me on mychart in the meantime if the vertigo attacks get out of control I refilled the betahistine at your current dose for 1 year documented in this encounter [facility] 02-12-2025 Note HNO ID: [id number] Author: FAISAL CASTORENA PA-C Service: ? Author Type: Physician Physician General Internal Medicine Type: Progress Notes Filed: 02/12/2025 08:51 Note Text: History of Present Illness Mr. KAELYN GR is a 69 year old male Chief Complaint: Follow-up for left sided meniere's disease Last seen 10/14/[address] Beavers who increased betahistine to 16 mg BID. Diagnosed with meniere's disease in January [address] Beavers after an audiogram demonstrated asymmetric left sided SNHL. Describes the vertigo attacks as a room spinning sensation that lasts several hours. Since last seen, He has not had an attack of vertigo since upping the betahistine dosage in 10/14/24. He is interested in pursuing hearing aids. ALLERGIES No Known Allergies Current Outpatient Medications on File Prior to Visit Medication Sig citalopram (CELEXA) 20 mg tablet Take 20 mg by mouth once daily. TRULICITY 1.5 mg/0.5 mL pen injector Inject 1.5 mg subcutaneously one time a week. betahistine capsule 8 mg (CPD) Take 2 capsules by mouth three times a day. ondansetron orally disintegrating (ZOFRAN ODT) 8 mg disintegrating tablet Take 1 tablet by mouth every 8 hours as needed for nausea/vomiting. betahistine capsule 8 mg (CPD) Take 1 capsule by mouth three times a day. ASPIRIN LOW DOSE ORAL Take by mouth once daily. ondansetron (ZOFRAN) 4 mg tablet Take 1 tablet by mouth once each week. FARXIGA 10 mg tab Take 10 mg by mouth once daily. BYDUREON BCISE 2 mg/0.85 mL AutoInjector Inject 1 Pen subcutaneously once each week. omeprazole (PRILOSEC) 20 mg capsule Take 20 mg by mouth once daily. atorvastatin (LIPITOR) 80 mg tablet fenofibrate (LOFIBRA) 200 mg capsule Take 200 mg by mouth once daily. methocarbamol (ROBAXIN) 500 mg tablet No current facility-administered medications on file prior to visit. Objective: There were no vitals taken for this visit. Appearance: Non-syndromic, cooperative and calm Communication: Voice has adequate volume; there is no stridor Head/Face: head and facial contours are symmetric Facial nerve 1/6 bilateral Skin: no skin lesions or scarring on face Ears: AD Partially occluding cerumen impaction, once removed: EAC clear. TM intact without perforation or retraction. Middle ear aerated. Partially occluding cerumen impaction, once removed: EAC clear. TM intact without perforation or retraction. Middle ear aerated. Nose: external exam with straight profile Oral Cavity: Normal dentition Oropharynx: Uvula hangs midline; mucosa is pink and moist; tonsils present Neck: no LAD; thyroid without masses or enlargement Lymphatic: No lymphadenopathy or masses Neuro/Psych.: Alert and Oriented x 3 Cranial nerves intact Data Review: Audiogram 01/31/24 demonstrates left sided asymmetric low-frequency sensorineural hearing loss. Assessment: H81.02 Meniere's disease of left ear (primary encounter diagnosis) H90.3 Asymmetrical sensorineural hearing loss H90.3 Sensorineural hearing loss (SNHL) of both ears R42 Dizziness H61.23 Bilateral impacted cerumen Plan: 1. Schedule MRI brain w/wo contrast IAC to rule out retrocochlear pathology such as a vestibular schwannoma 2. Schedule an audiogram and a hearing aid evaluation with audiology 3. Refilled betahistine 16 mg TID for 1 year 4. Follow-up with me in 6 months Faisal Castorena PA-C Otology Procedures: Preop diagnosis: Cerumen impaction. It cannot be removed without magnification and multiple instrumentations requiring physician skills. Postoperative diagnosis: same CERUMEN REMOVAL: Cerumen was removed under otomicroscopy from the Bilateral ear with loop curette instrumentation. Medical Decision Making: Problems: Low: Stable chronic illness Data: Unique test result(s) reviewed: 1 Unique test(s) ordered: 1 Risk: Low: Low risk from testing/treatment Medical Decision Making Level: 3 - Low [facility] 02-12-2025 History of Present illness Narrative History of Present Illness Mr. KAELYN GR is a 69 year old male Chief Complaint: Follow-up for left sided meniere's disease Last seen 10/14/[address] Beavers who increased betahistine to 16 mg BID. Diagnosed with meniere's disease in January [address] Beavers after an audiogram demonstrated asymmetric left sided SNHL. Describes the vertigo attacks as a room spinning sensation that lasts several hours. Since last seen, He has not had an attack of vertigo since upping the betahistine dosage in 10/14/24. He is interested in pursuing hearing aids. ALLERGIES No Known Allergies Current Outpatient Medications on File Prior to Visit Medication Sig citalopram (CELEXA) 20 mg tablet Take 20 mg by mouth once daily. TRULICITY 1.5 mg/0.5 mL pen injector Inject 1.5 mg subcutaneously one time a week. betahistine capsule 8 mg (CPD) Take 2 capsules by mouth three times a day. ondansetron orally disintegrating (ZOFRAN ODT) 8 mg disintegrating tablet Take 1 tablet by mouth every 8 hours as needed for nausea/vomiting. betahistine capsule 8 mg (CPD) Take 1 capsule by mouth three times a day. ASPIRIN LOW DOSE ORAL Take by mouth once daily. ondansetron (ZOFRAN) 4 mg tablet Take 1 tablet by mouth once each week. FARXIGA 10 mg tab Take 10 mg by mouth once daily. BYDUREON BCISE 2 mg/0.85 mL AutoInjector Inject 1 Pen subcutaneously once each week. omeprazole (PRILOSEC) 20 mg capsule Take 20 mg by mouth once daily. atorvastatin (LIPITOR) 80 mg tablet fenofibrate (LOFIBRA) 200 mg capsule Take 200 mg by mouth once daily. methocarbamol (ROBAXIN) 500 mg tablet No current facility-administered medications on file prior to visit. Objective: There were no vitals taken for this visit. Appearance: Non-syndromic, cooperative and calm Communication: Voice has adequate volume; there is no stridor Head/Face: head and facial contours are symmetric Facial nerve 1/6 bilateral Skin: no skin lesions or scarring on face Ears: AD Partially occluding cerumen impaction, once removed: EAC clear. TM intact without perforation or retraction. Middle ear aerated. Partially occluding cerumen impaction, once removed: EAC clear. TM intact without perforation or retraction. Middle ear aerated. Nose: external exam with straight profile Oral Cavity: Normal dentition Oropharynx: Uvula hangs midline; mucosa is pink and moist; tonsils present Neck: no LAD; thyroid without masses or enlargement Lymphatic: No lymphadenopathy or masses Neuro/Psych.: Alert and Oriented x 3 Cranial nerves intact Data Review: Audiogram 01/31/24 demonstrates left sided asymmetric low-frequency sensorineural hearing loss. Assessment: H81.02 Meniere's disease of left ear (primary encounter diagnosis) H90.3 Asymmetrical sensorineural hearing loss H90.3 Sensorineural hearing loss (SNHL) of both ears R42 Dizziness H61.23 Bilateral impacted cerumen Plan: 1. Schedule MRI brain w/wo contrast IAC to rule out retrocochlear pathology such as a vestibular schwannoma 2. Schedule an audiogram and a hearing aid evaluation with audiology 3. Refilled betahistine 16 mg TID for 1 year 4. Follow-up with me in 6 months Faisal Castorena PA-C Otology Procedures: Preop diagnosis: Cerumen impaction. It cannot be removed without magnification and multiple instrumentations requiring physician skills. Postoperative diagnosis: same CERUMEN REMOVAL: Cerumen was removed under otomicroscopy from the Bilateral ear with loop curette instrumentation. Medical Decision Making: Problems: Low: Stable chronic illness Data: Unique test result(s) reviewed: 1 Unique test(s) ordered: 1 Risk: Low: Low risk from testing/treatment Medical Decision Making Level: 3 - Low documented in this encounter [facility] 10-28-2024 Telephone encounter Note Called patient . Clarified betahistine should be taken 3x daily. She verbalized an understanding. Andrey Birch RN [facility] 10-28-2024 Miscellaneous Notes Called patient . Clarified betahistine should be taken 3x daily. She verbalized an understanding. Andrey Birch RN Pt calling in stating that Dr. Beavers wrote the pt a prescription for Betahistine and informed him to take 2 tablets (16 mg) x2 daily but the prescription states to take the medication x3 daily and the pt is looking for clarification. Please advise documented in this encounter [facility] 10-28-2024 Telephone encounter Note Pt calling in stating that Dr. Beavers wrote the pt a prescription for Betahistine and informed him to take 2 tablets (16 mg) x2 daily but the prescription states to take the medication x3 daily and the pt is looking for clarification. Please advise [facility] 10-14-2024 Note HNO ID: [id number] Author: CHAI BEAVERS MD, PhD Service: ? Author Type: Physician Type: Progress Notes Filed: 10/14/2024 08:46 Note Text: SUBJECTIVE: HISTORY OF PRESENT ILLNESS Patient presents with: Follow Up: Est. Meniere's disease of left ear TISH 06/03/24. C/o routine ear cleaning, some ringing in both ears, wants to increase dosage of betahistine capsule 8 mg (CPD) Denies pain/drainage. He has sibley several episodes of dizziness and nausea. PAST MEDICAL HISTORY PAST MEDICAL HISTORY Diagnosis Date Anxiety Diabetes (HCC) Hyperlipidemia PAST SURGICAL HISTORY No past surgical history on file. SYMPTOM REVIEW: Symptom review is unremarkable except as indicated in the above history of present illness. OBJECTIVE: PHYSICAL EXAM: GENERAL: The patient is seated in the examination chair appearing well with normal skin turgor and color, and body habitus. There are no obvious deformities and grooming is adequate. Kaelyn Gr has an adequate ability to communicate. EARS: Right ear cleaned of cerumen impaction. TM is intact,mobile and free of infection or effusion Left ear cleaned of cerumen impaction. TM is intact,mobile and free of infection or effusion NOSE: Unremarkable MOUTH:Examination of the oral mucosa, hard and soft palates, and tongue demonstrates no mucosal abnormality, masses or other lesions. ORAL PHARYNX: Without mucosal abnormality, swelling, erythema or masses. Tonsils: WNL TEETH: Dentition intact, bite is adequate LIPS, GUMS: Without abnormality NECK: Overall appearance is symmetrical. Supple, without lymphadenopathy THYROID:Without enlargement, tenderness or masses. EYES: PERRLA, EOM, Without nystagmus Encounter Diagnosis ICD-10-CM 1. Meniere's disease of left ear H81.02 betahistine (SERC) 8 mg tablet ondansetron orally disintegrating (ZOFRAN ODT) 8 mg disintegrating tablet 2. Bilateral impacted cerumen H61.23 Will increase to 16 mg B.I.D for now. Follow up: 4- 6 months Chai Beavers MD, PhD [facility] 10-14-2024 History of Present illness Narrative SUBJECTIVE: HISTORY OF PRESENT ILLNESS Patient presents with: Follow Up: Est. Meniere's disease of left ear TISH 06/03/24. C/o routine ear cleaning, some ringing in both ears, wants to increase dosage of betahistine capsule 8 mg (CPD) Denies pain/drainage. He has sibley several episodes of dizziness and nausea. PAST MEDICAL HISTORY PAST MEDICAL HISTORY Diagnosis Date Anxiety Diabetes (HCC) Hyperlipidemia PAST SURGICAL HISTORY No past surgical history on file. SYMPTOM REVIEW: Symptom review is unremarkable except as indicated in the above history of present illness. OBJECTIVE: PHYSICAL EXAM: GENERAL: The patient is seated in the examination chair appearing well with normal skin turgor and color, and body habitus. There are no obvious deformities and grooming is adequate. Kaelyn Gr has an adequate ability to communicate. EARS: Right ear cleaned of cerumen impaction. TM is intact,mobile and free of infection or effusion Left ear cleaned of cerumen impaction. TM is intact,mobile and free of infection or effusion NOSE: Unremarkable MOUTH:Examination of the oral mucosa, hard and soft palates, and tongue demonstrates no mucosal abnormality, masses or other lesions. ORAL PHARYNX: Without mucosal abnormality, swelling, erythema or masses. Tonsils: WNL TEETH: Dentition intact, bite is adequate LIPS, GUMS: Without abnormality NECK: Overall appearance is symmetrical. Supple, without lymphadenopathy THYROID:Without enlargement, tenderness or masses. EYES: PERRLA, EOM, Without nystagmus Encounter Diagnosis ICD-10-CM 1. Meniere's disease of left ear H81.02 betahistine (SERC) 8 mg tablet ondansetron orally disintegrating (ZOFRAN ODT) 8 mg disintegrating tablet 2. Bilateral impacted cerumen H61.23 Will increase to 16 mg B.I.D for now. Follow up: 4- 6 months Chai Beavers MD, PhD documented in this encounter [facility] 06-03-2024 History of Present illness Narrative History of Present Illness Patient presents with: Follow Up: EST. Meniere's disease of left ear TISH 01/31/24 C/o b/l routine ear cleaning, blockage in lt ear. Denies pain/drainage He is doing well on Betahistine 8 mg T.I.D and has not had an episode since last visit. 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 ALLERGIES No Known Allergies Current Outpatient Medications on File Prior to Visit Medication Sig betahistine capsule 8 mg (CPD) Take 1 capsule by mouth three times a day. ASPIRIN LOW DOSE ORAL Take by mouth once daily. ondansetron (ZOFRAN) 4 mg tablet Take 1 tablet by mouth once each week. FARXIGA 10 mg tab Take 10 mg by mouth once daily. BYDUREON BCISE 2 mg/0.85 mL AutoInjector Inject 1 Pen subcutaneously once each week. omeprazole (PRILOSEC) 20 mg capsule Take 20 mg by mouth once daily. atorvastatin (LIPITOR) 80 mg tablet fenofibrate (LOFIBRA) 200 mg capsule Take 200 mg by mouth once daily. methocarbamol (ROBAXIN) 500 mg tablet No current facility-administered medications on file prior to visit. Social History: FAMILY HISTORY Problem Relation Age of Onset Cataract Mother Social History Tobacco Use Smoking status: Never Smokeless tobacco: Never Vaping Use Vaping status: Never Used Substance Use Topics Alcohol use: No Drug use: No Symptom Review: GI - Normal - Normal CV - Normal Neuro - Normal Pul - Normal Ortho - Normal Psych - Normal All other review of symptoms negative except as noted in HPI. Objective: PHYSICAL EXAM: GENERAL: The patient is seated in the examination chair appearing well with normal skin turgor and color, and body habitus. There are no obvious deformities and grooming is adequate. Kaelyn Gr has an adequate ability to communicate. EARS: Right ear cleaned of cerumen impaction. TM is intact,mobile and free of infection or effusion Left ear cleaned of cerumen impaction. TM is intact,mobile and free of infection or effusion NOSE: Septum: Aligned Turbinates: Normal Mucosa: Normal MOUTH:Examination of the oral mucosa, hard and soft palates, and tongue demonstrates no mucosal abnormality, masses or other lesions. ORAL PHARYNX: Without mucosal abnormality, swelling, erythema or masses. Tonsils: WNL TEETH:Dentition and bite are adequate. LIPS, GUMS: Without abnormality NECK: Overall appearance is symmetrical. Supple, without lymphadenopathy THYROID:Without enlargement, tenderness or masses. EYES: PERRLA, EOM, Without nystagmus Assessment: Encounter Diagnosis ICD-10-CM 1. Meniere's disease of left ear H81.02 2. Bilateral impacted cerumen H61.23 Plan: Continue Betahistine 8 mg T.I.D Follow up: 4 months Chai Beavers MD, PhD documented in this encounter [facility] 01-31-2024 History of Present illness Narrative SUBJECTIVE: HISTORY OF PRESENT ILLNESS Patient presents with: Ear Problem: NEW.. consult Dr. Rodney Chi. Dizziness/imbalance, hearing loss, ringing bilateral ears, audiogram completed. Denies otalgia, otorrhea. Meclizine. He has had at least 3 significant attacks of dizziness and vomiting and hearing loss mostly in the LEFT ear over the past year. He sometimes experiences milder forms of these attacks. PAST MEDICAL HISTORY PAST MEDICAL HISTORY Diagnosis Date Anxiety Diabetes (HCC) Hyperlipidemia PAST SURGICAL HISTORY No past surgical history on file. SYMPTOM REVIEW: Symptom review is unremarkable except as indicated in the above history of present illness. OBJECTIVE: PHYSICAL EXAM: GENERAL: The patient is seated in the examination chair appearing well with normal skin turgor and color, and body habitus. There are no obvious deformities and grooming is adequate. Kaelyn Gr has an adequate ability to communicate. EARS: Right ear cleaned of cerumen impaction. TM is intact,mobile and free of infection or effusion Left ear cleaned of cerumen impaction. TM is intact,mobile and free of infection or effusion NOSE: Septum: Aligned Turbinates: Normal Mucosa: Normal MOUTH:Examination of the oral mucosa, hard and soft palates, and tongue demonstrates no mucosal abnormality, masses or other lesions. ORAL PHARYNX: Without mucosal abnormality, swelling, erythema or masses. Tonsils: WNL TEETH: Dentition intact, bite is adequate LIPS, GUMS: Without abnormality NASOPHARYNX: Clear LARYNX: Normal crepitus,non-displaced. VOCAL CORDS: Mirror exam, mobile, without lesions or erythema VOICE: Normal NECK: Overall appearance is symmetrical. Supple, without lymphadenopathy THYROID:Without enlargement, tenderness or masses. EYES: PERRLA, EOM, Without nystagmus AUDIOMETRICS: B.L S/N losses worse in Encounter Diagnosis ICD-10-CM 1. Meniere's disease of left ear H81.02 betahistine (SERC) 8 mg tablet 2. Bilateral impacted cerumen H61.23 Plan: Salt restriction My findings are communicated to Rodney Chi MD via shared electronic medical record. Follow up:4-6 months Chai Beavers MD, PhD documented in this encounter [facility] 01-31-2024 History of Present illness Narrative Head and Neck [place] AUDIOLOGIC EVALUATION REPORT Name: Kaelyn Gr CCF#: [id number] Date of Service: 01/31/2024 Date of : 1955 Age: [age] year old Referred by: Chai Beavers MD [address] [place], [place] [id number] Referred for: Evaluation of suspected change in hearing, tinnitus, or balance. Referral documented: In an order in [facility] Patient's major complaints: Reduced hearing left ear greater than right ear; pressure in left ear; Vertigo with nausea, three episodes in last few years (lasts hours); bilateral constant tinnitus Patient reported that he does not notice an increase in tinnitus, pressure or change in hearing during episodes of dizziness. Patient reported a history of occupational noise exposure. Patient denied ear pain (0/10 in both ears), otorrhea, history of ear infections or ear surgery, concussions, and chemotherapy/radiation. Kaelyn Gr was seen for an initial audiologic evaluation. See SmartForm Audiogram for additional reported history and symptoms. Risk of Falls Documentation for over 65 years old: No history of falls reported so minimal to no risk IMPRESSIONS RIGHT EAR: Sensorineural hearing loss LEFT EAR: Sensorineural hearing loss AUDIOLOGIC EVALUATION Following is a brief interpretation of the obtained findings from the audiologic evaluation. Refer to the Auditory Test Record for complete audiometric results. The patient was counseled about the test findings and appropriate audiologic recommendations were made. SUMMARY: Audiogram can be viewed under Forms/Audiology/SmartForm. OTOSCOPY RIGHT EAR: Otoscopic inspection revealed ear canal has significant amount of cerumen which appeared to be non-occluding, yet the tympanic membrane could not be visualized. LEFT EAR: Otoscopic inspection revealed ear canal has significant amount of cerumen which appeared to be non-occluding, yet the tympanic membrane could not be visualized. TYMPANOMETRY Description of procedure: This test is an objective evaluation of middle ear function. CPT code: 71191 RIGHT EAR: Normal ME pressure with reduced TM compliance (mobility). LEFT EAR: Normal ME pressure with reduced TM compliance (mobility). ACOUSTIC REFLEXES Description of procedure: This test is an objective measure of auditory and facial nerve pathways. CPT code: 28032, 99006 RIGHT EAR PROBE EAR: (ipsi right stimulus ear; contralateral left stimulus ear): Acoustic Reflex Pattern Did not test Acoustic Reflex Decay (left stimulus ear): Did not test. LEFT EAR PROBE EAR: (ipsi left stimulus ear; contralateral right stimulus ear): Acoustic Reflex Pattern Did not test Acoustic Reflex Decay (right stimulus ear):Did not test. PURE TONE AUDIOMETRY AND SPEECH TESTING Description of procedure: This test is an objective evaluation hearing sensitivity via air and bone conduction and speech recognition testing. CPT code:91829 RIGHT EAR: Hearing Sensitivity: Hearing WNL through 1000 Hz sloping to mild SNHL through 6000 Hz sloping to moderately-severe hearing loss at 8000 Hz. Word Recognition Score: Excellent (100%). WRS is consistent with hearing sensitivity. Words were presented at 55 dB HL approximates (45-55 dB HL) intensity level for average conversational speech. The NU-6 Ordered by Difficulty Word List (10 words) was used for testing. LEFT EAR: Hearing Sensitivity: Moderate rising to mild low frequency SNHL through 500 Hz rising to WNL and then gradually sloping to moderate to profound mixed hearing loss. Word Recognition Score: Excellent (90%). WRS is consistent with hearing sensitivity. Words were presented at 65 dB HL which is above (greater than or equal to 60 dB HL) intensity level for average conversational speech. The NU-6 Ordered by Difficulty Word List (90 words) was used for testing. RECOMMENDATIONS * Continue medical follow-up with Chai Beavers MD. * Recheck hearing after cerumen removed (could not recheck high frequencies with inserts today). * Re-evaluation as medically indicated. * Return if a change in hearing is noted. * Pending medical clearance and recheck of hearing, call [phone] to schedule an appointment to assess your need for hearing aids. Request a HAE appointment. Ángel Mcallister, EMMY-A MARTINEZ Abbrev- iation Definition Degree of hearing sensitivity dB range WNL within normal limits WNL 0 - 20 SNHL sensorineural hearing loss Mild 20-40 CHL conductive hearing loss Moderate 40-55 MHL mixed hearing loss Moderately-Severe 55-70 WRS word recognition score Severe 70-90 ME middle ear Profound 90 + TM tympanic membrane documented in this encounter [facility] 12-15-2022 Hospital Discharge instructions Patient Education 12/15/2022 16:45:54 Indwelling Urinary Catheter Care, Adult, Qluu-qy-Zrwx Indwelling Urinary Catheter Care, Adult An indwelling urinary catheter is a thin tube that is put into your bladder. The tube helps to drain pee (urine) out of your body. The tube goes in through your urethra. Your urethra is where pee comes out of your body. Your pee will come out through the catheter, then it will go into a bag (drainage bag). Take good care of your catheter so it will work well. How to wear your catheter and bag Supplies needed Sticky tape (adhesive tape) or a leg strap. Alcohol wipe or soap and water (if you use tape). A clean towel (if you use tape). Large overnight bag. Smaller bag (leg bag). Wearing your catheter Attach your catheter to your leg with tape or a leg strap. Make sure the catheter is not pulled tight. If a leg strap gets wet, take it off and put on a dry strap. If you use tape to hold the bag on your le.Use an alcohol wipe or soap and water to wash your skin where the tape made it sticky before. 2.Use a clean towel to pat-dry that skin. 3.Use new tape to make the bag stay on your leg. Wearing your bags You should have been given a large overnight bag. You may wear the overnight bag in the day or night. Always have the overnight bag lower than your bladder. Do not let the bag touch the floor. Before you go to sleep, put a clean plastic bag in a wastebasket. Then hang the overnight bag inside the wastebasket. You should also have a smaller leg bag that fits under your clothes. Always wear the leg bag below your knee. Do not wear your leg bag at night. How to care for your skin and catheter Supplies needed A clean washcloth. Water and mild soap. A clean towel. Caring for your skin and catheter Clean the skin around your catheter every day: 1.Wash your hands with soap and water. 2.Wet a clean washcloth in warm water and mild soap. 3.Clean the skin around your urethra. ?If you are female: ?Gently spread the folds of skin around your vagina (labia). ?With the washcloth in your other hand, wipe the inner side of your labia on each side. Wipe from front to back. ?If you are male: ?Pull back any skin that covers the end of your penis (foreskin). ?With the washcloth in your other hand, wipe your penis in small circles. Start wiping at the tip of your penis, then move away from the catheter. ?Move the foreskin back in place, if needed. 4.With your free hand, hold the catheter close to where it goes into your body. ?Keep holding the catheter during cleaning so it does not get pulled out. 5.With the washcloth in your other hand, clean the catheter. ?Only wipe downward on the catheter. ?Do not wipe upward toward your body. Doing this may push germs into your urethra and cause infection. 6.Use a clean towel to pat-dry the catheter and the skin around it. Make sure to wipe off all soap. 7.Wash your hands with soap and water. Shower every day. Do not take baths. Do not use cream, ointment, or lotion on the area where the catheter goes into your body, unless your doctor tells you to. Do not use powders, sprays, or lotions on your genital area. Check your skin around the catheter every day for signs of infection. Check for: ?Redness, swelling, or pain. ?Fluid or blood. ?Warmth. ?Pus or a bad smell. How to empty the bag Supplies needed Rubbing alcohol. Gauze pad or cotton ball. Tape or a leg strap. Emptying the bag Pour the pee out of your bag when it is ? full, or at least 2 3 times a day. Do this for your overnight bag and your leg bag. 1.Wash your hands with soap and water. 2.Separate (detach) the bag from your leg. 3.Hold the bag over the toilet or a clean pail. Keep the bag lower than your hips and bladder. This is so the pee (urine) does not go back into the tube. 4.Open the pour spout. It is at the bottom of the bag. 5.Empty the pee into the toilet or pail. Do not let the pour spout touch any surface. 6.Put rubbing alcohol on a gauze pad or cotton ball. 7.Use the gauze pad or cotton ball to clean the pour spout. 8.Close the pour spout. 9.Attach the bag to your leg with tape or a leg strap. 10.Wash your hands with soap and water. Follow instructions for cleaning the drainage bag: From the product maker. As told by your doctor. How to change the bag Supplies needed Alcohol wipes. A clean bag. Tape or a leg strap. Changing the bag Replace your bag when it starts to leak, smell bad, or look dirty. 1.Wash your hands with soap and water. 2.Separate the dirty bag from your leg. 3.Pinch the catheter with your fingers so that pee does not spill out. 4.Separate the catheter tube from the bag tube where these tubes connect (at the connection valve). Do not let the tubes touch any surface. 5.Clean the end of the catheter tube with an alcohol wipe. Use a different alcohol wipe to clean the end of the bag tube. 6.Connect the catheter tube to the tube of the clean bag. 7.Attach the clean bag to your leg with tape or a leg strap. Do not make the bag tight on your leg. 8.Wash your hands with soap and water. General rules Never pull on your catheter. Never try to take it out. Doing that can hurt you. Always wash your hands before and after you touch your catheter or bag. Use a mild, fragrance-free soap. If you do not have soap and water, use hand tool grinder operator. Always make sure there are no twists or bends (kinks) in the catheter tube. Always make sure there are no leaks in the catheter or bag. Drink enough fluid to keep your pee pale yellow. Do not take baths, swim, or use a hot tub. If you are female, wipe from front to back after you poop (have a bowel movement). Contact a doctor if: Your pee is cloudy. Your pee smells worse than usual. Your catheter gets clogged. Your catheter leaks. Your bladder feels full. Get help right away if: You have redness, swelling, or pain where the catheter goes into your body. You have fluid, blood, pus, or a bad smell coming from the area where the catheter goes into your body. Your skin feels warm where the catheter goes into your body. You have a fever. You have pain in your: ?Belly (abdomen). ?Legs. ?Lower back. ?Bladder. You see blood in the catheter. Your pee is pink or red. You feel sick to your stomach (nauseous). You throw up (vomit). You have chills. Your pee is not draining into the bag. Your catheter gets pulled out. Summary An indwelling urinary catheter is a thin tube that is placed into the bladder to help drain pee (urine) out of the body. The catheter is placed into the part of the body that drains pee from the bladder (urethra). Taking good care of your catheter will keep it working properly and help prevent problems. Always wash your hands before and after touching your catheter or bag. Never pull on your catheter or try to take it out. This information is not intended to replace advice given to you by your health care provider. Make sure you discuss any questions you have with your health care provider. Document Released: 01/19/2014 Document Revised: 01/16/2020 Document Reviewed: 05/10/2018 [email or web address] Patient Education 2020 [employer]. 12/15/2022 14:36:40 Transurethral Resection of Bladder Tumor Transurethral Resection of Bladder Tumor Transurethral resection of a bladder tumor is the removal (resection) of a cancerous growth (tumor) on the inside wall of the bladder. The bladder is the organ that holds urine. The tumor is removed through the tube that carries urine out of the body (urethra). In a transurethral resection, a thin telescope with a light, a tiny camera, and an electric cutting edge (resectoscope) is passed through the urethra. In men, the opening of the urethra is at the end of the penis. In women, it is just above the opening of the vagina. Tell a health care provider about: Any allergies you have. All medicines you are taking, including vitamins, herbs, eye drops, creams, and zvwu-ouz-fhideox medicines. Any problems you or family members have had with anesthetic medicines. Any blood disorders you have. Any surgeries you have had. Any medical conditions you have. Any recent urinary tract infections you have had. Whether you are or may be . What are the risks? Generally, this is a safe procedure. However, problems may occur, including: Infection. Bleeding. Allergic reactions to medicines. Damage to nearby structures or organs, such as: ?The urethra. ?The tubes that drain urine from the kidneys into the bladder (ureters). Pain and burning during urination. Difficulty urinating due to partial blockage of the urethra. Inability to urinate (urinary retention). What happens before the procedure? Staying hydrated Follow instructions from your health care provider about hydration, which may include: Up to 2 hours before the procedure you may continue to drink clear liquids, such as water, clear fruit juice, black coffee, and plain tea. Eating and drinking restrictions Follow instructions from your health care provider about eating and drinking, which may include: 8 hours before the procedure stop eating heavy meals or foods, such as meat, fried foods, or fatty foods. 6 hours before the procedure stop eating light meals or foods, such as toast or cereal. 6 hours before the procedure stop drinking milk or drinks that contain milk. 2 hours before the procedure stop drinking clear liquids. Medicines Ask your health care provider about: Changing or stopping your regular medicines. This is especially important if you are taking diabetes medicines or blood thinners. Taking medicines such as aspirin and ibuprofen. These medicines can thin your blood. Do not take these medicines unless your health care provider tells you to take them. Taking mhqu-mhb-ipcaeau medicines, vitamins, herbs, and supplements. Tests You may have exams or tests, including: Physical exam. Blood tests. Urine tests. Electrocardiogram (ECG). This test measures the electrical activity of the heart. General instructions Plan to have someone take you home from the hospital or clinic. Ask your health care provider how your surgical site will be marked or identified. Ask your health care provider what steps will be taken to help prevent infection. These may include: ? Washing skin with a germ-killing soap. ? Taking antibiotic medicine. What happens during the procedure? An IV will be inserted into one of your veins. You will be given one or more of the following: ?A medicine to help you relax (sedative). ?A medicine to make you fall asleep (general anesthetic). ?A medicine that is injected into your spine to numb the area below and slightly above the injection site (spinal anesthetic). Your legs will be placed in foot rests (stirrups) so that your legs are apart and your knees are bent. The resectoscope will be passed through your urethra and into your bladder. The part of your bladder that is affected by the tumor will be resected using the cutting edge of the resectoscope. The resectoscope will be removed. A thin, flexible tube (catheter) will be passed through your urethra and into your bladder. The catheter will drain urine into a bag outside of your body. ?Fluid may be passed through the catheter to keep the catheter open. The procedure may vary among health care providers and hospitals. What happens after the procedure? Your blood pressure, heart rate, breathing rate, and blood oxygen level will be monitored until you leave the hospital or clinic. You may continue to receive fluids and medicines through an IV. You will have some pain. You will be given pain medicine to relieve pain. You will have a catheter to drain your urine. ?You will have blood in your urine. Your catheter may be kept in until your urine is clear. ?The amount of urine will be monitored. If necessary, your bladder may be rinsed out (irrigated) by passing fluid through your catheter. You will be encouraged to walk around as soon as possible. You may have to wear compression stockings. These stockings help to prevent blood clots and reduce swelling in your legs. Do not drive for 24 hours if you were given a sedative during your procedure. Summary Transurethral resection of a bladder tumor is the removal (resection) of a cancerous growth (tumor) on the inside wall of the bladder. To do this procedure, your health care provider uses a thin telescope with a light, a tiny camera, and an electric cutting edge (resectoscope). Follow your health care provider's instructions. You may need to stop or change certain medicines, and you may be told to stop eating and drinking several hours before the procedure. Your blood pressure, heart rate, breathing rate, and blood oxygen level will be monitored until you leave the hospital or clinic. You may have to wear compression stockings. These stockings help to prevent blood clots and reduce swelling in your legs. This information is not intended to replace advice given to you by your health care provider. Make sure you discuss any questions you have with your health care provider. Document Released: 07/21/2010 Document Revised: 04/25/2019 Document Reviewed: 04/25/2019 [email or web address] Patient Education 2020 [employer]. 12/15/2022 14:36:30 General Anesthesia, Adult, Care After General Anesthesia, Adult, Care After This sheet gives you information about how to care for yourself after your procedure. Your health care provider may also give you more specific instructions. If you have problems or questions, contact your health care provider. What can I expect after the procedure? After the procedure, the following side effects are common: Pain or discomfort at the IV site. Nausea. Vomiting. Sore throat. Trouble concentrating. Feeling cold or chills. Weak or tired. Sleepiness and fatigue. Soreness and body aches. These side effects can affect parts of the body that were not involved in surgery. Follow these instructions at home: For at least 24 hours after the procedure: Have a responsible adult stay with you. It is important to have someone help care for you until you are awake and alert. Rest as needed. Do not: ?Participate in activities in which you could fall or become injured. ?Drive. ?Use heavy machinery. ?Drink alcohol. ?Take sleeping pills or medicines that cause drowsiness. ?Make important decisions or sign legal documents. ?Take care of children on your own. Eating and drinking Follow any instructions from your health care provider about eating or drinking restrictions. When you feel hungry, start by eating small amounts of foods that are soft and easy to digest (bland), such as toast. Gradually return to your regular diet. Drink enough fluid to keep your urine pale yellow. If you vomit, rehydrate by drinking water, juice, or clear broth. General instructions If you have sleep apnea, surgery and certain medicines can increase your risk for breathing problems. Follow instructions from your health care provider about wearing your sleep device: ?Anytime you are sleeping, including during daytime naps. ?While taking prescription pain medicines, sleeping medicines, or medicines that make you drowsy. Return to your normal activities as told by your health care provider. Ask your health care provider what activities are safe for you. Take xpfc-xnk-aphtvpe and prescription medicines only as told by your health care provider. If you smoke, do not smoke without supervision. Keep all follow-up visits as told by your health care provider. This is important. Contact a health care provider if: You have nausea or vomiting that does not get better with medicine. You cannot eat or drink without vomiting. You have pain that does not get better with medicine. You are unable to pass urine. You develop a skin rash. You have a fever. You have redness around your IV site that gets worse. Get help right away if: You have difficulty breathing. You have chest pain. You have blood in your urine or stool, or you vomit blood. Summary After the procedure, it is common to have a sore throat or nausea. It is also common to feel tired. Have a responsible adult stay with you for the first 24 hours after general anesthesia. It is important to have someone help care for you until you are awake and alert. When you feel hungry, start by eating small amounts of foods that are soft and easy to digest (bland), such as toast. Gradually return to your regular diet. Drink enough fluid to keep your urine pale yellow. Return to your normal activities as told by your health care provider. Ask your health care provider what activities are safe for you. This information is not intended to replace advice given to you by your health care provider. Make sure you discuss any questions you have with your health care provider. Document Released: 12/31/2001 Document Revised: 09/27/2018 Document Reviewed: 05/10/2018 [email or web address] Patient Education 2020 [employer]. Follow Up Care 11/28/2022 15:05:28 With:[facility] Address: [address] [place] [phone] Business (1) When: Unknown Comments:CALL OFFICE TO SCHEDULE FOLLOW UP APPOINTMENT. [facility] 12-15-2022 Summary of episode note Discharge Instructions Thank you for allowing [facility] to assist you with your healthcare needs. The following is important discharge information regarding your hospital visit. Your Care Team CHI, RODNEY B MD What to do next Follow Up Appointments Follow Up with [facility] When Why: CALL OFFICE TO SCHEDULE FOLLOW UP APPOINTMENT. Where: [address] [place] [phone] Business (1) The Following Activity and Diet Have Been Ordered for You Discharge Activity - Ordered -- Follow the post-operative/post-procedure activity instructions provided by your physician's office., 12/15/22 13:52:00 EST Discharge Driving Restrictions - Ordered -- No driving until pain-free, 12/15/22 13:52:00 EST Discharge Return to Work, School, or Sports (Discharge Return to status) - Ordered -- May return to: work, 12/15/22 13:52:00 EST Discharge Diet - Ordered -- Follow the post-operative/post-procedure diet instructions provided by your physician's office., 12/15/22 13:52:00 EST Allergies NKA Medications Please ask your primary doctor or pharmacist before taking any other medication not listed, including over the counter drugs, herbal medications, vitamins and or supplements as they may interact with your home medications. What How Much When Instructions Last Dose New ciprofloxacin (Cipro 250 mg oral tablet) 1 tab(s) by mouth Every 12 hours Duration: 7 Days Pickup at [facility] New ibuprofen (ibuprofen 600 mg oral tablet) 1 tab(s) by mouth Every 6 hours as needed for for pain Take with food or milk. Pickup at [facility] Unchanged ascorbic acid (Vitamin C 500 mg oral tablet) 1 tab(s) by mouth Once a day Unchanged atorvastatin (atorvastatin 80 mg oral tablet) 1 tab(s) by mouth Every day Unchanged citalopram (citalopram 20 mg oral tablet) 1 tab(s) by mouth Every day Unchanged dapagliflozin (Farxiga 10 mg oral tablet) 10 Milligram by mouth Once a day (in the morning) Unchanged dulaglutide (Trulicity Pen 1.5 mg/ 0.5 mL subcutaneous solution) 0.5 Milliliter Subcutaneous Every week Unchanged fenofibrate (fenofibrate micronized 200 mg oral capsule) 1 cap by mouth Once a day Unchanged multivitamin (Multivitamin) 1 tab(s) by mouth Every day Pharmacy Information [facility]: [phone] [facility] [place] [phone] What How Much When Comments Stop Taking aspirin (aspirin 81 mg oral delayed release tablet) 1 tab(s) by mouth Every day Please take this list to your next doctor s visit. Bring all medications you take, including over the counter medications, herbals and other supplements with you to your doctor s visit. Patients and families are reminded to discard old lists and to update any records with all medication providers or retail pharmacies. Education Materials Transurethral Resection of Bladder Tumor Transurethral resection of a bladder tumor is the removal (resection) of a cancerous growth (tumor) on the inside wall of the bladder. The bladder is the organ that holds urine. The tumor is removed through the tube that carries urine out of the body (urethra). In a transurethral resection, a thin telescope with a light, a tiny camera, and an electric cutting edge (resectoscope) is passed through the urethra. In men, the opening of the urethra is at the end of the penis. In women, it is just above the opening of the vagina. Tell a health care provider about: Any allergies you have. All medicines you are taking, including vitamins, herbs, eye drops, creams, and lgxh-avf-fkfdvzm medicines. Any problems you or family members have had with anesthetic medicines. Any blood disorders you have. Any surgeries you have had. Any medical conditions you have. Any recent urinary tract infections you have had. Whether you are or may be . What are the risks? Generally, this is a safe procedure. However, problems may occur, including: Infection. Bleeding. Allergic reactions to medicines. Damage to nearby structures or organs, such as: ? The urethra. ? The tubes that drain urine from the kidneys into the bladder (ureters). Pain and burning during urination. Difficulty urinating due to partial blockage of the urethra. Inability to urinate (urinary retention). What happens before the procedure? Staying hydrated Follow instructions from your health care provider about hydration, which may include: Up to 2 hours before the procedure you may continue to drink clear liquids, such as water, clear fruit juice, black coffee, and plain tea. Eating and drinking restrictions Follow instructions from your health care provider about eating and drinking, which may include: 8 hours before the procedure stop eating heavy meals or foods, such as meat, fried foods, or fatty foods. 6 hours before the procedure stop eating light meals or foods, such as toast or cereal. 6 hours before the procedure stop drinking milk or drinks that contain milk. 2 hours before the procedure stop drinking clear liquids. Medicines Ask your health care provider about: Changing or stopping your regular medicines. This is especially important if you are taking diabetes medicines or blood thinners. Taking medicines such as aspirin and ibuprofen. These medicines can thin your blood. Do not take these medicines unless your health care provider tells you to take them. Taking hhav-yyq-zyctlaz medicines, vitamins, herbs, and supplements. Tests You may have exams or tests, including: Physical exam. Blood tests. Urine tests. Electrocardiogram (ECG). This test measures the electrical activity of the heart. General instructions Plan to have someone take you home from the hospital or clinic. Ask your health care provider how your surgical site will be marked or identified. Ask your health care provider what steps will be taken to help prevent infection. These may include: ? Washing skin with a germ-killing soap. ? Taking antibiotic medicine. What happens during the procedure? An IV will be inserted into one of your veins. You will be given one or more of the following: ? A medicine to help you relax (sedative). ? A medicine to make you fall asleep (general anesthetic). ? A medicine that is injected into your spine to numb the area below and slightly above the injection site (spinal anesthetic). Your legs will be placed in foot rests (stirrups) so that your legs are apart and your knees are bent. The resectoscope will be passed through your urethra and into your bladder. The part of your bladder that is affected by the tumor will be resected using the cutting edge of the resectoscope. The resectoscope will be removed. A thin, flexible tube (catheter) will be passed through your urethra and into your bladder. The catheter will drain urine into a bag outside of your body. ? Fluid may be passed through the catheter to keep the catheter open. The procedure may vary among health care providers and hospitals. What happens after the procedure? Your blood pressure, heart rate, breathing rate, and blood oxygen level will be monitored until you leave the hospital or clinic. You may continue to receive fluids and medicines through an IV. You will have some pain. You will be given pain medicine to relieve pain. You will have a catheter to drain your urine. ? You will have blood in your urine. Your catheter may be kept in until your urine is clear. ? The amount of urine will be monitored. If necessary, your bladder may be rinsed out (irrigated) by passing fluid through your catheter. You will be encouraged to walk around as soon as possible. You may have to wear compression stockings. These stockings help to prevent blood clots and reduce swelling in your legs. Do not drive for 24 hours if you were given a sedative during your procedure. Summary Transurethral resection of a bladder tumor is the removal (resection) of a cancerous growth (tumor) on the inside wall of the bladder. To do this procedure, your health care provider uses a thin telescope with a light, a tiny camera, and an electric cutting edge (resectoscope). Follow your health care provider's instructions. You may need to stop or change certain medicines, and you may be told to stop eating and drinking several hours before the procedure. Your blood pressure, heart rate, breathing rate, and blood oxygen level will be monitored until you leave the hospital or clinic. You may have to wear compression stockings. These stockings help to prevent blood clots and reduce swelling in your legs. This information is not intended to replace advice given to you by your health care provider. Make sure you discuss any questions you have with your health care provider. Document Released: 07/21/2010 Document Revised: 04/25/2019 Document Reviewed: 04/25/2019 [email or web address] Patient Education 2020 [employer]. General Anesthesia, Adult, Care After This sheet gives you information about how to care for yourself after your procedure. Your health care provider may also give you more specific instructions. If you have problems or questions, contact your health care provider. What can I expect after the procedure? After the procedure, the following side effects are common: Pain or discomfort at the IV site. Nausea. Vomiting. Sore throat. Trouble concentrating. Feeling cold or chills. Weak or tired. Sleepiness and fatigue. Soreness and body aches. These side effects can affect parts of the body that were not involved in surgery. Follow these instructions at home: For at least 24 hours after the procedure: Have a responsible adult stay with you. It is important to have someone help care for you until you are awake and alert. Rest as needed. Do not: ? Participate in activities in which you could fall or become injured. ? Drive. ? Use heavy machinery. ? Drink alcohol. ? Take sleeping pills or medicines that cause drowsiness. ? Make important decisions or sign legal documents. ? Take care of children on your own. Eating and drinking Follow any instructions from your health care provider about eating or drinking restrictions. When you feel hungry, start by eating small amounts of foods that are soft and easy to digest (bland), such as toast. Gradually return to your regular diet. Drink enough fluid to keep your urine pale yellow. If you vomit, rehydrate by drinking water, juice, or clear broth. General instructions If you have sleep apnea, surgery and certain medicines can increase your risk for breathing problems. Follow instructions from your health care provider about wearing your sleep device: ? Anytime you are sleeping, including during daytime naps. ? While taking prescription pain medicines, sleeping medicines, or medicines that make you drowsy. Return to your normal activities as told by your health care provider. Ask your health care provider what activities are safe for you. Take xlnv-[id number]-ihbmtuw and prescription medicines only as told by your health care provider. If you smoke, do not smoke without supervision. Keep all follow-up visits as told by your health care provider. This is important. Contact a health care provider if: You have nausea or vomiting that does not get better with medicine. You cannot eat or drink without vomiting. You have pain that does not get better with medicine. You are unable to pass urine. You develop a skin rash. You have a fever. You have redness around your IV site that gets worse. Get help right away if: You have difficulty breathing. You have chest pain. You have blood in your urine or stool, or you vomit blood. Summary After the procedure, it is common to have a sore throat or nausea. It is also common to feel tired. Have a responsible adult stay with you for the first 24 hours after general anesthesia. It is important to have someone help care for you until you are awake and alert. When you feel hungry, start by eating small amounts of foods that are soft and easy to digest (bland), such as toast. Gradually return to your regular diet. Drink enough fluid to keep your urine pale yellow. Return to your normal activities as told by your health care provider. Ask your health care provider what activities are safe for you. This information is not intended to replace advice given to you by your health care provider. Make sure you discuss any questions you have with your health care provider. Document Released: 12/31/2001 Document Revised: 09/27/2018 Document Reviewed: 05/10/2018 Elsevier Patient Education 2020 [employer] Additional Information VACCINATE! IT SAVES LIVES! Members of the community who have not yet received the COVID-19 vaccine and would like to receive it can visit one of [facility] vaccine clinics. There are many vaccine clinic locations within the [facility]. For locations and available times, please visit [email or web address] It is important to note that some COVID mobile vaccine clinics are held outdoors and may be canceled in rainy or stormy conditions. To learn more about pediatric vaccinations (ages 5-11), we invite you to visit the [employer] webpage. [email or web address] To learn more about the COVID-19 vaccine, we invite you to visit the CDC website for a list of frequently asked questions. https://www.cdc.gov/coronavirus/2019-n cov/vaccines/faq.html [facility] Patient Portal Access Instructions: Stay connected with your healthcare team and access your personal medical information anytime with the [employer] Patient Portal.If you would like a full copy of your medical records, please contact the [facility] Medical Records Department, Sunday through Sunday between 8a.m. and 4:30p.m. Please follow the directions below to access the portal: 1.Access the email account you provided upon registration to the hospital.2.Look for an invitation email from [facility].3.Open the email and access the invitation link: Accept Invitation to [facility]4.Fill in the required newman to create your account. Sign into [email or web address].[email or web address] with your username and password that you created in the above steps to stay up to date. You can then view a summary of results, a summary of your visits, and the ability to download your summaries to your computer or send the information securely to a physician. Remember that your healthcare information is confidential, so carefully consider who you will allow to register on the [facility] Patient Portal for access to your information. You can also access the [facility] Patient Portal on the [employer] wolfgang. Simply click on Health Records under Health Data and then click on the [employer] logo. HOW TO SAFELY DISPOSE OF PRESCRIPTION MEDICATIONS Please use one of the following methods to safely dispose of your unused medications. 1.Use a drug disposal kit: the drug disposal pouch allows you to safely discard your old and unused drugs. Ask your nurse to give you one when you are discharged.2.Visit a local take-back location: Many local pharmacies and police departments have programs that collect old and unwanted prescription drugs. Call your local pharmacy or go to http://Silvigen.Nomanini/4Z6Ay3o to find one close to you.3.Make use of household items: Use cat litter or old coffee grounds to dispose medications if other options are not available. Mix your drugs with these household products, seal them in an airtight container and throw it into the garbage. Call [facility]: [phone] to be sure your drugs can be disposed of in this way. Some medicines may require a different approach.4.Never flush your medications down the toilet. IF YOU HAVE BEEN PRESCRIBED AN OPIOID FOR PAIN If you have been prescribed an opioid (such as hydrocodone, oxycodone or morphine), it is critical to understand the possible side effects and risks of opioid pain medications. Even when taken as directed, opioids can have several side effects including: Tolerance, meaning you might need to take more of a medication for the same pain relief. Nausea, vomiting and/or constipation. Sleepiness, dizziness, dry mouth, confusion, depression or itching. Physical dependence, meaning you have withdrawal symptoms when a medication is stopped, can develop within a few days. KNOW YOUR RESPONSIBILITIES It is important to know exactly how much and how often to take the opioid pain medications you are prescribed. Never take opioids in higher amounts or more often than prescribed. Do not combine opioids with alcohol or other drugs that cause drowsiness, such as benzodiazepines, also known as benzos, including diazepam and alprazolam, muscle relaxants or sleep aids. Never sell or share prescription opioids. This is illegal. Store opioids in a secure place and out of reach of others (including children, family, friends and visitors). The last page of this document has been signed and retained as a CHART COPY. Signatures Patient Education Materials Transurethral Resection of Bladder Tumor General Anesthesia, Adult, Care After Medication Leaflets My discharge plan and instructions have been reviewed and explained to me and I,KAELYN GR understand my current condition and have read and understand these discharge instructions. I have received a written copy of the plan/instructions. If I have questions, I am aware that I should contact my doctor. 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 12-15-2022 History and physical note History and Physical Update I have examined the patient; reviewed the History and Physical and there are no changes to the History and Physical unless noted below. History and Physical 67-year-old male was found to have tumors in the bladder plan to proceed with a transurethral resection of these large tumors patient or stands a risk of the surgery includes bleeding infection injury or perforation of the bladder he also understands that with bladder cancer there is a high risk of recurrence and that even with best efforts he could have more tumors in the future that require other surgery other treatments also there is a small risk of progression of cancer. After reviewing everything with the patient he signed the consent form and we are going to proceed with the resection of the bladder tumors Digitally Signed by HUMBERTO ZIMMERMAN MD on 12/15/2022 02:[address] [facility] 12-15-2022 Anesthesiology Consult note Patient: KAELYN GR Age: 67 years Sex: Male : 1955 Associated Diagnoses: None Author: RODNEY MANLEY APRN-[employer] Assessment Postanesthesia assessment Vitals: Vital signs from flowsheet : Vital Signs 12/15/2022 13:35 EST Heart Rate Monitored 83 bpm bpm Respiratory Rate - Anes 12 br/min br/min 12/15/2022 13:30 EST Heart Rate Monitored 66 bpm bpm Respiratory Rate - Anes 23 br/min br/min Systolic Blood Pressure Non-Invasive 134 mmHg mmHg Diastolic Blood Pressure Non-Invasive 74 mmHg mmHg 12/15/2022 13:25 EST Heart Rate Monitored 60 bpm bpm Respiratory Rate - Anes 31 br/min br/min Systolic Blood Pressure Non-Invasive 131 mmHg mmHg Diastolic Blood Pressure Non-Invasive 77 mmHg mmHg 12/15/2022 13:20 EST Heart Rate Monitored 58 bpm bpm Respiratory Rate - Anes 10 br/min br/min Systolic Blood Pressure Non-Invasive 114 mmHg mmHg Diastolic Blood Pressure Non-Invasive 69 mmHg mmHg 12/15/2022 13:15 EST Temperature (Route Not Specified) 36 DegC DegC Heart Rate Monitored 61 bpm bpm Respiratory Rate - Anes 10 br/min br/min Systolic Blood Pressure Non-Invasive 130 mmHg mmHg Diastolic Blood Pressure Non-Invasive 75 mmHg mmHg 12/15/2022 13:10 EST Heart Rate Monitored 55 bpm bpm Respiratory Rate - Anes 10 br/min br/min Systolic Blood Pressure Non-Invasive 101 mmHg mmHg Diastolic Blood Pressure Non-Invasive 60 mmHg mmHg 12/15/2022 13:05 EST Heart Rate Monitored 61 bpm bpm Respiratory Rate - Anes 10 br/min br/min Systolic Blood Pressure Non-Invasive 105 mmHg mmHg Diastolic Blood Pressure Non-Invasive 64 mmHg mmHg 12/15/2022 13:00 EST Temperature (Route Not Specified) 36 DegC DegC Heart Rate Monitored 57 bpm bpm Respiratory Rate - Anes 10 br/min br/min Systolic Blood Pressure Non-Invasive 115 mmHg mmHg Diastolic Blood Pressure Non-Invasive 65 mmHg mmHg 12/15/2022 12:55 EST Heart Rate Monitored 62 bpm bpm Respiratory Rate - Anes 17 br/min br/min Systolic Blood Pressure Non-Invasive 127 mmHg mmHg Diastolic Blood Pressure Non-Invasive 73 mmHg mmHg 12/15/2022 12:52 EST Systolic Blood Pressure Non-Invasive 109 mmHg mmHg Diastolic Blood Pressure Non-Invasive 66 mmHg mmHg 12/15/2022 12:50 EST Heart Rate Monitored 57 bpm bpm Respiratory Rate - Anes 19 br/min br/min Systolic Blood Pressure Non-Invasive 110 mmHg mmHg Diastolic Blood Pressure Non-Invasive 63 mmHg mmHg 12/15/2022 12:45 EST Temperature (Route Not Specified) 36 DegC DegC Heart Rate Monitored 65 bpm bpm Respiratory Rate - Anes 22 br/min br/min Systolic Blood Pressure Non-Invasive 130 mmHg mmHg Diastolic Blood Pressure Non-Invasive 70 mmHg mmHg 12/15/2022 12:40 EST Heart Rate Monitored 71 bpm bpm Respiratory Rate - Anes 0 br/min br/min Systolic Blood Pressure Non-Invasive 82 mmHg mmHg Diastolic Blood Pressure Non-Invasive 52 mmHg mmHg 12/15/2022 12:38 EST Systolic Blood Pressure Non-Invasive 125 mmHg mmHg Diastolic Blood Pressure Non-Invasive 63 mmHg mmHg 12/15/2022 12:02 EST Temperature Temporal Artery 36.5 DegC Peripheral Pulse Rate 71 bpm Respiratory Rate 14 br/min Systolic Blood Pressure Non-Invasive 131 mmHg Diastolic Blood Pressure Non-Invasive 70 mmHg , Measurements from flowsheet . Mental status: alert & oriented x 4. Respiratory function: respirations are non-labored. Respiratory support: none. CV function: Normal rate. Cardiovascular support: none. Pain. Nausea status: see nursing documentation of medications. Postoperative hydration status: within normal limits. Digitally Signed by RODNEY MANLEY on 12/15/2022 01:[address] [facility] 12-15-2022 Anesthesiology Consult note Patient: KAELYN GR Age: 67 years Sex: Male : 1955 Associated Diagnoses: None Author: RODNEY MANLEY Preoperative Information Time of last food or liquid consumption: 12/15/2022 00:00:00 Anesthesia history Patient's history: negative. Family's history: negative. Health Status Allergies: Allergic Reactions (Selected) NKA, Allergies (1) ActiveReaction NKANone Documented Current medications: (Selected) Inpatient Medications Ordered Kefzol: 1 gram(s), 200 mL/hr, IV Piggyback, PREOP pharm NS 1000 mL: 75 mL/hr, Intravenous, Stop: 12/16/22 17:59:00 EST Documented Medications Documented Farxiga 10 mg oral tablet: 10 mg, Oral, qAM, 0 Refill(s) Multivitamin: 1 tab(s), Oral, Daily, 0 Refill(s) Trulicity Pen 1.5 mg/0.5 mL subcutaneous solution: 1.5 mg, 0.5 mL, Subcutaneous, qWeek, 0 Refill(s) Vitamin C 500 mg oral tablet: 500 mg, 1 tab(s), Oral, qDay, 30 tab(s), 0 Refill(s) aspirin 81 mg oral delayed release tablet: 81 mg, 1 tab(s), Oral, Daily, 0 Refill(s) atorvastatin 80 mg oral tablet: 80 mg, 1 tab(s), Oral, Daily, 0 Refill(s) citalopram 20 mg oral tablet: 20 mg, 1 tab(s), Oral, Daily, 0 Refill(s) fenofibrate micronized 200 mg oral capsule: 200 mg, 1 cap(s), Oral, qDay, 30 cap(s), 0 Refill(s), Medications (2) Active Scheduled: (1) ceFAZolin 1 gram(s), IV Piggyback, PREOP pharm Continuous: (1) NS (0.9% nacl) 1000 mL 1,000 mL, Intravenous, 75 mL/hr PRN: (0) Problem list: Active Problems (5) Anxiety Diabetes mellitus GERD (gastroesophageal reflux disease) Lumbar herniated disc OA (osteoarthritis) Histories Past Medical History: No active or resolved past medical history items have been selected or recorded. Family History: Entire family history is negative. Procedure history: Arthroscopy of shoulder ([id number]). Comments: 12/12/2022 8:22 Cele Paul RN Right Elbow ([id number]). Comments: 12/12/2022 8:22 Cele Paul RN Right Colonoscopy ([id number]). EGD - Esophagogastroduodenoscopy ([id number]). 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 Physical Examination Vital Signs 12/15/2022 12:50 EST Heart Rate Monitored 57 bpm bpm Respiratory Rate - Anes 19 br/min br/min Systolic Blood Pressure Non-Invasive 110 mmHg mmHg Diastolic Blood Pressure Non-Invasive 63 mmHg mmHg 12/15/2022 12:45 EST Temperature (Route Not Specified) 36 DegC DegC Heart Rate Monitored 65 bpm bpm Respiratory Rate - Anes 22 br/min br/min Systolic Blood Pressure Non-Invasive 130 mmHg mmHg Diastolic Blood Pressure Non-Invasive 70 mmHg mmHg 12/15/2022 12:40 EST Heart Rate Monitored 71 bpm bpm Respiratory Rate - Anes 0 br/min br/min Systolic Blood Pressure Non-Invasive 82 mmHg mmHg Diastolic Blood Pressure Non-Invasive 52 mmHg mmHg 12/15/2022 12:38 EST Systolic Blood Pressure Non-Invasive 125 mmHg mmHg Diastolic Blood Pressure Non-Invasive 63 mmHg mmHg 12/15/2022 12:02 EST Temperature Temporal Artery 36.5 DegC Peripheral Pulse Rate 71 bpm Respiratory Rate 14 br/min Systolic Blood Pressure Non-Invasive 131 mmHg Diastolic Blood Pressure Non-Invasive 70 mmHg Vital Signs(last 24 hrs) Last Charted Heart Rate [id number] bpm (DEC 15 12:50) Resp Rate 14 br/min (DEC 15 12:02) [id number] mmHg (DEC 15 12:50) DBP63 mmHg (DEC 15 12:50) Measurements from flowsheet : Measurements 12/15/2022 12:02 EST Height 167.6 cm Admission Weight 72.7 kg Proctor Body Weight 63.76 kg Admission Body Mass Index 25.88 m2 Pain assessment: Pain Assessment 12/15/2022 12:02 EST Primary Pain Intensity 0 Pain Scale Type 0-10 Pain scale . General: Alert and oriented, Moderate distress. Airway: Normal temporomandibular joint mobility, Normal mouth. Mallampati classification: III (soft palate, base of uvula visible). Dentition Evaluation: Denies loose/chipped teeth. Respiratory: Respirations are non-labored. Cardiovascular: Normal rate. Neurologic: Alert, Oriented. Review / Management Results review: No qualifying data available , Lab results 12/15/2022 12:57 EST SN - Irl - Irrigant Sterile Water 12/15/2022 12:57 EST SN - CAt - Case Attendee SN - CAt - Case Attendee SN - CAt - Role Performed Electronic Gluing Machine Operator Relief 12/15/2022 12:57 EST SN - Proc - Anesthesia Type General SN - Proc - Actual Procedure TRANSURETHERAL RESECTION BLADDER TUMOR, LARGE WITH BIPOLAR OLYMPUS 12/15/2022 12:56 EST SN - PP - Body Position Lithotomy Standard Intra-op 12/15/2022 12:56 EST SN - PTCare - Anti-thromboembolism Gudelia Sequential Compression Device (SCD) 12/15/2022 12:56 EST SN - Assess - LOC Alert, Awake SN - Assess - Orientation Oriented X 3 SN - Assess - Post-op Skin Integrity Intact/Dry 12/15/2022 12:55 EST SN - GCD - ASA Class 3 SN - GCD - Post-operative Diagnosis NEOPLASM OF UNCERTAIN BEHAVIOR, BLADDER SN - GCD - Case Level Level 3 12/15/2022 12:55 EST SN - SP - Prep Agents Betadine Solution SN - SP - HR - Method N/A 12/15/2022 12:53 EST SN - CAt - Case Attendee SN - CAt - Case Attendee SN - CAt - Role Performed Isolation Washer 12/15/2022 12:50 EST SN - CTm - Surgery Start 12/15/2022 12:49 12/15/2022 12:50 EST Heart Rate Monitored 57 bpm bpm Respiratory Rate - Anes 19 br/min br/min Systolic Blood Pressure Non-Invasive 110 mmHg mmHg Diastolic Blood Pressure Non-Invasive 63 mmHg mmHg Oxygen Saturation 100 % % 12/15/2022 12:49 EST SN - CTm - Surgery Start Surgery Start 12/15/2022 12:45 EST Temperature (Route Not Specified) 36 DegC DegC Heart Rate Monitored 65 bpm bpm Respiratory Rate - Anes 22 br/min br/min Systolic Blood Pressure Non-Invasive 130 mmHg mmHg Diastolic Blood Pressure Non-Invasive 70 mmHg mmHg Oxygen Saturation 100 % % 12/15/2022 12:40 EST Heart Rate Monitored 71 bpm bpm Respiratory Rate - Anes 0 br/min br/min Systolic Blood Pressure Non-Invasive 82 mmHg mmHg Diastolic Blood Pressure Non-Invasive 52 mmHg mmHg Oxygen Saturation 100 % % 12/15/2022 12:39 EST SN - CAt - Case Attendee SN - CAt - Case Attendee SN - CAt - Case Attendee SN - CAt - Case Attendee SN - CAt - Role Performed Preschool Education Director 1 12/15/2022 12:39 EST midazolam 1 mg mg 12/15/2022 12:38 EST Systolic Blood Pressure Non-Invasive 125 mmHg mmHg Diastolic Blood Pressure Non-Invasive 63 mmHg mmHg 12/15/2022 12:33 EST SN - CTm - Anesthesia Start Time Anesthesia Start midazolam 1 mg mg 12/15/2022 12:19 EST SN - Preop - CTm Pt in SDS Room 12/15/2022 11:52 SN - Preop - CTm Pt Ready for OR/Proced 12/15/2022 12:19 12/15/2022 12:19 EST SN - CAt - Case Attendee SN - CAt - Case Attendee SN - CAt - Case Attendee SN - CAt - Case Attendee SN - CAt - Case Attendee SN - CAt - Case Attendee SN - CAt - Role Performed Primary Surgeon SN - CAt - Role Performed [employer] SN - CAt - Role Performed Electronic Gluing Machine Operator 1 SN - CAt - Role Performed Scrub 1 12/15/2022 12:17 EST Sodium Chloride 0.9% Begin Bag 1,000 mL mL 12/15/2022 12:16 EST Hand Right 12/15/2022 20 gauge Peripheral IV Activity: Insert new site Peripheral IV Dressing Condition: Clean, Dry, Intact Peripheral IV Dressing Activity: Applied Peripheral IV Line Status/Patency: Flushes easily Peripheral IV Site Condition: No complications Peripheral IV Equipment: Extension set Peripheral IV Number of Attempts: 1 12/15/2022 12:02 EST Height 167.6 cm Admission Weight 72.7 kg Proctor Body Weight 63.76 kg Admission Body Mass Index 25.88 m2 Temperature Temporal Artery 36.5 DegC Peripheral Pulse Rate 71 bpm Respiratory Rate 14 br/min Systolic Blood Pressure Non-Invasive 131 mmHg Diastolic Blood Pressure Non-Invasive 70 mmHg Primary Pain Intensity 0 Pain Scale Type 0-10 Pain scale Heart Rhythm Regular Oxygen Saturation 98 % Abdomen Description Non-distended, Symmetric Abdomen Palpation Non-Tender Bowel Sounds All Quadrants Present Urinary Elimination Voiding, no difficulties Skin Temperature Warm Skin Description Normal for ethnicity Skin Integrity Intact Characteristics of Speech Clear Level of Consciousness Alert Strength All Extremities Strong Tone All Extremities Normal Sensation All Extremities Intact Affect/Behavior Appropriate, Calm, Cooperative Orientation Oriented x 4 Allergies Yes Consent Form Signed Yes Patient Dressed In Hospital gown History & Physical On Chart Yes Belongings At Bedside Glasses, Pants, Shirt, Shoes, Socks, Undergarments Activity Status ADL Awake, Resting NPO Status Maintained Standard Safety ID band on, Call device within reach, Bed in low position, Wheels locked, Upper/Half-Length side-rails up, Phone within reach, personal items within reach, Safety level maintained Patient ID Band on and Verified Yes Implants Verified Yes Pacemaker/AICD Verified Yes Blood Consent Signed Yes Last Fluid Intake 12/15/2022 3:30 Last Food Intake 12/14/2022 18:00 12/15/2022 12:01 EST Infectious Disease Symptoms Patient states no symptoms Safety Brochure Information Reviewed Unable to complete [facility] [facility] [place] Video Viewed No Teaching Evaluation No further teaching needed Admission Note-Nursing Same Day Patient History (Modified) . Assessment and Plan [place] [employer] (ASA) physical status classification: Class III. Anesthetic Preoperative Plan Anesthetic technique: General. Informed consent: signed by patient. Digitally Signed by RODNEY MANLEY on 12/15/2022 01:[address] [facility] Evaluation + Plan note No data available for this section [facility] Evaluation note No assessment information [facility] Work Phone: Evaluation note Diagnosis Meniere's disease of left ear- Primary Meniere's disease, unspecified Bilateral impacted cerumen Impacted cerumen [facility]* Diagnosis Sensorineural hearing loss, bilateral- Primary Other specified hearing loss, unspecified ear Tinnitus, bilateral Unspecified tinnitus Dizziness and giddiness Ear pressure, bilateral documented in this [facility]* Diagnosis Meniere's disease of left ear- Primary Meniere's disease, unspecified Bilateral impacted cerumen Impacted cerumen [facility] Diagnosis Meniere's disease of left ear- Primary Meniere's disease, unspecified Bilateral impacted cerumen Impacted cerumen documented in this [facility]* Diagnosis Meniere's disease of left ear- Primary Meniere's disease, unspecified Asymmetrical sensorineural hearing loss Sensorineural hearing loss, asymmetrical Sensorineural hearing loss (SNHL) of both ears Dizziness Dizziness and giddiness Bilateral impacted cerumen Impacted cerumen Encounter for hearing aid consultation [facility] Asymmetrical sensorineural hearing loss Sensorineural hearing loss, asymmetrical Sensorineural hearing loss (SNHL) of both ears Dizziness Dizziness and giddiness Encounter for hearing aid consultation documented in this encounter [facility] note* Diagnosis Asymmetrical sensorineural hearing loss- Primary Sensorineural hearing loss, asymmetrical Meniere's disease of left ear Meniere's disease, unspecified [facility]ative)No reason for referral information availableWLakeHealth [facility] Work Phone: Reason for visit Narrative* MRI/CT (Routine) - Closed Specialty Diagnoses / Procedures Referred By Contac t Referred To Contact MR IMAGING Diagnoses Asymmetrical sensorineural hearing loss Sensorineural hearing loss (SNHL) of both ears Dizziness Procedures MRI BRAIN WO/W IVCON MRI BRAIN BRAIN STEM W/O W/CONTRAST MATERIAL Faisal Castorena PA-C [address] [facility] [address] [place], [place] [id number] Phone: tel: fax: MR IMAGING [id number] Referral ID Status Reason Start Date Expiration Date V isits Requested Visits Authorized [id number] Closed Auto-Generate d Referral 02/12/2025 03/14/2026 1 1 [facility] Summary Purpose Family History No Family History Records FoundNo Family History Records FoundNo Family History Records FoundNo Family History Records FoundNo Family History Records FoundNo Family History Records FoundNo Family History Records FoundNo Family History Records Found Advance Directives No Advanced Directives Records FoundNo Advanced Directives Records FoundNo Advanced Directives Records FoundNo Advanced Directives Records FoundNo Advanced Directives Records FoundNo Advanced Directives Records FoundNo Advanced Directives Records FoundNo Advanced Directives Records Found Hospital Course Note HNO ID: [id number] Author: Phillip Chi Service: Family Practice Author Type: Physician Type: Discharge Summary Filed: 09/30/2020 7:27 AM Note Text: DISCHARGE SUMMARY PATIENT NAME: Kaelyn Gr Code Status: Not on file Highest Readmission Risk Score: 24 The 30 day readmissions risk score is derived from an internally validated risk model which evaluates patient level characteristics, utilization history, medication orders and lab results up until the day of discharge. Patients with a score of 40 or above are considered highest risk for readmission. Specific patient level drivers will be listed at the bottom of the summary. Admission Information Admission Information ADMIT DATE: 09/24/2020 DISCHARGE DATE: 09/30/2020 MY DOCTORS AND MEDICAL TEAM: My Main Hospital Doctor: Rodney Chi Primary Care Provider: Rodney Chi MD My Medical Team Members: Treatment Team: Attending Provider: Rodney Chi Consulting: Paul Lucas MD MY CONDITION AT DISCHARGE (more content not included)... Chief Complaint and Reason for Visit Chief Complaint HEMATURIA Additional Source Comments (unrecognized sect ion and content) No Status Records FoundNo Status Records FoundNo Status Records FoundNo Status Records FoundNo Status Records FoundNo Status Records FoundNo Status Records FoundNo Status Records Found INFORMATION SOURCE (unrecogn ized section and content) DATE CREATED AUTHOR 04/03/2018 [facility] DATE CREATED AUTHOR AUTHOR'S ORGANIZ ATION 05/06/2020 [facility] DATE CREATED AUTHOR AUTHOR'S ORGANIZ ATION 09/30/2020 [facility] DATE CREATED AUTHOR AUTHOR'S ORGANIZ ATION 12/20/2022 [facility] DATE CREATED AUTHOR AUTHOR'S ORGANIZ ATION 02/17/2025 [facility] DATE CREATED AUTHOR AUTHOR'S ORGANIZ ATION 07/01/2025 [facility] DATE CREATED AUTHOR AUTHOR'S ORGANIZ ATION 08/14/2025 [facility] DATE CREATED AUTHOR AUTHOR'S ORGANIZ ATION 08/15/2025 [facility] Care Teams (unrecognized sec tion and content) Team Status: Active Member Role Status Dates [facility] Family Provider Active Dr. Rodney Chi MD Primary Care Provider Active Team Status: Inactive Member Role Status Dates Dr. Rodney Chi MD Primary Care Provider Active Eva Zamorano NP-Loli Attending Provider Active Team Status: Active Member Role Status Dates Dr. Rodney Chi MD Primary Care Provider Active Dr. Humberto Zimmerman MD Attending Provider, Referr ing Provider Active Smog Technician Relationship Specialty Start Date End Date Rodney Chi MD PCP - General Family Medicine 08/02/16 Smog Technician Relationship Specialty Start Date End Date Rodney Chi MD PCP - General Family Medicine 08/02/16 Smog Technician Relationship Specialty Start Date End Date Rodney Chi MD PCP - General Family Medicine 08/02/16 Smog Technician Relationship Specialty Start Date End Date Rodney Chi MD PCP - General Family Medicine 08/02/16 Smog Technician Relationship Specialty Start Date End Date Rodney Chi MD PCP - General Family Medicine 08/02/16 Smog Technician Relationship Specialty Start Date End Date Rodney Chi MD PCP - General Family Medicine 08/02/16 Smog Technician Relationship Specialty Start Date End Date Rodney Chi MD PCP - General Family Medicine 08/02/16 Team Status: Inactive Member Role Status Dates Dr. Rodney Chi MD Primary Care Provider Active Start: February 26, 2025 End: February 26, 2025 Dr. Humberto Zimmerman MD Attending Provider Active Start: February 26, 2025 End: February 26, 2025 Dr. Humberto Zimmerman MD Referring Provider Active Start: February 26, 2025 End: February 26, 2025 Smog Technician Relationship Specialty Start Date End Date Rodney Chi MD PCP - General Family Medicine 08/02/16 Smog Technician Relationship Specialty Start Date End Date Rodney Chi MD PCP - General Family Medicine 08/02/16 Goals (unrecognized section and content) Goals may be documented in a n alternate section No data available for this sectionGoals may be documented in an alternate section Care Team (unrecognized sect ion and content) Care Team Personnel Name: RODNEY CHI MD Member Role: Primary Care Physician Address: Address: [address] [place] [id number] Care Team Related Persons Name: MONTSERRAT GR Address: Home [address] [place] [address] Source Comments (unrecognize d section and content) In the event this informatio n is protected by the Federal Confidentiality of Alcohol and Drug Abuse Patient Records regulations: The Federal rules restrict any use of the information to criminally investigate or prosecute any alcohol or drug abuse patient.[facility] the event this information is protected by the Federal Confidentiality of Alcohol and Drug Abuse Patient Records regulations: The Federal rules restrict any use of the information to criminally investigate or prosecute any alcohol or drug abuse patient.[facility] Hospital[facility] the event this information is protected by the Federal Confidentiality of Alcohol and Drug Abuse Patient Records regulations: The Federal rules restrict any use of the information to criminally investigate or prosecute any alcohol or drug abuse patient.[facility] Hospital[facility] the event this information is protected by the Federal Confidentiality of Alcohol and Drug Abuse Patient Records regulations: The Federal rules restrict any use of the information to criminally investigate or prosecute any alcohol or drug abuse patient.[facility] Hospital[facility] the event this information is protected by the Federal Confidentiality of Alcohol and Drug Abuse Patient Records regulations: The Federal rules restrict any use of the information to criminally investigate or prosecute any alcohol or drug abuse patient.[facility] Hospital[facility] the event this information is protected by the Federal Confidentiality of Alcohol and Drug Abuse Patient Records regulations: The Federal rules restrict any use of the information to criminally investigate or prosecute any alcohol or drug abuse patient.[facility] Hospital[facility] the event this information is protected by the Federal Confidentiality of Alcohol and Drug Abuse Patient Records regulations: The Federal rules restrict any use of the information to criminally investigate or prosecute any alcohol or drug abuse patient.[facility] Hospital[facility] the event this information is protected by the Federal Confidentiality of Alcohol and Drug Abuse Patient Records regulations: The Federal rules restrict any use of the information to criminally investigate or prosecute any alcohol or drug abuse patient.[facility] HospitalIn the event this information is protected by the Federal Confidentiality of Alcohol and Drug Abuse Patient Records regulations: The Federal rules restrict any use of the information to criminally investigate or prosecute any alcohol or drug abuse patient.[facility] Reason for Visit (unrecogniz ed section and content) Reason Comments Ear Problem NEW.. consult Dr. Josette Chi. Dizziness/imbalance, hearing loss, ringing bilateral ears, audiogram completed. Denies otalgia, otorrhea. Meclizine. Specialty Diagnoses / Procedures Referred By Contac t Referred To Contact Diagnoses Other specified hearing loss, unspecified ear Procedures HEARING TEST/AUDIOGRAM COMPRE AUDIOMETRY THRESHOLD LYNETTEAL Chai Fair MD, PhD [address] [place], [place] [id number] [facility] [address] [place] [id number] Referral ID Status Reason Start Date Expiration Date V isits Requested Visits Authorized [id number] Closed Auto-Generate d Referral 11/21/2023 11/21/2024 1 1 Specialty Diagnoses / Procedures Referred By Contac t Referred To Contact Diagnoses Other specified hearing loss, unspecified ear Procedures HEARING TEST/AUDIOGRAM COMPRE AUDIOMETRY THRESHOLD EVAL SP RECOGNChai Burciaga MD, PhD [address] [place], [place] [id number] [facility] [address] [place] [address] Reason Comments Follow Up EST. Meniere's disea se of left ear TISH 01/31/24 C/o b/l routine ear cleaning, blockage in lt ear. Denies pain/drainage Reason Comments Follow Up Est. Meniere's disea se of left ear TISH 06/03/24. C/o routine ear cleaning, some ringing in both ears, wants to increase dosage of betahistine capsule 8 mg (CPD) Denies pain/drainage. Reason Comments Patient Question Medication question Reason Comments New Patient New. Previous patien t of Dr. Beavers. C/o routine ear cleaning. Denies pain/drainage. Reason Comments Hearing Loss Specialty Diagnoses / Procedures Referred By Contac t Referred To Contact Diagnoses Asymmetrical sensorineural hearing loss Sensorineural hearing loss (SNHL) of both ears Procedures HEARING TEST/AUDIOGRAM COMPRE AUDIOMETRY THRESHOLD EVAL SP RECOGNIJ Faisal Castorena PA-C [address] [facility] [address] [place] [address] Phone: tel: fax: [facility] [place] [address] [place] [address] Referral ID Status Reason Start Date Expiration Date V isits Requested Visits Authorized [id number] Closed Auto-Generate d Referral 02/12/2025 05/13/2025 1 1 FOR RECORDS PERTAINING TO PATIENTS WHO ARE OR HAVE BEEN ENROLLED IN A CHEMICAL DEPENDENCY/SUBSTANCEABUSE PROGRAM, SOME INFORMATION MAY BE OMITTED. This clinical summary was aggregated from multiple sources. Caution should be exercised in using it in the provision of clinical care. This summary normalizes information from multiple sources, and as a consequence, information in this document may materially change the coding, format and clinical context of patient data. In addition, data may be omitted in some cases. CLINICAL DECISIONS SHOULD BE BASED ON THE PRIMARY CLINICAL RECORDS. [employer] provides no warranty or guarantee of the accuracy or completeness of information in this document.
[2025-09-04] MEDS: Lactated Ringers 1,000 ML 15 ML IV (09:46)
--- NOTE | 2025-09-04 09:47 | PCM.PRE.AN2 ---
ASA Classification* ASA Classification ASA Classification: 2 Assessment & Plan Anesthesia* Anesthesia Assessment Anesthesia Assessment: Discussed sedation and/or anesthesia options, risks, benefits, and alternatives with patient/parents/legal guardian/POA. Questions invited. The patient/parents/legal guardian/POA seems to understand and agrees to proceed with anesthesia plan. Reviewed the physical assessment, medical history, allergy history and patient home medications list prior to surgery/procedure/anesthetic and documented any changes. Performed airway and anesthesia risk assessments. 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 When Was Last Pacemaker Check QUESTION #4 FULL TEXT: You/Your Family Experience fever (hyperthermia) with Anesthesia Last Oral Intake Last Oral intake: Last Oral Intake NPO since 00:00 09/04/25 09:36 Meds taken in AM with sips of No 09/04/25 09:36 water? Meds patient instructed to take am of surgery PONV PONV - ore dressing engineer: PONV - ore dressing engineer Female No 08/31/25 13:07 HX of Motion Sickness No 08/31/25 13:07 HX of N/V After Surgery No 08/31/25 13:07 Non-Smoker Yes 08/31/25 13:07 Duration of Surgery greater Yes 08/31/25 13:07 than 60 minutes Number of Risk Factors 2 08/31/25 13:07 PONV Score Moderate Risk 08/31/25 13:07 Height & Weight Height & Weight: Anesthesia: Height & Weight Height 5 ft 6 in 09/04/25 09:36 Weight: 74 kg 09/04/25 09:36 Body Mass Index (BMI) 26.3 09/04/25 09:36 Respiratory Assessment Respiratory Assessment - ore dressing engineer: Respiratory Tract Infection Hx - ore dressing engineer Hx Respiratory Tract Infection No 08/31/25 13:07 STOP Sleep Apnea STOP Sleep Apnea - ore dressing engineer: STOP Sleep Apnea - ore dressing engineer Hx Hypertension No 08/31/25 13:07 Hx Sleep Apnea No 08/31/25 13:07 CPAP BIPAP Do you snore loudly (louder No 08/31/25 13:07 than talking or can be heard Do you often feel tired/ No 08/31/25 13:07 fatigued/ sleepy during daytime? Has anyone observed you stop No 08/31/25 13:07 breathing during sleep? STOP Results Negative 08/31/25 13:07 QUESTION #5 FULL TEXT : Do you snore loudly (louder than talking or can be heard through closed doors)? Tobacco Use History Tobacco Use History - ore dressing engineer: Tobacco Use History - ore dressing engineer Tobacco Use Smoking Status Former smoker 08/31/25 13:07 Hx Tobacco Use No 08/31/25 13:07 Years Smoking Packs Smoked per Day Smoking Cessation Date was No - quit smoking greater 08/31/25 13:07 within the last 15 years than 15 years ago Hx Smoking Cessation Date Hx Smoking Cessation No 08/31/25 13:07 Counseling Hematologic Medial History Hematologic Hx - ore dressing engineer: Hematologic Medical Hx - integrated logistics support manager Hx of Blood Transfusion No 08/31/25 13:07 Hx of Transfusion in last 3 No 08/31/25 13:07 Months Date of Last Transfusion (if within last 3 months) Ever experience any problems No 08/31/25 13:07 with transfusion(s)? Specify any problems Hx of Preganancy in last 3 N/A 08/31/25 13:07 Months Nurse Filling Out Transfusion JZOLLINGE 08/31/25 13:07 & Questions: Date: 08/31/25 08/31/25 13:07 Time: 13:08 08/31/25 13:07 Patient unable to answer at this time (ie. confused, unrespo /Reproduction History /Reproductive History - ore dressing engineer: /Reproductive Hx- ore dressing engineer Hx Now Gestational Age (in weeks): EDC: Hx Hx Para Hx Section SAB Does the father of the baby or his family experience fever w Father of the baby Malignant Hypertension history comment Active Medications Active Medications: Current Medications Generic Name Dose Route Start Last Admin Trade Name Freq PRN Reason Stop Dose Admin Cefazolin Sodium 2 gm/ Sodium 110 mls @ 200 mls/hr 09/04/25 11:45 Chloride IV 09/04/25 12:17 INTRAOP ONE Mitomycin 40 mg/ N/A 40 mls @ 2,400 mls/hr 09/04/25 11:45 INSTILLAT 09/04/25 11:46 X1 ONE Lactated Ringer's 1,000 mls @ 15 mls/hr 09/04/25 09:30 IV .Q48H APRYL PFSH Medical History Loss of hearing Wears glasses Anxiety Insulin dependent diabetes mellitus Arthritis Bladder disease High cholesterol Dietary restriction Heartburn Former smoker Home Medications ?Medication ?Instructions ?Recorded ?Last Taken ?Type ascorbic acid (vitamin C) 500 mg 500 mg PO DAILY 08/31/25 09/03/25 History tablet (C-500) aspirin 81 mg capsule 81 mg PO DAILY 08/31/25 08/31/25 History atorvastatin 80 mg tablet 80 mg PO DAILY 08/31/25 09/03/25 History betahistine 16 mg PO .qd 08/31/25 09/03/25 History citalopram 20 mg tablet (Celexa) 20 mg PO DAILY 08/31/25 09/03/25 History dapagliflozin propanediol 10 mg 10 mg PO DAILY 08/31/25 08/31/25 History tablet (Farxiga) fenofibrate micronized 200 mg 200 mg PO DAILY 08/31/25 09/03/25 History capsule ibuprofen 800 mg tablet 800 mg PO TID PRN PRN fever or pain 08/31/25 09/03/25 History insulin glargine 100 25 unit subcut DAILY 08/31/25 09/03/25 History unit-lixisenatide 33 mcg/mL subcutaneous pen (Soliqua 100/33) melatonin 5 mg capsule 5 mg PO .QD 08/31/25 09/03/25 History multivitamin 1 tab PO DAILY 08/31/25 09/03/25 History pioglitazone 15 mg tablet 15 mg PO DAILY 08/31/25 09/03/25 History zinc 50 mg tablet 50 mg PO DAILY 08/31/25 09/03/25 History Allergy/AdvReac Type Severity Reaction Status Date / Time No Known Allergies Allergy Verified 09/04/25 09:35 Surgical History Hx of shoulder surgery Hx of colonoscopy with polypectomy Social History Smoking Status: Former smoker Review of Systems (Anesthesia) ROS Narrative System reviewed and no additional complaints, except as documented.
[2025-09-04] MEDS: Midazolam 2 MG/2 ML Syringe IV (12:38)
[2025-09-04] MEDS: Cefazolin 1 GM/5 ML Vial 2 GM IV (12:38)
[2025-09-04] MEDS: Lactated Ringers 500 ML IV (12:38)
[2025-09-04] MEDS: Lidocaine 1% (5 ml sdv) 5 ML Vial IV (12:43)
[2025-09-04] MEDS: fentaNYL 100 MCG/2 ML Ampul IV (12:43)
--- NOTE | 2025-09-04 13:03 | PCM.DC ---
Discharge Instructions DC O2, CPAP, BIPAP needs Home O2 Discharge instructions: No Dressing / Incision Discharge Activity: Return to Normal Activity and May Not Drive (while taking narcotic pain medications.) Dressing / Incision Call your doctor if you observe: Fever of 101 or Higher Follow Up Care Please Follow Up With: Humberto Palm MD When: Call [phone] for an appointment Test Results: Test results from this visit will be discussed in further detail at your follow-up appointment, if applicable. Discharge Plan Admission Primary Reason for Your Visit: turbt Attending Provider: Humberto Palm Primary Care Provider: Rodney Ley Instructions Print Language: Georgian Discharge Orders/Prescriptions Prescriptions: New ciprofloxacin HCl [Cipro] 500 mg tablet 500 mg PO BID Qty: 6 0RF Continued aspirin 81 mg capsule 81 mg PO DAILY pioglitazone 15 mg tablet 15 mg PO DAILY atorvastatin 80 mg tablet 80 mg PO DAILY ibuprofen 800 mg tablet 800 mg PO TID PRN PRN (Reason: fever or pain) fenofibrate micronized 200 mg capsule 200 mg PO DAILY dapagliflozin propanediol [Farxiga] 10 mg tablet 10 mg PO DAILY citalopram [Celexa] 20 mg tablet 20 mg PO DAILY melatonin 5 mg capsule 5 mg PO .QD multivitamin Tablet 1 tab PO DAILY ascorbic acid (vitamin C) [C-500] 500 mg tablet 500 mg PO DAILY zinc 50 mg tablet 50 mg PO DAILY Soliqua 100/33 100 unit-33 mcg/mL insulin pen 25 unit subcut DAILY betahistine 16 mg PO .qd Referrals / Follow Up: Rodney Ley MD [Primary Care Provider, Family Practice] Disposition Disposition (needs filled in before D/C Order can be placed): Home, Self Care
--- NOTE | 2025-09-04 13:03 | PCM.OPRPT ---
Operative Report (Standard) Operative Information Date of Procedure: 09/04/25 Pre-Operative Diagnosis: Small superficial bladder tumor Post-Operative Diagnosis: The same Surgery/Procedure Performed: Transurethral resection of bladder tumor and instillation Mitomycin-C career development counselor: No Type of Anesthesia: General RN Documented Start/Stop Times: Operation Date: 09/04/25 11:45 Case Time Into Pre-Op 09/04/25 09:25 Out of Pre-Op 09/04/25 12:37 Anesthesia Start 09/04/25 12:38 Into Room 09/04/25 12:38 Procedure Start 09/04/25 12:52 Procedure End 09/04/25 13:01 Procedure Start Time: 12:52 Procedure Stop Time: 13:04 Select all DRAINS/GRAFTS/IMPLANTS that apply: Drains Drain details: 18 [place] Estimated Blood Loss: 0 Specimen collected: No Description of surgery: Patient was taken to the operating room after induction of anesthesia he was placed in dorsolithotomy position within the bladder with a 24 Canadian 9 continuous-flow monopolar Olympus resectoscope inspection of the bladder was done with 30 degree lens and we used the bluelight cystoscopy to assist with identification of the tumor tumor was then identified in the dome of the bladder decided not to try to do resection since to be very dangerous perforation so just cauterized the tumor completely did not get a specimen it was a small tumor about 1 cm in size. I then placed a catheter in the bladder instillation of Mitomycin-C post resection dose taken back to the PACU in stable condition Surgical Findings: Tumor high up in the dome cauterized instillation of Mitomycin-C given no specimen Complications Complications: No Admit VTE Documentation VTE Present on Admission: No VTE Mechan Device Prophylaxis: SCD's VTE Pharm Prophylaxis ordered?: No
--- NOTE | 2025-09-04 13:15 | PCM.POST.ANE ---
Anesthesia: Postop Eval I Current Vital Signs Temperature: 98.0 F Pulse Rate: 75 Blood Pressure: 134/81 Respiratory Rate: 20 Pulse Ox: 98 Oxygen Delivery Method: Room Air Assessment Airway patent: Yes Spontaneous unlabored respirations: Yes Mental status: Awake and Calm nausea: No Vomiting: No Anesthesia Complication: No Fluid Hydration Crystalloid volume administer (ml): 500 Total IV fluid infused: 500 Progress Note Anesthesia document: Postop Eval 1 completed: Yes
--- NOTE | 2025-09-04 13:23 | POSTOPAN2_ITS ---
Anesthesia Postop Eval I Sum Postop Eval Completion status Anesthesia document: Postop Eval 1 completed: Yes Anesthesia Postop Eval I Summary Anesthesia Postop Eval I Summary: Anesthesia Postop Eval I: Assessment Summary Airway patent Yes 09/04/25 13:16 [email or web address] Spontaneous unlabored Yes 09/04/25 13:16 [email or web address] respirations Mental status Awake,Calm 09/04/25 13:16 [email or web address] nausea No 09/04/25 13:16 [email or web address] Vomiting No 09/04/25 13:16 [email or web address] Anesthesia Postop Eval I: Fluid Summary Crystalloid volume administer 500 09/04/25 13:16 [email or web address] (ml) Colloids volume administered ( ml) Blood Product volume administered (ml) Total IV fluid infused 500 09/04/25 13:16 [email or web address] Anesthesia Postop Eval I: Summary Notes Anesthesia Complication No 09/04/25 13:16 [email or web address] Anesthesia Complication Comment: Post-operative progress note Anesthesia: Postop Eval II Evaluation Mental status: Awake Pain Level: 1 nausea: No Vomiting: No
--- NOTE | 2025-09-04 13:23 | PCM.POSTANE2 ---
Anesthesia Postop Eval I Sum Postop Eval Completion status Anesthesia document: Postop Eval 1 completed: Yes Anesthesia Postop Eval I Summary Anesthesia Postop Eval I Summary: Anesthesia Postop Eval I: Assessment Summary Airway patent Yes 09/04/25 13:16 [email or web address] Spontaneous unlabored Yes 09/04/25 13:16 [email or web address] respirations Mental status Awake,Calm 09/04/25 13:16 [email or web address] nausea No 09/04/25 13:16 [email or web address] [email or web address] Vomiting No 09/04/25 13:16 [email or web address] Anesthesia Postop Eval I: Fluid Summary Crystalloid volume administer 500 09/04/25 13:16 [email or web address] (ml) Colloids volume administered ( ml) Blood Product volume administered (ml) Total IV fluid infused 500 09/04/25 13:16 [email or web address] Anesthesia Postop Eval I: Summary Notes Anesthesia Complication No 09/04/25 13:16 [email or web address] Anesthesia Complication Comment: Post-operative progress note Anesthesia: Postop Eval II Evaluation Mental status: Awake Pain Level: 1 nausea: No Vomiting: No
--- NOTE | 2025-09-04 13:53 | SUR.PHASEI ---
Drained Mitomycin from catheter. merida catheter discontinued
== END 2025-09-04 14:33 | disposition home or self-care (01) ==
LOC: SDC 09:16 → AC 09:17
PROVIDERS: PCP Family Medicine; Referring Provider Urology; Visit Provider Urology
PROC: 0T5B8ZZ Destruction of Bladder, Via Natural or Artificial Opening Endoscopic (ICD-10-PCS; CPT 51720; principal; 2025-09-04 11:30)
DX: C67.2 Malignant neoplasm of lateral wall of bladder (principal); Z79.4 Long term (current) use of insulin; Z79.899 Other long term (current) drug therapy; Z79.82 Long term (current) use of aspirin
CPT/HCPCS: 52234; 00912; 82962; J9280; J2405